=== PATIENT | male | born 1935 | race Caucasian/White ===

== ENCOUNTER 2017-03-28 15:55 | Inpatient (IN) ==
[2017-03-28] MEDS ORDERED: 0.9 % Sodium Chloride 1,000 ML IVC ONE (16:07)
--- NOTE | 2017-03-28 16:08 | Emergency Department Note ---
Disposition Clinical Impression: Ataxia, Gait abnormality, Near syncope, Adenocarcinoma of left lung Disposition: Admitted As Inpatient Condition: Fair Referrals: Fan Clancy DO [Primary Care Provider] - Forms: ED Satisfaction Letter Time of Disposition: 19:12 Weakness HPI - General Chief complaint: ED Weakness Stated complaint: Generalized weakness Time Seen by Provider: 03/28/17 16:06 Source: patient, EMS Mode of arrival: ambulatory Limitations: no limitations Nursing Notes Reviewed: Yes Vital Signs Reviewed: Yes - History of Present Illness HPI Narrative: 81-year-old male history of stroke, presents with generalized weakness states that he is having gait difficulty and had an episode of near-syncope where he was stumbling and fell down to the side was called by his grandson did not hit his head or lose consciousness. This happened after sabianist. The patient was weak and unable to ambulate. Patient felt no weakness bilaterally, he states that he has been feeling worse for last couple of days. He has had some productive cough lately, he denies melena or hematochezia. The patient states she has been having worsening shortness of breath and cough and congestion. Patient states that he is not sure if he lost balance, but he is fallen several times lately he denies any injury to his head. Patient denies chest pain currently denies abdominal pain. Pt Subjective Complaint: generalized weakness/fatigue Migration: none Pain Severity: none Pain Scale: 0 Improves with: none Associated symptoms: Reports: confusion. Denies: dark stools, diaphoresis, easy bruising, loss of appetite - Related Data Home Medications Medication Instructions Recorded Confirmed Finasteride [Proscar] 5 mg PO DAILY 01/28/15 01/19/17 Lisinopril [Zestril] 40 mg PO DAILY 01/28/15 01/19/17 Methotrexate [Otrexup] 15 mg PO QWEEK 01/28/15 01/19/17 Omeprazole [PriLOSEC] 20 mg PO DAILY 01/28/15 01/19/17 Simvastatin [Zocor] 20 mg PO HS 01/28/15 01/19/17 OxyCODONE/APAP 5/325 [Percocet 1 each PO Q8HR PRN 06/10/16 01/19/17 5/325 MG] Warfarin [Coumadin] 5 mg PO DAILY 06/10/16 01/19/17 Furosemide [Lasix] 20 mg PO DAILY 01/19/17 01/19/17 Previous Rx's Medication Instructions Recorded Ascorbic Acid [Vitamin C] 500 mg PO DAILY #30 tablet 01/29/15 Cefdinir [Omnicef] 600 mg PO DAILY #20 capsule 01/27/17 predniSONE [PredniSONE] 40 mg PO DAILY #10 tablet 01/27/17 Allergies Allergy/AdvReac Type Severity Reaction Status Date / Time No Known Allergies Allergy Verified 01/27/17 10:49 All systems ED: reviewed and negative except as stated. Review of Systems: As Per HPI Constitutional: Denies: fever, chills Eyes: Denies: eye pain ENT ED: Denies: ear pain Cardiovascular: Denies: chest pain Respiratory: Reports: as per HPI, cough, dyspnea Gastrointestinal: Denies: abdominal pain, nausea Genitourinary: Denies: urgency Musculoskeletal: Denies: back pain Integumentary: Denies: rash Neurological: Denies: headache, weakness Psychiatric: Denies: anxiety Endocrine: Denies: fatigue Hematological/Lymphatic: Denies: easy bleeding Past Medical History - Past Medical History Attestation: Yes The following information was validated with the patient. Source: patient Medical history: Reports: arthritis, asthma, atrial fibrillation, cancer, CVA, GERD, hyperlipidemia, hypertension, other Surgical history: Reports: cancer surgery, cataract, other Psychiatric history: Reports: no psych history - Social History Smoking Status: Former smoker Smokeless Tobacco Status: No Alcohol use: Reports: none Drug use: Reports: none Physical Exam - General Limitations: no limitations General appearance: alert, in no apparent distress - Head Head exam: atraumatic - Eye Eye exam: Present: normal appearance - ENT ENT exam: normal exam - Neck Neck exam: Present: normal inspection - Chest Chest inspection: Present: normal inspection, symmetric chest wall rise - Respiratory Respiratory exam: Present: normal lung sounds bilaterally - Cardiovascular Cardiovascular exam: Present: regular rate, normal rhythm - Abdominal Exam Abdominal exam: Present: soft, Non-Tender, tenderness - Extremities Exam Extremities exam: Present: normal inspection, full ROM - Neurological Exam Neurological exam: Present: alert, oriented X3, CN II-XII intact - Expanded Neurological Exam Patient oriented to: Present: person, place, time Speech: Present: fluid speech Cerebellar function: finger to nose: Normal Cerebellar function: ataxic gait Motor strength - LUE: 5/5 Motor strength - RUE: 5/5 Motor strength - LLE: 5/5 Motor strength - RLE: 5/5 Sensory exam upper extremity: light touch: Normal Coma Scale Eye Opening: Spontaneous Coma Scale Motor Response: Obeys Commands Coma Scale Verbal Response: Oriented Coma Scale Total: 15 - Psychiatric Psychiatric exam: Present: normal affect Course Course Narrative: 81-year-old male with that appears have some gait ataxia, disequilibrium, his NIH score is 0, he has no focal lateralizing neurologic deficits. Does have a history of CVA therefore we will check CBC BMP CT had chest x-ray urinalysis, he also has a history of lung cancer therefore low threshold for scanning his head. Also patient likely will need to be admitted. - Reevaluation(s) Reevaluation #1: Admitted the patient to Dr.Idzakovich HERRMANN concern for possible early pneumonia, also patient may need an MRI to evaluate for cerebral infarction, unknown last well, patient with gait instability, unable to ambulate and road test, plan for admission MRI PTOT, treated with ceftriaxone and azithromycin, admitted to medicine service. Time: 19:11 Vital Signs Temperature 98.7 F 03/28/17 15:56 Pulse Rate 109 03/28/17 15:56 Respiratory Rate 18 03/28/17 15:56 Blood Pressure 167/134 03/28/17 15:56 O2 Sat by Pulse Oximetry 96 03/28/17 15:56 Temperature 98.7 F 03/28/17 15:56 Pulse Rate 109 03/28/17 15:56 Respiratory Rate 18 03/28/17 15:56 Blood Pressure 167/134 03/28/17 15:56 O2 Sat by Pulse Oximetry 95 03/28/17 16:10 Oxygen Delivery Oxygen Delivery Room Air Weakness - Differential Diagnosis Differential Diagnosis: Likely: acute myocardial infarction, anemia, hypoglycemia, rhabdomyolysis, sepsis/infection, dehydration, medication effect, thyroid/endocrine disorder - Medical Records Medical records reviewed: Yes I reviewed the patient's medical records. - Lab Data Lab results reviewed: Yes I reviewed the patient's lab results. Result diagrams: 03/28/17 18:11 03/28/17 18:11 Lab Results 03/28/17 03/28/17 03/28/17 Range/Units 17:25 18:11 18:11 WBC 11.2 H D (4.3-11.1) K/mcL RBC 3.91 L (4.19-5.50) M/mcL Hgb 11.0 L (12.9-16.9) g/dL Hct 35.6 L (37.5-50.1) % MCV 91.0 (83.0-100.0) fL MCH 28.1 (28.0-33.3) pg MCHC 30.9 L (31.6-35.5) g/dL RDW 15.6 H (11.5-14.5) % Plt Count 239 (140-400) K/mcL MPV 8.6 L (9.4-12.4) fL Immature Gran % 0.5 (0-4) % Seg Neutrophils % 80.6 % Lymphocytes % 5.3 % Monocytes % 12.6 % Eosinophils % 0.8 % Basophils % 0.2 % Neutrophils # 9.0 H (1.6-8.9) K/mcL Lymphocytes # 0.6 (0.6-4.6) K/mcL Monocytes # 1.4 H (0.0-1.3) K/mcL Eosinophils # 0.1 (0.0-0.6) K/mcL Basophils # 0.0 (0.0-0.2) K/mcL Sodium 137 (136-145) mEq/L Potassium 4.0 (3.5-5.1) mEq/L Chloride 105 (98-107) mEq/L Carbon Dioxide 27 (23-29) mEq/L BUN 19 (8-23) mg/dL Creatinine 0.88 (0.70-1.30) mg/dL Est GFR ( Amer) > 60 (> 60) Est GFR (Non-Af Amer) > 60 (> 60) BUN/Creatinine Ratio 22 (6-26) Glucose 125 H (70-105) mg/dL Calculated Osmolality 288 (280-300) Lactic Acid (0.5-2.2) mmol/L Calcium 9.0 (8.6-10.3) mg/dL Phosphorus 2.2 L (2.7-4.5) mg/dL Magnesium 1.9 (1.6-2.6) mg/dL Total Bilirubin 0.6 (0.3-1.0) mg/dL AST 17 (13-39) Units/L ALT 20 (7-52) Units/L Alkaline Phosphatase 42 (34-104) Units/L Serum Total Protein 6.2 L (6.4-8.9) g/dL Albumin 3.8 (3.5-5.7) g/dL Globulin 2.4 (2.4-3.5) g/dL Albumin/Globulin Ratio 1.6 (1.1-2.2) TSH 0.455 (0.340-5.600) mcIU/mL Urine Color Yellow (Yellow) Urine Clarity Clear (Clear) Urine pH 7.0 (5.0-8.0) pH Units Ur Specific [place] 1.018 (1.010-1.025) Urine Protein Trace (Neg-Trace) mg/dL Urine Glucose (UA) Normal (Normal) mg/dL Urine Ketones Negative (Negative) mg/dL Urine Blood Negative (Negative) Urine Nitrite Negative (Negative) Urine Bilirubin Negative (Negative) Urine Urobilinogen Normal (Normal) mg/dL Ur Leukocyte Esterase Negative (Negative) Urine Microscopic RBC 0-3 (0-3) per hpf Urine Microscopic WBC 0-3 (0-3) per hpf Ur Squamous Epith Cells Moderate H (None-Few) per lpf Urine Bacteria None Seen (None-Few) per hpf Hyaline Casts None Seen (None-Few) per lpf Ur Culture Indicated? NO (NO) 03/28/17 Range/Units 18:11 WBC (4.3-11.1) K/mcL RBC (4.19-5.50) M/mcL Hgb (12.9-16.9) g/dL Hct (37.5-50.1) % MCV (83.0-100.0) fL MCH (28.0-33.3) pg MCHC (31.6-35.5) g/dL RDW (11.5-14.5) % Plt Count (140-400) K/mcL MPV (9.4-12.4) fL Immature Gran % (0-4) % Seg Neutrophils % % Lymphocytes % % Monocytes % % Eosinophils % % Basophils % % Neutrophils # (1.6-8.9) K/mcL Lymphocytes # (0.6-4.6) K/mcL Monocytes # (0.0-1.3) K/mcL Eosinophils # (0.0-0.6) K/mcL Basophils # (0.0-0.2) K/mcL Sodium (136-145) mEq/L Potassium (3.5-5.1) mEq/L Chloride (98-107) mEq/L Carbon Dioxide (23-29) mEq/L BUN (8-23) mg/dL Creatinine (0.70-1.30) mg/dL Est GFR ( Amer) (> 60) Est GFR (Non-Af Amer) (> 60) BUN/Creatinine Ratio (6-26) Glucose (70-105) mg/dL Calculated Osmolality (280-300) Lactic Acid 1.2 (0.5-2.2) mmol/L Calcium (8.6-10.3) mg/dL Phosphorus (2.7-4.5) mg/dL Magnesium (1.6-2.6) mg/dL Total Bilirubin (0.3-1.0) mg/dL AST (13-39) Units/L ALT (7-52) Units/L Alkaline Phosphatase (34-104) Units/L Serum Total Protein (6.4-8.9) g/dL Albumin (3.5-5.7) g/dL Globulin (2.4-3.5) g/dL Albumin/Globulin Ratio (1.1-2.2) TSH (0.340-5.600) mcIU/mL Urine Color (Yellow) Urine Clarity (Clear) Urine pH (5.0-8.0) pH Units Ur Specific [place] (1.010-1.025) Urine Protein (Neg-Trace) mg/dL Urine Glucose (UA) (Normal) mg/dL Urine Ketones (Negative) mg/dL Urine Blood (Negative) Urine Nitrite (Negative) Urine Bilirubin (Negative) Urine Urobilinogen (Normal) mg/dL Ur Leukocyte Esterase (Negative) Urine Microscopic RBC (0-3) per hpf Urine Microscopic WBC (0-3) per hpf Ur Squamous Epith Cells (None-Few) per lpf Urine Bacteria (None-Few) per hpf Hyaline Casts (None-Few) per lpf Ur Culture Indicated? (NO) - Radiology Data Radiology results reviewed: Yes I reviewed the patient's radiology results. Chest X-Ray 03/28/17 16:07 IMPRESSION: 1. Airspace opacities in the mid to basilar left lower lobe, potentially neoplasia, pneumonia, and/or atelectasis. 2. Apparent increase in trace to small left pleural effusion. 3. Pulmonary vascular congestion and mild cardiomegaly. D/ / Felix Miguel MD / Felix Miguel MD Interpreting Provider: Felix Miguel MD Head CT 03/28/17 16:07 IMPRESSION: 1. No acute intracranial abnormality. 2. Multiple foci of encephalomalacia within the left cerebral hemisphere, most compatible with a previous chronic infarct. 3. Chronic lacunar infarcts bilaterally. Chronic small vessel ischemic white matter disease. 4. Paranasal sinus disease as detailed above. D/ / 03/28/2017 17:10:56 Aron Camacho MD / earnold Interpreting Provider: Aron Camacho MD - EKG Data EKG attestation: Yes I reviewed and interpreted this EKG. EKG shows normal: sinus rhythm (35 bpm DE 187 QRS [address] segment elevations or depressions.) [place]/QRS: normal
--- NOTE | 2017-03-28 16:50 | Emergency Department Note ---
START Narrative - START START: I examined this patient and my medical decision-making was reviewed with the emergency medicine resident. I agree with the documented findings, disposition and treatment plan as described except to the extent set forth below. Patient seen with emergency medicine resident Dr. DARWIN STUBBS, Please see a copy of his note for details of the H&P, ED evaluation, management and disposition. I have independently evaluated the patient and confirmed appropriate portions of the history and physical exam. Briefly: A 81-year-old male by EMS for unable to stand because he still weak. History of known lung carcinoma treated with radiation therapy and a partial pneumonectomy as for the past month increasing shortness of breath orthopnea worse over the past several days here for further evaluation. Normally is able to use a walker at home and getting around however today weak even stand up. Patient has an appointment tomorrow with his oncologist and his radiation oncologist. Patient's EKG showed sinus rhythm with no acute ischemic changes patient with a chest x-ray screening labs IV fluids and analgesics. Admission anticipated. Disposition pending
[2017-03-28 17:38] LABS: Bilirubin,Urine Negative (Negative); Blood,Urine Negative (Negative); Clarity,Urine Clear (Clear); Color,Urine Yellow (Yellow); Glucose,Urine (UA) Normal (Normal); Ketones,Urine Negative (Negative); Leukocyte Esterase,Urine Negative (Negative); Nitrite,Urine Negative (Negative); Protein,Urine Trace mg/dL (Neg-Trace); Specific Gravity,Urine 1.018 (1.010-1.025); Urobilinogen,Urine Normal (Normal)
[2017-03-28 17:40] LABS: Bacteria,Urine None Seen per hpf (None-Few); Hyaline Casts,Urine None Seen per lpf (None-Few); RBC,Urine 0-3 per hpf (0-3); Squamous Epithelial Cell,Urine Moderate per lpf (None-Few); WBC,Urine 0-3 per hpf (0-3)
[2017-03-28] MEDS ORDERED: *HR* Warfarin 2.5 MG TABLET PO ONE (18:00)
[2017-03-28 18:20] LABS: Basophils % 0.2 %; Eosinophils # 0.1 K/mcL (0.0-0.6); Eosinophils % 0.8 %; Hematocrit 35.6 % (37.5-50.1); Immature Granulocytes % 0.5 % (0-4); Lymphocytes # 0.6 K/mcL (0.6-4.6); Lymphocytes % 5.3 %; Mean Corpuscular HGB Conc 30.9 g/dL (31.6-35.5); Mean Corpuscular Hemoglobin 28.1 pg (28.0-33.3); Mean Platelet Volume 8.6 fL (9.4-12.4); Monocytes # 1.4 K/mcL (0.0-1.3); Monocytes % 12.6 %; Platelet Count 239 K/mcL (140-400); Red Blood Count 3.91 M/mcL (4.19-5.50); Red Cell Distribution Width 15.6 % (11.5-14.5); Segmented Neutrophils % 80.6 %
[2017-03-28 18:38] LABS: Alanine Aminotransferase 20 Units/L (7-52); Albumin 3.8 g/dL (3.5-5.7); Albumin/Globulin Ratio 1.6 (1.1-2.2); Alkaline Phosphatase 42 Units/L (34-104); Aspartate Amino Transferase 17 Units/L (13-39); BUN/Creatinine Ratio 22 (6-26); Bilirubin,Total 0.6 mg/dL (0.3-1.0); Blood Urea Nitrogen 19 mg/dL (8-23); Carbon Dioxide 27 mEq/L (23-29); Chloride 105 mEq/L (98-107); Globulin 2.4 g/dL (2.4-3.5); Glucose 125 mg/dL (70-105); Magnesium 1.9 mg/dL (1.6-2.6); Osmolality,Calculated 288 (280-300); Phosphorous 2.2 mg/dL (2.7-4.5); Sodium 137 mEq/L (136-145); Total Protein 6.2 g/dL (6.4-8.9); eGFR For African Americans > 60 (> 60); eGFR For Non-African Americans > 60 (> 60)
[2017-03-28] MEDS ORDERED: Azithromycin 500 MG in D5% in Water 250 ML IVPB ONE (18:46)
[2017-03-28 18:57] LABS: Thyroid Stimulating Hormone 0.455 mcIU/mL (0.340-5.600)
[2017-03-28] MEDS ORDERED: cefTRIAXone 1,000 MG in Water for inj. (sterile) 20 ML 10 ML IVP ONE (20:00)
[2017-03-28] MEDS ORDERED: Acetaminophen 325 MG TABLET PO PRN (20:52)
[2017-03-28] MEDS ORDERED: Naloxone 0.4 MG/ML INJ IVP PRN (20:52)
[2017-03-28] MEDS ORDERED: Ipratropium/Albuterol Neb 3 ML IH PRN (20:56)
[2017-03-28 21:06] LABS: INR 2.7; Prothrombin Time 29.3 Seconds (9.4-12.1)
--- NOTE | 2017-03-28 21:06 | Internal Med History&Physical ---
Date of Encounter: 03/28/17 Time of Encounter: 19:00 Assessment and Plan (1) CAP (community acquired pneumonia) Current visit: Yes Status: Acute Pt has fever, cough, generalized weakness, CXR shows LLL PNA, consider CAP - Cont abx with azithromycin and rocephin - O2 supportive, Robitussin and duoneb PRN - Closely monitor pt. Qualifiers: Laterality: left Lung location: lower lobe of lung Qualified Code(s): J18.1 - Lobar pneumonia, unspecified organism (2) CHF (congestive heart failure) Current visit: Yes Status: Acute CXR shows CHF. No signs of significant exacerbation. Will cont cardiac diet and lasix, switch lasix to iv during hospitalization.. Qualifiers: Heart failure type: diastolic Heart failure chronicity: chronic Qualified Code(s): I50.32 - Chronic diastolic (congestive) heart failure (3) DVT prophylaxis Current visit: Yes Status: Acute Pt is on coumadin (4) Adenocarcinoma of left lung Current visit: Yes Status: Acute S/P surgery, cont f/u with oncology as outpatient. (5) Afib Current visit: No Status: Chronic NSR now. Cont BB, cont coumadin for AC. Qualifiers: Atrial fibrillation type: paroxysmal Qualified Code(s): I48.0 - Paroxysmal atrial fibrillation Internal Medicine - H&P: HPI Chief complaint: weakness Admitted From: Home Plans for Post Hospital Care: Home History of present illness: Mr. Biswas is a 81 year old male with Hx of lung cancer s/p surgery and radiation, PAF on coumadin, CHF, present to ER for weakness. Pt feels generalized weak today. C/O cough with yellowish sputum. Has low fever with T over 100F. Pt denies specific one side weakness. He had neuropathy and chronic left leg weakness which is not new. Pt denies slurred speech, facial drop, urinary or fecal incontinence. Pt denies SOB, chest pain, nausea, or runny nose. In ER, he was found LLL pneumonia. Pt was admitted for CAP. Past Med Surg Social Fam HX - Past Medical History Medical history: arthritis, asthma, atrial fibrillation, cancer, CVA, GERD, hyperlipidemia, hypertension, other Psychiatric history: no psych history - Past Surgical History Surgical History: cancer surgery, cataract, other - Social History Smoking Status: Former smoker Smokeless Tobacco Status: No Alcohol use: none Drug use: none - Family History Mother Living Status: Internal Medicine - H&P: Meds Finasteride [Proscar] 5 mg PO DAILY 01/28/15 [History] Lisinopril [Zestril] 40 mg PO DAILY 01/28/15 [History] Methotrexate [Otrexup] 15 mg PO QWEEK 01/28/15 [History] Omeprazole [PriLOSEC] 20 mg PO DAILY 01/28/15 [History] Simvastatin [Zocor] 20 mg PO HS 01/28/15 [History] Ascorbic Acid [Vitamin C] 500 mg PO DAILY #30 tablet 01/29/15 [Rx] OxyCODONE/APAP 5/325 [Percocet 5/325 MG] 1 each PO Q8HR PRN 06/10/16 [History] Warfarin [Coumadin] 5 mg PO DAILY 06/10/16 [History] Furosemide [Lasix] 20 mg PO DAILY 01/19/17 [History] Cefdinir [Omnicef] 600 mg PO DAILY #20 capsule 01/27/17 [Rx] predniSONE [PredniSONE] 40 mg PO DAILY #10 tablet 01/27/17 [Rx] 3 Allergy/AdvReac Type Severity Reaction Status Date / Time No Known Allergies Allergy Verified 01/27/17 10:49 All Systems PM: A 10-system review of systems was performed and is negative for pertinent findings except as documented above in the HPI. - Constitutional Vitals: Temp Pulse Resp BP Pulse Ox 98.6 F 88 18 133/73 95 03/28/17 19:30 03/28/17 19:30 03/28/17 19:30 03/28/17 19:30 03/28/17 19:30 General appearance: Present: A&O X 3, no acute distress, answers questions appropriately - Head Head exam: Present: atraumatic, normocephalic - Eye Eye exam: Present: PERRL, conjuntiva pink, sclera anicteric Pupils: Present: PERRL - Neck Neck exam general surgery: Present: supple, trachea midline. Absent: lymphadenopathy - Respiratory Respiratory exam: Present: CTAB, wheezes (trace wheezes on left lung). Absent: accessory muscle use, rales, rhonchi - Cardiovascular Cardiovascular exam: Present: RRR, +S1, +S2. Absent: diastolic murmur, gallop, rubs, systolic murmur - GI/Abdominal GI/Abdominal exam: Present: normal bowel sounds, soft, no peritoneal signs. Absent: distended, tenderness - Extremities Exam Extremities exam: Present: pedal edema (mild pedal edema b/l, Left > Right), warm, radial pulses palpable and symmetrical. Absent: calf tenderness, cyanotic - Neurological Exam Neurological exam: Present: CN II-XII intact, oriented X3, no focal deficits. Absent: pronater drift, facial droop, speech deficit - Skin Skin exam: Present: dry, intact Internal Med - H&P Results - Labs CBC & Chem 7: 03/28/17 18:11 03/28/17 18:11 - EKG Data -: EKG Interpreted by Myself EKG shows normal: sinus rhythm Rate: normal
[2017-03-29 07:00] LABS: Basophils % 0.2 %; Eosinophils # 0.2 K/mcL (0.0-0.6); Eosinophils % 2.4 %; Hematocrit 34.6 % (37.5-50.1); Hemoglobin 10.6 g/dL (12.9-16.9); Immature Granulocytes % 0.7 % (0-4); Lymphocytes # 0.6 K/mcL (0.6-4.6); Lymphocytes % 6.3 %; Mean Corpuscular HGB Conc 30.6 g/dL (31.6-35.5); Mean Corpuscular Hemoglobin 28.3 pg (28.0-33.3); Mean Corpuscular Volume 92.3 fL (83.0-100.0); Mean Platelet Volume 8.9 fL (9.4-12.4); Monocytes # 1.6 K/mcL (0.0-1.3); Monocytes % 17.1 %; Neutrophils # 6.6 K/mcL (1.6-8.9); Nucleated Red Blood Cells 0.3 /100 WBC (0); Platelet Count 238 K/mcL (140-400); Red Blood Count 3.75 M/mcL (4.19-5.50); Red Cell Distribution Width 15.7 % (11.5-14.5); Segmented Neutrophils % 73.3 %
[2017-03-29 07:07] LABS: INR 2.2
[2017-03-29 07:18] LABS: BUN/Creatinine Ratio 20 (6-26); Blood Urea Nitrogen 17 mg/dL (8-23); Carbon Dioxide 28 mEq/L (23-29); Chloride 108 mEq/L (98-107); Glucose 119 mg/dL (70-105); Magnesium 1.9 mg/dL (1.6-2.6); Osmolality,Calculated 295 (280-300); Potassium 4.2 mEq/L (3.5-5.1); Sodium 141 mEq/L (136-145); eGFR For African Americans > 60 (> 60); eGFR For Non-African Americans > 60 (> 60)
[2017-03-29] MEDS ORDERED: Furosemide 20 MG TABLET PO SCH (09:00)
[2017-03-29] MEDS: Furosemide 20 MG/2 ML VIAL IVP SCH (09:04)
[2017-03-29] MEDS: cefTRIAXone 1,000 MG in Water for inj. (sterile) 20 ML 10 ML IVP SCH (09:05)
[2017-03-29] MEDS: Azithromycin 500 MG in D5% in Water 250 ML IVPB SCH (09:07)
--- NOTE | 2017-03-29 13:26 | Oncology Inp Consult Note ---
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 Following that adjuvant chemotherapy with cisplatin and Alimta to cycles and stopped due to toxicity and atrial fibrillation Recurrence in the left lower lobe and largest 3.8 cm was treated with SBRT 08/2016 Currently increase in subcentimeter nodule left lower lobe largest was 1 cm. We will discuss this further at thoracic tumor Board. These are still small. If necessary may consider further treatment. Immunotherapy is always an option but may exacerbate rheumatoid arthritis Rheumatoid arthritis on methotrexate since 2014 Currently admitted with left lung pneumonia. Getting Rocephin and Zithromax - Data of Consult Patient: known to practice within the last 3 years Requesting Physician: María Mays MD Primary Care Provider: Marycruz Freire - Consult Narrative Reason for consult: Recurrent lung adenocarcinoma History of present illness: Mr. Biswas is a 81 year old male admitted with pneumonia or findings. The cough and shortness of breath and yellow sputum. chest x-ray showed on 03/28/2017 haziness left lung could be pneumonia with some vascular prominence but mostly on the left side He is getting Rocephin and Zithromax Chief complaint: Moderately differentiated adenocarcinoma left upper lobe Oncological history The bilateral lower stability weakness left more than right. MRI brain October 2015 showed mild spinal canal stenosis and degenerative disc disease with mild disc protrusion radiation was evaluated by Dr. Snigh and had back injections without much benefit. He is also evaluated by Dr. 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 MRI lumbar spine with and without contrast June 2016 showed L4-L5 disc prolapse with nerve root compression. He is using walker with wheels for ambulation. No upper extremity weakness and coordination normal He was evaluated again by Dr. Wilder on 11/19/2016. Surgical referral discussed but patient denied. The impression was lumbar radiculopathy with weakness and left hamstring consistent with the MRI lumbar spine and EMG on February 2016. His physical exam showed the weakness remain the same from before Oncological history Lung adenocarcinoma postsurgical resection on 05-24-13. 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 Dense consolidation in the left upper lobe of the lung size 8.5 x 3.9 cm by CAT scan in April 2013, followed by PET scan 04/26/2013 which showed the mass size to be 6.2 x 4.2, SUV of 4, slightly greater in the mediastinum. There was no mediastinal lymphadenopathy. No other metastasis. Moderate FDG uptake in the central prostate which was nonspecific, SUV 10.8. He also has a sliding hiatal hernia. CT-guided biopsy 05/15/2013 showed grade 2 pulmonary adenocarcinoma, minimal CK7 , negative for CK 20. TT of 1, strongly positive and Napsin A negative. Next generation sequencing showed KRAS mutation. Otherwise negative. Dr. Duran did left upper lobectomy on 05-24-13. Biopsy of left lower lobe negative. Pleural fluid cytology negative. 7 lymph nodes including left pulmonary ligament lymph node negative. Adjuvant chemotherapy cisplatin and Alimta 2 cycles. Stopped prematurely due to cardiac problems and atrial fibrillation. Recurrence of adenocarcinoma CT chest on 06/09/2016 showed increase in the left lower lobe lung nodule to 3.[address]-guided biopsy confirmed adenocarcinoma 06/17/2016 indicating similar process to her previous cancer His FEV1 is slow around 1.6 L. He was evaluated by Dr. Tc Duran and not a candidate for left pneumonectomy Completed SB RT 5000 cGy on 08/14/2016 CT chest 10/08/2016 showed improvement in the treated nodule. Few other nodule in the left lung are stable the largest was about 1.5 cm. We will continue to watch it. If he has further progression would consider SBRT and/or immune checkpoint inhibitors Further scans CT chest 03/10/2017 showed enlargement of treated left lower lobe nodule most likely radiation-induced. Few of the other subcentimeter lung nodules shown more prominence currently 9 mm. Left lower lobe radiation-induced fibrosis Past Med Surg Social Fam HX - Past Medical History Medical history: arthritis, asthma, atrial fibrillation, cancer, CVA, GERD, hyperlipidemia, hypertension, other Psychiatric history: no psych history - Past Surgical History Surgical History: cancer surgery, cataract, other - Social History Smoking Status: Former smoker Smokeless Tobacco Status: No Alcohol use: none Drug use: none - Family History Mother Living Status: Medications and Allergies Finasteride [Proscar] 5 mg PO DAILY 01/28/15 [History] Lisinopril [Zestril] 40 mg PO DAILY 01/28/15 [History] Methotrexate [Otrexup] 17.5 mg PO QWEEK 01/28/15 [History] Omeprazole [PriLOSEC] 20 mg PO DAILY 01/28/15 [History] Simvastatin [Zocor] 20 mg PO HS 01/28/15 [History] Ascorbic Acid [Vitamin C] 500 mg PO DAILY #30 tablet 01/29/15 [Rx] OxyCODONE/APAP 5/325 [Percocet 5/325 MG] 1 each PO Q8HR PRN 06/10/16 [History] Warfarin [Coumadin] 5 mg PO SUTUTHFR 06/10/16 [History] Furosemide [Lasix] 20 mg PO DAILY 01/19/17 [History] predniSONE [PredniSONE] 40 mg PO DAILY #10 tablet 01/27/17 [Rx] Diltiazem [Cardizem] 30 mg PO Q8HR 03/29/17 [History] Warfarin [Coumadin] 2.5 mg PO MOWESA 03/29/17 [History] 3 Allergy/AdvReac Type Severity Reaction Status Date / Time No Known Allergies Allergy Verified 01/27/17 10:49 Review of systems: Increased SOB. Fatigue. Slowly improving Oncology - Exam - Constitutional Vitals: Temp Pulse Resp BP Pulse Ox 98.5 F 95 14 129/68 95 03/29/17 10:47 03/29/17 10:47 03/29/17 10:47 03/29/17 10:47 03/29/17 10:47 Exam: GENERAL: Alert and oriented, well appearing. Mental Status: Affect appropriate for circumstances HEENT: Sclerae anicteric. No mucositis or thrush. No other oral or pharyngeal lesions or erythema. Skin: No rashes or petechiae. No evidence of skin malignancy Lymph nodes: No cervical, supraclavicular, axillary, or inguinal adenopathy. Lungs: Air entry decreased left base. Mild crackles Cardiovascular: Regular rate and rhythm. No skipped beats Abdomen: Soft, nontender; no organomegaly or masses palpable. Extremities: No edema. No calf swelling or tenderness. No joint deformity. Neurologic: Alert, cranial nerves II-XII intact; normal gait; no focal weakness or sensory abnormalities Oncology - Results Labs: Short CBC 03/29/17 Range/Units 05:48 WBC 9.0 (4.3-11.1) K/mcL Hgb 10.6 L (12.9-16.9) g/dL Hct 34.6 L (37.5-50.1) % Plt Count 238 (140-400) K/mcL Neutrophils # 6.6 (1.6-8.9) K/mcL BMP 03/29/17 05:48 Sodium 141 Potassium 4.2 Chloride 108 H Carbon Dioxide 28 BUN 17 Creatinine 0.85 Glucose 119 H Calcium 9.0 Consult Discharge Plan - Plan Referrals: Fan Clancy DO [Primary Care Provider] -
--- NOTE | 2017-03-29 15:09 | Internal Med Progress Note ---
Date of Encounter: 03/29/17 Time of Encounter: 15:07 - Assessment and plan (1) CAP (community acquired pneumonia) Current Visit: Yes Status: Acute Assessment and plan: - Cont abx with azithromycin and rocephin Qualifiers: Laterality: left Lung location: lower lobe of lung Qualified Code(s): J18.1 - Lobar pneumonia, unspecified organism (2) CHF (congestive heart failure) Current Visit: Yes Status: Acute Assessment and plan: Continue IV Lasix Qualifiers: Heart failure type: diastolic Heart failure chronicity: chronic Qualified Code(s): I50.32 - Chronic diastolic (congestive) heart failure (3) Afib Current Visit: No Status: Chronic Assessment and plan: Heart rate is well controlled continue Coumadin Qualifiers: Atrial fibrillation type: paroxysmal Qualified Code(s): I48.0 - Paroxysmal atrial fibrillation (4) Adenocarcinoma of left lung Current Visit: Yes Status: Acute Assessment and plan: 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 Had surgical resection in 05/24/2013. s/p chemo and radiation Recurrence in the left lower lobe and largest 3.8 cm was treated with SBRT 08/2016 he missed appointment with Dr Chicas, will consult his oncology today Rheumatoid arthritis on methotrexate since 2014, hold for active infection (5) Hypertension Current Visit: No Status: Acute Assessment and plan: Blood pressure is well controlled to continue lisinopril Qualifiers: Hypertension type: essential hypertension Qualified Code(s): I10 - Essential (primary) hypertension - Time Spent With Patient 25 - 35 minutes - Subjective Interval history: Mr. Biswas is a 81 year old male with Hx of lung cancer s/p surgery and radiation, PAF on coumadin, CHF, present to ER for weakness. Pt feels generalized weak today. C/O cough with yellowish sputum. Has low fever with T over 100F. Pt denies specific one side weakness. He had neuropathy and chronic left leg weakness which is not new. Pt denies slurred speech, facial drop, urinary or fecal incontinence. Pt denies SOB, chest pain, nausea, or runny nose. In ER, he was found LLL pneumonia. Pt was admitted for CAP. Patient was admitted for pneumonia, he said he missed her oncology appointment today. want me to consult his oncologist Dr. Chicas. Patient is doing okay, he reported he had history of lung cancer diagnosis in 2013 status resection and chemoradiation. He was not on home O2. - Constitutional Vitals: Temp Pulse Resp BP Pulse Ox 98.9 F 95 18 111/64 95 03/29/17 14:38 03/29/17 14:38 03/29/17 14:38 03/29/17 14:38 03/29/17 14:38 General appearance: Present: A&O X 3, no acute distress, answers questions appropriately Exam: CONSTITUTIONAL: patient appears as an age appropriate male in no acute distress. EYES Clear sclerae, bilateral pupils are equal, reactive to light. EMOI. RESPIRATORY: No accessory muscle use, bilateral reduced breath sounds to auscultation, no wheezing, no crackles/rales. CARDIOVASCULAR: Regular heart rate, normal S1 and S2, no murmurs GASTROINTESTINAL: bowel sounds present, soft, no tenderness. MUSCULOSKELETAL: Joints in normal range of motion, no clubbing, no edema, no cyanosis. Bilateral peripheral pulses 2+. NEUROLOGIC: CN II to XII are grossly intact, no focal neurological deficit. Internal Medicine: Result - Labs CBC & Chem 7: 03/29/17 05:48 03/29/17 05:48 Labs: Short CBC 03/29/17 Range/Units 05:48 WBC 9.0 (4.3-11.1) K/mcL Hgb 10.6 L (12.9-16.9) g/dL Hct 34.6 L (37.5-50.1) % Plt Count 238 (140-400) K/mcL Neutrophils # 6.6 (1.6-8.9) K/mcL BMP 03/29/17 05:48 Sodium 141 Potassium 4.2 Chloride 108 H Carbon Dioxide 28 BUN 17 Creatinine 0.85 Glucose 119 H Calcium 9.0 - ABG Interpretation ABG results: PT/INR, D-dimer PT 24.0 Seconds (9.4-12.1) H 03/29/17 05:48 Consult Discharge Plan - Plan Referrals: Fan Clancy DO [Primary Care Provider] -
[2017-03-29] MEDS ORDERED: Warfarin perPT PO PRN (18:00)
[2017-03-29] MEDS ORDERED: *HR* Warfarin 2.5 MG TABLET PO ONE (18:00)
[2017-03-29] MEDS ORDERED: *HR* Warfarin 1 MG TABLET PO ONE (18:00)
[2017-03-30 06:01] LABS: INR 1.5; Prothrombin Time 16.3 Seconds (9.4-12.1)
[2017-03-30] MEDS: Finasteride 5 MG TABLET PO SCH (08:27)
[2017-03-30] MEDS: Furosemide 20 MG/2 ML VIAL IVP SCH (08:27)
[2017-03-30] MEDS: cefTRIAXone 1,000 MG in Water for inj. (sterile) 20 ML 10 ML IVP SCH (08:28)
[2017-03-30] MEDS: Lisinopril 20 MG TABLET PO SCH (08:28)
[2017-03-30] MEDS: Azithromycin 500 MG in D5% in Water 250 ML IVPB SCH (08:28)
--- NOTE | 2017-03-30 15:53 | Internal Med Progress Note ---
Date of Encounter: 03/30/17 Time of Encounter: 08:50 - Assessment and plan (1) CAP (community acquired pneumonia) Current Visit: Yes Status: Acute Assessment and plan: Chest x-ray showed infiltrates in left lower lobe. Underlying immunosuppression due to lung cancer, on methotrexate for rheumatoid arthritis. Continue IV Rocephin and azithromycin-day 3. Continue supportive care, supplemental oxygen. Blood cultures remain negative. Rapid influenza testing negative. Qualifiers: Laterality: left Lung location: lower lobe of lung Qualified Code(s): J18.1 - Lobar pneumonia, unspecified organism (2) Adenocarcinoma of left lung Current Visit: Yes Status: Acute Assessment and plan: Patient has history of left lung adenocarcinoma status post surgical resection and adjuvant chemotherapy. Recurrence in left lower lobe, was treated with radiation in 2017. Oncology consult appreciated, recommend to continue outpatient follow-up. (3) Rheumatoid arthritis Current Visit: Yes Status: Chronic Assessment and plan: Hold methotrexate for now for active infection. Supportive care. Qualifiers: Rheumatoid arthritis location: unspecified site Rheumatoid factor presence : unspecified presence Qualified Code(s): M06.9 - Rheumatoid arthritis, unspecified (4) CHF (congestive heart failure) Current Visit: Yes Status: Chronic Assessment and plan: Echocardiogram in September 2016 showed preserved ejection fraction, mild diastolic dysfunction of left ventricle, mild to moderate pulmonary regurgitation. Chest x-ray during current admission showed cardiomegaly, mild pulmonary vascular congestion. Has been on IV Lasix, will change back to home dose of oral Lasix. Noted to have at least 1600 mL net negative fluid balance. Continue CAS inhibitor and statin. 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 Physical and occupation therapy evaluation. Fall precautions. (6) Hypertension Current Visit: Yes Status: Chronic Qualifiers: Hypertension type: essential hypertension Qualified Code(s): I10 - Essential (primary) hypertension (7) Afib Current Visit: Yes Status: Chronic Assessment and plan: Continue telemetry monitoring. Currently rate controlled. Continue calcium channel eliana and long-term anticoagulation with Coumadin. INR today 1.5. Qualifiers: Atrial fibrillation type: paroxysmal Qualified Code(s): I48.0 - Paroxysmal atrial fibrillation - Subjective Interval history: Reports feeling well. Improving cough and shortness of breath. No fever, chills, nausea, vomiting. - Constitutional Vitals: Temp Pulse Resp BP Pulse Ox 97.6 F 101 15 122/72 93 03/30/17 11:04 03/30/17 11:04 03/30/17 11:04 03/30/17 11:04 03/30/17 11:04 General appearance: Present: A&O X 3 (Mild hearing loss), no acute distress, answers questions appropriately - Respiratory Respiratory exam: Present: CTAB. Absent: accessory muscle use, rales, rhonchi, wheezes - Cardiovascular Cardiovascular exam: Present: irregular rhythm, +S1, +S2. Absent: diastolic murmur, gallop, rubs, systolic murmur - GI/Abdominal GI/Abdominal exam: Present: normal bowel sounds, soft, no peritoneal signs. Absent: distended, tenderness - Extremities Exam Extremities exam: Present: full ROM, warm, radial pulses palpable and symmetrical. Absent: calf tenderness, cyanotic, pedal edema - Neurological Exam Neurological exam: Present: CN II-XII intact, oriented X3, no focal deficits. Absent: pronater drift, facial droop, speech deficit Internal Medicine: Result - Labs CBC & Chem 7: 03/29/17 05:48 03/29/17 05:48 - ABG Interpretation ABG results: PT/INR, D-dimer PT 16.3 Seconds (9.4-12.1) H 03/30/17 05:37 Consult Discharge Plan - Plan Referrals: Fan Clancy DO [Primary Care Provider] -
[2017-03-30] MEDS ORDERED: *HR* Warfarin 5 MG TABLET PO ONE (18:00)
[2017-03-31 06:25] LABS: INR 1.4; Prothrombin Time 15.5 Seconds (9.4-12.1)
[2017-03-31] MEDS ORDERED: Furosemide 20 MG TABLET PO SCH (09:00)
[2017-03-31] MEDS: Finasteride 5 MG TABLET PO SCH (09:39)
[2017-03-31] MEDS: Lisinopril 20 MG TABLET PO SCH (09:39)
[2017-03-31] MEDS: cefTRIAXone 1,000 MG in Water for inj. (sterile) 20 ML 10 ML IVP SCH (09:42)
[2017-03-31] MEDS: Azithromycin 500 MG in D5% in Water 250 ML IVPB SCH (09:43)
[2017-03-31 10:39] VITALS: BP 122/65
--- NOTE | 2017-03-31 12:24 | Discharge Summary ---
Orders not resulted at time of discharge: Pending orders 03/28/17 21:09 Culture,Sputum with Gram Stain [RM] Stat 04/01/17 04:00 PT/INR [Prothrombin Time INR] [COAG] AM 0400 04/02/17 04:00 PT/INR [Prothrombin Time INR] [COAG] AM 0400 04/03/17 04:00 PT/INR [Prothrombin Time INR] [COAG] AM 0400 04/04/17 04:00 PT/INR [Prothrombin Time INR] [COAG] AM 0400 04/05/17 04:00 PT/INR [Prothrombin Time INR] [COAG] AM 0400 Date of Encounter: 03/31/17 Time of Encounter: 10:15 - Discharge Diagnosis (1) CAP (community acquired pneumonia) Priority: Primary Status: Acute Qualifiers: Laterality: left Lung location: lower lobe of lung Qualified Code(s): J18.1 - Lobar pneumonia, unspecified organism (2) Adenocarcinoma of left lung Priority: Secondary Status: Chronic (3) Rheumatoid arthritis Priority: Secondary Status: Chronic Qualifiers: Rheumatoid arthritis location: unspecified site Rheumatoid factor presence : unspecified presence Qualified Code(s): M06.9 - Rheumatoid arthritis, unspecified (4) CHF (congestive heart failure) Priority: Secondary Status: Chronic Qualifiers: Heart failure type: diastolic Heart failure chronicity: chronic Qualified Code(s): I50.32 - Chronic diastolic (congestive) heart failure (5) Gait abnormality Priority: Secondary Status: Chronic (6) Hypertension Priority: Secondary Status: Chronic Qualifiers: Hypertension type: essential hypertension Qualified Code(s): I10 - Essential (primary) hypertension (7) Afib Priority: Secondary Status: Chronic Qualifiers: Atrial fibrillation type: paroxysmal Qualified Code(s): I48.0 - Paroxysmal atrial fibrillation Hospital course: Mr. Biswas is a 81 year old male with the above medical problems was admitted with cough and shortness of breath. Chest x-ray showed left-sided pneumonia and he was started on IV antibiotics- Rocephin and azithromycin, IV hydration, supplemental oxygen. Rapid influenza testing and blood cultures were negative. He improved clinically, no longer required supplemental oxygen. He was evaluated by oncology due to history of left lung adenocarcinoma, recommended to follow-up as outpatient. He was seen by physical and occupational therapy, stable for discharge home. He is being discharged on oral Levaquin. Discharge discussed with: patient - Time Spent with Patient Total time spent providing and/or coordinating discharge services: Greater than 30 minutes (45 min) - Discharge Medications Prescriptions: Levofloxacin [Levaquin] 750 mg PO DAILY #6 tablet Home Medications: Finasteride [Proscar] 5 mg PO DAILY 01/28/15 [History] Lisinopril [Zestril] 40 mg PO DAILY 01/28/15 [History] Methotrexate [Otrexup] 17.5 mg PO QWEEK 01/28/15 [History] Omeprazole [PriLOSEC] 20 mg PO DAILY 01/28/15 [History] Simvastatin [Zocor] 20 mg PO HS 01/28/15 [History] Ascorbic Acid [Vitamin C] 500 mg PO DAILY #30 tablet 01/29/15 [Rx] OxyCODONE/APAP 5/325 [Percocet 5/325 MG] 1 each PO Q8HR PRN 06/10/16 [History] Warfarin [Coumadin] 5 mg PO SUTUTHFR 06/10/16 [History] Furosemide [Lasix] 20 mg PO DAILY 01/19/17 [History] predniSONE [PredniSONE] 40 mg PO DAILY #10 tablet 01/27/17 [Rx] Diltiazem [Cardizem] 30 mg PO Q8HR 03/29/17 [History] Warfarin [Coumadin] 2.5 mg PO MOWESA 03/29/17 [History] Levofloxacin [Levaquin] 750 mg PO DAILY #6 tablet 03/31/17 [Rx] Allergies/Adverse Reactions: 3 Allergy/AdvReac Type Severity Reaction Status Date / Time No Known Allergies Allergy Verified 01/27/17 10:49 Date of admission: 03/28/17 20:52 Primary care physician: Marycruz Freire Consults: 03/29/17 11:35 Consult to Oncology [CONS] Routine Consulting Provider: [facility] Reason for Consult: lung cancer, missed Appointment today, dr Chicas Time Notified: 11:38 Call Completed: Yes 03/29/17 11:45 Consult to Occupational Therapy [CONS] Routine Comment: Evaluate, develop and implement POC Reason for Consult: weakness 03/29/17 11:46 Consult to Physical Therapy [CONS] Routine Comment: Evaluate, develop and implement POC Reason for Consult: weakness Discharging clinician: Ida Lopez Anticipated date of discharge: 03/31/17 - Constitutional Vitals: Temp Pulse Resp BP Pulse Ox 98.6 F 97 15 122/65 93 03/31/17 10:38 03/31/17 10:38 03/31/17 10:38 03/31/17 10:38 03/31/17 10:38 General appearance: Present: A&O X 3 (Mild hearing loss), no acute distress, answers questions appropriately - Respiratory Respiratory exam: Present: CTAB. Absent: accessory muscle use, rales, rhonchi, wheezes - Patient Status Disposition: Home, Self-Care Condition: Good Functional capacity at discharge: uses cane/walker Overall status at discharge: patient is progressing back to baseline - Discharge Instructions Instructions: Community-acquired Pneumonia (DC) Follow Up With: Fan Clancy DO [Primary Care Provider] - 04/08/17 12:00 pm Additional Instructions: F/up with PCP in 1-2 weeks F/up wit Oncology as scheduled - Diet and Activity Activity: resume usual activities as tolerated Diet: low fat, low cholesterol, low salt diet
[2017-03-31] MEDS ORDERED: *HR* Warfarin 5 MG TABLET PO ONE (18:00)
== END 2017-03-31 13:18 | disposition home or self-care (01) | DRG 194 ==
LOC: 3ANU 15:55 → EMEROO 15:55 → 3ANU 19:47 → SUATTDRO 20:52
PROVIDERS: ADMIT Nurse Practitioner Family; ATTEND Internal Medicine

== ENCOUNTER 2018-03-26 10:21 | Inpatient (IN) ==
--- NOTE | 2018-03-26 11:05 | Emergency Department Note ---
Disposition Clinical Impression: Thrush, Generalized weakness Cellulitis Qualifiers: Site of cellulitis: trunk Site of cellulitis of trunk: groin Qualified Code(s): L03.314 - Cellulitis of groin Disposition: Admitted As Inpatient Referrals: Fan Clancy DO [Primary Care Provider] - Forms: ED Satisfaction Letter Time of Disposition: 13:36 General Adult HPI - General Chief complaint: ED Skin/Abscess/Foreign Body Stated complaint: rash Time Seen by Provider: 03/26/18 10:37 Source: patient Mode of arrival: ambulatory Limitations: no limitations Nursing Notes Reviewed: Yes Vital Signs Reviewed: Yes - History of Present Illness HPI Narrative: 82-year-old male with history of hypertension arrives to the emergency department with multiple complaints. The patient states that he has been fighting a rash in his groin and his back. States it started a few days ago and the patient was seen in urgent care. He was given new medications but he is uns ure what it was. He thinks it may have been an antiviral as the patient had a diagnosis of shingles on his back. The patient states that this morning he stated he had trouble breathing but describes it to me more as sore throat and severe pain in the back of his throat secondary to lesions in the posterior oropharynx. At that time the patient states that he called EMS. Patient is in no acute distress at this time. He denies any other complaints. Patient does have erythema and weeping discharge from bilateral groin secondary to this rash. Patient also has erythema in the posterior oropharynx. His a few other small scab and lesions across his body without any other definitive source. Pain Scale: 0 - Related Data Home Medications Medication Instructions Recorded Confirmed Finasteride [Proscar] 5 mg PO DAILY 01/28/15 03/10/18 Lisinopril [Zestril] 40 mg PO DAILY 01/28/15 03/10/18 Methotrexate [Otrexup] 20 mg PO QWEEK 01/28/15 03/10/18 Simvastatin [Zocor] 20 mg PO HS 01/28/15 03/10/18 Warfarin [Coumadin] 5 mg PO 5XW 06/10/16 03/10/18 Furosemide [Lasix] 20 mg PO DAILY 01/19/17 03/10/18 Diltiazem [Cardizem] 30 mg PO Q8HR 03/29/17 03/10/18 Warfarin [Coumadin] 2.5 mg PO 2XW 03/29/17 03/10/18 Percocet 5-325 mg Tablet 03/19/18 Previous Rx's Medication Instructions Recorded Ascorbic Acid [Vitamin C] 500 mg PO DAILY #30 tablet 01/29/15 Esomeprazole Magnesium [Nexium] 1 tab PO DAILY #30 capsule. 02/25/18 Magnesium Citrate [Citroma] 296 ml PO ONCE #1 bottle 02/25/18 Valacyclovir HCl [Valtrex] 1 tab PO TID #30 tab 02/25/18 raNITIdine HCl [Zantac] 1 tab PO BID #60 tablet 02/25/18 Fluconazole [Diflucan] 150 mg PO Q3D #3 tab 03/19/18 Nystatin POWDER [Nystop] 1 appl TP BID #30 gm 03/19/18 Allergies Allergy/AdvReac Type Severity Reaction Status Date / Time No Known Allergies Allergy Verified 03/19/18 13:53 All systems ED: reviewed and negative except as stated. Constitutional: Denies: fever, chills, weakness ENT ED: Reports: throat pain. Denies: dysphagia Cardiovascular: Denies: chest pain Respiratory: Reports: dyspnea. Denies: cough, sputum production Gastrointestinal: Denies: abdominal pain, nausea, vomiting Genitourinary: Denies: urgency, dysuria Musculoskeletal: Denies: back pain, neck pain Integumentary: Reports: rash, lesions Neurological: Denies: headache, numbness, paresthesias Past Medical History - Past Medical History Attestation: Yes The following information was validated with the patient. Source: patient, old records reviewed Medical history: Reports: cancer, CVA, hyperlipidemia, hypertension, other Surgical history: Reports: cancer surgery, cataract, other Psychiatric history: Reports: no psych history - Social History Smoking Status: Former smoker Smokeless Tobacco Status: No Alcohol use: Reports: none Drug use: Reports: none Physical Exam - General Limitations: no limitations General appearance: alert, in no apparent distress - Head Head exam: atraumatic, normocephalic, normal inspection - Eye Eye exam: Present: normal appearance, PERRL, EOMI - ENT ENT exam: mucous membranes moist, other (Patient has erythema to posterior oropharynx. Nothing in the anterior mouth, tongue, gums, lips. Posterior oropharynx with ulcerations noted as well.) - Neck Neck exam: Present: normal inspection, full ROM, trachea midline - Chest Chest inspection: Present: normal inspection, symmetric chest wall rise - Respiratory Respiratory exam: Present: normal lung sounds bilaterally - Cardiovascular Cardiovascular exam: Present: regular rate, normal rhythm, normal heart sounds - Abdominal Exam Abdominal exam: Present: soft, Non-Tender. Absent: tenderness, distention, guarding, rebound, rigidity - Male exam: Present: other (Patient has erythema to bilateral groins with weeping wounds. There is some softening of the skin in this area. Tender to palpation. Located in skin folds of bilateral groin.) - Extremities Exam Extremities exam: Present: normal inspection, full ROM, other (Abrasions are noted on left lower extremity as well as right wrist.). Absent: tenderness, pedal edema - Neurological Exam Neurological exam: Present: alert, oriented X3 - Skin Skin exam: Present: warm, rash, erythema Course Vital Signs Temperature 99.4 F 03/26/18 10:25 Pulse Rate 87 03/26/18 10:25 Respiratory Rate 17 03/26/18 10:25 Blood Pressure 117/62 03/26/18 10:25 O2 Sat by Pulse Oximetry 97 03/26/18 10:25 Temperature 99.4 F 03/26/18 10:25 Pulse Rate 87 03/26/18 10:25 Respiratory Rate 17 03/26/18 10:25 Blood Pressure 117/62 03/26/18 10:25 O2 Sat by Pulse Oximetry 97 03/26/18 10:25 Oxygen Delivery Oxygen Delivery Room Air Medical Decision Making - [facility] Narrative Medical decision making narrative: Patient's workup in the emergency department demonstrates a white blood cell count 2.2. Absolute neutrophil count is 1984. Given the patient's erythema and rash of groin region, we will start the patient on antibiotics for cellulitis. In addition the patient will likely need antifungal treatment for what appears to be nita. I am however concerned about worsening rash we will admit the patient to the hospital for further workup and care. The patient has been unable to eat over the course the past 3 days secondary to the pain and erythema to the posterior oropharynx. The patient's PCP and advised that the patient should be admitted to the hospital as well. Patient will be admitted to the hospital at this time for further workup and care. Patient made aware and agrees to plan. No further questions or concerns noted. Accepted by Dr. Gomez. - Lab Data Lab results reviewed: Yes I reviewed the patient's lab results. Result diagrams: 03/26/18 11:58 03/26/18 11:12 Lab Results 03/26/18 03/26/18 03/26/18 Range/Units 11:12 11:12 11:12 WBC (4.3-11.1) K/mcL RBC (4.19-5.50) M/mcL Hgb (12.9-16.9) g/dL Hct (37.5-50.1) % MCV (83.0-100.0) fL MCH (28.0-33.3) pg MCHC (31.6-35.5) g/dL RDW (11.5-14.5) % Plt Count (140-400) K/mcL MPV (9.4-12.4) fL Immature Gran % (0-4) % Seg Neutrophils % % Lymphocytes % % Monocytes % % Eosinophils % % Basophils % % Neutrophils # (1.6-8.9) K/mcL Lymphocytes # (0.6-4.6) K/mcL Monocytes # (0.0-1.3) K/mcL Eosinophils # (0.0-0.6) K/mcL Basophils # (0.0-0.2) K/mcL Platelet Estimate (Normal) Immature Plt Fraction (1.1-6.1) % Poikilocytosis (Not Present) Anisocytosis (Not Present) Spherocytes (Not Present) Sodium 137 (136-145) mEq/L Potassium 4.8 (3.5-5.1) mEq/L Chloride 106 (98-107) mEq/L Carbon Dioxide 23 (23-29) mEq/L BUN 47 H (8-23) mg/dL Creatinine 1.18 (0.70-1.30) mg/dL Est GFR ( Amer) > 60 (> 60) Est GFR (Non-Af Amer) 59 L (> 60) BUN/Creatinine Ratio 40 H (6-26) Glucose 114 H (70-105) mg/dL Calculated Osmolality 297 (280-300) Lactic Acid 0.8 (0.5-2.2) mmol/L Calcium 9.3 (8.6-10.3) mg/dL Troponin I < 0.03 (< 0.04) ng/mL Specimen Rejected Clotted 03/26/18 Range/Units 11:58 WBC 2.2 L (4.3-11.1) K/mcL RBC 3.32 L (4.19-5.50) M/mcL Hgb 9.6 L (12.9-16.9) g/dL Hct 29.6 L (37.5-50.1) % MCV 89.2 (83.0-100.0) fL MCH 28.9 (28.0-33.3) pg MCHC 32.4 (31.6-35.5) g/dL RDW 18.0 H (11.5-14.5) % Plt Count 40 L (140-400) K/mcL MPV 10.1 (9.4-12.4) fL Immature Gran % 1.8 (0-4) % Seg Neutrophils % 88.4 % Lymphocytes % 5.8 % Monocytes % 1.8 % Eosinophils % 2.2 % Basophils % 0.0 % Neutrophils # 1.9 (1.6-8.9) K/mcL Lymphocytes # 0.1 L (0.6-4.6) K/mcL Monocytes # 0.0 (0.0-1.3) K/mcL Eosinophils # 0.1 (0.0-0.6) K/mcL Basophils # 0.0 (0.0-0.2) K/mcL Platelet Estimate Decreased L (Normal) Immature Plt Fraction 2.5 (1.1-6.1) % Poikilocytosis 1+ A (Not Present) Anisocytosis 1+ A (Not Present) Spherocytes 1+ A (Not Present) Sodium (136-145) mEq/L Potassium (3.5-5.1) mEq/L Chloride (98-107) mEq/L Carbon Dioxide (23-29) mEq/L BUN (8-23) mg/dL Creatinine (0.70-1.30) mg/dL Est GFR ( Amer) (> 60) Est GFR (Non-Af Amer) (> 60) BUN/Creatinine Ratio (6-26) Glucose (70-105) mg/dL Calculated Osmolality (280-300) Lactic Acid (0.5-2.2) mmol/L Calcium (8.6-10.3) mg/dL Troponin I (< 0.04) ng/mL Specimen Rejected - Radiology Data Radiology results reviewed: Yes I reviewed the patient's radiology results. Chest X-Ray 03/26/18 11:47 IMPRESSION: Stable chest. D/ / Denis Young MD / Denis Young MD Interpreting Provider: Denis Young MD - EKG Data EKG #1 EKG attestation: Yes I reviewed and interpreted this EKG. EKG results narrative: Heart rate 79 beats for minute. Normal sinus rhythm. No ST elevation or ST depression noted. Inverted T waves noted in lead 3. There is PVCs noted. No acute changes noted. This started large amount of artifact is noted difficult to completely assess EKG. Attestation Statement - Attestation Attestation: I, Rickey Ramon DO, examined this patient [id number] and my medical decision-making was reviewed with Maggy Carrasquillo DO, Resident Physician. I agree with the documented findings, disposition and treatment plan as described except to the extent set forth below. Please see my progress notes for details.
--- NOTE | 2018-03-26 11:47 | Emergency Department Note ---
Disposition Clinical Impression: Thrush, Generalized weakness, Anemia, Thrombocytopenia Cellulitis Qualifiers: Site of cellulitis: trunk Site of cellulitis of trunk: groin Qualified Code(s): L03.314 - Cellulitis of groin Disposition: Admitted As Inpatient Condition: Fair Referrals: Fan Clancy DO [Primary Care Provider] - Forms: ED Satisfaction Letter Time of Disposition: 13:56 General Adult HPI - General Chief complaint: ED Skin/Abscess/Foreign Body Stated complaint: rash Time Seen by Provider: 03/26/18 10:37 Source: patient Mode of arrival: ambulatory Limitations: no limitations - History of Present Illness Pain Scale: 0 - Related Data Home Medications Medication Instructions Recorded Confirmed Finasteride [Proscar] 5 mg PO DAILY 01/28/15 03/10/18 Lisinopril [Zestril] 40 mg PO DAILY 01/28/15 03/10/18 Methotrexate [Otrexup] 20 mg PO QWEEK 01/28/15 03/10/18 Simvastatin [Zocor] 20 mg PO HS 01/28/15 03/10/18 Warfarin [Coumadin] 5 mg PO 5XW 06/10/16 03/10/18 Furosemide [Lasix] 20 mg PO DAILY 01/19/17 03/10/18 Diltiazem [Cardizem] 30 mg PO Q8HR 03/29/17 03/10/18 Warfarin [Coumadin] 2.5 mg PO 2XW 03/29/17 03/10/18 Percocet 5-325 mg Tablet 03/19/18 Previous Rx's Medication Instructions Recorded Ascorbic Acid [Vitamin C] 500 mg PO DAILY #30 tablet 01/29/15 Esomeprazole Magnesium [Nexium] 1 tab PO DAILY #30 capsule. 02/25/18 Magnesium Citrate [Citroma] 296 ml PO ONCE #1 bottle 02/25/18 Valacyclovir HCl [Valtrex] 1 tab PO TID #30 tab 02/25/18 raNITIdine HCl [Zantac] 1 tab PO BID #60 tablet 02/25/18 Fluconazole [Diflucan] 150 mg PO Q3D #3 tab 03/19/18 Nystatin POWDER [Nystop] 1 appl TP BID #30 gm 03/19/18 Allergies Allergy/AdvReac Type Severity Reaction Status Date / Time No Known Allergies Allergy Verified 03/19/18 13:53 Constitutional: Denies: fever, chills, weakness ENT ED: Reports: throat pain. Denies: dysphagia Cardiovascular: Denies: chest pain Respiratory: Reports: dyspnea. Denies: cough, sputum production Gastrointestinal: Denies: abdominal pain, nausea, vomiting Genitourinary: Denies: urgency, dysuria Musculoskeletal: Denies: back pain, neck pain Integumentary: Reports: rash, lesions Neurological: Denies: headache, numbness, paresthesias Past Medical History - Past Medical History Medical history: Reports: cancer, CVA, hyperlipidemia, hypertension, other Surgical history: Reports: cancer surgery, cataract, other Psychiatric history: Reports: no psych history - Social History Smoking Status: Former smoker Smokeless Tobacco Status: No Alcohol use: Reports: none Drug use: Reports: none Physical Exam - General Limitations: no limitations General appearance: alert, in no apparent distress Course Vital Signs Temperature 99.4 F 03/26/18 10:25 Pulse Rate 87 03/26/18 10:25 Respiratory Rate 17 03/26/18 10:25 Blood Pressure 117/62 03/26/18 10:25 O2 Sat by Pulse Oximetry 97 03/26/18 10:25 Temperature 99.4 F 03/26/18 10:25 Pulse Rate 87 03/26/18 10:25 Respiratory Rate 17 03/26/18 10:25 Blood Pressure 117/62 03/26/18 10:25 O2 Sat by Pulse Oximetry 97 03/26/18 10:25 Oxygen Delivery Oxygen Delivery Room Air Medical Decision Making - Lab Data Result diagrams: 03/26/18 11:58 03/26/18 11:12 Lab Results 03/26/18 03/26/18 03/26/18 Range/Units 11:12 11:12 11:12 WBC (4.3-11.1) K/mcL RBC (4.19-5.50) M/mcL Hgb (12.9-16.9) g/dL Hct (37.5-50.1) % MCV (83.0-100.0) fL MCH (28.0-33.3) pg MCHC (31.6-35.5) g/dL RDW (11.5-14.5) % Plt Count (140-400) K/mcL MPV (9.4-12.4) fL Immature Gran % (0-4) % Seg Neutrophils % % Lymphocytes % % Monocytes % % Eosinophils % % Basophils % % Neutrophils # (1.6-8.9) K/mcL Lymphocytes # (0.6-4.6) K/mcL Monocytes # (0.0-1.3) K/mcL Eosinophils # (0.0-0.6) K/mcL Basophils # (0.0-0.2) K/mcL Platelet Estimate (Normal) Immature Plt Fraction (1.1-6.1) % Poikilocytosis (Not Present) Anisocytosis (Not Present) Spherocytes (Not Present) Sodium 137 (136-145) mEq/L Potassium 4.8 (3.5-5.1) mEq/L Chloride 106 (98-107) mEq/L Carbon Dioxide 23 (23-29) mEq/L BUN 47 H (8-23) mg/dL Creatinine 1.18 (0.70-1.30) mg/dL Est GFR ( Amer) > 60 (> 60) Est GFR (Non-Af Amer) 59 L (> 60) BUN/Creatinine Ratio 40 H (6-26) Glucose 114 H (70-105) mg/dL Calculated Osmolality 297 (280-300) Lactic Acid 0.8 (0.5-2.2) mmol/L Calcium 9.3 (8.6-10.3) mg/dL Troponin I < 0.03 (< 0.04) ng/mL Specimen Rejected Clotted 03/26/18 Range/Units 11:58 WBC 2.2 L (4.3-11.1) K/mcL RBC 3.32 L (4.19-5.50) M/mcL Hgb 9.6 L (12.9-16.9) g/dL Hct 29.6 L (37.5-50.1) % MCV 89.2 (83.0-100.0) fL MCH 28.9 (28.0-33.3) pg MCHC 32.4 (31.6-35.5) g/dL RDW 18.0 H (11.5-14.5) % Plt Count 40 L (140-400) K/mcL MPV 10.1 (9.4-12.4) fL Immature Gran % 1.8 (0-4) % Seg Neutrophils % 88.4 % Lymphocytes % 5.8 % Monocytes % 1.8 % Eosinophils % 2.2 % Basophils % 0.0 % Neutrophils # 1.9 (1.6-8.9) K/mcL Lymphocytes # 0.1 L (0.6-4.6) K/mcL Monocytes # 0.0 (0.0-1.3) K/mcL Eosinophils # 0.1 (0.0-0.6) K/mcL Basophils # 0.0 (0.0-0.2) K/mcL Platelet Estimate Decreased L (Normal) Immature Plt Fraction 2.5 (1.1-6.1) % Poikilocytosis 1+ A (Not Present) Anisocytosis 1+ A (Not Present) Spherocytes 1+ A (Not Present) Sodium (136-145) mEq/L Potassium (3.5-5.1) mEq/L Chloride (98-107) mEq/L Carbon Dioxide (23-29) mEq/L BUN (8-23) mg/dL Creatinine (0.70-1.30) mg/dL Est GFR ( Amer) (> 60) Est GFR (Non-Af Amer) (> 60) BUN/Creatinine Ratio (6-26) Glucose (70-105) mg/dL Calculated Osmolality (280-300) Lactic Acid (0.5-2.2) mmol/L Calcium (8.6-10.3) mg/dL Troponin I (< 0.04) ng/mL Specimen Rejected Attestation Statement - Attestation Attestation: I, Rickey Ramon DO, examined this patient [id number] and my medical decision-making was reviewed with Maggy Carrasquillo DO, Resident Physician. I agree with the documented findings, disposition and treatment plan as described except to the extent set forth below. Please see my progress notes for details. 82-year-old male presents emergency room for evaluation of a rash in his right groin as well as oral lesions. Patient denies any chest pain or shortness of breath. Denies any headache or vision change. Denies any nausea vomiting or diarrhea. Denies any fevers or chills. He has been on antibiotics for the lesions we does not know what they are. His will be with him and does know his medication list. On physical exam, the patient's vital signs are stable. His head is atraumatic. His pupils are round reactive. His extraocular muscles are intact. His oropharynx does show multiple areas of lesion with either ulceration versus hyperemic tissue in the posterior pharynx and lateral mucosa of the mouth. Does not appear to be well-developed. Is involving all the moist mucous membranes. Lungs are clear. Heart is regular. Patient has no stridor no trismus. Abdomen is soft nontender nondistended with no guarding no rigidity no peritoneal symptoms. Right groin shows scant excoriation with mucus accumulation. Some of it appears to be consistent with Laya infection. Patient has no pain in the testicles. No penile discharge. He has no crepitus or discomfort in the lower groin area at this time. He has no other visible lesions. She does leak urine secondary to a uncircumcised penis. He has no other complaints or issues at this time. Patient has been seen by dermatology and had a biopsy completed of his back prior to this evaluation here today. He has not seen the results and he was concerned. 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 Patient has been on antibiotics; be looking at some other aspect of staphylococcal scalded skin syndrome. Patient does not having desquamation of the skin this time are sloughing noted outside of the moist area in the right groin. Detailed workup for septic-like presentation will be completed including a CBC chemistry along with blood cultures and lab collection. Chest x-ray and screening urinalysis will also be resulted. Otherwise the patient is clinically stable. Disposition to be determined once a full workup and treatment course have been completed. See detailed documentation the physical exam, medical intervention, medical decision-making and disposition in the resident physician's note. No critical care provider the patient's treatment course at this time. [id number] Labs appear to be stable outside of new onset anemia with a hemoglobin of 9.6. Patient's platelets also 40. These are both acute changes from previous lab draw on 02/25/18. Patient will have stool occult testing completed. Otherwise he will be admitted for antibiotic regiment with concern for Laya infection versus cellulitis. Further treatment evaluation will be needed. Patient is otherwise stable. Discussion was had with the patient the family at the bedside with information about the recommendation for admission. They are comfortable this plan. The hospitalist Dr. squires reviewed the case. No other questions or concerns at this time. Patient is otherwise stable. He will be admitted for continuation of care. Will monitor closely in the emergency department until admission process is completed.
[2018-03-26 11:54] LABS: BUN/Creatinine Ratio 40 (6-26); Blood Urea Nitrogen 47 mg/dL (8-23); Calcium 9.3 mg/dL (8.6-10.3); Carbon Dioxide 23 mEq/L (23-29); Chloride 106 mEq/L (98-107); Glucose 114 mg/dL (70-105); Osmolality,Calculated 297 (280-300); Potassium 4.8 mEq/L (3.5-5.1); Sodium 137 mEq/L (136-145); eGFR For Non-African Americans 59 (> 60)
[2018-03-26 11:55] LABS: Troponin I < 0.03 ng/mL (< 0.04)
[2018-03-26 12:09] LABS: Eosinophils # 0.1 K/mcL (0.0-0.6); Eosinophils % 2.2 %; Hematocrit 29.6 % (37.5-50.1); Hemoglobin 9.6 g/dL (12.9-16.9); Immature Granulocytes % 1.8 % (0-4); Immature Platelets 2.5 % (1.1-6.1); Lymphocytes # 0.1 K/mcL (0.6-4.6); Lymphocytes % 5.8 %; Mean Corpuscular HGB Conc 32.4 g/dL (31.6-35.5); Mean Corpuscular Hemoglobin 28.9 pg (28.0-33.3); Mean Corpuscular Volume 89.2 fL (83.0-100.0); Mean Platelet Volume 10.1 fL (9.4-12.4); Monocytes % 1.8 %; Red Blood Count 3.32 M/mcL (4.19-5.50); Segmented Neutrophils % 88.4 %
[2018-03-26 13:01] LABS: Neutrophils # 1.9 K/mcL (1.6-8.9); Platelet Count 40 K/mcL (140-400)
[2018-03-26 13:08] LABS: Anisocytosis 1+ (Not Present); Platelet Estimate Decreased (Normal); Poikilocytosis 1+ (Not Present); Spherocytes 1+ (Not Present)
[2018-03-26] MEDS ORDERED: Cefepime HCl 1,000 MG in Water for inj. (sterile) 20 ML 10 ML IVP STA (13:23)
[2018-03-26] MEDS ORDERED: Fluconazole 100 MG TABLET PO STA (13:24)
[2018-03-26 13:55] LABS: INR 2.8; Prothrombin Time 31.1 Seconds (9.4-12.1)
[2018-03-26 14:13] LABS: Bilirubin,Urine Negative (Negative); Blood,Urine Negative (Negative); Clarity,Urine Clear (Clear); Color,Urine Yellow (Yellow); Glucose,Urine (UA) Normal (Normal); Ketones,Urine Negative (Negative); Leukocyte Esterase,Urine Negative (Negative); Nitrite,Urine Negative (Negative); Protein,Urine Negative (Neg-Trace); Specific Gravity,Urine 1.022 (1.010-1.025); Urobilinogen,Urine Normal (Normal)
[2018-03-26] MEDS ORDERED: Naloxone 0.4 MG/ML INJ IVP PRN (14:53)
[2018-03-26] MEDS ORDERED: Acetaminophen 325 MG TABLET PO PRN (14:53)
[2018-03-26] MEDS ORDERED: Ampicillin/Sulbactam 1,500 MG in 0.9 % Sodium Chloride Mini Bag 100 ML IVPB SCH (16:00)
[2018-03-26] MEDS: predniSONE 20 MG TABLET PO SCH ×2 (16:33→19:52)
[2018-03-26] MEDS: valACYclovir 500 MG TABLET PO SCH ×2 (16:50→19:52)
[2018-03-26] MEDS ORDERED: Nystatin POWDER 30 GM BOTTLE TP SCH (17:00)
--- NOTE | 2018-03-26 17:22 | Internal Med History&Physical ---
Date of Encounter: 03/26/18 Time of Encounter: 17:22 Internal Medicine - H&P: HPI Chief complaint: sore throat worsening rash Admitted From: Emergency Dept Plans for Post Hospital Care: Home History of present illness: Mr. Biswas is a 82 year old male past medical history non-small cell lung cancer in the left lower lobe-completed SVR T108/14/16 CVA hyperlipidemia hypertension paroxysmal atrial fibrillation. Information gleaned from [facility] notes. In February patient had been experiencing hypersensitivity of skin from t he middle of the abdomen wrapping around on on the left side of skin on the T6- T7 dermatome area. He was seen by his PCP and was treated for possible shingles. He was evaluated again on 03/22 for what he described as breaking out all over his mouth was sore and he has sore throat with little sores. As well as lesions on his back and legs Red rash in his groin area concerned again for shingles. During this visit a biopsy was taken of lesion on left hip rule out EM versus bullous disorder. He was given Bactrim as well as mupirocin He was seen by Dr. Jang 03/25/2018-for same complaint placed on Ciclopirox Olamine Cream Prednisone Magic mouthwash refill Valacyclovir and advised to go to the ER if rash worsens or signs of infection. According to the patient this morning when he awoke he had some difficulty breathing, he stated he on any felt as if his airway was closing off. He has not been able to tolerate any oral intake for 3 days due to mouth and throat pain he denies any fevers or chills any recent travels out of the country he does have a pet-indoor dog-denies any recent sick contacts. The states that she has been bathing him he is unsteady on his feet due to neuropathy he has had multiple falls. He presented to the ED with the above complaints. Lab work did reveal white blood cell count of 2.2 absolute neutrophil count is 1984. Hemoglobin is 9.6 platelets were 40 chest x-ray with no acute process he was initially given cefepime and Diflucan in the ER. He has been admitted for further workup and evaluation. Currently patient complains of throat pain however he was able tolerate his evening meal he states this is the first thing he has been able to keep for 3 days. He denies any chest pain or shortness of breath at this time and currently he is hemodynamically stable Past Med Surg Social Fam HX - Past Medical History Medical history: cancer, CVA, hyperlipidemia, hypertension, other Additional medical history: lung cancer Psychiatric history: no psych history - Past Surgical History Surgical History: cancer surgery, cataract, other Additional surgical history: SWAPNIL lobectomy - Social History Smoking Status: Former smoker Smokeless Tobacco Status: No Alcohol use: none Drug use: none - Family History Mother Living Status: Internal Medicine - H&P: Meds Finasteride [Proscar] 5 mg PO DAILY 01/28/15 [History] Lisinopril [Zestril] 40 mg PO DAILY 01/28/15 [History] Methotrexate [Otrexup] 0 mg PO QWEEK 01/28/15 [History] Simvastatin [Zocor] 20 mg PO HS 01/28/15 [History] Furosemide [Lasix] 20 mg PO DAILY 01/19/17 [History] Diltiazem [Cardizem] 30 mg PO Q8HR 03/29/17 [History] Warfarin [Coumadin] 2.5 mg PO DAILY 03/29/17 [History] Valacyclovir HCl [Valtrex] 1 tab PO TID #30 tab 02/25/18 [Rx] Ciclopirox Olamine [Ciclopirox] 30 gm .ROUTE BID 03/26/18 [History] Omeprazole [PriLOSEC] 20 mg PO DAILY 03/26/18 [History] PredniSONE [Deltasone] 20 mg PO TID 03/26/18 [History] Sulfamethoxazole/Trimeth DS [Bactrim DS] 1 each PO BID 03/26/18 [History] Allergy/AdvReac Type Severity Reaction Status Date / Time No Known Allergies Allergy Verified 03/19/18 13:53 All Systems PM: A 10-system review of systems was performed and is negative for pertinent findings except as documented above in the HPI. - Constitutional Constitutional: falls, weakness - EENT Eyes: no change in vision, no discharge, no pain, no photophobia Nose, mouth and throat: epistaxis, mouth lesions, mouth pain, sore throat - Cardiovascular Cardiovascular ROS IM: no chest pain, no diaphoresis, no dyspnea, no lightheadedness, no palpitations, no syncope - Respiratory Respiratory: no cough, no dyspnea, no wheezing, no excessive phlegm production - Gastrointestinal Gastrointestinal: no abdominal pain, no diarrhea, no hematemesis, no hematochezia, no melena, no nausea, no vomiting - Genitourinary Genitourinary ROS male: genital lesions, genital pain - Musculoskeletal Musculoskeletal ROS IM: no numbness, no tingling - Integumentary Integumentary IM: new lesions, non-healing lesions, rash, skin ulcer - Neurological Neurological ROS: no confusion, no convulsions, no focal weakness, no numbness, no tingling, no tremor(s) - Hematologic/Lymphatic Hematologic/Lymphatic: easy bleeding, no easy bruising - Constitutional Vitals: Temp Pulse Resp BP Pulse Ox 98.7 F 90 18 111/63 92 03/26/18 15:42 03/26/18 15:42 03/26/18 15:42 03/26/18 15:42 03/26/18 15:42 General appearance: Present: A&O X 3 Exam: . - Head Head exam: Present: atraumatic, normocephalic - Eye Eye exam: Present: PERRL, conjuntiva pink, sclera anicteric Pupils: Present: PERRL - Expanded ENT Exam Throat exam: Present: post pharyngeal erythema (buccal redness) - Neck Neck exam general surgery: Present: supple, trachea midline. Absent: lymphadenopathy - Respiratory Respiratory exam: Present: CTAB. Absent: accessory muscle use, rales, rhonchi, wheezes - Cardiovascular Cardiovascular exam: Present: RRR, +S1, +S2. Absent: diastolic murmur, gallop, rubs, systolic murmur - GI/Abdominal GI/Abdominal exam: Present: normal bowel sounds, soft, no peritoneal signs. Absent: distended, tenderness - Extremities Exam Extremities exam: Present: warm, radial pulses palpable and symmetrical. Absent: calf tenderness, cyanotic, pedal edema - Neurological Exam Neurological exam: Present: CN II-XII intact, oriented X3, no focal deficits. Absent: pronater drift, facial droop, speech deficit - Skin Skin exam: Present: dry, erythema, intact, rash - Expanded Skin Exam Distribution of rash: Present: genitals Description of rash: Present: erythematous Full body front and back image: 1 - Groin with moist erythrematous patches with sloughing skin and bleeding 2 - Erythremia's annular plaques somewhat dusky centers scattered on upper back 3 - Erythematous annular plaques somewhat dusky centers scattered on legs in the area of the left thigh Internal Med - H&P Results - Labs CBC & Chem 7: 03/26/18 11:58 03/26/18 11:12 Labs: Short CBC 03/26/18 Range/Units 11:58 WBC 2.2 L (4.3-11.1) K/mcL Hgb 9.6 L (12.9-16.9) g/dL Hct 29.6 L (37.5-50.1) % Plt Count 40 L (140-400) K/mcL Neutrophils # 1.9 (1.6-8.9) K/mcL BMP 03/26/18 11:12 Sodium 137 Potassium 4.8 Chloride 106 Carbon Dioxide 23 BUN 47 H Creatinine 1.18 Glucose 114 H Calcium 9.3 Cardiac Enzymes 03/26/18 Range/Units 11:12 Troponin I < 0.03 (< 0.04) ng/mL Urine 03/26/18 Range/Units 14:01 Urine Color Yellow (Yellow) Urine Clarity Clear (Clear) Urine pH 6.0 (5.0-8.0) pH Units Ur Specific [place] 1.022 (1.010-1.025) Urine Protein Negative (Neg-Trace) mg/dL Urine Glucose (UA) Normal (Normal) mg/dL - Impressions ITS Impressions Chest X-Ray 03/26/18 11:47 IMPRESSION: Stable chest. D/ / Denis Young MD / Denis Young MD Interpreting Provider: Denis Young MD - Assessment and plan (1) Pancytopenia Current Visit: Yes Status: Acute Assessment and plan: Presented with pancytopenia white count 2.2 hemoglobin 9.6 platelets 40 proximal and one month ago white count was 8.4 hemoglobin 12.7 platelets 251. 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 Current Visit: Yes Status: Acute Assessment and plan: History of recurrent non-small cell lung cancer in the left lower lobe with multiple growing pulmonary nodules completed SB RT 24/08/16 has surgical resection on 05/24/2013 (3) Generalized weakness Current Visit: Yes Status: Acute Assessment and plan: states the patient has difficulty performing ADLs he has frequent falls due to neuropathy consult PTOT (4) Thrush Current Visit: Yes Status: Acute Assessment and plan: Continue with Magic mouthwash (5) Afib Current Visit: No Status: Chronic Assessment and plan: History of atrial fibrillation Currently rate controlled continue with diltiazem as well as Coumadin-monitor INR monitor for signs and symptoms of bleeding Qualifiers: Atrial fibrillation type: paroxysmal Qualified Code(s): I48.0 - Paroxysmal atrial fibrillation (6) Hypertension Current Visit: No Status: Chronic Assessment and plan: Currently blood pressure is controlled continue with home medications Qualifiers: Hypertension type: essential hypertension Qualified Code(s): I10 - Essential (primary) hypertension (7) Rheumatoid arthritis Current Visit: No Status: Chronic Assessment and plan: Patient is on methotrexate weekly-on methotrexate since 2014 Qualifiers: Rheumatoid arthritis location: unspecified site Rheumatoid factor presence: unspecified presence Qualified Code(s): M06.9 - Rheumatoid arthritis, unspecified (8) Rash Current Visit: Yes Status: Acute Assessment and plan: Patient has a moist erthematous patches in his groin with sloughing skin and bleeding tender to touch Seen by dermatology as outpatient and placed on Valcyte severe as well as prednisone Ciclopirox Olamine Cream, 0.77 % Which we will continue I did discuss case with dermatology who will see patient up on consult continue with current treatment Wound culture did grow ESBL as well as E faecalis sensitive to ampicillin and Levaquin There was some concern for shingles so we will continue with antiviral per dermatology's recommendations (9) CVA (cerebral vascular accident) Current Visit: No Status: Chronic Assessment and plan: History of CVA with occasional expressive aphasia as well as memory deficit Qualifiers: CVA mechanism: unspecified Qualified Code(s): I63.9 - Cerebral infarction, unspecified - Time Spent With Patient Total time spent is greater than 50% in coordination of care (as documented) at patient's floor/unit and/or counseling patient:
[2018-03-26] MEDS ORDERED: Warfarin perPT PO PRN (18:00)
[2018-03-26] MEDS: Ampicillin 2 GM in 0.9 % Sodium Chloride Mini Bag 100 ML IVPB SCH ×2 (18:02→23:22)
[2018-03-26] MEDS: Levofloxacin 750 MG/150 ML 750 MG/150 ML BAG IVPB SCH (18:03)
[2018-03-26] MEDS: *HR* HYDROcodone/Acet 5/325 mg TABLET PO PRN (19:51)
[2018-03-27 04:35] LABS: Monocytes % 0.5 %
[2018-03-27 04:37] LABS: Hematocrit 28.9 % (37.5-50.1); Hemoglobin 9.2 g/dL (12.9-16.9); Immature Platelets 2.5 % (1.1-6.1); Lymphocytes # 0.2 K/mcL (0.6-4.6); Lymphocytes % 8.3 %; Mean Corpuscular HGB Conc 31.8 g/dL (31.6-35.5); Mean Corpuscular Hemoglobin 28.4 pg (28.0-33.3); Mean Corpuscular Volume 89.2 fL (83.0-100.0); Mean Platelet Volume 10.3 fL (9.4-12.4); Neutrophils # 1.9 K/mcL (1.6-8.9); Red Blood Count 3.24 M/mcL (4.19-5.50); Red Cell Distribution Width 17.8 % (11.5-14.5); Segmented Neutrophils % 90.2 %
[2018-03-27 04:42] LABS: INR 3.4; Prothrombin Time 38.6 Seconds (9.4-12.1)
[2018-03-27 04:44] LABS: Platelet Count 32 K/mcL (140-400)
[2018-03-27 04:49] LABS: BUN/Creatinine Ratio 41 (6-26); Blood Urea Nitrogen 45 mg/dL (8-23); Calcium 8.8 mg/dL (8.6-10.3); Carbon Dioxide 21 mEq/L (23-29); Chloride 107 mEq/L (98-107); Glucose 134 mg/dL (70-105); Osmolality,Calculated 296 (280-300); Potassium 4.9 mEq/L (3.5-5.1); Sodium 136 mEq/L (136-145); eGFR For Non-African Americans > 60 (> 60)
[2018-03-27 05:03] LABS: Anisocytosis 1+ (Not Present); Platelet Estimate Decreased (Normal)
[2018-03-27] MEDS: Ampicillin 2 GM in 0.9 % Sodium Chloride Mini Bag 100 ML IVPB SCH ×4 (05:36→23:44)
[2018-03-27] MEDS: Furosemide 20 MG TABLET PO SCH (08:48)
[2018-03-27] MEDS: predniSONE 20 MG TABLET PO SCH ×3 (08:48→20:28)
[2018-03-27] MEDS: Finasteride 5 MG TABLET PO SCH (08:48)
[2018-03-27] MEDS: *HR* HYDROcodone/Acet 5/325 mg TABLET PO PRN (08:49)
[2018-03-27] MEDS: Levofloxacin 750 MG/150 ML 750 MG/150 ML BAG IVPB SCH (08:50)
[2018-03-27] MEDS: valACYclovir 500 MG TABLET PO SCH ×3 (08:53→20:27)
[2018-03-27] MEDS ORDERED: Fluconazole 100 MG TABLET PO SCH (09:00)
[2018-03-27] MEDS ORDERED: Lisinopril 20 MG TABLET PO SCH (09:00)
[2018-03-27 09:44] LABS: Albumin 3.5 g/dL (3.5-5.7); Albumin/Globulin Ratio 1.2 (1.1-2.2); Bilirubin,Direct 0.1 mg/dL (0.0-0.2); Bilirubin,Indirect 0.3 mg/dL (0.0-1.2); Bilirubin,Total 0.4 mg/dL (0.3-1.0); Globulin 2.9 g/dL (2.4-3.5); Total Protein 6.4 g/dL (6.4-8.9)
[2018-03-27] MEDS: Fluconazole 100 MG TABLET PO SCH (09:58)
[2018-03-27 10:09] LABS: Folate 13.8 ng/mL (3.0-16.0)
--- NOTE | 2018-03-27 10:34 | Internal Med Progress Note ---
Hospitalist Progress Note - Encounter Date of Encounter: 03/27/18 Time of Encounter: 09:00 - Subjective Interval History: Seen and examined at bedside patient is complaining of some nosebleed this morning. He does have some blood on the tissue. No other signs of bleeding noted discuss treatment plan with the patient and his who both verbalized understanding - Exam Vitals: Temp Pulse Resp BP Pulse Ox 98.2 F 97 14 116/66 92 03/27/18 07:37 03/27/18 07:37 03/27/18 07:37 03/27/18 07:37 03/27/18 07:37 Exam: .Skin: Moist.erythrematous patches with sloughing skin and bleeding with this groin - Erythematous annular plaques somewhat dusky center scattered on legs upper back and thigh Eyes: Sclera is white. There is no discharge from eyes. ENMT: Oral/pharyngeal mucosa is normal in appearance. There is no discharge from nose or ears. Respiratory: Normal breath sounds with no crackles and wheezes bilaterally. CV: Heart is regular with no gallop or murmur. GI: Abdomen is flat and soft with no palpable mass or visceromegaly. : There is no tenderness in patient's flanks bilaterally. Neuro exam: He has good strength in upper and lower extremities. He has normal eye movements. Psychiatric: He has normal affect. His thought process is appropriate to the situation. - Assessment and Plan (1) Pancytopenia Current Visit: Yes Status: Acute Assessment and Plan: Presented with pancytopenia white count 2.2 hemoglobin 9.6 platelets 40 proximal and one month ago white count was 8.4 hemoglobin 12.7 platelets 251. 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 Current Visit: Yes Status: Acute Assessment and Plan: History of recurrent non-small cell lung cancer in the left lower lobe with multiple growing pulmonary nodules completed SB RT 24/08/16 has surgical resection on 05/24/2013 (3) Generalized weakness Current Visit: Yes Status: Acute Assessment and Plan: states the patient has difficulty performing ADLs he has frequent falls due to neuropathy consult PTOT (4) Thrush Current Visit: Yes Status: Acute Assessment and Plan: Continue with Magic mouthwash-Diflucan (5) Afib Current Visit: No Status: Chronic Assessment and Plan: History of atrial fibrillation Currently rate controlled continue with diltiazem as well as Coumadin-monitor INR monitor for signs and symptoms of bleeding-he did have nosebleeding this a.m.-daily INR (6) Hypertension Current Visit: No Status: Chronic Assessment and Plan: Currently blood pressure is controlled continue with home medications (7) Rheumatoid arthritis Current Visit: No Status: Chronic Assessment and Plan: Patient is on methotrexate weekly-on methotrexate since 2014-we will check folate as well as methotrexate level Consult rheumatology (8) Rash Current Visit: Yes Status: Acute Assessment and Plan: Patient has a moist erthematous patches in his groin with sloughing skin and bleeding tender to touch Seen by dermatology as outpatient and placed on Valcyte severe as well as prednisone Ciclopirox Olamine Cream, 0.77 % Which we will continue I did discuss case with dermatology who will see patient up on consult continue with current treatment Wound culture did grow ESBL as well as E faecalis sensitive to ampicillin and Levaquin There was some concern for shingles so we will continue with antiviral per dermatology's recommendations (9) CVA (cerebral vascular accident) Current Visit: No Status: Chronic Assessment and Plan: History of CVA with occasional expressive aphasia as well as memory deficit - Time Spent with Patient Total time spent is greater than 50% in coordination of care (as documented) at patient's floor/unit and/or counseling patient: Internal Medicine: Result - Labs CBC & Chem 7: 03/27/18 02:53 03/27/18 02:53 Labs: Short CBC 03/26/18 03/27/18 Range/Units 11:58 02:53 WBC 2.2 L 2.1 L (4.3-11.1) K/mcL Hgb 9.6 L 9.2 L (12.9-16.9) g/dL Hct 29.6 L 28.9 L (37.5-50.1) % Plt Count 40 L 32 L (140-400) K/mcL Neutrophils # 1.9 1.9 (1.6-8.9) K/mcL BMP 03/26/18 03/27/18 11:12 02:53 Sodium 137 136 Potassium 4.8 4.9 Chloride 106 107 Carbon Dioxide 23 21 L BUN 47 H 45 H Creatinine 1.18 1.10 Glucose 114 H 134 H Calcium 9.3 8.8 Cardiac Enzymes 03/26/18 Range/Units 11:12 Troponin I < 0.03 (< 0.04) ng/mL Liver Function 03/27/18 Range/Units 09:07 Total Bilirubin 0.4 (0.3-1.0) mg/dL Direct Bilirubin 0.1 (0.0-0.2) mg/dL AST 17 (13-39) Units/L ALT 24 (7-52) Units/L Alkaline Phosphatase 40 (34-104) Units/L Albumin 3.5 (3.5-5.7) g/dL Urine 03/26/18 Range/Units 14:01 Urine Color Yellow (Yellow) Urine Clarity Clear (Clear) Urine pH 6.0 (5.0-8.0) pH Units Ur Specific [place] 1.022 (1.010-1.025) Urine Protein Negative (Neg-Trace) mg/dL Urine Glucose (UA) Normal (Normal) mg/dL - ABG Interpretation ABG results: PT/INR, D-dimer PT 38.6 Seconds (9.4-12.1) H 03/27/18 02:53 - Impressions Impressions Chest X-Ray 03/26/18 11:47 IMPRESSION: Stable chest. D/ / Denis Young MD / Denis Young MD Interpreting Provider: Denis Young MD Consult Discharge Plan - Plan Referrals: Fan Clancy DO [Primary Care Provider] - (5) Afib Qualifiers: Atrial fibrillation type: paroxysmal Qualified Code(s): I48.0 - Paroxysmal atrial fibrillation (6) Hypertension Qualifiers: Hypertension type: essential hypertension Qualified Code(s): I10 - Essential (primary) hypertension (7) Rheumatoid arthritis Qualifiers: Rheumatoid arthritis location: unspecified site Rheumatoid factor presence: unspecified presence Qualified Code(s): M06.9 - Rheumatoid arthritis, unspecified (9) CVA (cerebral vascular accident) Qualifiers: CVA mechanism: unspecified Qualified Code(s): I63.9 - Cerebral infarction, unspecified
[2018-03-27] MEDS ORDERED: ALPRAZolam 0.25 MG TABLET PO PRN (16:28)
[2018-03-27] MEDS ORDERED: Magic Mouthwash 10 ML UD Cup PO SCH (16:30)
[2018-03-27] MEDS: *HR* OxyCODONE Immed Rel 5 MG TABLET PO PRN (17:05)
--- NOTE | 2018-03-27 19:15 | Oncology Inp Consult Note ---
Date of Encounter: 03/27/18 Time of Encounter: 19:12 Assessment and Plan (1) Pancytopenia Status: Acute Assessment and plan: This is concerning. His CBC is unremarkable 02/25/2018. On 2018 platelets have dropped to 32,000. Neutrophils 1900 from 6700 and hemoglobin dropped to 9.2 from 12.7. Sepsis as a consideration. Wound culture on 03/22/2018 growth E Coli/ESBL and Enterococcus faecalis. He is on ampicillin and levofloxacin He is on chronic Coumadin likely for atrial fibrillation. Currently platelets 32,000 and he has epistaxis. We will hold Coumadin for now (2) Adenocarcinoma of left lung Status: Chronic Assessment and plan: This has been treated and currently no evidence of recurrence. The current pancytopenia is unrelated to his lung cancer. He has not had any chemotherapy recently (3) Rheumatoid arthritis Status: Chronic Assessment and plan: He is on methotrexate. Currently Hold for the Last 10 Days or so. We Will Continue to Hold until His Symptoms Improved Qualifiers: Qualified Code(s): M06.9 - Rheumatoid arthritis, unspecified (4) Rash Status: Acute Assessment and plan: Left upper quadrant abdominal wall pain when I saw him on 02/25/2018. Since then he has developed some rash in the left posterior chest. Herpes zoster still in the differential. Continue Valtrex He has a raw area in both groin right much worse than left. This started with erythema about 2 weeks ago and currently getting worse. Dermatology involved. This process looks unrelated to the left-sided abdominal pain/left posterior rash Infectious disease consult may be helpful - Data of Consult Patient: known to practice within the last 3 years Requesting Physician: Laquita Hamlin CNP Primary Care Provider: Fan Clancy, - Consult Narrative Reason for consult: Pancytopenia and rash History of present illness: 82-year-old male admitted with a rash in the groin mucositis. Biopsy was done as an outpatient prior to admission. 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 No fever chills. Mild hypotension. I evaluated him in the office on 02/25/2018 for acute left-sided abdominal painT6-T7 dermatome area with skin sensitivity. The pain radiates from midline anteriorly to posteriorly. Clinically this is suspicious for herpes zoster. Valtrex 1 g by mouth 3 times a day for 7 days. I discussed with him about clinical presentation of zoster. A CT abdomen and pelvis with IV contrast 03/01/2018 was negative. Oncological history 1. 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 Stage IIA, PT2b, N0, M0. Size 6 cm. Margins clear at 1.5 cm. No lymphovascular invasion. 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 Adjuvant chemotherapy cisplatin 60 mg per meter square with Alimta 500 mg per meter square q.3 weeks with Neulasta support. Stopped after 2 cycles because of grade 2-3 fatigue and atrial fibrillation. 2. He has recurrence with multiple nodules in the remaining left lower lobe. Had SBRT more than once. Last SBRT completed 05/19/[address] chest 01/22/2018 showed increase scarring left lower lobe and slight increase in the nodularity to 1 cm again could represent scarring. Otherwise no major evidence of disease recurrence 3. Anemia with hemoglobin improved 12.3 and saturation mildly low. 4. Rheumatoid arthritis on methotrexate since March 2014.currently on 17.5 mouth every Wednesday. His arthritis is under decent control. He also states takes Percocet but denied NSAIDs Past Med Surg Social Fam HX - Past Medical History Medical history: cancer, CVA, hyperlipidemia, hypertension, other Additional medical history: lung cancer Psychiatric history: no psych history - Past Surgical History Surgical History: cancer surgery, cataract, other Additional surgical history: SWAPNIL lobectomy - Social History Smoking Status: Former smoker Smokeless Tobacco Status: No Alcohol use: none Drug use: none - Family History Mother Living Status: Medications and Allergies Finasteride [Proscar] 5 mg PO DAILY 01/28/15 [History] Lisinopril [Zestril] 40 mg PO DAILY 01/28/15 [History] Methotrexate [Otrexup] 0 mg PO QWEEK 01/28/15 [History] Simvastatin [Zocor] 20 mg PO HS 01/28/15 [History] Furosemide [Lasix] 20 mg PO DAILY 01/19/17 [History] Diltiazem [Cardizem] 30 mg PO Q8HR 03/29/17 [History] Warfarin [Coumadin] 2.5 mg PO DAILY 03/29/17 [History] Valacyclovir HCl [Valtrex] 1 tab PO TID #30 tab 02/25/18 [Rx] Ciclopirox Olamine [Ciclopirox] 30 gm .ROUTE BID 03/26/18 [History] Omeprazole [PriLOSEC] 20 mg PO DAILY 03/26/18 [History] PredniSONE [Deltasone] 20 mg PO TID 03/26/18 [History] Sulfamethoxazole/Trimeth DS [Bactrim DS] 1 each PO BID 03/26/18 [History] Allergy/AdvReac Type Severity Reaction Status Date / Time No Known Allergies Allergy Verified 03/19/18 13:53 Oncology - Exam - Constitutional Exam: GENERAL: Alert and oriented, well appearing. Mental Status: Affect appropriate for circumstances HEENT: Sclerae anicteric. No mucositis or thrush. No other oral or pharyngeal lesions or erythema. Skin: No rashes or petechiae. No evidence of skin malignancy Lymph nodes: No cervical, supraclavicular, axillary, or inguinal adenopathy. Lungs: Air entry normal with normal breath sounds. No rhonchi or wheezing Cardiovascular: Regular rate and rhythm. No skipped beats Abdomen: Soft, nontender; no organomegaly or masses palpable. Extremities: No edema. No calf swelling or tenderness. No joint deformity. Neurologic: Alert, cranial nerves II-XII intact; normal gait; no focal weakness or sensory abnormalities Ry area of skin of the right groin more than left. Small amount of discrete rash in the left lower shoulder Consult Discharge Plan - Plan Referrals: Fan Clancy DO [Primary Care Provider] - Inpatient Charges Provider: Dr. Anjelica Chicas Consult - Inpatient: [id number]
[2018-03-27] MEDS: MAGIC MOUTHWASH PO SCH (22:41)
[2018-03-28 04:04] LABS: INR 3.4; Prothrombin Time 38.6 Seconds (9.4-12.1)
[2018-03-28] MEDS: Ampicillin 2 GM in 0.9 % Sodium Chloride Mini Bag 100 ML IVPB SCH ×2 (05:53→11:44)
[2018-03-28] MEDS: Levofloxacin 750 MG/150 ML 750 MG/150 ML BAG IVPB SCH (08:13)
[2018-03-28] MEDS: Fluconazole 100 MG TABLET PO SCH (08:14)
[2018-03-28] MEDS: predniSONE 20 MG TABLET PO SCH ×2 (08:14→17:08)
[2018-03-28] MEDS: valACYclovir 500 MG TABLET PO SCH ×3 (08:14→21:20)
[2018-03-28] MEDS: Finasteride 5 MG TABLET PO SCH (08:15)
[2018-03-28] MEDS: Furosemide 20 MG TABLET PO SCH (08:15)
[2018-03-28] MEDS: MAGIC MOUTHWASH PO SCH (08:16)
--- NOTE | 2018-03-28 10:00 | Rheumatology Consult Note ---
Addendum entered and electronically signed by Gabriele Diamond DO 03/28/18 21:16: In addendum, weekly methotrexate, no daily. Original Note: <[place] R - Last Filed: 03/28/18 12:13> Date of Encounter: 03/28/18 Time of Encounter: 09:48 Rheumatology Assess and Plan (1) Pancytopenia Current Visit: Yes Status: Acute New pancytopenia, Currently with WBC of 2.1 without absolute neutropenia, He moglobin 9.2 and platelets of 32K Prior CBC on 02/25/18 essentially within normal limits Hx of RA on methotrexate 15 mg/weekly with folate supplement Differential including infectious or medication causes Plan: Hold methotrexate for now Will check a methotrexate level for evaluation of toxicity, however suspicion is low at this time. Note this is a send out lab with ~48 hr turn around time Continue with folate supplementation, can consider leucovorin for methotrexate rescue pending lab findings and clinical course Follow CBC with diff Heme/onc consulted by primary team (2) Rheumatoid arthritis Current Visit: No Status: Chronic RA on methotrexate 15 mg/ weekly with folate supplement Reportedly takes dose on Mondays and has been one week since last taken No symptoms of worsening RA at this time Director Of Midwifery/Staff Midwife is Dr. Hubbard Plan: Hold methotrexate for now Continue with folate supplementation Qualifiers: Rheumatoid arthritis location: unspecified site Rheumatoid factor presence: unspecified presence Qualified Code(s): M06.9 - Rheumatoid arthritis, unspecified (3) Rash Current Visit: Yes Status: Acute Groin rash bilaterally with maceration and erythema 03/22/18 wound cultures with enterococcus faecalis and ESBL resistant E coli. Plan: Biopsy from 03/22/2018 pending, follow for results Dermatology consulted and Infectious diseases consulted by primary team for management recommendations Rheumatology HPI Consult date: 03/27/18 Requesting physician: Laquita Hamlin Consult reason: RA on Methotrexate Chief complaint: Groin rash History of present illness: Mr. Biswas is a 82 year old male with a history of CVA, Afib on warfarin anticoagulation, NSCLC s/p SBRT, and RA on methotrexate. The chart was reviewed and the patient was seen and evaluated at the bedside. Patient reports presenting to ED for evaluation of bilateral groin rash that has been persisting despite outpatient topical treatments. States that this has been a recurrent issue for him for many years and typically resolved with topical cream. This time it has persisted with skin sloughing, reports that a skin biopsy was done last week. Reports that wound has not changed since admission. Denies fevers, nausea, vomiting, chills. Wound is quite tender to touch. Reports that in February he was diagnosed with shingles of the left mid-thoracic region and reports some improvement in his symptoms. During Evaluation pancytopenia of unclear etiology was discovered. Heme/onc consulted by primary team. Rheumatology consulted for RA on methotrexate with question of methotrexate toxicity. Has been on methotrexate for several years for treatment of RA. Reports seeing Dr. Hubbard in [place]. Dose has been 6 2.5 mg tables weekly, recently dose was increased to 8 weekly due to worsening knee pain, however he quickly went back to 6 tablets weekly due to resolution of the knee pain. Also states that he takes folate daily. Denies any new or worsening arthralgia/ myalgias, oral or nasal ulcers, chest pain, pleurisy, DVT/PE. Past Med Surg Social Fam HX - Past Medical History Medical history: cancer, CVA, hyperlipidemia, hypertension, other Additional medical history: lung cancer Psychiatric history: no psych history - Past Surgical History Surgical History: cancer surgery, cataract, other Additional surgical history: SWAPNIL lobectomy - Social History Smoking Status: Former smoker Smokeless Tobacco Status: No Alcohol use: none Drug use: none - Family History Mother Living Status: Medications and Allergies Finasteride [Proscar] 5 mg PO DAILY 01/28/15 [History] Lisinopril [Zestril] 40 mg PO DAILY 01/28/15 [History] Methotrexate [Otrexup] 0 mg PO QWEEK 01/28/15 [History] Simvastatin [Zocor] 20 mg PO HS 01/28/15 [History] Furosemide [Lasix] 20 mg PO DAILY 01/19/17 [History] Diltiazem [Cardizem] 30 mg PO Q8HR 03/29/17 [History] Warfarin [Coumadin] 2.5 mg PO DAILY 03/29/17 [History] Valacyclovir HCl [Valtrex] 1 tab PO TID #30 tab 02/25/18 [Rx] Ciclopirox Olamine [Ciclopirox] 30 gm .ROUTE BID 03/26/18 [History] Omeprazole [PriLOSEC] 20 mg PO DAILY 03/26/18 [History] PredniSONE [Deltasone] 20 mg PO TID 03/26/18 [History] Sulfamethoxazole/Trimeth DS [Bactrim DS] 1 each PO BID 03/26/18 [History] Allergy/AdvReac Type Severity Reaction Status Date / Time No Known Allergies Allergy Verified 03/19/18 13:53 All Systems Review: The remainder of the systems were reviewed and are negative Rheumatology Exam Vital Signs, Last 4 Hours Temp Pulse Resp BP Pulse Ox 03/28/18 06:38 97.7 F 79 16 105/62 94 Exam: General: seated upright in bed, appears stated age, no apparent distress HEENT: Atraumatic, moist mucous membranes, anicteric sclera, blood tinged post- nasal drainage present in the posterior oral pharynx. no nasal or oral lesions visible. Cardiovascular: Regular rate and rhythm, no murmur appreciated Respiratory: Clear to auscultation throughout Abdomen: Obese, soft, nontender, LUQ/ back rash is not appreciated Extremities: Scattered ecchymosis bilateral. Small healing wounds present to bilateral upper extremities and left anderson, no visible surrounding erythema or swelling. No edema or swelling. Bilateral groin wounds that are raw and erythematous in appearance, no visible purulent drainage, topical powder and dressing is in place. Neuro: alert and oriented to person, place, and situation. No focal deficits Psych: Pleasant and conversant, appropriate mood and affect. Rheumatology Results 03/28/18 09:13 03/28/18 09:13 All other labs normal. Consult Discharge Plan - Plan Referrals: Fan Clancy DO [Primary Care Provider] - <Gabriele Diamond - Last Filed: 03/28/18 21:14> Date of Encounter: 03/28/18 Rheumatology HPI History of present illness: Mr. Biswas is a 82 year old male All Systems Review: The remainder of the systems were reviewed and are negative Rheumatology Exam Vital Signs, Last 4 Hours Temp Pulse Resp BP Pulse Ox 03/28/18 18:57 98.6 F 105 16 123/74 93 Rheumatology Results 03/28/18 09:13 03/28/18 09:13 All other labs normal. - Attending Attestation I performed a history and physical exam of the patient and discussed his management with the resident. I reviewed the residents note and agree with the documented findings and plan of care. Donavan Biswas is an 82-year-old male with PMH of RA on methotrexate, Afib, CVA who presents to [facility]. Patient has been on methotrexate for year, takes 15 mg weekly with daily methotrexate. Last CBC in 02/26 overall unremarkable. Recently had biopsied rash consistent with shingles; on valcyclovir. Has had groin rash, on 03/22/18 placed on Bactrim for a 10 day course. Presents to the hospital with pancytopenia. Renal and hepatic function are intact. Wound culture with E coli and enterococcus faecalis; on antibiotics. Pancytopenia - Possibilities are related to infection or medication toxicity. He has been chronically on methotrexate without problems, no insults to renal function. He was on a 10-day course of Bactrim started 03/22, which can cause toxicity in combination with methotrexate. Methotrexate has been held. Will check methotrexate level and if elevated may need leucovorin. Hematology is now and dermatology consulted as well. Will continue to follow.
[2018-03-28 10:08] LABS: Hematocrit 30.5 % (37.5-50.1); Hemoglobin 9.9 g/dL (12.9-16.9); Immature Platelets 3.1 % (1.1-6.1); Mean Corpuscular HGB Conc 32.5 g/dL (31.6-35.5); Mean Corpuscular Hemoglobin 28.9 pg (28.0-33.3); Mean Corpuscular Volume 89.2 fL (83.0-100.0); Mean Platelet Volume 10.1 fL (9.4-12.4); Red Blood Count 3.42 M/mcL (4.19-5.50); Red Cell Distribution Width 17.8 % (11.5-14.5)
--- NOTE | 2018-03-28 10:38 | Internal Med Progress Note ---
Hospitalist Progress Note - Encounter Date of Encounter: 03/28/18 Time of Encounter: 10:38 - Subjective Interval History: Seen and examined at bedside patient -continue to experience some nosebleeding- discussed with the this a.m. concerning treatment plan she expresses concern because the patient has been suffering with skin condition for so long a nd does not feel he is improving. She voices that she may want to transfer the patient to [facility]. Spoke with the patient and concerning possible transfer- states she would like to speak to consulting physicians first prior to making a decision concerning transfer. - Exam Vitals: Temp Pulse Resp BP Pulse Ox 97.7 F 79 16 105/62 94 03/28/18 06:38 03/28/18 06:38 03/28/18 06:38 03/28/18 06:38 03/28/18 06:38 Exam: .Skin: Moist.erythrematous patches with sloughing skin and bleeding with this gr oin - Erythematous annular plaques somewhat dusky center scattered on legs upper back and thigh Eyes: Sclera is white. There is no discharge from eyes. ENMT: Oral/pharyngeal mucosa is normal in appearance. There is no discharge from nose or ears. Respiratory: Normal breath sounds with no crackles and wheezes bilaterally. CV: Heart is regular with no gallop or murmur. GI: Abdomen is distended soft with no palpable mass or visceromegaly. : There is no tenderness in patient's flanks bilaterally. Neuro exam: He has good strength in upper and lower extremities. He has normal eye movements. Psychiatric: He has normal affect. His thought process is appropriate to the situation. - Assessment and Plan (1) Rheumatoid arthritis Current Visit: No Status: Chronic Assessment and Plan: Patient is on methotrexate weekly-on methotrexate since 2014-we will check folate as well as methotrexate level Consult rheumatology Hold methotrexate continue with folic acid Folate level within normal limits methotrexate level pending (2) Pancytopenia Current Visit: Yes Status: Acute Assessment and Plan: Presented with pancytopenia white count 2.2 hemoglobin 9.6 platelets 40 proximal and one month ago white count was 8.4 hemoglobin 12.7 platelets 251. Today hemoglobin 9.6 white counts 2.8 and platelets are 18 Unsure of etiology-currently not receiving any chemo/radiation therapy-suspect possible medication induced Patient is on methotrexate-patient states he has been taking folate he also states he has been taking his medication up until approximately a week ago he has been taking 6 tablets weekly consult rheumatology We will consult hematology/ oncology-appreciate recommendations-recommending bone marrow biopsy patient will be nothing by mouth after midnight Monitor for bleeding-patient continues to experience nosebleeds-platelets are 18 we will transfuse 1 unit of PRBCs INR 3.4 patient given vitamin K per hematology (3) Rash Current Visit: Yes Status: Acute Assessment and Plan: Dermatology and infectious disease consulted and appreciate recommendations Seen by dermatology as outpatient and placed he was treated with valacyclovir as far back as February-Bactrim and mupirocin with little improvement biopsy from left hip -her palate dermatitis continue valacyclovir Groin is macerated raw continue with topical nystatin mupirocin and destitin daily per dermatology's recommendation (4) Sore mouth Current Visit: Yes Status: Acute Assessment and Plan: Complaints of sore mouth and throat making it painful swallowing-infectious disease has been consulted and appreciate recommendations -swab for strep He does have blood clots in the back palate secondary to low platelets Continue with Valtrex Placed on Augmentin Ampicillin Levaquin stopped Continuous flucanazole Rapid strep ordered per infectious disease HSV ordered as well as respiratory infectious panel - Time Spent with Patient Total time spent is greater than 50% in coordination of care (as documented) at patient's floor/unit and/or counseling patient: Internal Medicine: Result - Labs CBC & Chem 7: 03/28/18 09:13 03/28/18 09:13 - ABG Interpretation ABG results: PT/INR, D-dimer PT 38.6 Seconds (9.4-12.1) H 03/28/18 03:23 Consult Discharge Plan - Plan Referrals: Fan Clancy DO [Primary Care Provider] - (1) Rheumatoid arthritis Qualifiers: Rheumatoid arthritis location: unspecified site Rheumatoid factor presence: unspecified presence Qualified Code(s): M06.9 - Rheumatoid arthritis, unspecified
[2018-03-28] MEDS ORDERED: 0.9 % Sodium Chloride 1,000 ML IVC SCH (10:45)
[2018-03-28 11:09] LABS: BUN/Creatinine Ratio 48 (6-26); Blood Urea Nitrogen 50 mg/dL (8-23); Calcium 9.2 mg/dL (8.6-10.3); Carbon Dioxide 17 mEq/L (23-29); Chloride 107 mEq/L (98-107); Glucose 172 mg/dL (70-105); Osmolality,Calculated 301 (280-300); Potassium 5.3 mEq/L (3.5-5.1); Sodium 137 mEq/L (136-145); eGFR For Non-African Americans > 60 (> 60)
[2018-03-28 12:07] LABS: Platelet Count 18 K/mcL (140-400)
[2018-03-28 12:15] LABS: Lymphocytes # 0.1 K/mcL (0.6-4.6); Neutrophils # 2.7 K/mcL (1.6-8.9)
[2018-03-28 12:16] LABS: Anisocytosis 1+ (Not Present); Microcytosis Present (Not Present); Platelet Estimate Decreased (Normal)
--- NOTE | 2018-03-28 13:14 | Infectious Disease Consult ---
Date of Encounter: 03/28/18 Time of Encounter: 13:13 Assessment and Plan (1) Pancytopenia Status: Acute Assessment and plan: Patient has pancytopenia. Initial labs: WBC 2.2, hemoglobin 9.6, platelets 40. Patient with history of small cell lung cancer left lung -etiology of pancytopenia is unknown however differential includes concerns for AML or another leukemia, consider secondary to medication such as methotrexate. -WBC 2.8, hemoglobin 9.9, platelets 18 -Folate 13.8 -Stool occult blood negative -03/26/2018 Blood cultures pending -03/22/2018 wound culture growing E. coli ESBL and enterococcus faecalis -Chest x-ray unremarkable -no obvious active bleeding Plan: -oncology consulted and following -Rheumatology was consulted and recommended holding methotrexate. Methotrexate level ordered. -1 unit platelets ordered (2) Sore mouth Status: Acute Assessment and plan: Patient complains of a sore mouth and throat that makes it painful to swallow food. -Etiologies unknown but consider strep throat. He is low risk for syphilis, HIV, HSV. -Examination the oropharynx demonstrates blood clots on the back of right. No obvious ulcers or lesions in the oropharynx. Plan: -agree with continuing Valtrex -ordered Augmentin -stopped ampicillin, Levaquin, fluconazole -rapid strep a ordered -HSV ordered -respiratory infectious panel ordered (3) Inguinal ulcer Status: Acute Assessment and plan: Patient has bilateral inguinal ulcers for over 2 weeks. -Etiology is E. coli ESBL and enterococcus faecalis -Source is undetermined at this time, however concern for infection such as cellulitis or noninfectious including contact dermatitis but unlikely -03/22/2018 wound culture growing E. coli ESBL and enterococcus faecalis. -Lactic acid 0.8 -examination of the bilateral inguinal region show erythema and desquamation Plan: -ordered Bactrim and Augmentin PO -continue Valtrex day 3 -stopped ampicillin, Levaquin, fluconazole -nystatin ordered -Dermatology is consulted and following -biopsy from 03/22/2018 pending Infectious Disease HPI - Data of Consult Patient: new to practice Consult date: 03/28/18 Requesting Physician: Laquita Hamlin CNP Primary Care Provider: Fan Clancy DO - Consult Narrative Reason for consult: Wounds possible herpes zoster- ESBL History of present illness: Mr. Biswas is a 82 year old male who presented to [facility] on 03/26/2018 complaining of sore throat and worsening rash. Infectious disease was consulted on 03/28/2018 for wound culture growing E. coli ESBL and enterococcus faecalis. Upon my examination the patient he is resting comfortably in bed with his at that bedside. 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 The patient reports that in February he started having left-sided dermatome-like pattern, pain on the left side of his abdomen. There were no lesions present, however it is very painful and burning in sensation. He went to his PCP who believed this to be shingles. He has already had the shingles vaccine prior to this. He was started on Valtrex. Upon follow-up the pain was still present and he then had bilateral inguinal ulceration. He has now had the bilateral inguinal ulcerations for 2 weeks which are not improved. On that follow-up he was given a cream, Bactrim, and was to continue Valtrex. He presented to the ER because he started having shortness of breath. He also noted pain with swal lowing and mouth/throat pain for the past 3 days that have caused him have decreased oral intake. He reports no improvement in the bilateral inguinal ulcers. They are very painful to touch. The patient denies fever, chills, headache, change in vision, chest pain, cough, wheezing, abdominal pain, nausea, vomiting, change in stool pattern, dysuria. On initial presentation the patient was afebrile, tachycardic, hemodynamically stable. WBC 2.2, hemoglobin 9.6, platelets 40. Lactic acid 0.8, troponin <0.03. Folate 13.8. Urinalysis unremarkable. Stool occult blood negative. Blood cultures were taken. 03/22/2018 wound culture growing E. coli ESBL and enterococcus faecalis. Chest x-ray unremarkable. Due to the patient having pancytopenia oncology was consulted. Rheumatology was consulted and recommended holding methotrexate. Methotrexate level ordered. Dermatology is consulted. CC: Laquita Hamlin CNP Past Med Surg Social Fam HX - Past Medical History Attestation: Yes The following information was validated with the patient. Source: patient Medical history: cancer, CVA, hyperlipidemia, hypertension, other Additional medical history: lung cancer Psychiatric history: no psych history - Past Surgical History Surgical History: cancer surgery, cataract, other Additional surgical history: SWAPNIL lobectomy - Social History Smoking Status: Former smoker Smokeless Tobacco Status: No Alcohol use: none Drug use: none - Family History Mother Living Status: Infectious Disease-CN:Meds RX: Finasteride [Proscar] 5 mg PO DAILY 01/28/15 [History] RX: Lisinopril [Zestril] 40 mg PO DAILY 01/28/15 [History] RX: Methotrexate [Otrexup] 0 mg PO QWEEK 01/28/15 [History] RX: Simvastatin [Zocor] 20 mg PO HS 01/28/15 [History] RX: Furosemide [Lasix] 20 mg PO DAILY 01/19/17 [History] RX: Diltiazem [Cardizem] 30 mg PO Q8HR 03/29/17 [History] RX: Warfarin [Coumadin] 2.5 mg PO DAILY 03/29/17 [History] Valacyclovir HCl [Valtrex] 1 tab PO TID #30 tab 02/25/18 [Rx] Ciclopirox Olamine [Ciclopirox] 30 gm .ROUTE BID 03/26/18 [History] Omeprazole [PriLOSEC] 20 mg PO DAILY 03/26/18 [History] PredniSONE [Deltasone] 20 mg PO TID 03/26/18 [History] Sulfamethoxazole/Trimeth DS [Bactrim DS] 1 each PO BID 03/26/18 [History] Allergy/AdvReac Type Severity Reaction Status Date / Time No Known Allergies Allergy Verified 03/19/18 13:53 - Constitutional Constitutional: Absent: chills, fatigue, fever(s), headache(s), weakness - EENT Eyes: Absent: blurry vision, change in vision - Cardiovascular Cardiovascular: Absent: chest pain, diaphoresis, leg edema - Respiratory Respiratory: Present: dyspnea. Absent: cough, wheezing, chest congestion - Gastrointestinal Gastrointestinal: Absent: abdominal pain, cramping, melena, nausea, vomiting - Integumentary Integumentary: Present: erythema, new lesions, skin pain, skin ulcer, sores - Neurological Neurological: Absent: abnormal speech, dizziness, numbness, paresthesias - Psychiatric Psychiatric: Absent: confusion, hallucinations - Hematologic/Lymphatic Hematologic/Lymphatic: Present: easy bleeding, easy bruising Exam - Constitutional Vitals: Temp Pulse Resp BP Pulse Ox 97.7 F 79 16 105/62 94 03/28/18 06:38 03/28/18 06:38 03/28/18 06:38 03/28/18 06:38 03/28/18 06:38 Exam: Gen.: Vitals noted. No acute distress. AAOx3 HEENT: oropharynx blood clots at the back of throat, no obvious lesions noted in oropharynx, Normocephalic, atraumatic Neck: Supple. No adenopathy. Cardiac: RRR, no murmur, +S1/S2 Pulmonary: CTA bilaterally, no wheezes, rales or rhonchi, equal chest expansion Abdomen: soft, left upper quadrant minimal tender, Bowel sounds noted, no guarding Back: Nontender throughout. Skin: bilateral inguinal region erythematous, desquamation MSK: ROM intact, no joint swelling noted Extremities: no BLE edema, nontender calf, no cyanosis or clubbing Neuro: A&Ox3, moves all extremities Psych: Appropriate mood and behavior Infectious Disease CN: Results - Labs CBC & Chem 7: 03/29/18 09:36 03/29/18 09:36 Cultures: Cultures 03/26/18 11:18 Blood Culture - Preliminary Peripheral Venipuncture Culture is incubating and being continuously monitored for growth. Final report to follow. 03/26/18 11:12 Blood Culture - Preliminary Peripheral Venipuncture Culture is incubating and being continuously monitored for growth. Final report to follow. Serology: Serology 03/26/18 03/26/18 Range/Units 14:05 14:01 Urine Color Yellow (Yellow) Urine Clarity Clear (Clear) Urine pH 6.0 (5.0-8.0) pH Units Ur Specific [place] 1.022 (1.010-1.025) Urine Protein Negative (Neg-Trace) mg/dL Urine Glucose (UA) Normal (Normal) mg/dL Urine Ketones Negative (Negative) mg/dL Urine Blood Negative (Negative) Urine Nitrite Negative (Negative) Urine Bilirubin Negative (Negative) Urine Urobilinogen Normal (Normal) mg/dL Ur Leukocyte Esterase Negative (Negative) Ur Culture Indicated? NO (NO) Stool Occult Bld Scrn Negative (Negative) Consult Discharge Plan - Plan Referrals: Roberta Lamb MD [Partnered Physician] - 07/21/18 11:00 am Fan Clancy DO [Primary Care Provider] - 04/04/18 9:00 am () - Attending Attestation I examined this patient and my medical decision-making was reviewed with the Resident Physician. I agree with the documented findings, disposition and treatment plan as described except to the extent set forth below. This is an addendum to original report dictated by resident physician. Please refer to resident's note for full detail. 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 Patient was seen by dermatology nurse practitioner has an outpatient and a biopsy is suggestive of shingles. While in the hospital patient was noted to be pancytopenic and etiology is not very clear. Patient does have rheumatoid arthritis and is on methotrexate. Not sure if methotrexate had anything to do with it. On physical exam patient has bilateral inguinal tenia pedis with superimposed bacterial infection. Patient also disclamation of the skin. Patient also has black eschar lesion on the left knee above the knee and on the lower extremity. When I evaluated the patient dermatology was in the room and we discussed the lesions and what they think lesions are. Assessment and plan: Sepsis Pancytopenia Cellulitis inguinal area Tenia pedis Shingles improved Constipation Recommendation: At this point await hematology oncology recommendation to see if they can do bone marrow biopsy. Patient's swab culture positive for Escherichia coli ESBL and Enterococcus faecalis ampicillin sensitive so we will switch the patient to oral Bactrim and oral Augmentin. We will continue with Diflucan and add nystatin powder to the area Await dermatology recommendation and biopsy results Monitor labs and for drug toxicity.
[2018-03-28] MEDS: *HR* OxyCODONE Immed Rel 5 MG TABLET PO PRN ×2 (13:46→21:30)
[2018-03-28] MEDS: Folic Acid 1 MG TABLET PO SCH (13:47)
--- NOTE | 2018-03-28 16:39 | Dermatology Consult Note ---
Date of Encounter: 03/28/18 Time of Encounter: 16:32 History of Present Illness Reason for Consult: rash History of Present Illness: Delmis Biswas, is an 82-year-old male admitted for pancytopenia and a painful rash. He has a history of lung cancer last treated with radiation about 6 months ago. He has been taking methotrexate for rheumatoid arthritis. He reports that he has had a rash for 3-4 weeks on his hips and groin area. He reports reports tenderness to touch. He has been treated with valacyclovir as far back as the end of February, bactrim and mupirocin topically with little help in his rash. There was a biopsy taken from his left hip showing full thickness skin necrosis with viral changes - compatible with a herptetic eruption. He does have pain when he swallows. He reports that he used to get a rash in his groin all the time that was treated for jock itch with great improvement. he has a history of a stroke and gets confused easily. His and son are in the room to help him rember. Review of Systems General/Constitutional: Patient denies fevers, chills, nor recent unintended weight loss, night sweats, no change in appetite or malaise. Hematologic: Patient denies new or enlarging lumps or bumps. Skin: Patient denies new or changing moles, or rash other than what is mentioned above. Past Med Surg Social Fam HX - Past Medical History Medical history: cancer, CVA, hyperlipidemia, hypertension, other Additional medical history: lung cancer Psychiatric history: no psych history - Past Surgical History Surgical History: cancer surgery, cataract, other Additional surgical history: SWAPNIL lobectomy - Social History Smoking Status: Former smoker Smokeless Tobacco Status: No Alcohol use: none Drug use: none - Family History Mother Living Status: Medications and Allergies Finasteride [Proscar] 5 mg PO DAILY 01/28/15 [History] Lisinopril [Zestril] 40 mg PO DAILY 01/28/15 [History] Methotrexate [Otrexup] 0 mg PO QWEEK 01/28/15 [History] Simvastatin [Zocor] 20 mg PO HS 01/28/15 [History] Furosemide [Lasix] 20 mg PO DAILY 01/19/17 [History] Diltiazem [Cardizem] 30 mg PO Q8HR 03/29/17 [History] Warfarin [Coumadin] 2.5 mg PO DAILY 03/29/17 [History] Valacyclovir HCl [Valtrex] 1 tab PO TID #30 tab 02/25/18 [Rx] Ciclopirox Olamine [Ciclopirox] 30 gm .ROUTE BID 03/26/18 [History] Omeprazole [PriLOSEC] 20 mg PO DAILY 03/26/18 [History] PredniSONE [Deltasone] 20 mg PO TID 03/26/18 [History] Sulfamethoxazole/Trimeth DS [Bactrim DS] 1 each PO BID 03/26/18 [History] Allergy/AdvReac Type Severity Reaction Status Date / Time No Known Allergies Allergy Verified 03/19/18 13:53 Examination Vital Signs: Temp Pulse Resp BP Pulse Ox 98.4 F 89 16 122/74 94 03/28/18 14:25 03/28/18 14:25 03/28/18 14:10 03/28/18 14:25 03/28/18 06:38 General Examination: The patient appears alert, oriented X3, in no acute distress, healthy-appearing, normal mood. A detailed skin examination of sites including: scalp, head, neck, face, conjunctive, lids, lips, back, chest/breast/axilla, abdomen, bilateral upper extremities including hands/digits/fingernails, bilateral lower extremities including feet/digits/toenails, genital/groin/buttock, lymph nodes, was completed and found to be normal except: -- hemorragic patch on left soft palate, left internal nasal ala, --hemorrhagic crust and surrounding purpura on left knee and left anterior lower leg ( secondary to fall per patient and his ) -- pink patch with sutures on left hip under bandage --faded pink patch on right him, right medial wrist -- macerated, edematous beefy, focally bleeding patches with overlying thin scale on medial thighs and inguinal folds bilaterally - Assessment and Plan (1) Herpetic dermatitis Current Visit: Yes Status: Acute Biopsy-proven on left hip ( resolving) - pt on valacyclovir (2) Rash and other nonspecific skin eruption Current Visit: Yes Status: Acute I do feel that there is more than one process going on: hemorrhagic lesions in mouth and around areas of previous trauma are likely related to lower blood counts - low blood counts may or may not be related to combination of bactrim and methotrexate? vs inate immunodeficiency his groin is macerated and raw -- recommend treating topically with nystatin or ketoconazole, mupirocin and desitin daily- discussed with infectious disease, if not improved within a few days, will consider re-biopsy of groin area; however, result may not be accurate if on antibiotics and prednisone Procedure: Dermatology Date of procedure: 03/28/18 Consult Discharge Plan - Plan Referrals: Fan Clancy DO [Primary Care Provider] -
--- NOTE | 2018-03-28 17:29 | Oncology Inp Progress Note ---
Date of Encounter: 03/28/18 Oncology: Obj Data - Labs CBC & Chem 7: 03/28/18 09:13 03/28/18 09:13 Consult Discharge Plan - Plan Referrals: Fan Clancy DO [Primary Care Provider] -
--- NOTE | 2018-03-28 17:33 | Oncology Inp Progress Note ---
Date of Encounter: 03/29/18 Time of Encounter: 17:31 (1) Pancytopenia Current Visit: Yes Status: Acute Assessment and plan: Platelet count dropped further to 18,000. He had more nosebleeds. Agree with 1 unit of apheresed platelet transfusion. He is on chronic Coumadin likely for atrial fibrillation which I held since yesterday 03/27/2018. We will give vitamin K 2.5 mg by mouth 1 dose because of continued nosebleeds (2) Adenocarcinoma of left lung Current Visit: No Status: Chronic Assessment and plan: This has been treated and currently no evidence of recurrence. The current pancytopenia is unrelated to his lung cancer. He has not had any chemotherapy recently (3) Rheumatoid arthritis Current Visit: No Status: Chronic Assessment and plan: He is on methotrexate. Currently Hold for the Last 10 Days or so. Reviewed Dr. Diamond's notes. Methotrexate level has been sent out. If methotrexate level is normal and pancytopenia persists May consider bone marrow biopsy Qualifiers: Rheumatoid arthritis location: unspecified site Rheumatoid factor presence: unspecified presence Qualified Code(s): M06.9 - Rheumatoid arthritis, unspecified (4) Rash Current Visit: Yes Status: Acute Assessment and plan: Left upper quadrant abdominal wall pain when I saw him on 02/25/2018. Since then he has developed some rash in the left posterior chest. Herpes zoster still in the differential. Continue Valtrex He has a raw area in both groin right much worse than left. This started with erythema about 2 weeks ago and currently getting worse. Biopsy from the groin area showed inflammation and post viral changes. Diagnosis was herpetic dermatitis. Valtrex should help that Oncology: Subj Interval history: His feeling tired. Not feeling well. More nosebleeds and some bleeding in the back of the mouth. Low-grade fever. Mild shortness of breath - Constitutional Exam: Alert and oriented. Mild bleeding and back of the mouth. Mild difficulty with swallowing. Continue to have some pain on the left upper abdominal wall. He has a rash on both groin right worse than the left. Heart S1-S2 regular rate rhythm lungs clear both sites concurrently mildly decreased at bases Oncology: Obj Data - Labs CBC & Chem 7: 03/29/18 09:36 03/29/18 09:36 Consult Discharge Plan - Plan Referrals: Roberta Lamb MD [Partnered Physician] - 07/21/18 11:00 am Fan Clancy DO [Primary Care Provider] - 04/04/18 9:00 am () Inpatient Charges Provider: Dr. Anjelica Chicas Follow up - Inpatient: [id number]
[2018-03-28] MEDS ORDERED: *HR* Phytonadione 5 MG TABLET PO ONE (17:52)
[2018-03-28] MEDS ORDERED: Nystatin POWDER 30 GM BOTTLE TP SCH (21:00)
[2018-03-28] MEDS: Sulfamethoxazole/Trimeth DS 1 EACH TABLET PO SCH (21:20)
[2018-03-29] MEDS: predniSONE 20 MG TABLET PO SCH ×3 (01:21→16:24)
[2018-03-29 06:26] LABS: INR 2.5; Prothrombin Time 27.8 Seconds (9.4-12.1)
[2018-03-29 06:30] LABS: Adenovirus Not Detected (Not Detect); Bordetella Pertussis Not Detected (Not Detect); Chlamydophila pneumoniae Not Detected (Not Detect); Coronavirus 229E Not Detected (Not Detect); Coronavirus HKU1 Not Detected (Not Detect); Coronavirus NL63 Not Detected (Not Detect); Coronavirus OC43 Not Detected (Not Detect); Human Metapneumovirus Not Detected (Not Detect); Human Rhinovirus/Enterovirus Not Detected (Not Detect); Influenza A Subtype 2009 H1 Not Detected (Not Detect); Influenza A Untypeable Not Detected (Not Detect); Influenza B Not Detected (Not Detect); Parainfluenza Virus 1 Not Detected (Not Detect); Parainfluenza Virus 2 Not Detected (Not Detect); Parainfluenza Virus 3 Not Detected (Not Detect); Parainfluenza Virus 4 Not Detected (Not Detect); Respiratory Syncytial Virus Not Detected (Not Detect)
[2018-03-29 06:31] LABS: Mycoplasma pneumoniae Not Detected (Not Detect)
--- NOTE | 2018-03-29 08:36 | Internal Med Progress Note ---
Hospitalist Progress Note - Encounter Date of Encounter: 03/29/18 Time of Encounter: 11:00 - Subjective Interval History: Patient is a 82-year-old male who presented due to rash and sore throat. During patient's hospital stay patient found to have a bilateral inguinal ulcer and rash which grew E. coli ESBL and enterococcus faecalis currently being followed by ID on Augmentin and Bactrim; skin biopsy pending per dermatology Patient also with complaints of sore mouth/throat and pain with swallowing currently on Valtrex and nystatin In addition patient with pancytopenia with plans for possible marrow biopsy per hematology oncology - Exam Vitals: Temp Pulse Resp BP Pulse Ox 98.3 F 76 16 127/61 95 03/29/18 07:03 03/29/18 07:03 03/29/18 07:03 03/29/18 07:03 03/29/18 07:03 Exam: Gen.: Nonacute distress, alert and oriented 3 ENT: Mucosal membranes moist Respiratory: Lungs are clear to auscultation bilaterally without any wheezing rhonchi or rales Cardiovascular: Normal S1 and S2 regular rate rhythm no murmurs rubs or gallops Abdomen: Soft, nontender and nondistended with positive bowel sounds Extremities: No lower extremity edema Skin: Normal color - Assessment and Plan (1) Sore mouth Current Visit: Yes Status: Acute Assessment and Plan: Complaints of sore mouth and throat making it painful swallowing He had blood clots in the back palate secondary to low platelets Continue with Valtrex and fluconazole Infectious disease following with recommendations for rapid strep, HSV and respiratory infectious panel. Will also consult GI for potential EGD due to concerns of esophageal candidiasis (2) Rash Current Visit: Yes Status: Acute Assessment and Plan: Seen by dermatology as outpatient and placed he was treated with valacyclovir as far back as February-Bactrim and mupirocin with little improvement biopsy from left hip -her palate dermatitis continue valacyclovir Groin is macerated raw continue with topical nystatin mupirocin and destitin daily per dermatology's recommendation Dermatology also with further recommendations of consideration to repeat skin biopsy (3) Inguinal ulcer Current Visit: Yes Status: Acute Assessment and Plan: Patient with bilateral inguinal ulcers which grew Escherichia coli ESBL and ente rococcus faecalis Biopsy obtained on 03/22/18 pending Patient currently on Augmentin and Bactrim Infectious disease following an appreciate any additional recommendations (4) Rash and other nonspecific skin eruption Current Visit: Yes Status: Acute Assessment and Plan: Dermatology following with recommendations for topical nystatin in addition to consideration for re-biopsying of the groin area Dermatology following an appreciate any additional recommendations (5) Herpetic dermatitis Current Visit: Yes Status: Acute Assessment and Plan: Biopsy-proven on left hip Resolving on valacyclovir Continue current management (6) Pancytopenia Current Visit: Yes Status: Acute Assessment and Plan: Presented with pancytopenia white count 2.2 hemoglobin 9.6 platelets 40 proximal and one month ago white count was 8.4 hemoglobin 12.7 platelets 251. Today hemoglobin 9.6 white counts 2.8 and platelets are 18 Unsure of etiology-currently not receiving any chemo/radiation therapy-suspect possible medication induced Patient is on methotrexate-patient states he has been taking folate he also states he has been taking his medication up until approximately a week ago he has been taking 6 tablets weekly consult rheumatology We will consult hematology/ oncology-appreciate recommendations-recommending bone marrow biopsy patient will be nothing by mouth after midnight Monitor for bleeding-patient continues to experience nosebleeds-platelets are 18 we will transfuse 1 unit of PRBCs INR 3.4 patient given vitamin K per hematology (7) Rheumatoid arthritis Current Visit: No Status: Chronic Assessment and Plan: Rheumatology following with recommendations to temporary hold methotrexate continue with folic acid - Time Spent with Patient Total time spent is greater than 50% in coordination of care (as documented) at patient's floor/unit and/or counseling patient: Internal Medicine: Result - Labs CBC & Chem 7: 03/29/18 09:36 03/29/18 09:36 Labs: Short CBC 03/28/18 Range/Units 09:13 WBC 2.8 L (4.3-11.1) K/mcL Hgb 9.9 L (12.9-16.9) g/dL Hct 30.5 L (37.5-50.1) % Plt Count 18 L* (140-400) K/mcL Neutrophils # 2.7 (1.6-8.9) K/mcL BMP 03/28/18 09:13 Sodium 137 Potassium 5.3 H Chloride 107 Carbon Dioxide 17 L BUN 50 H Creatinine 1.05 Glucose 172 H Calcium 9.2 - ABG Interpretation ABG results: PT/INR, D-dimer PT 27.8 Seconds (9.4-12.1) H 03/29/18 05:50 - Impressions Impressions KUB X-Ray 03/28/18 16:49 IMPRESSION: Moderate colonic stool burden. Multiple dilated bowel loops within visualized portion of the abdomen. While this could be related to constipation, possibility of obstruction or ileus is not excluded. Clinical correlation is recommended. Follow-up examination may be obtained as clinically warranted. D/ / 03/29/2018 07:01:21 Aron Camacho MD / dominique Interpreting Provider: Aron Camacho MD Consult Discharge Plan - Plan Referrals: Roberta Lamb MD [Partnered Physician] - 07/21/18 11:00 am Fan Clancy DO [Primary Care Provider] - 04/04/18 9:00 am () (7) Rheumatoid arthritis Qualifiers: Rheumatoid arthritis location: unspecified site Rheumatoid factor presence: unspecified presence Qualified Code(s): M06.9 - Rheumatoid arthritis, unspecif ied
[2018-03-29 10:09] LABS: Hematocrit 29.1 % (37.5-50.1); Hemoglobin 9.5 g/dL (12.9-16.9); Immature Granulocytes % 1.1 % (0-4); Lymphocytes # 0.2 K/mcL (0.6-4.6); Lymphocytes % 11.7 %; Mean Corpuscular HGB Conc 32.6 g/dL (31.6-35.5); Mean Corpuscular Volume 88.7 fL (83.0-100.0); Mean Platelet Volume 10.4 fL (9.4-12.4); Monocytes % 1.7 %; Neutrophils # 1.5 K/mcL (1.6-8.9); Red Blood Count 3.28 M/mcL (4.19-5.50); Red Cell Distribution Width 17.4 % (11.5-14.5); Segmented Neutrophils % 85.5 %
[2018-03-29 10:31] LABS: BUN/Creatinine Ratio 48 (6-26); Blood Urea Nitrogen 40 mg/dL (8-23); Calcium 9.3 mg/dL (8.6-10.3); Carbon Dioxide 24 mEq/L (23-29); Chloride 105 mEq/L (98-107); Glucose 100 mg/dL (70-105); Osmolality,Calculated 292 (280-300); Sodium 136 mEq/L (136-145); eGFR For Non-African Americans > 60 (> 60)
--- NOTE | 2018-03-29 10:39 | Infectious Disease Progress No ---
Date of Encounter: 03/29/18 Time of Encounter: 10:39 - Assessment and Plan (1) Pancytopenia Current Visit: Yes Status: Acute Patient has pancytopenia. Initial labs: WBC 2.2, hemoglobin 9.6, platelets 40. Patient with history of small cell lung cancer left lung -etiology of pancytopenia is unknown however differential includes concerns for AML or another leukemia, consider secondary to medication such as methotrexate. -WBC 1.8 (yesterday 2.8), hemoglobin 9.5, platelets 26 -afebrile, hemodynamically stable -Folate 13.8 -Stool occult blood negative -03/26/2018 Blood cultures pending -03/22/2018 wound culture growing E. coli ESBL and enterococcus faecalis -Chest x-ray unremarkable -s/p one unit platelet -no obvious active bleeding Plan: -oncology consulted and following and recommends to await the methotrexate level and if that should be normal then to proceed with a bone biopsy. -Rheumatology was consulted and recommended holding methotrexate. Methotrexate level ordered. (2) Sore mouth Current Visit: Yes Status: Acute Patient complains of a sore mouth and throat that makes it painful to swallow food. -Etiologies unknown but consider Laya and HSV. He is low risk for syphilis, HIV, HSV. -Rapid strep negative -respiratory infectious panel negative -Examination the oropharynx demonstrates no obvious ulcers or lesions in the oropharynx. Plan: -agree with continuing Valtrex -currently on Augmentin -HSV ordered -gastroenterology is planning for EGD today (3) Inguinal ulcer Current Visit: Yes Status: Acute Patient has bilateral inguinal ulcers for over 2 weeks. -Etiology is E. coli ESBL and enterococcus faecalis -Source is undetermined at this time. May be tinea with superimposed bacterial infection. Howeverm maybe noninfectious including herpetic dermatitis or contact dermatitis but unlikely -03/22/2018 wound culture growing E. coli ESBL and enterococcus faecalis. -Lactic acid 0.8 -examination of the bilateral inguinal region show erythema and desquamation Plan: -currently on Bactrim and Augmentin PO day 2 -continue Valtrex day 3 -continube fluconazole day 4 -nystatin ordered -Dermatology is consulted and following. They believe that this is herpetic dermatitis, per their notes biopsy proven on left hip-resolving. If it does not improve they may consider re-biopsy groin area. -biopsy from 03/22/2018 pending - Subjective Interval history: Patient sitting examined today at bedside. He is alert and or 2 times during acute distress. He reports improvement in abdominal soreness. He still has bilateral inguinal pain and sore throat. There are no overnight events. Infect Dis PN-Objective Data - Labs CBC & Chem 7: 03/30/18 09:11 03/30/18 09:11 Labs: Laboratory Results - last 24 hr 03/28/18 03/28/18 03/28/18 09:13 09:13 12:37 WBC 2.8 L RBC 3.42 L Hgb 9.9 L Hct 30.5 L MCV 89.2 MCH 28.9 MCHC 32.5 RDW 17.8 H Plt Count 18 L* MPV 10.1 Seg Neutrophils % 92.0 Band Neutrophils % 4.0 Lymphocytes % 4.0 Neutrophils # 2.7 Lymphocytes # 0.1 L Platelet Estimate Decreased L Immature Plt Fraction 3.1 Anisocytosis 1+ A Microcytosis Present A Smear Path Review PT INR Sodium 137 Potassium 5.3 H Chloride 107 Carbon Dioxide 17 L BUN 50 H Creatinine 1.05 Est GFR ( Amer) > 60 Est GFR (Non-Af Amer) > 60 BUN/Creatinine Ratio 48 H Glucose 172 H Calculated Osmolality 301 H Calcium 9.2 Lactate Dehydrogenase Chlamy pneumoniae PCR Adenovirus (PCR) B. pertussis DNA (PCR) B.parapertussis DNA PCR Coronavirus OC43 (PCR) Coronavirus HKU1 (PCR) Coronavirus 229E (PCR) Coronavirus NL63 (PCR) Human Metapneumovir PCR Influenza A (H1) PCR Influ A (H1N1/09) PCR Influenza A (H3) PCR Influenza A Untype (PCR) Influenza Type B (PCR) M.pneumoniae DNA (PCR) Parainfluenza 1 (PCR) Parainfluenza 2 (PCR) Parainfluenza 3 (PCR) Parainfluenza 4 (PCR) RSV (PCR) Entero/Rhino (PCR) Blood Type A POSITIVE Antibody Screen NEGATIVE 03/29/18 03/29/18 03/29/18 05:10 05:50 05:50 WBC RBC Hgb Hct MCV MCH MCHC RDW Plt Count MPV Seg Neutrophils % Band Neutrophils % Lymphocytes % Neutrophils # Lymphocytes # Platelet Estimate Immature Plt Fraction Anisocytosis Microcytosis Smear Path Review See Below PT 27.8 H INR 2.5 Sodium Potassium Chloride Carbon Dioxide BUN Creatinine Est GFR ( Amer) Est GFR (Non-Af Amer) BUN/Creatinine Ratio Glucose Calculated Osmolality Calcium Lactate Dehydrogenase Chlamy pneumoniae PCR Not Detected Adenovirus (PCR) Not Detected B. pertussis DNA (PCR) Not Detected B.parapertussis DNA PCR Not Detected Coronavirus OC43 (PCR) Not Detected Coronavirus HKU1 (PCR) Not Detected Coronavirus 229E (PCR) Not Detected Coronavirus NL63 (PCR) Not Detected Human Metapneumovir PCR Not Detected Influenza A (H1) PCR Not Detected Influ A (H1N1/) PCR Not Detected Influenza A (H3) PCR Not Detected Influenza A Untype (PCR) Not Detected Influenza Type B (PCR) Not Detected M.pneumoniae DNA (PCR) Not Detected Parainfluenza 1 (PCR) Not Detected Parainfluenza 2 (PCR) Not Detected Parainfluenza 3 (PCR) Not Detected Parainfluenza 4 (PCR) Not Detected RSV (PCR) Not Detected Entero/Rhino (PCR) Not Detected Blood Type Antibody Screen 03/29/18 03/29/18 05:50 09:36 WBC RBC Hgb Hct MCV MCH MCHC RDW Plt Count MPV Seg Neutrophils % Band Neutrophils % Lymphocytes % Neutrophils # Lymphocytes # Platelet Estimate Immature Plt Fraction Anisocytosis Microcytosis Smear Path Review PT INR Sodium 136 Potassium 5.0 Chloride 105 Carbon Dioxide 24 BUN 40 H Creatinine 0.83 Est GFR ( Amer) > 60 Est GFR (Non-Af Amer) > 60 BUN/Creatinine Ratio 48 H Glucose 100 Calculated Osmolality 292 Calcium 9.3 Lactate Dehydrogenase 129 L Chlamy pneumoniae PCR Adenovirus (PCR) B. pertussis DNA (PCR) B.parapertussis DNA PCR Coronavirus OC43 (PCR) Coronavirus HKU1 (PCR) Coronavirus 229E (PCR) Coronavirus NL63 (PCR) Human Metapneumovir PCR Influenza A (H1) PCR Influ A (H1N1/) PCR Influenza A (H3) PCR Influenza A Untype (PCR) Influenza Type B (PCR) M.pneumoniae DNA (PCR) Parainfluenza 1 (PCR) Parainfluenza 2 (PCR) Parainfluenza 3 (PCR) Parainfluenza 4 (PCR) RSV (PCR) Entero/Rhino (PCR) Blood Type Antibody Screen Cultures: Cultures 03/29/18 05:10 Group A Streptococcus Rapid Screen - Final Throat 03/26/18 11:18 Blood Culture - Preliminary Peripheral Venipuncture Culture is incubating and being continuously monito red for growth. Final report to follow. 03/26/18 11:12 Blood Culture - Preliminary Peripheral Venipuncture Culture is incubating and being continuously monitored for growth. Final report to follow. Serology 03/29/18 03/26/18 03/26/18 Range/Units 05:10 14:05 14:01 Urine Color Yellow (Yellow) Urine Clarity Clear (Clear) Urine pH 6.0 (5.0-8.0) pH Units Ur Specific [place] 1.022 (1.010-1.025) Urine Protein Negative (Neg-Trace) mg/dL Urine Glucose (UA) Normal (Normal) mg/dL Urine Ketones Negative (Negative) mg/dL Urine Blood Negative (Negative) Urine Nitrite Negative (Negative) Urine Bilirubin Negative (Negative) Urine Urobilinogen Normal (Normal) mg/dL Ur Leukocyte Esterase Negative (Negative) Ur Culture Indicated? NO (NO) Stool Occult Bld Scrn Negative (Negative) Chlamy pneumoniae PCR Not Detected (Not Detect) Adenovirus (PCR) Not Detected (Not Detect) B. pertussis DNA (PCR) Not Detected (Not Detect) B.parapertussis DNA PCR Not Detected (Not Detect) Coronavirus OC43 (PCR) Not Detected (Not Detect) Coronavirus HKU1 (PCR) Not Detected (Not Detect) Coronavirus 229E (PCR) Not Detected (Not Detect) Coronavirus NL63 (PCR) Not Detected (Not Detect) Human Metapneumovir PCR Not Detected (Not Detect) Influenza A (H1) PCR Not Detected (Not Detect) Influ A (H1N1/09) PCR Not Detected (Not Detect) Influenza A (H3) PCR Not Detected (Not Detect) Influenza A Untype (PCR) Not Detected (Not Detect) Influenza Type B (PCR) Not Detected (Not Detect) M.pneumoniae DNA (PCR) Not Detected (Not Detect) Parainfluenza 1 (PCR) Not Detected (Not Detect) Parainfluenza 2 (PCR) Not Detected (Not Detect) Parainfluenza 3 (PCR) Not Detected (Not Detect) Parainfluenza 4 (PCR) Not Detected (Not Detect) RSV (PCR) Not Detected (Not Detect) Entero/Rhino (PCR) Not Detected (Not Detect) - Impressions Impressions KUB X-Ray 03/28/18 16:49 IMPRESSION: Moderate colonic stool burden. Multiple dilated bowel loops within visualized portion of the abdomen. While this could be related to constipation, possibility of obstruction or ileus is not excluded. Clinical correlation is recommended. Follow-up examination may be obtained as clinically warranted. D/ / 03/29/2018 07:01:21 Aron Camacho MD / dominique Interpreting Provider: Aron Camacho MD Exam - Constitutional Vitals: Temp Pulse Resp BP Pulse Ox 98.3 F 76 16 127/61 95 03/29/18 07:03 03/29/18 07:03 03/29/18 07:03 03/29/18 07:03 03/29/18 07:03 Exam: Gen.: Vitals noted. No acute distress. AAOx3 HEENT: no obvious lesions noted in oropharynx, Normocephalic, atraumatic Cardiac: RRR, no murmur, +S1/S2 Pulmonary: CTA bilaterally, no wheezes, rales or rhonchi, equal chest expansion Abdomen: soft, left upper quadrant minimal tender, Bowel sounds noted, no guarding Back: Nontender throughout. Skin: bilateral inguinal region erythematous, desquamation MSK: ROM intact Extremities: no BLE edema, nontender calf, no cyanosis or clubbing Neuro: A&Ox3, moves all extremities Psych: Appropriate mood and behavior Consult Discharge Plan - Plan Additional Instructions: will f/u w/ me in clinic Referrals: Fan Clancy DO [Primary Care Provider] - 04/04/18 9:00 am () - Attending Attestation I examined this patient and my medical decision-making was reviewed with the Resident Physician. I agree with the documented findings, disposition and treatment plan as described except to the extent set forth below. patient seen and examined. no change clinically Assessment and plan: Sepsis Pancytopenia Cellulitis inguinal area Tenia pedis Shingles improved Constipation recommendation: continue current antibiotics await methotrexate level await heme/onc recommendation bone marrow biopsy? EGD noted
[2018-03-29 10:42] LABS: Platelet Count 26 K/mcL (140-400)
[2018-03-29] MEDS: Sulfamethoxazole/Trimeth DS 1 EACH TABLET PO SCH ×2 (10:50→20:55)
[2018-03-29] MEDS: Furosemide 20 MG TABLET PO SCH (10:51)
[2018-03-29] MEDS: Cyanocobalamin (B-12) 1,000 MCG TABLET PO SCH (10:51)
[2018-03-29] MEDS: MAGIC MOUTHWASH PO SCH (10:51)
[2018-03-29] MEDS: valACYclovir 500 MG TABLET PO SCH ×3 (10:51→20:55)
[2018-03-29] MEDS: Folic Acid 1 MG TABLET PO SCH (10:51)
[2018-03-29] MEDS: Finasteride 5 MG TABLET PO SCH (10:51)
[2018-03-29 11:00] LABS: Platelet Estimate Decreased (Normal)
--- NOTE | 2018-03-29 12:45 | Gastroenterology Consult Note ---
<Felix Rodriguez - Last Filed: 03/29/18 12:43> Date of Encounter: 03/29/18 Time of Encounter: 10:40 - Assessment and plan (1) Sore mouth Current Visit: Yes Status: Acute Assessment and plan: Patient has been having difficulty swallowing food due to pain. Pain is much improved today compared to yesterday. Continue Valtrex, Nystatin, and Magic Mouthwash. Plan for EGD to evaluate esophagus, and rule out esophageal candidiasis. Keep patient NPO for now. (2) Pancytopenia Current Visit: Yes Status: Acute Assessment and plan: WBC 2.8, Hgb 9.9, plts 18 yesterday. Heme/Onc following, and planning for BMBx and aspiration. - Time Spent With Patient Total time spent is greater than 50% in coordination of care (as documented) at patient's floor/unit and/or counseling patient: GI History of Present Illness - Data of Consult Patient: new to practice Consult date: 03/29/18 Requesting Physician: James Davis - Consult Narrative Reason for consult: Esophageal candidiasis History of present illness: Mr. Biswas is a 82 year old male with PMHx of non-small cell lung cancer in left lower lobe, CVA, HLD, HTN, Afib. Patient reports presenting to ED for evaluation of worsening rash and sore throat. Wound culture positive for E.coli ESBL and enterococcus faecalis. Has been on methotrexate for several years for treatment of RA. He complains of pain with swallowing and mouth/throat pain for the past 3 days that have caused him have decreased oral intake. He was started on Nystatin and Magic Mouthwash. Patient states the pain is much improved today compared to yesterday. Procedures: Colonoscopy 06/12/2015 Dr. Alarcon: Tortuous colon, diverticulosis. Colonoscopy 05/28/2010 Dr. Sin: Mild patchy inflammation Colonoscopy 01/15/2005 Dr. 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 NSAIDs: None Anticoagulation: Coumadin Past Med Surg Social Fam HX - Past Medical History Medical history: cancer, CVA, hyperlipidemia, hypertension, other Additional medical history: lung cancer Psychiatric history: no psych history - Past Surgical History Surgical History: cancer surgery, cataract, other Additional surgical history: SWAPNIL lobectomy - Social History Smoking Status: Former smoker Smokeless Tobacco Status: No Alcohol use: none Drug use: none - Family History Mother Living Status: - Gastrointestinal Gastrointestinal: Present: as per HPI - Constitutional Constitutional: as per HPI - EENT Eyes: as per HPI Ears: Present: as per HPI Nose, mouth and throat: Present: as per HPI - Cardiovascular Cardiovascular ROS: Present: as per HPI - Respiratory Respiratory IM: Present: as per HPI - Genitourinary Genitourinary: Absent: change in color, Urinary frequency - Neurological ROS Neurological GI: Present: as per HPI - Hematologic/Lymphatic Hematologic/Lymphatic pediatric: Present: as per HPI - Musculoskeletal Musculoskeletal ROS GI: Present: as per HPI - Integumentary Integumentary GI: Present: as per HPI - Psychiatric ROS Psychiatric GI: Present: as per HPI - Endocrine Endocrine IM: Present: as per HPI - Constitutional Vitals: Temp Pulse Resp BP Pulse Ox 97.9 F 84 16 131/75 95 03/29/18 11:40 03/29/18 11:40 03/29/18 11:40 03/29/18 11:40 03/29/18 11:40 General appearance: Present: cooperative, A&O X 3, no acute distress, answers questions appropriately - Head Head exam: Present: atraumatic, normocephalic - Eye Eye exam: Present: normal appearance, sclera anicteric - ENT ENT exam: Present: mucous membranes moist Additional comments: Soft palate with erythema, petechia. Oropharynx erythematous. Lesions noted left lower lip. - Neck Neck exam general surgery: Present: normal inspection, trachea midline - Respiratory Respiratory exam: Present: decreased breath sounds, CTAB. Absent: rales, rhonchi - Cardiovascular Cardiovascular exam: Present: RRR, +S1, +S2 - GI/Abdominal GI/Abdominal exam: Present: soft, no peritoneal signs. Absent: distended, firm, guarding, tenderness - Rectal Rectal exam: Present: deferred - Extremities Exam Extremities exam: Present: warm - Neurological Exam Neurological exam: Present: no focal deficits - Psychiatric Psychiatric exam: Present: normal affect, normal mood - Skin Skin exam: Present: dry, intact, normal color, warm Results - Labs CBC & Chem 7: 03/29/18 09:36 03/29/18 09:36 Labs: Last Result Calcium 9.3 mg/dL (8.6-10.3) 03/29/18 09:36 Iron 109 mcg/dL (65-175) 03/27/18 09:07 % Saturation 56 % (20-55) H 03/27/18 09:07 Transferrin 140 mg/dL (203-362) L 03/27/18 09:07 Ferritin 412 ng/mL (20-250) H 03/27/18 09:07 Troponin I < 0.03 ng/mL (< 0.04) 03/26/18 11:12 Vitamin B12 299 pg/mL (250-1100) 03/27/18 09:07 Folate 13.8 ng/mL (3.0-16.0) 03/27/18 09:07 Entire Visit Hgb 9.5 g/dL (12.9-16.9) L 03/29/18 09:36 Hct 29.1 % (37.5-50.1) L 03/29/18 09:36 PT 27.8 Seconds (9.4-12.1) H 03/29/18 05:50 Ferritin 412 ng/mL (20-250) H 03/27/18 09:07 Total Bilirubin 0.4 mg/dL (0.3-1.0) 03/27/18 09:07 AST 17 Units/L (13-39) 03/27/18 09:07 ALT 24 Units/L (7-52) 03/27/18 09:07 Folate 13.8 ng/mL (3.0-16.0) 03/27/18 09:07 - ABG ABG results: PT/INR, D-dimer PT 27.8 Seconds (9.4-12.1) H 03/29/18 05:50 - Impressions Impressions KUB X-Ray 03/28/18 16:49 IMPRESSION: Moderate colonic stool burden. Multiple dilated bowel loops within visualized portion of the abdomen. While this could be related to constipation, possibility of obstruction or ileus is not excluded. Clinical correlation is recommended. Follow-up examination may be obtained as clinically warranted. D/ / 03/29/2018 07:01:21 Aron Camacho MD / [facility] Interpreting Provider: Aron Camacho MD Consult Discharge Plan - Plan Referrals: Roberta Lamb MD [Partnered Physician] - 07/21/18 11:00 am Fan Clancy DO [Primary Care Provider] - 04/04/18 9:00 am () <Duke Schroeder - Last Filed: 03/29/18 14:24> Date of Encounter: 03/29/18 Time of Encounter: 12:00 - Time Spent With Patient Total time spent is greater than 50% in coordination of care (as documented) at patient's floor/unit and/or counseling patient: GI History of Present Illness - Data of Consult Requesting Physician: James Davis - Consult Narrative History of present illness: Mr. Biswas is a 82 year old male - Constitutional Vitals: Temp Pulse Resp BP Pulse Ox 97.9 F 84 16 131/75 95 03/29/18 11:40 03/29/18 11:40 03/29/18 11:40 03/29/18 11:40 03/29/18 11:40 Results - Labs CBC & Chem 7: 03/29/18 09:36 03/29/18 09:36 Labs: Last Result Calcium 9.3 mg/dL (8.6-10.3) 03/29/18 09:36 Iron 109 mcg/dL (65-175) 03/27/18 09:07 % Saturation 56 % (20-55) H 03/27/18 09:07 Transferrin 140 mg/dL (203-362) L 03/27/18 09:07 Ferritin 412 ng/mL (20-250) H 03/27/18 09:07 Troponin I < 0.03 ng/mL (< 0.04) 03/26/18 11:12 Vitamin B12 299 pg/mL (250-1100) 03/27/18 09:07 Folate 13.8 ng/mL (3.0-16.0) 03/27/18 09:07 Entire Visit Hgb 9.5 g/dL (12.9-16.9) L 03/29/18 09:36 Hct 29.1 % (37.5-50.1) L 03/29/18 09:36 PT 27.8 Seconds (9.4-12.1) H 03/29/18 05:50 Ferritin 412 ng/mL (20-250) H 03/27/18 09:07 Total Bilirubin 0.4 mg/dL (0.3-1.0) 03/27/18 09:07 AST 17 Units/L (13-39) 03/27/18 09:07 ALT 24 Units/L (7-52) 03/27/18 09:07 Folate 13.8 ng/mL (3.0-16.0) 03/27/18 09:07 - ABG ABG results: PT/INR, D-dimer PT 27.8 Seconds (9.4-12.1) H 03/29/18 05:50 - Impressions Impressions KUB X-Ray 03/28/18 16:49 IMPRESSION: Moderate colonic stool burden. Multiple dilated bowel loops within visualized portion of the abdomen. While this could be related to constipation, possibility of obstruction or ileus is not excluded. Clinical correlation is recommended. Follow-up examination may be obtained as clinically warranted. D/ / 03/29/2018 07:01:21 Aron Camacho MD / [facility] Interpreting Provider: Aron Camacho MD - Attending Attestation I have personally performed a face to face evaluation on this patient. I have reviewed and agree with the care plan. History and Exam by me shows: Patient seen per patient he was having sore throat this is doing better than yesterday. On examination: Does has an ulceron his lower lip and also erythema and the some mild ulceration in the back of his throat. A:P patient has pancytopenia. Patient with history of small cell lung cancer, now with oral ulcers with the pain on swallowing. Most probably dysphagia is oropharyngeal but rule out esophageal causes. Rec: Diagnostic EGD to rule out infectious etiology of the esophagus such as Laya or herpes etc.
[2018-03-29] MEDS ORDERED: [UNRECOGNIZED DRUG - OTHER] IV SCH (14:00)
--- NOTE | 2018-03-29 14:09 | Anesthesia Evaluation PreOp ---
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 (EGD to evaluate esophagus, and rule out esophageal candidiasis) Other Medical History: GERD, Other (bilateral inguinal ulcers, RA) Anesthesia History: No Prior Anesthetic Complications, Past Anesthesia (SWAPNIL lobectomy) Alcohol Use: none Drug use: none Medications and Allergies Finasteride [Proscar] 5 mg PO DAILY 01/28/15 [History] Lisinopril [Zestril] 40 mg PO DAILY 01/28/15 [History] Methotrexate [Otrexup] 0 mg PO QWEEK 01/28/15 [History] Simvastatin [Zocor] 20 mg PO HS 01/28/15 [History] Furosemide [Lasix] 20 mg PO DAILY 01/19/17 [History] Diltiazem [Cardizem] 30 mg PO Q8HR 03/29/17 [History] Warfarin [Coumadin] 2.5 mg PO DAILY 03/29/17 [History] Valacyclovir HCl [Valtrex] 1 tab PO TID #30 tab 02/25/18 [Rx] Ciclopirox Olamine [Ciclopirox] 30 gm .ROUTE BID 03/26/18 [History] Omeprazole [PriLOSEC] 20 mg PO DAILY 03/26/18 [History] PredniSONE [Deltasone] 20 mg PO TID 03/26/18 [History] Sulfamethoxazole/Trimeth DS [Bactrim DS] 1 each PO BID 03/26/18 [History] Allergy/AdvReac Type Severity Reaction Status Date / Time No Known Allergies Allergy Verified 03/19/18 13:53 - Meds/Allergy Pre-op Review Medications Reviewed: Yes Allergies Reviewed: Yes Beta Blockers on Current Med List: No Anesthesia Results - Labs 03/29/18 09:36 03/29/18 09:36 - Imaging EKG: report reviewed Additional studies: PFT 07/2016 INTERPRETATION: Spirometry shows severe airway obstructive pattern FVC 2.44, 57% predicted FEV1 1.51, 49% predicted Lung Volumes are moderately reduced. Diffusion Capacity is moderately reduced. DLCO corrected for hemoglobin 19.06, 54% predicted Flow Volume Loop: Obstructive Echo 2017 Impressions: LVEF 65%. Normal left ventricular size and systolic function. Mild increased LV wall thickness. There is evidence of mild diastolic dysfunction of the left ventricle. Normal right ventricular size and function. Mild mitral regurgitation. Mild-moderate pulmonic regurgitation. No pulmonary hypertension. Anesthesia Exam Vital Signs/O2 Sat/Glucose, Most Recent Temp Pulse Resp BP Pulse Ox 97.9 F 84 16 131/75 95 03/29/18 11:40 03/29/18 11:40 03/29/18 11:40 03/29/18 11:40 03/29/18 11:40 Weight: 89 kg NPO (# of Hours): > 8 hr - HEENT Pupil (Motor): Pupils equal Mallampati: II Oral Opening: Greater than 3 - BAG MACHINE OPERATOR LOC: Oriented BAG MACHINE OPERATOR Motor: Normal RUE, Normal LUE, Normal RLE, Normal LLE, Normal Face BAG MACHINE OPERATOR Sensory: Normal: RUE, LUE, RLE, LLE, Face - Cardiac Rhythm: Regular Murmur: None - Pulmonary Breath Sounds: bilateral Clear Respiratory Effort: Symmetrical Anesthesia Assess/Plan ASA Score: 4 (HTN, Afib, pancytopenia, COPD) Level of consciousness: Cooperative, Oriented, Tranquil Anesthetic Plan: MAC Monitoring Plan: Standard Monitors Recovery Plan: PACU
[2018-03-29] MEDS ORDERED: *HR* Propofol 200 MG/20 ML VIAL IVP ONE (14:24)
[2018-03-29] MEDS: Nystatin Cream 15 GM TUBE TP SCH ×3 (14:36→22:14)
[2018-03-29] MEDS: Fluconazole 100 MG TABLET PO SCH (14:36)
--- NOTE | 2018-03-29 14:52 | Anesthesia Evaluation Post Op ---
Date of Encounter: 03/29/18 Time of Encounter: 14:51 - Vital Signs Vital Signs: Vital Signs/O2 Sat/Glucose, Most Recent Temp Pulse Resp BP Pulse Ox 97.4 F L 95 16 168/78 96 03/29/18 14:27 03/29/18 14:27 03/29/18 14:27 03/29/18 14:27 03/29/18 14:27 - Lungs Lungs: Clear Ascult./Percussion - Airway Airway: Non-obstructed - Cardiovascular Regular Rate - Mental Status Mental Status: Alert & Oriented, Answers Appropriately - Pain Pain Scale: 0 - Nausea Vomiting Nausea Vomiting: Not Present - Hydration Hydration: NPO - Discharge PostOp Status: Transfer Patient to floor
[2018-03-29] MEDS: [UNRECOGNIZED DRUG - OTHER] IV SCH ×2 (14:59→20:39)
[2018-03-29] MEDS: SODIUM CHLORIDE 0.9% IV SCH ×2 (14:59→20:39)
--- NOTE | 2018-03-29 16:31 | Event Note ---
Date of Encounter: 03/29/18 Time of Encounter: 08:[address] Chicas, he is going to proceed with leucovorin while methotrexate levels and hematology workup is in place. Will continue to follow peripherally at this time.
--- NOTE | 2018-03-29 17:07 | Dermatology Progress Note ---
Date of Encounter: 03/30/18 Time of Encounter: 10:15 Subjective Interval History: Pt sitting in bed and states mouth feels a bit better but felt groin was the same. It doesn't hurt as long as no one touches area. He is in decent spirits but asking questions about plan of care. No new skin lesions per pt Objective - Constitutional Vitals: Temp Pulse Resp BP Pulse Ox 97.5 F L 97 16 106/59 95 03/29/18 15:02 03/29/18 15:02 03/29/18 15:02 03/29/18 15:02 03/29/18 15:02 pt is alert and pleasant and oriented and nontoxic. appears less sick than when I saw him in office Wednesday. Shallow denuded ulcerations b/l buccal mucosa. groin w/ well demarcated violaceous patches w/ overlying blood/crust and shallow denuded areas. dry annular violaceous patches b/l hips. lips, eyes, ears, and scalp and arms clear of rash Assessment and Plan (1) Herpetic dermatitis Current Visit: Yes Status: Acute This is improving; rec cont valacyclovir (2) Rash Current Visit: Yes Status: Acute Inguinal rash is about the same appearing. Hard to tell if secondarily infected intertrigo or ulceration due to possible mtx toxicity of paraneoplastic phenom. i switched nystatin powder to cream as nurses said hard to apply w/ the other topical therapies. discussed bathing techniques and skin care w/ his nurse. i feel it may be best to wait for mtx level to come back and if mtx level normal and rash worse or not improving to then biopsy this area as well. cont stern pportive care for now. Procedure: Dermatology Date of procedure: 03/29/18 Procedure: no procedure done Consult Discharge Plan - Plan Additional Instructions: will f/u w/ me in clinic Referrals: Fan Clancy DO [Primary Care Provider] - 04/04/18 9:00 am ()
--- NOTE | 2018-03-29 17:31 | Oncology Inp Progress Note ---
<Connor Chicas S - Last Filed: 03/29/18 17:48> Date of Encounter: 03/29/18 Time of Encounter: 17:50 (1) Pancytopenia Current Visit: Yes Status: Acute (2) Adenocarcinoma of left lung Current Visit: No Status: Chronic (3) Rheumatoid arthritis Current Visit: No Status: Chronic Qualifiers: Rheumatoid arthritis location: unspecified site Rheumatoid factor presence: unspecified presence Qualified Code(s): M06.9 - Rheumatoid arthritis, unspecified (4) Rash Current Visit: Yes Status: Acute Oncology: Obj Data - Labs CBC & Chem 7: 03/29/18 09:36 03/29/18 09:36 Consult Discharge Plan - Plan Additional Instructions: will f/u w/ me in clinic Referrals: Fan Clancy DO [Primary Care Provider] - 04/04/18 9:00 am () Inpatient Charges Provider: Dr. Anjelica Chicas Follow up - Inpatient: [id number] - Attending Attestation I examined this patient and my medical decision-making was reviewed with the Advanced Practice Nurse Roberta levin. I agree with the documented findings, disposition and treatment plan as described except to the extent set forth below. 1. Has some pain with swallowing. EGD showed aphthous/herpetic-type ulcers in the back of the mouth. Esophagus clean 2. Worsening pancytopenia and this is acute the last 3 weeks. We will proceed with bone marrow biopsy. Low platelets should be acceptable for bone marrow biopsy but if needed we can transfuse platelets to 50,000. He was on weekly methotrexate which was stopped at least a week ago. Discussed with Dr. Calle. Methotrexate level pending. As pancytopenia could be from methotrexate will give him leucovorin 100 mg IV every 6 hours 4 doses first dose today 3. Coagulopathy secondary to Coumadin. INR trending down. Today 2.5 and he received oral vitamin K 2.5 mg by mouth and then <Roberta Levin L - Last Filed: 03/30/18 12:36> Date of Encounter: 03/29/18 (1) Pancytopenia Current Visit: Yes Status: Acute Assessment and plan: Acute pancytopenia noted on admission S/P 2 unit platelets for worsening thrombocytopenia with epistaxis S/P vitamin K 2.5 mg PO for INR 3.5 Plan: Hold coumadin until platelet count recovers >50 We will plan for Bone Marrow Bx tomorrow to rule out marrow etiology which does still remain in differential MTX level pending, rheumatology involved with case, due to clinical concern for MTX toxicity, treatment of such would outweigh the risks of waiting on level to result, we will go ahead and treat MTX toxicity with Leukovorin 100 mg IV every 6 hours x4 doses, first dose today Oncology: Subj Interval history: Patient is resting comfortably, no acute events noted overnight. Patients and son are at bedside. One episode epistaxis this morning. Denies pain. No fever/chills. Continue to have constipation - Constitutional General appearance: cooperative, no acute distress, no febrile - Head Head exam: Present: atraumatic - ENT ENT exam: Present: mucous membranes moist, normal oropharynx - Respiratory Respiratory exam: Present: decreased breath sounds, CTAB. Absent: respiratory distress - Cardiovascular Cardiovascular exam: Present: RRR, +S1, +S2 - GI/Abdominal GI/Abdominal exam: Present: distended, normal bowel sounds, soft. Absent: guarding, rebound, tenderness - Extremities Exam Extremities exam: Present: normal inspection. Absent: calf tenderness - Neurological Exam Neurological exam: Present: alert, oriented X3, no focal deficits, strengths equal and symetr throughout - Psychiatric Psychiatric exam: Present: normal affect, normal mood - Skin Skin exam: Present: dry, intact, pallor, warm Oncology: Obj Data - Labs CBC & Chem 7: 03/30/18 09:11 03/30/18 09:11 Inpatient Charges Provider: Dr. Anjelica Chicas
--- NOTE | 2018-03-29 17:37 | Event Note ---
Date of Encounter: 03/29/18 Time of Encounter: 14:00 EGD: Multiple ??apthous vs herprtic ulcers in oral cavity/back of pharynx. Esophagus Clean.
[2018-03-29 17:51] LABS: Hematocrit 28.5 % (37.5-50.1); Lymphocytes % 21.8 %
[2018-03-29 17:55] LABS: Eosinophils % 0.7 %; Hemoglobin 9.2 g/dL (12.9-16.9); Immature Granulocytes % 0.7 % (0-4); Lymphocytes # 0.3 K/mcL (0.6-4.6); Mean Corpuscular HGB Conc 32.3 g/dL (31.6-35.5); Mean Corpuscular Hemoglobin 28.5 pg (28.0-33.3); Mean Corpuscular Volume 88.2 fL (83.0-100.0); Mean Platelet Volume 9.6 fL (9.4-12.4); Monocytes % 1.4 %; Neutrophils # 1.1 K/mcL (1.6-8.9); Red Blood Count 3.23 M/mcL (4.19-5.50); Red Cell Distribution Width 17.6 % (11.5-14.5); Segmented Neutrophils % 75.4 %
[2018-03-29 18:03] LABS: Platelet Count 39 K/mcL (140-400)
[2018-03-29 18:30] LABS: Hypochromasia Present (Not Present); Macrocytosis Present (Not Present); Platelet Estimate Decreased (Normal)
[2018-03-30] MEDS: [UNRECOGNIZED DRUG - OTHER] IV SCH ×2 (03:09→14:27)
[2018-03-30] MEDS: SODIUM CHLORIDE 0.9% IV SCH ×2 (03:09→14:27)
[2018-03-30 05:39] LABS: INR 1.6; Prothrombin Time 17.7 Seconds (9.4-12.1)
[2018-03-30] MEDS: valACYclovir 500 MG TABLET PO SCH ×3 (09:00→21:35)
[2018-03-30] MEDS: predniSONE 20 MG TABLET PO SCH ×2 (09:00→17:45)
[2018-03-30] MEDS: Cyanocobalamin (B-12) 1,000 MCG TABLET PO SCH (09:00)
[2018-03-30] MEDS: Finasteride 5 MG TABLET PO SCH (09:00)
[2018-03-30] MEDS: Sulfamethoxazole/Trimeth DS 1 EACH TABLET PO SCH (09:00)
[2018-03-30] MEDS: Folic Acid 1 MG TABLET PO SCH (09:00)
[2018-03-30] MEDS: Fluconazole 100 MG TABLET PO SCH (09:00)
--- NOTE | 2018-03-30 09:23 | Infectious Disease Progress No ---
Date of Encounter: 03/30/18 Time of Encounter: 09:20 - Assessment and Plan (1) Pancytopenia Current Visit: Yes Status: Acute Patient has pancytopenia. Initial labs: WBC 2.2, hemoglobin 9.6, platelets 40. Patient with history of small cell lung cancer left lung -etiology of pancytopenia is unknown however differential includes concerns leukemia, consider secondary to medication such as methotrexate. Patient did receive Bactrim outpatient while he was taking methotrexate. -WBC 1.8 (yesterday 2.8), hemoglobin 9.5, platelets 26 -afebrile, hemodynamically stable -Folate 13.8 -Stool occult blood negative -03/26/2018 Blood cultures pending -03/22/2018 wound culture growing E. coli ESBL and enterococcus faecalis -Chest x-ray unremarkable -s/p one unit platelet -no obvious active bleeding Plan: -oncology consulted and following and recommends to await the methotrexate level. Also giving leucovorin for possible methotrexate toxicity. The patient is to get a bone marrow biopsy today. -Rheumatology was consulted and recommended holding methotrexate. Methotrexate level ordered. -Contact precautions -antibiotics as below -blood culture pending (2) Sore mouth Current Visit: Yes Status: Acute Patient complains of a sore mouth and throat that makes it painful to swallow fo od. -Etiology is aphthous ulcers versus herpetic lesions. He is low risk for syphilis, HIV, HSV. -Rapid strep negative -respiratory infectious panel negative -Examination the oropharynx demonstrates no obvious ulcers or lesions in the oropharynx. -Patient reports improvement of mouth soreness. -Gastroenterology performed EGD 03/29/2018 which demonstrated multiple aphthous ulcers versus herpetic lesions and oral cavity/back of pharynx. Esophagus clean. Plan: -agree with continuing Valtrex -currently on Augmentin -HSV ordered (3) Inguinal ulcer Current Visit: Yes Status: Acute Patient has bilateral inguinal ulcers for over 2 weeks. -Etiology is E. coli ESBL and enterococcus faecalis -Source may be tinea with superimposed bacterial infection. Howeverm maybe noninfectious including herpetic dermatitis or contact dermatitis but unlikely -03/22/2018 wound culture growing E. coli ESBL and enterococcus faecalis. -Lactic acid 0.8 -examination of the bilateral inguinal region show erythema and desquamation. -Patient reports mild improvement of soreness Plan: -start Levaquin -stop Bactrim day 3 -continue Augmentin day 3 -continue Valtrex day 4 -continube fluconazole day 5 -nystatin ordered -Dermatology is consulted and following. They believe that this is herpetic dermatitis, per their notes biopsy proven on left hip-resolving. If it does not improve they may consider re-biopsy groin area. - Subjective Interval history: Patient sitting examined today at bedside resting comfortably. He is alert and oriented times 3. He reports improvement of sore throat. He reports mild improvement of bilateral inguinal pain. There are no overnight events. He reported that he is to get a bone marrow biopsy this morning. Infect Dis PN-Objective Data - Labs CBC & Chem 7: 03/31/18 08:43 03/31/18 08:43 Labs: Laboratory Results - last 24 hr 03/28/18 03/29/18 03/29/18 12:37 09:36 09:36 WBC 1.8 L RBC 3.28 L Hgb 9.5 L Hct 29.1 L MCV 88.7 MCH 29.0 MCHC 32.6 RDW 17.4 H Plt Count 26 L* MPV 10.4 Immature Gran % 1.1 Seg Neutrophils % 85.5 Lymphocytes % 11.7 Monocytes % 1.7 Eosinophils % 0.0 Basophils % 0.0 Neutrophils # 1.5 L Lymphocytes # 0.2 L Monocytes # 0.0 Eosinophils # 0.0 Basophils # 0.0 Platelet Estimate Decreased L Hypochromasia Macrocytosis PT INR Sodium 136 Potassium 5.0 Chloride 105 Carbon Dioxide 24 BUN 40 H Creatinine 0.83 Est GFR ( Amer) > 60 Est GFR (Non-Af Amer) > 60 BUN/Creatinine Ratio 48 H Glucose 100 Calculated Osmolality 292 Calcium 9.3 Blood Type A POSITIVE Antibody Screen NEGATIVE 03/29/18 03/30/18 17:40 04:12 WBC 1.4 L RBC 3.23 L Hgb 9.2 L Hct 28.5 L MCV 88.2 MCH 28.5 MCHC 32.3 RDW 17.6 H Plt Count 39 L MPV 9.6 Immature Gran % 0.7 Seg Neutrophils % 75.4 Lymphocytes % 21.8 Monocytes % 1.4 Eosinophils % 0.7 Basophils % 0.0 Neutrophils # 1.1 L Lymphocytes # 0.3 L Monocytes # 0.0 Eosinophils # 0.0 Basophils # 0.0 Platelet Estimate Decreased L Hypochromasia Present A Macrocytosis Present A PT 17.7 H INR 1.6 Sodium Potassium Chloride Carbon Dioxide BUN Creatinine Est GFR ( Amer) Est GFR (Non-Af Amer) BUN/Creatinine Ratio Glucose Calculated Osmolality Calcium Blood Type Antibody Screen Cultures: Cultures 03/29/18 05:10 Group A Streptococcus Rapid Screen - Final Throat 03/26/18 11:18 Blood Culture - Preliminary Peripheral Venipuncture Culture is incubating and being continuously monitored for growth. Final report to follow. 03/26/18 11:12 Blood Culture - Preliminary Peripheral Venipuncture Culture is incubating and being continuously mo nitored for growth. Final report to follow. Serology 03/29/18 03/26/18 03/26/18 Range/Units 05:10 14:05 14:01 Urine Color Yellow (Yellow) Urine Clarity Clear (Clear) Urine pH 6.0 (5.0-8.0) pH Units Ur Specific [place] 1.022 (1.010-1.025) Urine Protein Negative (Neg-Trace) mg/dL Urine Glucose (UA) Normal (Normal) mg/dL Urine Ketones Negative (Negative) mg/dL Urine Blood Negative (Negative) Urine Nitrite Negative (Negative) Urine Bilirubin Negative (Negative) Urine Urobilinogen Normal (Normal) mg/dL Ur Leukocyte Esterase Negative (Negative) Ur Culture Indicated? NO (NO) Stool Occult Bld Scrn Negative (Negative) Chlamy pneumoniae PCR Not Detected (Not Detect) Adenovirus (PCR) Not Detected (Not Detect) B. pertussis DNA (PCR) Not Detected (Not Detect) B.parapertussis DNA PCR Not Detected (Not Detect) Coronavirus OC43 (PCR) Not Detected (Not Detect) Coronavirus HKU1 (PCR) Not Detected (Not Detect) Coronavirus 229E (PCR) Not Detected (Not Detect) Coronavirus NL63 (PCR) Not Detected (Not Detect) Human Metapneumovir PCR Not Detected (Not Detect) Influenza A (H1) PCR Not Detected (Not Detect) Influ A (H1N1/09) PCR Not Detected (Not Detect) Influenza A (H3) PCR Not Detected (Not Detect) Influenza A Untype (PCR) Not Detected (Not Detect) Influenza Type B (PCR) Not Detected (Not Detect) M.pneumoniae DNA (PCR) Not Detected (Not Detect) Parainfluenza 1 (PCR) Not Detected (Not Detect) Parainfluenza 2 (PCR) Not Detected (Not Detect) Parainfluenza 3 (PCR) Not Detected (Not Detect) Parainfluenza 4 (PCR) Not Detected (Not Detect) RSV (PCR) Not Detected (Not Detect) Entero/Rhino (PCR) Not Detected (Not Detect) - Impressions Impressions KUB X-Ray 03/28/18 16:49 IMPRESSION: 1. Moderate colonic stool burden. 2. Multiple dilated bowel loops within visualized portion of the abdomen. While this could be related to constipation, possibility of obstruction or ileus is not excluded. Follow-up examination may be obtained, as clinically warranted. D/ / 03/29/2018 07:01:21 Aron Camacho MD / dominique Interpreting Provider: rAon Camacho MD Exam - Constitutional Vitals: Temp Pulse Resp BP Pulse Ox 98.6 F 78 16 137/72 95 03/30/18 07:30 03/30/18 07:30 03/30/18 07:30 03/30/18 07:30 03/30/18 07:30 Exam: Gen.: Vitals noted. No acute distress. AAOx3 HEENT: no obvious lesions noted in oropharynx, Normocephalic, atraumatic Cardiac: RRR, no murmur, +S1/S2 Pulmonary: CTA bilaterally, no wheezes, rales or rhonchi, equal chest expansion Abdomen: soft, left upper quadrant minimal tender, Bowel sounds noted, no guarding Back: Nontender throughout. Skin: bilateral inguinal region erythematous, maceration, well demarcated MSK: ROM intact Extremities: no BLE edema, nontender calf, no cyanosis or clubbing Neuro: A&Ox3, moves all extremities Psych: Appropriate mood and behavior Consult Discharge Plan - Plan Additional Instructions: will f/u w/ me in clinic Referrals: Fan Clancy DO [Primary Care Provider] - 04/04/18 9:00 am () - Attending Attestation I examined this patient and my medical decision-making was reviewed with the Resident Physician. I agree with the documented findings, disposition and treatment plan as described except to the extent set forth below. Patient seen and examined. Just came back from a bone marrow biopsy. is at bedside. Patient's neutropenia is worse. Lesions in his groin area is unchanged. No other new lesions. Recommendations: Continue oral Diflucan and topical nystatin. Stop Bactrim because of concern are adverse reaction with a neutropenic patient Continue Augmentin and add levofloxacin. If clinically patient does worse we will broaden the antibiotic coverage. Await pathology report. Prognosis guarded.
[2018-03-30 09:49] LABS: Mean Corpuscular Hemoglobin 29.1 pg (28.0-33.3); Red Cell Distribution Width 17.5 % (11.5-14.5)
[2018-03-30 09:50] LABS: Eosinophils % 4.5 %; Hematocrit 30.3 % (37.5-50.1); Hemoglobin 9.9 g/dL (12.9-16.9); Immature Granulocytes % 5.6 % (0-4); Lymphocytes # 0.3 K/mcL (0.6-4.6); Lymphocytes % 33.7 %; Mean Corpuscular HGB Conc 32.7 g/dL (31.6-35.5); Mean Corpuscular Volume 89.1 fL (83.0-100.0); Monocytes % 3.4 %; Neutrophils # 0.5 K/mcL (1.6-8.9); Segmented Neutrophils % 52.8 %
[2018-03-30 09:53] LABS: Platelet Count 43 K/mcL (140-400)
[2018-03-30 10:08] LABS: BUN/Creatinine Ratio 43 (6-26); Blood Urea Nitrogen 34 mg/dL (8-23); Calcium 9.4 mg/dL (8.6-10.3); Carbon Dioxide 25 mEq/L (23-29); Chloride 102 mEq/L (98-107); Glucose 93 mg/dL (70-105); Osmolality,Calculated 283 (280-300); Potassium 4.9 mEq/L (3.5-5.1); Sodium 133 mEq/L (136-145); eGFR For Non-African Americans > 60 (> 60)
[2018-03-30 10:28] LABS: Platelet Estimate Decreased (Normal)
[2018-03-30] MEDS: Nystatin Cream 15 GM TUBE TP SCH ×3 (11:35→21:36)
[2018-03-30] MEDS: MAGIC MOUTHWASH PO SCH (11:35)
[2018-03-30] MEDS ORDERED: *HR* FentaNYL (PF) 100 MCG/2 ML VIAL IVP ONE (11:41)
[2018-03-30] MEDS ORDERED: *HR* Midazolam HCl 2 MG/2 ML VIAL IVP ONE (11:41)
--- NOTE | 2018-03-30 11:42 | Pre-Sedation Evaluation ---
Pre-sedation evaluation - Pre-sedation checklist Date of procedure: 03/30/18 Procedure: bone marrow bx Recent Vitals: Last Vital Signs Temp 98.6 F 03/30/18 11:29 Pulse 78 03/30/18 11:29 Resp 16 03/30/18 11:29 BP 137/72 03/30/18 11:29 Pulse Ox 95 03/30/18 07:30 H&P (including ROS) documented in medical record: Yes Previous reaction to sedatives/anesthetics: No Dietary Status: NPO after Midnight Dentition: No loose teeth or bridges ASA Classification *see protocol: CLASS II-Mild systemic disease Plan of Care: Pt appropriate candidate for procedure/moderate/conscious sedation, Risks/benefits of procedure/sedation discussed w/ patient/family, If not NPO; Risk of intake outweiged by necessity to perform procedure
[2018-03-30] MEDS ORDERED: 0.9 % Sodium Chloride 500 ML ONE (11:47)
--- NOTE | 2018-03-30 12:10 | IR Procedure Note ---
Date of procedure: 03/30/18 Consent Obtained: Verbal consent, Written consent Timeout: Correct patient and procedure verified, Correct site verified, Time out performed, Skin prep completed Local anesthetic: Lidocaine 1% Indications: pancytopenia Procedure Performed: BMBx Was there an visitor use assistant present: No Estimated blood loss (cc): 2 Complications: None; Tolerated procedure well Specimen: core and aspirate
--- NOTE | 2018-03-30 14:57 | Internal Med Progress Note ---
Hospitalist Progress Note - Encounter Date of Encounter: 03/30/18 Time of Encounter: 14:54 - Subjective Interval History: I have seen and evaluated the patient at bedside. He reports feeling tired. denies pain at the bone marrow biopsy site. denies nausea or vomiting. - Exam Vitals: Temp Pulse Resp BP Pulse Ox 98.6 F 95 19 152/92 98 03/30/18 11:29 03/30/18 11:57 03/30/18 11:57 03/30/18 11:57 03/30/18 11:57 Exam: Vitals: Reviewed General: Alert and oriented x4. In mild distress due to generalized weakness HEENT: EOM, pupils equal, round and reactive. Cardiovascular: RRR, normal S1 & S2, no rubs, murmurs or gallops. No JVD. Pulse regular. Lungs: CTA b/l, no wheezes or crackles. Abdomen: Soft, non-tender, no rigidity. Extremities: No deformity, no edema or tenderness, no joint swelling or clubbing. Neurological: Normal cognition and motor skills. Rest of the physical exam is non contributory - Assessment and Plan (1) Pancytopenia Current Visit: Yes Status: Acute Assessment and Plan: patient s/p bone marrow biopsy. no signs of active bleeding. Platelets 40K. Will continue to monitor. Hem&Onc recommendations appreciated. On neutropenia precaution (2) Rheumatoid arthritis Current Visit: No Status: Chronic Assessment and Plan: On methotrexate as outpatient. Held due to suspicious of possible toxicity. Patient given levoleucovorin (3) Rash Current Visit: Yes Status: Acute (4) Sore mouth Current Visit: Yes Status: Acute Assessment and Plan: patient on Valtrex (5) Inguinal ulcer Current Visit: Yes Status: Acute Assessment and Plan: patient started on levofloxacin. Antibiotics management per ID recommendations. (6) Herpetic dermatitis Current Visit: Yes Status: Acute Assessment and Plan: patient is on valacyclovir per Derm recommendations (7) Afib Current Visit: No Status: Chronic Assessment and Plan: rate controlled on diltiazem 30mg/PO Q8HRs. Warfarin held due to throm bocytopenia. High bleeding risk. (8) BPH (benign prostatic hyperplasia) Current Visit: Yes Status: Chronic Assessment and Plan: On finasteride 5mg/PO daily. DVT Prophylaxis: Intermittent pneumatic compression. No chemical dvt prophylaxis due to thrombocytopenia - Summary of Assessment and Plan Summary of Assessment and Plan: Patient to remain in the hospital due to pancytopenia. s/p bone marrow biopsy. disposition unclear. - Time Spent with Patient Total time spent is greater than 50% in coordination of care (as documented) at patient's floor/unit and/or counseling patient: Greater than 35 minutes (40) Plan of Care Discussed with: patient (his and the nurse.) Internal Medicine: Result - Labs CBC & Chem 7: 03/30/18 09:11 03/30/18 09:11 Labs: Short CBC 03/29/18 03/30/18 Range/Units 17:40 09:11 WBC 1.4 L 0.9 L* (4.3-11.1) K/mcL Hgb 9.2 L 9.9 L (12.9-16.9) g/dL Hct 28.5 L 30.3 L (37.5-50.1) % Plt Count 39 L 43 L (140-400) K/mcL Neutrophils # 1.1 L 0.5 L (1.6-8.9) K/mcL BMP 03/30/18 09:11 Sodium 133 L Potassium 4.9 Chloride 102 Carbon Dioxide 25 BUN 34 H Creatinine 0.80 Glucose 93 Calcium 9.4 - ABG Interpretation ABG results: PT/INR, D-dimer PT 17.7 Seconds (9.4-12.1) H 03/30/18 04:12 - Impressions Impressions KUB X-Ray 03/28/18 16:49 IMPRESSION: 1. Moderate colonic stool burden. 2. Multiple dilated bowel loops within visualized portion of the abdomen. While this could be related to constipation, possibility of obstruction or ileus is not excluded. Follow-up examination may be obtained, as clinically warranted. D/ / 03/29/2018 07:01:21 Aron Camacho MD / lokesh Interpreting Provider: Aron Camacho MD Biopsy CT 03/30/18 00:00 IMPRESSION: Successful CT guided bone marrow aspiration and core biopsy of the iliac bone. D/ / Denis Young MD / Denis Young MD Interpreting Provider: Denis Young MD Bone Marrow Biopsy w/ CT 03/30/18 00:00 IMPRESSION: Successful CT guided bone marrow aspiration and core biopsy of the iliac bone. D/ / Denis Young MD / Denis Young MD Interpreting Provider: Denis Young MD Consult Discharge Plan - Plan Additional Instructions: will f/u w/ me in clinic Referrals: Fan Clancy DO [Primary Care Provider] - 04/04/18 9:00 am () (2) Rheumatoid arthritis Qualifiers: Rheumatoid arthritis location: unspecified site Rheumatoid factor presence: unspecified presence Qualified Code(s): M06.9 - Rheumatoid arthritis, unspecified (7) Afib Qualifiers: Atrial fibrillation type: paroxysmal Qualified Code(s): I48.0 - Paroxysmal atrial fibrillation (8) BPH (benign prostatic hyperplasia) Qualifiers: Lower urinary tract symptom presence: unspecified whether lower urinary tract symptoms present Qualified Code(s): N40.0 - Benign prostatic hyperplasia without lower urinary tract symptoms
--- NOTE | 2018-03-30 16:24 | Oncology Inp Progress Note ---
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 Anjelica Chicas Follow up - Inpatient: [id number] - Attending Attestation I examined this patient and my medical decision-making was reviewed with the Advanced Practice Nurse. I agree with the documented findings, disposition and treatment plan as described except to the extent set forth below. 1. Progressive pancytopenia. He had bone marrow biopsy today awaiting results. Methotrexate level comeback less than 0.05. Given that his pancytopenia is not improving likely this is not methotrexate toxicity alone. He already received 2 doses of IV leucovorin Peripheral smear no blasts reported 2. Mucositis and herpetic rash. Continue Valtrex 3. Wound cultures Escherichia coli ESBL. Infectious disease involved. He is on Levaquin and Augmentin Further treatment recommendation after bone marrow biopsy. <Roberta Levin L - Last Filed: 03/30/18 18:10> Date of Encounter: 03/30/18 (1) Pancytopenia Current Visit: Yes Status: Acute Assessment and plan: Acute pancytopenia noted on admission S/P 2 unit platelets for worsening thrombocytopenia with epistaxis S/P vitamin K 2.5 mg PO for INR 3.5 MTX level has resulted low- it is unlikely MTX toxicity is cause of pancytopenia, stop leucovorin In the setting of wound culture + E. coli ESBL and enterococcus faecalis- ID on board Peripheral smear with no apparent malignant findings Plan: Hold coumadin until platelet count recovers >50 S/P Bone Marrow Bx today-bone marrow etiology is certainly within differential such as acute leukemia, MDS, among others (2) Constipation Current Visit: Yes Status: Acute Assessment and plan: NO BM since admission KUB on 03/28/18 revealed-Moderate colonic stool burden, Multiple dilated bowel loops within visualized portion of the abdomen. While this could be related to constipation, possibility of obstruction or ileus is not excluded. Follow-up examination may be obtained, as clinically warranted. Plan: changed colace to senna plus continue miralax added lactulose prn (3) DVT prophylaxis Current Visit: No Status: Acute Assessment and plan: SCD's due to thrombocytopenia Coumadin on hold Oncology: Subj Interval history: [place] is doing well today. He has no pain. Denies, fever, chills, chest pain, SOB, nausea or vomiting, urinary complaint. Continues to report constipation. Denies odynophagia. Oncology: Obj Data - Labs CBC & Chem 7: 03/30/18 09:11 03/30/18 09:11 Inpatient Charges Provider: Dr. Anjelica Chicas
--- NOTE | 2018-03-30 17:05 | Dermatology Progress Note ---
Date of Encounter: 03/30/18 Time of Encounter: 17:03 Subjective Interval History: Mr. Biswas, is an 82-year-old male admitted for pancytopenia and biopsy-proven herpetic infection. He has been treated with valacyclovir with some improvement in his skin lesions. He is feeling better. The skin in his groin is less tender. Objective - Constitutional Vitals: Temp Pulse Resp BP Pulse Ox 98.6 F 95 19 152/92 98 03/30/18 11:29 03/30/18 11:57 03/30/18 11:57 03/30/18 11:57 03/30/18 11:57 Exam: pink-red dry eroded patches with focal peripheral scale on medial thighs and mons pubis, sparing inguinal crease--improved from prior examination - patchy petechia on soft palate - improved form prior examination - faded pink patch on left hip, right ventral wrist, right hip- improved from prior exam -- sutures still in place on left hip METHOTREXATE LEVEL WAS NOT ELEVATED Assessment and Plan (1) Herpetic dermatitis Current Visit: Yes Status: Acute Biopsy-proven on left hip ( resolving) - pt on valacyclovir (2) Rash and other nonspecific skin eruption Current Visit: Yes Status: Acute I do feel that there is more than one process going on: hemorrhagic lesions in mouth and around areas of previous trauma ARE HEALING AND IMPROVED his groin is drying up and appears better and he feels better - continue current treatment - biopsy in reserve if needed -- Procedure: Dermatology Date of procedure: 03/30/18 Consult Discharge Plan - Plan Additional Instructions: will f/u w/ me in clinic Referrals: Fan Clancy DO [Primary Care Provider] - 04/04/18 9:00 am ()
[2018-03-30] MEDS: Levofloxacin 750 MG/150 ML 750 MG/150 ML BAG IVPB SCH (17:45)
[2018-03-30] MEDS ORDERED: Lactulose Oral Soln 20 GM/30 ML UDC PO PRN (17:57)
[2018-03-30] MEDS: *HR* OxyCODONE Immed Rel 5 MG TABLET PO PRN (21:34)
[2018-03-30] MEDS: Sennosides/Docusate Sodium TABLET PO SCH (21:35)
[2018-03-31 09:10] LABS: Hematocrit 30.7 % (37.5-50.1); Hemoglobin 10.2 g/dL (12.9-16.9); Lymphocytes % 38.9 %; Mean Corpuscular HGB Conc 33.2 g/dL (31.6-35.5); Mean Corpuscular Hemoglobin 29.1 pg (28.0-33.3); Mean Corpuscular Volume 87.7 fL (83.0-100.0); Mean Platelet Volume 10.6 fL (9.4-12.4); Monocytes % 5.6 %; Neutrophils # 0.2 K/mcL (1.6-8.9); Red Cell Distribution Width 17.7 % (11.5-14.5); Segmented Neutrophils % 55.5 %
--- NOTE | 2018-03-31 09:24 | Infectious Disease Progress No ---
Date of Encounter: 03/31/18 Time of Encounter: 09:21 - Assessment and Plan (1) Pancytopenia Current Visit: Yes Status: Acute Patient has pancytopenia. Initial labs: WBC 2.2, hemoglobin 9.6, platelets 40. Patient with history of small cell lung cancer left lung -etiology of pancytopenia is unknown however differential includes concerns leukemia, consider secondary to medication such as methotrexate. Patient did receive Bactrim outpatient while he was taking methotrexate. -WBC 1.8 (yesterday 2.8), hemoglobin 9.5, platelets 26 -afebrile, hemodynamically stable -Folate 13.8 -methotrexate level <0.05 -Stool occult blood negative -03/26/2018 Blood cultures pending -03/22/2018 wound culture growing E. coli ESBL and enterococcus faecalis -Chest x-ray unremarkable -s/p one unit platelet -no obvious active bleeding Plan: -oncology consulted and following and is awaiting bone marrow biopsy results. They believe this may be acute leukemia or MDS. Unlikely to be secondary to methotrexate level since the level was low. -Rheumatology was consulted and recommended holding methotrexate. -Contact precautions -await bone marrow biopsy results -antibiotics as below -blood culture pending (2) Sore mouth Current Visit: Yes Status: Acute Resolved. Patient complains of a sore mouth and throat that makes it painful to swallow food. -Etiology is aphthous ulcers versus herpetic lesions. He is low risk for syphilis, HIV, HSV. -Rapid strep negative -respiratory infectious panel negative -Examination the oropharynx demonstrates no obvious ulcers or lesions in the oropharynx. -Patient reports his mouth soreness has resolved and he is able to eat without odynophagia. -Gastroenterology performed EGD 03/29/2018 which demonstrated multiple aphthous ulcers versus herpetic lesions and oral cavity/back of pharynx. Esophagus clean. Plan: -agree with continuing Valtrex -currently on Augmentin -HSV ordered (3) Inguinal ulcer Current Visit: Yes Status: Acute Patient has bilateral inguinal ulcers for over 2 weeks. -Etiology is E. coli ESBL and enterococcus faecalis -Source may be tinea with superimposed bacterial infection. Howeverm maybe noninfectious including herpetic dermatitis or contact dermatitis but unlikely -03/22/2018 wound culture growing E. coli ESBL and enterococcus faecalis. -Lactic acid 0.8 -creatinine clearance 81 -examination of the bilateral inguinal region show erythema that is well demarcated and patch-like. Overall it appears mildly improved. -Patient reports significant improvement in soreness of the bilateral inguinal rash. He is able to ambulate without being in a lot of pain. Plan: -continue Levaquin day 2 -continue Augmentin day 4 -continue Valtrex day 5 -continube fluconazole day 6 -nystatin ordered -Dermatology is consulted and following. They believe that this is herpetic dermatitis, per their notes biopsy proven on left hip-resolving. If it does not improve they may consider re-biopsy groin area. (4) Neutropenia Current Visit: Yes Status: Acute Patient is neutropenia. Without fevers. -WBC 0.4 -ANC 222 Plan: -continue antibiotics as above -continue neutropenia contact precautions Qualifiers: Neutropenia type: unspecified Qualified Code(s): D70.9 - Neutropenia, unspecified - Subjective Interval history: Patient examined today at bedside resting comfortably. He is alert and oriented times 3. He reports his throat is no longer sore when he eats. He reports much improvement of bilateral inguinal pain where he can move his legs now without being in tremendous pain. There are no overnight events. He denies fever, chills, weakness, chest pain, shortness of breath, abdominal pain, nausea. He only complaint of constipation for which he has been placed on a regimen. Infect Dis PN-Objective Data - Labs CBC & Chem 7: 04/01/18 04:03 04/01/18 04:03 Labs: Laboratory Results - last 24 hr 03/28/18 03/30/18 03/30/18 09:13 09:11 09:11 WBC 0.9 L* RBC 3.40 L Hgb 9.9 L Hct 30.3 L MCV 89.1 MCH 29.1 MCHC 32.7 RDW 17.5 H Plt Count 43 L MPV 11.0 Immature Gran % 5.6 H Seg Neutrophils % 52.8 Lymphocytes % 33.7 Monocytes % 3.4 Eosinophils % 4.5 Basophils % 0.0 Neutrophils # 0.5 L Lymphocytes # 0.3 L Monocytes # 0.0 Eosinophils # 0.0 Basophils # 0.0 Platelet Estimate Decreased L Sodium 133 L Potassium 4.9 Chloride 102 Carbon Dioxide 25 BUN 34 H Creatinine 0.80 Est GFR ( Amer) > 60 Est GFR (Non-Af Amer) > 60 BUN/Creatinine Ratio 43 H Glucose 93 Calculated Osmolality 283 Calcium 9.4 Methotrexate <0.05 Cultures: Cultures 03/29/18 05:10 Group A Streptococcus Rapid Screen - Final Throat 03/26/18 11:18 Blood Culture - Preliminary Peripheral Venipuncture Culture is incubating and being continuously monitored for growth. Final report to follow. 03/26/18 11:12 Blood Culture - Preliminary Peripheral Venipuncture Culture is incubating and being continuously monitored for growth. Final report to follow. Serology 03/29/18 03/26/18 03/26/18 Range/Units 05:10 14:05 14:01 Urine Color Yellow (Yellow) Urine Clarity Clear (Clear) Urine pH 6.0 (5.0-8.0) pH Units Ur Specific [place] 1.022 (1.010-1.025) Urine Protein Negative (Neg-Trace) mg/dL Urine Glucose (UA) Normal (Normal) mg/dL Urine Ketones Negative (Negative) mg/dL Urine Blood Negative (Negative) Urine Nitrite Negative (Negative) Urine Bilirubin Negative (Negative) Urine Urobilinogen Normal (Normal) mg/dL Ur Leukocyte Esterase Negative (Negative) Ur Culture Indicated? NO (NO) Stool Occult Bld Scrn Negative (Negative) Chlamy pneumoniae PCR Not Detected (Not Detect) Adenovirus (PCR) Not Detected (Not Detect) B. pertussis DNA (PCR) Not Detected (Not Detect) B.parapertussis DNA PCR Not Detected (Not Detect) Coronavirus OC43 (PCR) Not Detected (Not Detect) Coronavirus HKU1 (PCR) Not Detected (Not Detect) Coronavirus 229E (PCR) Not Detected (Not Detect) Coronavirus NL63 (PCR) Not Detected (Not Detect) Human Metapneumovir PCR Not Detected (Not Detect) Influenza A (H1) PCR Not Detected (Not Detect) Influ A (H1N1/09) PCR Not Detected (Not Detect) Influenza A (H3) PCR Not Detected (Not Detect) Influenza A Untype (PCR) Not Detected (Not Detect) Influenza Type B (PCR) Not Detected (Not Detect) M.pneumoniae DNA (PCR) Not Detected (Not Detect) Parainfluenza 1 (PCR) Not Detected (Not Detect) Parainfluenza 2 (PCR) Not Detected (Not Detect) Parainfluenza 3 (PCR) Not Detected (Not Detect) Parainfluenza 4 (PCR) Not Detected (Not Detect) RSV (PCR) Not Detected (Not Detect) Entero/Rhino (PCR) Not Detected (Not Detect) - Impressions Impressions Biopsy CT 03/30/18 00:00 IMPRESSION: Successful CT guided bone marrow aspiration and core biopsy of the iliac bone. D/ / Denis Young MD / Denis Young MD Interpreting Provider: Denis Young MD Bone Marrow Biopsy w/ CT 03/30/18 00:00 IMPRESSION: Successful CT guided bone marrow aspiration and core biopsy of the iliac bone. D/ / Denis Young MD / Denis Young MD Interpreting Provider: Denis Young MD Exam - Constitutional Vitals: Temp Pulse Resp BP Pulse Ox 98.4 F 87 16 133/78 95 03/31/18 06:49 03/31/18 06:49 03/31/18 06:49 03/31/18 06:49 03/31/18 06:49 Exam: Gen.: Vitals noted. No acute distress. AAOx3 HEENT: no obvious lesions noted in oropharynx, Normocephalic, atraumatic Cardiac: RRR, no murmur, +S1/S2 Pulmonary: CTA bilaterally, no wheezes, rales or rhonchi, equal chest expansion Abdomen: soft, left upper quadrant minimal tender, Bowel sounds noted, no guarding Back: Nontender throughout. Skin: bilateral inguinal region erythematous, maceration, well demarcated MSK: ROM intact Extremities: no BLE edema, nontender calf, no cyanosis or clubbing Neuro: A&Ox3, moves all extremities Psych: Appropriate mood and behavior Consult Discharge Plan - Plan Additional Instructions: will f/u w/ me in clinic Referrals: Fan Clancy DO [Primary Care Provider] - 04/04/18 9:00 am () - Attending Attestation I examined this patient and my medical decision-making was reviewed with the Resident Physician. I agree with the documented findings, disposition and treatment plan as described except to the extent set forth below. Patient seen and examined. Just came back from a bone marrow biopsy. is at bedside. Patient's neutropenia is worse. Lesions in his groin area is unchanged. No other new lesions. Recommendations: Continue oral Diflucan and topical nystatin. Stop Bactrim because of concern are adverse reaction with a neutropenic patient Continue Augmentin and add levofloxacin. If clinically patient does worse we will broaden the antibiotic coverage. Await pathology report. Prognosis guarded.
[2018-03-31 09:25] LABS: BUN/Creatinine Ratio 39 (6-26); Blood Urea Nitrogen 33 mg/dL (8-23); Calcium 9.5 mg/dL (8.6-10.3); Carbon Dioxide 22 mEq/L (23-29); Chloride 102 mEq/L (98-107); Glucose 167 mg/dL (70-105); Magnesium 2.1 mg/dL (1.6-2.6); Osmolality,Calculated 287 (280-300); Sodium 133 mEq/L (136-145); eGFR For Non-African Americans > 60 (> 60)
[2018-03-31 09:29] LABS: Lymphocytes # 0.2 K/mcL (0.6-4.6); Platelet Count 63 K/mcL (140-400)
[2018-03-31 09:33] LABS: Platelet Estimate Decreased (Normal)
[2018-03-31 09:34] LABS: Anisocytosis 1+ (Not Present); Macrocytosis Present (Not Present)
[2018-03-31] MEDS: valACYclovir 500 MG TABLET PO SCH ×3 (10:23→21:29)
[2018-03-31] MEDS: Sennosides/Docusate Sodium TABLET PO SCH ×2 (10:24→21:28)
[2018-03-31] MEDS: Finasteride 5 MG TABLET PO SCH (10:24)
[2018-03-31] MEDS: Fluconazole 100 MG TABLET PO SCH (10:24)
[2018-03-31] MEDS: Levofloxacin 750 MG/150 ML 750 MG/150 ML BAG IVPB SCH (10:25)
[2018-03-31] MEDS: Folic Acid 1 MG TABLET PO SCH (10:25)
[2018-03-31] MEDS: predniSONE 20 MG TABLET PO SCH ×2 (10:25→16:06)
[2018-03-31] MEDS: Cyanocobalamin (B-12) 1,000 MCG TABLET PO SCH (10:25)
[2018-03-31] MEDS: Nystatin Cream 15 GM TUBE TP SCH ×3 (10:32→21:29)
[2018-03-31] MEDS: MAGIC MOUTHWASH PO SCH (10:32)
[2018-03-31 10:53] LABS: HSV Source mouth
[2018-03-31] MEDS: *HR* HYDROcodone/Acet 5/325 mg TABLET PO PRN (12:16)
--- NOTE | 2018-03-31 12:39 | Internal Med Progress Note ---
Hospitalist Progress Note - Encounter Date of Encounter: 03/31/18 Time of Encounter: 12:37 - Subjective Interval History: I have seen and evaluated the patient at bedside. patient reports feeling uncomfortable today due to constipation, he has not had a BM for about 7 days now. denies nausea or vomiting - Exam Vitals: Temp Pulse Resp BP Pulse Ox 98.8 F 103 16 114/73 95 03/31/18 12:00 03/31/18 12:00 03/31/18 12:00 03/31/18 12:00 03/31/18 12:00 Exam: Vitals: Reviewed General: Alert and oriented x4. In mild distress due to abdominal distention due to constipation Cardiovascular: RRR, normal S1 & S2, no rubs, murmurs or gallops. No JVD. Pulse regular. Lungs: CTA b/l, no wheezes or crackles. Abdomen: Soft, non-tender, no rigidity. Hypoactive BM in all 4 quadrants Extremities: No edema Neurological: Normal cognition. Rest of the physical exam is non contributory - Assessment and Plan (1) Pancytopenia Current Visit: Yes Status: Acute Assessment and Plan: possible due to leukemia vs MDS. patient reports having lung CA about 5 years ago and undergoing chemotherapy and radiation. Also reports having 2 sessions of radiation about 6 months ago. Plan Bone marrow biopsy report pending Neutropenia precaution HEm&Onc recommendations appreciated. (2) Rheumatoid arthritis Current Visit: No Status: Chronic Assessment and Plan: Continue Tylenol 650 mg by mouth every 6 hours when necessary for pain control. On [place] 5-325mg/PO Q6HR PRN for pain control. methotrexate has been held. On prednisone 20mg/PO BID. (3) Sore mouth Current Visit: Yes Status: Acute Assessment and Plan: Continue valacyclovir 1,000mg/PO TID (4) Inguinal ulcer Current Visit: Yes Status: Acute Assessment and Plan: wound culture growing E.coli ESBL plus enterococcus F. Patient on levofloxacin 750 mg IV daily, and Augmentin 875mg/PO BIDWM. per ID recommendations (5) Herpetic dermatitis Current Visit: Yes Status: Acute Assessment and Plan: Biopsy-proven on left hip. On valacyclovir 1000mg/PO TID. (6) Afib Current Visit: No Status: Chronic Assessment and Plan: rate controlled on cardizem 30mg/PO Q8HRs. will resume warfarin per pharmacy protocol. Platelets >50K (7) BPH (benign prostatic hyperplasia) Current Visit: Yes Status: Chronic Assessment and Plan: On finasteride 5mg/PO daily (8) Rash Current Visit: Yes Status: Acute (9) Constipation Current Visit: Yes Status: Acute Assessment and Plan: Patient has a Hx of constipation. Plan increase lactulose to 20mg/PO BID scheduled continue Senna/docusate avoid opiods for pain KUB ordered If not BM will consider enema tomorrow morning (10) Hyperlipemia Current Visit: No Status: Chronic Assessment and Plan: On simvastatin. (11) CHF (congestive heart failure) Current Visit: No Status: Chronic Assessment and Plan: patient is euvolemic. on furosemide 20mg/PO daily. daily weight (12) Hypertension Current Visit: No Status: Chronic Assessment and Plan: BP controlled on cardizem and furosemide, DVT Prophylaxis: Intermittent pneumatic compression for dvt prophylaxis - Summary of Assessment and Plan Summary of Assessment and Plan: Patient to remain in the hospital due to pancytopenia. pending bone marrow biopsy report. potential dc tomorrow. - Time Spent with Patient Total time spent is greater than 50% in coordination of care (as documented) at patient's floor/unit and/or counseling patient: Greater than 35 minutes (40) Plan of Care Discussed with: patient (his and the nurse) Internal Medicine: Result - Labs CBC & Chem 7: 03/31/18 08:43 03/31/18 08:43 Labs: Short CBC 03/31/18 Range/Units 08:43 WBC 0.4 L* D (4.3-11.1) K/mcL Hgb 10.2 L (12.9-16.9) g/dL Hct 30.7 L (37.5-50.1) % Plt Count 63 L (140-400) K/mcL Neutrophils # 0.2 L (1.6-8.9) K/mcL BMP 03/31/18 08:43 Sodium 133 L Potassium 5.0 Chloride 102 Carbon Dioxide 22 L BUN 33 H Creatinine 0.85 Glucose 167 H Calcium 9.5 - ABG Interpretation ABG results: PT/INR, D-dimer PT 17.7 Seconds (9.4-12.1) H 03/30/18 04:12 - Impressions Impressions Biopsy CT 03/30/18 00:00 IMPRESSION: Successful CT guided bone marrow aspiration and core biopsy of the iliac bone. D/ / Denis Young MD / Denis Young MD Interpreting Provider: Denis Young MD Bone Marrow Biopsy w/ CT 03/30/18 00:00 IMPRESSION: Successful CT guided bone marrow aspiration and core biopsy of the iliac bone. D/ / Denis Young MD / Denis Young MD Interpreting Provider: Denis Young MD Consult Discharge Plan - Plan Additional Instructions: will f/u w/ me in clinic Referrals: Fan Clancy DO [Primary Care Provider] - 04/04/18 9:00 am () (2) Rheumatoid arthritis Qualifiers: Rheumatoid arthritis location: unspecified site Rheumatoid factor presence: unspecified presence Qualified Code(s): M06.9 - Rheumatoid arthritis, unspecified (6) Afib Qualifiers: Atrial fibrillation type: paroxysmal Qualified Code(s): I48.0 - Paroxysmal atrial fibrillation (7) BPH (benign prostatic hyperplasia) Qualifiers: Lower urinary tract symptom presence: unspecified whether lower urinary tract symptoms present Qualified Code(s): N40.0 - Benign prostatic hyperplasia without lower urinary tract symptoms (10) Hyperlipemia Qualifiers: Hyperlipidemia type: unspecified Qualified Code(s): E78.5 - Hyperlipidemia, unspecified (11) CHF (congestive heart failure) Qualifiers: Heart failure type: diastolic Heart failure chronicity: chronic Qualified Code(s): I50.32 - Chronic diastolic (congestive) heart failure (12) Hypertension Qualifiers: Hypertension type: essential hypertension Qualified Code(s): I10 - Essential (primary) hypertension
[2018-03-31 13:35] LABS: HSV 1 DNA Not Detected (Not Detect); HSV 2 DNA Not Detected (Not Detect)
--- NOTE | 2018-03-31 14:11 | Oncology Inp Progress Note ---
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 Anjelica Chicas Follow up - Inpatient: [id number] - Attending Attestation I examined this patient and my medical decision-making was reviewed with the Advanced Practice Nurse Roberta levin. I agree with the documented findings, disposition and treatment plan as described except to the extent set forth below. 1. Pancytopenia. Bone marrow results pending. Platelets improved to 62. He has history of atrial fibrillation but given the amount of pancytopenia will hold anticoagulation May get some preliminary tomorrow 2. Progressive pancytopenia neutrophil count 200. Neutropenic precautions. Would consider giving growth factor support after bone marrow biopsy results Pancytopenia could be still related to methotrexate bone marrow suppression. He received leucovorin already. 3. Constipation. Because of neutropenia would recommend avoiding any enema <Roberta Levin L - Last Filed: 03/31/18 19:04> Date of Encounter: 03/31/18 Time of Encounter: 13:00 (1) Pancytopenia Current Visit: Yes Status: Acute Assessment and plan: Acute pancytopenia noted on admission S/P 2 unit platelets for worsening thrombocytopenia with epistaxis S/P vitamin K 2.5 mg PO MTX level has resulted low- it is unlikely MTX toxicity is cause of pancytopenia, stop leucovorin In the setting of wound culture + E. coli ESBL and enterococcus faecalis- ID on board Peripheral smear with no apparent malignant findings Plan: Hold coumadin until platelet count recovers >50---Platelet count 63 today, discussed considering re-starting AC-consider heparin gtt, patient/patients are hesitant to restart coumadin and asking for other AC options CHADSVASC score 5, he is high risk for CVA Consider placing heparin gtt/considering DOACs if his plt count remains stable, will hold off to trend plt count tomorrow and discuss prelim path S/P Bone Marrow Bx-bone marrow etiology is certainly within differential such as acute leukemia, MDS, among others (2) Constipation Current Visit: Yes Status: Acute Assessment and plan: NO BM since admission KUB on 03/28/18 revealed-Moderate colonic stool burden, Multiple dilated bowel loops within visualized portion of the abdomen. While this could be related to constipation, possibility of obstruction or ileus is not excluded. Follow-up examination may be obtained, as clinically warranted. Plan: changed colace to senna plus continue miralax added lactulose KUB ordered Do not administer enema until neutropenia recovers (3) DVT prophylaxis Current Visit: No Status: Acute Assessment and plan: SCD's due to thrombocytopenia Coumadin on hold Oncology: Subj Interval history: Mr. Biswas is feeling slightly poor today, he reports some abdominal distention/bloating. He is constipated, no BM since admission despite multiple laxatives. Continues to have good appetite, no nausea or vomiting. He has been afebrile. - Constitutional General appearance: cooperative, no acute distress, no febrile - Head Head exam: Present: atraumatic - ENT ENT exam: Present: mucous membranes moist, normal oropharynx - Respiratory Respiratory exam: Present: decreased breath sounds, CTAB. Absent: respiratory distress - Cardiovascular Cardiovascular exam: Present: RRR, +S1, +S2 - GI/Abdominal GI/Abdominal exam: Present: distended, normal bowel sounds, soft. Absent: gua rding, rebound Additional comments: mild diffuse tenderness - Extremities Exam Extremities exam: Present: normal inspection. Absent: calf tenderness - Neurological Exam Neurological exam: Present: alert, oriented X3, no focal deficits, strengths equal and symetr throughout - Psychiatric Psychiatric exam: Present: normal affect, normal mood - Skin Skin exam: Present: dry, intact, normal color, warm Oncology: Obj Data - Labs CBC & Chem 7: 03/31/18 08:43 03/31/18 08:43
[2018-03-31] MEDS: Lactulose Oral Soln 20 GM/30 ML UDC PO SCH (21:28)
[2018-04-01 06:10] LABS: Eosinophils % 2.5 %; Hematocrit 30.1 % (37.5-50.1); Hemoglobin 9.8 g/dL (12.9-16.9); Lymphocytes # 0.2 K/mcL (0.6-4.6); Mean Corpuscular HGB Conc 32.6 g/dL (31.6-35.5); Mean Corpuscular Hemoglobin 28.6 pg (28.0-33.3); Mean Corpuscular Volume 87.8 fL (83.0-100.0); Mean Platelet Volume 10.7 fL (9.4-12.4); Monocytes # 0.1 K/mcL (0.0-1.3); Neutrophils # 0.1 K/mcL (1.6-8.9); Platelet Count 120 K/mcL (140-400); Red Blood Count 3.43 M/mcL (4.19-5.50); Red Cell Distribution Width 17.6 % (11.5-14.5); Segmented Neutrophils % 27.5 %
[2018-04-01 06:34] LABS: BUN/Creatinine Ratio 34 (6-26); Blood Urea Nitrogen 30 mg/dL (8-23); Calcium 9.2 mg/dL (8.6-10.3); Carbon Dioxide 23 mEq/L (23-29); Chloride 102 mEq/L (98-107); Glucose 180 mg/dL (70-105); Osmolality,Calculated 289 (280-300); Phosphorous 2.9 mg/dL (2.7-4.5); Potassium 4.8 mEq/L (3.5-5.1); Sodium 134 mEq/L (136-145); eGFR For Non-African Americans > 60 (> 60)
[2018-04-01] MEDS: Lactulose Oral Soln 20 GM/30 ML UDC PO SCH ×2 (08:26→20:35)
[2018-04-01] MEDS: Sennosides/Docusate Sodium TABLET PO SCH ×2 (08:26→20:35)
[2018-04-01] MEDS: predniSONE 20 MG TABLET PO SCH (08:27)
[2018-04-01] MEDS: Cyanocobalamin (B-12) 1,000 MCG TABLET PO SCH (08:27)
[2018-04-01] MEDS: valACYclovir 500 MG TABLET PO SCH ×3 (08:27→20:35)
[2018-04-01] MEDS: Folic Acid 1 MG TABLET PO SCH (08:27)
[2018-04-01] MEDS: Fluconazole 100 MG TABLET PO SCH (08:27)
[2018-04-01] MEDS: Finasteride 5 MG TABLET PO SCH (08:27)
[2018-04-01] MEDS: Levofloxacin 750 MG/150 ML 750 MG/150 ML BAG IVPB SCH (08:29)
[2018-04-01 08:31] LABS: Anisocytosis 1+ (Not Present); Macrocytosis Present (Not Present); Platelet Estimate Slight Decrease (Normal); Poikilocytosis 1+ (Not Present); Polychromasia 1+ (Not Present)
[2018-04-01] MEDS: Nystatin Cream 15 GM TUBE TP SCH ×3 (08:33→21:24)
[2018-04-01] MEDS: MAGIC MOUTHWASH PO SCH (08:33)
--- NOTE | 2018-04-01 11:02 | Infectious Disease Progress No ---
Date of Encounter: 04/01/18 Time of Encounter: 10:59 - Assessment and Plan (1) Pancytopenia Current Visit: Yes Status: Acute Patient has pancytopenia. Initial labs: WBC 2.2, hemoglobin 9.6, platelets 40. Patient with history of small cell lung cancer left lung -etiology of pancytopenia is unknown however differential includes concerns leukemia, consider secondary to medication such as methotrexate. Patient did receive Bactrim outpatient while he was taking methotrexate. -WBC 0.4 (yesterday 0.4), hemoglobin 9.8, platelets 120 -afebrile, hemodynamically stable -Folate 13.8 -methotrexate level <0.05 -Stool occult blood negative -03/26/2018 Blood cultures final no growth x2 -03/22/2018 wound culture growing E. coli ESBL and enterococcus faecalis -bone marrow biopsy demonstrating decreased WBC, red blood cell, hemoglobin. Normal platelets. Marrow suppression that may be secondary to toxins, drugs, marrow hypoplasia, neoplastic disease. -Chest x-ray unremarkable -s/p 2 unit platelet -no obvious active bleeding Plan: -bone marrow biopsy showing myelodysplastic syndrome. Patient will follow-up with oncology -oncology consulted and following and managing. They believe this may be acute leukemia or MDS. Unlikely to be secondary to methotrexate level since the level was low. -Rheumatology was consulted and recommended holding methotrexate. -Contact precautions -antibiotics as below (2) Sore mouth Current Visit: Yes Status: Resolved Resolved. Patient complains of a sore mouth and throat that makes it painful to swallow food. -Etiology is aphthous ulcers versus herpetic lesions. He is low risk for syphilis, HIV, HSV. -Rapid strep negative -respiratory infectious panel negative -Examination the oropharynx demonstrates no obvious ulcers or lesions in the o ropharynx. -Patient reports his mouth soreness has resolved and he is able to eat without odynophagia. -Gastroenterology performed EGD 03/29/2018 which demonstrated multiple aphthous ulcers versus herpetic lesions and oral cavity/back of pharynx. Esophagus clean. Plan: -agree with continuing Valtrex -currently on Augmentin (3) Inguinal ulcer Current Visit: Yes Status: Acute Improving Patient has bilateral inguinal ulcers for over 2 weeks. -Etiology is E. coli ESBL and enterococcus faecalis -Source may be tinea with superimposed bacterial infection. Howeverm maybe noninfectious including herpetic dermatitis or contact dermatitis but unlikely -03/22/2018 wound culture growing E. coli ESBL and enterococcus faecalis. -Lactic acid 0.8 -creatinine clearance 78 -examination of the bilateral inguinal region show erythema that is well demarcated and patch-like. Overall it appears mildly improved. -Patient reports significant improvement in soreness of the bilateral inguinal rash. Plan: -continue Levaquin day 3 (total 14 day treatment, through 04/12/2018) -continue Augmentin day 5 (total 14 day treatment through 04/10/2018) -continue Valtrex day 6 (total 14 day treatment through 04/09/2018) -continube fluconazole day 7 (total 14 day treatment through 04/08/2018) -continue nystatin -Dermatology is consulted and following. They believe that this is herpetic dermatitis, per their notes biopsy proven on left hip-resolving. If it does not improve they may consider re-biopsy groin area. (4) Neutropenia Current Visit: Yes Status: Acute Worsening Patient is neutropenia. Without fevers. -Etiology myelodysplastic syndrome as found on bone marrow biopsy -WBC 0.4 -ANC 110, (yesterday 222) decreasing -03/31/2018 KUB x-ray demonstrating multiple gas filled loops of large and small bowel throughout the abdomen, suggestive of ileus. Plan: -continue Augmentin -continue Levaquin -continue fluconazole -continue neutropenia contact precautions Qualifiers: Neutropenia type: unspecified Qualified Code(s): D70.9 - Neutropenia, unspecified - Subjective Interval history: Patient examined today at bedside resting comfortably. He is alert and oriented times 3. He denies oral mouth pain. He reports continued improvement of inguinal soreness. He denies fever, chills, weakness, chest pain, shortness of breath, abdominal pain, nausea. He still complains of constipation for which he has been placed on a regimen. Infect Dis PN-Objective Data - Labs CBC & Chem 7: 04/03/18 08:44 04/02/18 02:31 Labs: Laboratory Results - last 24 hr 03/31/18 04/01/18 04/01/18 10:40 04:03 04:03 WBC 0.4 L* RBC 3.43 L Hgb 9.8 L Hct 30.1 L MCV 87.8 MCH 28.6 MCHC 32.6 RDW 17.6 H Plt Count 120 L D MPV 10.7 Immature Gran % 5.0 H Seg Neutrophils % 27.5 Lymphocytes % 45.0 Monocytes % 20.0 Eosinophils % 2.5 Basophils % 0.0 Neutrophils # 0.1 L Lymphocytes # 0.2 L Monocytes # 0.1 Eosinophils # 0.0 Basophils # 0.0 Nucleated RBCs/100 WBC 5.0 H Platelet Estimate Slight Decrease L Polychromasia 1+ A Poikilocytosis 1+ A Anisocytosis 1+ A Macrocytosis Present A Sodium 134 L Potassium 4.8 Chloride 102 Carbon Dioxide 23 BUN 30 H Creatinine 0.87 Est GFR ( Amer) > 60 Est GFR (Non-Af Amer) > 60 BUN/Creatinine Ratio 34 H Glucose 180 H Calculated Osmolality 289 Calcium 9.2 Phosphorus 2.9 Magnesium 2.0 Herpes Simplex Source mouth HSV I Not Detected HSV II Not Detected Cultures: Cultures 03/26/18 11:12 Blood Culture - Final Peripheral Venipuncture No growth. Final report. 03/26/18 11:18 Blood Culture - Final Peripheral Venipuncture No growth. Final report. 03/29/18 05:10 Group A Streptococcus Rapid Screen - Final Throat Serology 03/31/18 03/29/18 03/26/18 Range/Units 10:40 05:10 14:05 Urine Color (Yellow) Urine Clarity (Clear) Urine pH (5.0-8.0) pH Units Ur Specific [place] (1.010-1.025) Urine Protein (Neg-Trace) mg/dL Urine Glucose (UA) (Normal) mg/dL Urine Ketones (Negative) mg/dL Urine Blood (Negative) Urine Nitrite (Negative) Urine Bilirubin (Negative) Urine Urobilinogen (Normal) mg/dL Ur Leukocyte Esterase (Negative) Ur Culture Indicated? (NO) Stool Occult Bld Scrn Negative (Negative) Chlamy pneumoniae PCR Not Detected (Not Detect) Adenovirus (PCR) Not Detected (Not Detect) B. pertussis DNA (PCR) Not Detected (Not Detect) B.parapertussis DNA PCR Not Detected (Not Detect) Coronavirus OC43 (PCR) Not Detected (Not Detect) Coronavirus HKU1 (PCR) Not Detected (Not Detect) Coronavirus 229E (PCR) Not Detected (Not Detect) Coronavirus NL63 (PCR) Not Detected (Not Detect) Herpes Simplex Source mouth HSV I Not Detected (Not Detect) HSV II Not Detected (Not Detect) Human Metapneumovir PCR Not Detected (Not Detect) Influenza A (H1) PCR Not Detected (Not Detect) Influ A (H1N1/09) PCR Not Detected (Not Detect) Influenza A (H3) PCR Not Detected (Not Detect) Influenza A Untype (PCR) Not Detected (Not Detect) Influenza Type B (PCR) Not Detected (Not Detect) M.pneumoniae DNA (PCR) Not Detected (Not Detect) Parainfluenza 1 (PCR) Not Detected (Not Detect) Parainfluenza 2 (PCR) Not Detected (Not Detect) Parainfluenza 3 (PCR) Not Detected (Not Detect) Parainfluenza 4 (PCR) Not Detected (Not Detect) RSV (PCR) Not Detected (Not Detect) Entero/Rhino (PCR) Not Detected (Not Detect) 03/26/18 Range/Units 14:01 Urine Color Yellow (Yellow) Urine Clarity Clear (Clear) Urine pH 6.0 (5.0-8.0) pH Units Ur Specific [place] 1.022 (1.010-1.025) Urine Protein Negative (Neg-Trace) mg/dL Urine Glucose (UA) Normal (Normal) mg/dL Urine Ketones Negative (Negative) mg/dL Urine Blood Negative (Negative) Urine Nitrite Negative (Negative) Urine Bilirubin Negative (Negative) Urine Urobilinogen Normal (Normal) mg/dL Ur Leukocyte Esterase Negative (Negative) Ur Culture Indicated? NO (NO) Stool Occult Bld Scrn (Negative) Chlamy pneumoniae PCR (Not Detect) Adenovirus (PCR) (Not Detect) B. pertussis DNA (PCR) (Not Detect) B.parapertussis DNA PCR (Not Detect) Coronavirus OC43 (PCR) (Not Detect) Coronavirus HKU1 (PCR) (Not Detect) Coronavirus 229E (PCR) (Not Detect) Coronavirus NL63 (PCR) (Not Detect) Herpes Simplex Source HSV I (Not Detect) HSV II (Not Detect) Human Metapneumovir PCR (Not Detect) Influenza A (H1) PCR (Not Detect) Influ A (H1N1/09) PCR (Not Detect) Influenza A (H3) PCR (Not Detect) Influenza A Untype (PCR) (Not Detect) Influenza Type B (PCR) (Not Detect) M.pneumoniae DNA (PCR) (Not Detect) Parainfluenza 1 (PCR) (Not Detect) Parainfluenza 2 (PCR) (Not Detect) Parainfluenza 3 (PCR) (Not Detect) Parainfluenza 4 (PCR) (Not Detect) RSV (PCR) (Not Detect) Entero/Rhino (PCR) (Not Detect) - Impressions Impressions KUB X-Ray 03/31/18 12:36 IMPRESSION: 1. Multiple gas-filled loops of large and small bowel throughout the abdomen. Bowel gas pattern is suggestive of an ileus. D/ / Raúl Coto MD / Raúl Coto MD Interpreting Provider: Raúl Coto MD Exam - Constitutional Vitals: Temp Pulse Resp BP Pulse Ox 97.5 F L 86 16 119/64 94 04/01/18 06:28 04/01/18 06:28 04/01/18 06:28 04/01/18 06:28 04/01/18 08:00 Exam: Gen.: Vitals noted. No acute distress. AAOx3 HEENT: no obvious lesions noted in oropharynx, Normocephalic, atraumatic Cardiac: RRR, no murmur, +S1/S2 Pulmonary: CTA bilaterally, no wheezes, rales or rhonchi, equal chest expansion Abdomen: soft, nontender abdomen, Bowel sounds noted, no guarding Back: Nontender throughout. Skin: bilateral inguinal region erythematous, maceration, well demarcated, improving MSK: ROM intact Extremities: no BLE edema, nontender calf, no cyanosis or clubbing Neuro: A&Ox3, moves all extremities Psych: Appropriate mood and behavior Consult Discharge Plan - Plan Additional Instructions: will f/u w/ me in clinic Referrals: Fan Clancy DO [Primary Care Provider] - 04/04/18 9:00 am () - Attending Attestation I examined this patient and my medical decision-making was reviewed with the Resident Physician. I agree with the documented findings, disposition and treatment plan as described except to the extent set forth below. Patient seen and examined. unchanged clinically. KUB reviewed. ileus and stool imipaction. d/w heme/onc. surgery to evaluate biopsy with MDS continue current antibiotics for 7 days though the first chemo therapy prognosis guarded.
--- NOTE | 2018-04-01 13:39 | Discharge Summary ---
- NOTES TO OUTPATIENT PROVIDER Notes to Outpatient Provider: Follow up with Hem&Onc as outpatient within 1-2 weeks of hospital discharge. Orders not resulted at time of discharge: Pending orders 03/29/18 11:29 Surgical Pathology [PTH] Routine 03/30/18 12:05 Bone Marrow, Flow & Cytogen Routine Date of Encounter: 04/01/18 Time of Encounter: 13:27 - Discharge Diagnosis (1) Myelodysplasia (myelodysplastic syndrome) Priority: Primary Status: Acute (2) Pancytopenia Priority: Primary Status: Acute (3) Rheumatoid arthritis Priority: Secondary Status: Chronic Qualifiers: Rheumatoid arthritis location: unspecified site Rheumatoid factor presence: unspecified presence Qualified Code(s): M06.9 - Rheumatoid arthritis, unspecified (4) Sore mouth Priority: Secondary Status: Acute (5) Inguinal ulcer Priority: Secondary Status: Acute (6) Herpetic dermatitis Priority: Secondary Status: Acute (7) Afib Priority: Secondary Status: Chronic Qualifiers: Atrial fibrillation type: paroxysmal Qualified Code(s): I48.0 - Paroxysmal atrial fibrillation (8) BPH (benign prostatic hyperplasia) Priority: Secondary Status: Chronic Qualifiers: Lower urinary tract symptom presence: unspecified whether lower urinary tract symptoms present Qualified Code(s): N40.0 - Benign prostatic hyperplasia wi thout lower urinary tract symptoms (9) Rash Priority: Secondary Status: Acute (10) Constipation Priority: Secondary Status: Chronic Qualifiers: Constipation type: unspecified constipation type Qualified Code(s): K59.00 - Constipation, unspecified (11) Hyperlipemia Priority: Secondary Status: Chronic Qualifiers: Hyperlipidemia type: unspecified Qualified Code(s): E78.5 - Hyperlipidemia, unspecified (12) CHF (congestive heart failure) Priority: Secondary Status: Chronic Qualifiers: Heart failure type: diastolic Heart failure chronicity: chronic Qualified Code(s): I50.32 - Chronic diastolic (congestive) heart failure (13) Hypertension Priority: Secondary Status: Chronic Qualifiers: Hypertension type: essential hypertension Qualified Code(s): I10 - Essential (primary) hypertension Hospital course: Mr. Biswas is a 82 year old male - Time Spent with Patient Total time spent providing and/or coordinating discharge services: - Discharge Medications Prescriptions: No Action Simvastatin [Zocor] 20 mg PO HS Methotrexate [Otrexup] 0 mg PO QWEEK Lisinopril [Zestril] 40 mg PO DAILY Finasteride [Proscar] 5 mg PO DAILY Furosemide [Lasix] 20 mg PO DAILY Warfarin [Coumadin] 2.5 mg PO DAILY Diltiazem [Cardizem] 30 mg PO Q8HR Valacyclovir HCl [Valtrex] 1 tab PO TID #30 tab Omeprazole [PriLOSEC] 20 mg PO DAILY PredniSONE [Deltasone] 20 mg PO TID Ciclopirox Olamine [Ciclopirox] 30 gm .ROUTE BID Sulfamethoxazole/Trimeth DS [Bactrim DS] 1 each PO BID Home Medications: Finasteride [Proscar] 5 mg PO DAILY 01/28/15 [History] Lisinopril [Zestril] 40 mg PO DAILY 01/28/15 [History] Methotrexate [Otrexup] 0 mg PO QWEEK 01/28/15 [History] Simvastatin [Zocor] 20 mg PO HS 01/28/15 [History] Furosemide [Lasix] 20 mg PO DAILY 01/19/17 [History] Diltiazem [Cardizem] 30 mg PO Q8HR 03/29/17 [History] Warfarin [Coumadin] 2.5 mg PO DAILY 03/29/17 [History] Valacyclovir HCl [Valtrex] 1 tab PO TID #30 tab 02/25/18 [Rx] Ciclopirox Olamine [Ciclopirox] 30 gm .ROUTE BID 03/26/18 [History] Omeprazole [PriLOSEC] 20 mg PO DAILY 03/26/18 [History] PredniSONE [Deltasone] 20 mg PO TID 03/26/18 [History] Sulfamethoxazole/Trimeth DS [Bactrim DS] 1 each PO BID 03/26/18 [History] Allergies/Adverse Reactions: Allergy/AdvReac Type Severity Reaction Status Date / Time No Known Allergies Allergy Verified 03/19/18 13:53 Date of admission: 03/27/18 08:47 Primary care physician: Fan Clancy DO Consults: 03/26/18 19:28 Consult to Oncology [CONS] Routine Consulting Provider: On[facility] [place] Reason for Consult: Pancytopenia Time Notified: 19:29 Call Completed: Yes 03/26/18 19:29 Consult to Dermatology [CONS] Routine Consulting Provider: Dermatology [place] Reason for Consult: Rash Time Notified: 19:31 Call Completed: Yes 03/26/18 20:02 Consult to Physical Therapy [CONS] Routine Comment: Evaluate, develop and implement POC Reason for Consult: falls Does patient have active BEDREST order?: No Is patient medically & hemodynamically stable?: Yes Patient assessed for mobility or mobilized this visit?: No 03/26/18 20:04 Consult to Occupational Therapy [CONS] Routine Comment: Evaluate, develop and implement POC Reason for Consult: falls Does patient have active BEDREST order?: No Is patient medically & hemodynamically stable?: Yes Patient assessed for mobility or mobilized this visit?: No 03/27/18 08:43 Consult to Wound Care [CONS] Routine Reason for Consult: rash open weeping sores Time Notified: 08:43 Call Completed: No 03/27/18 17:34 Consult to Rheumatology [CONS] Routine Consulting Provider: Gabriele Diamond Reason for Consult: Rheumatoid arthritis- On methotrexate Time Notified: 17:36 Call Completed: Yes 03/28/18 10:35 Consult to Infectious Diseases [CONS] Routine Consulting Provider: Infectious Disease [place] Reason for Consult: wounds possible herpes zoster- ESBL Time Notified: 10:36 Call Completed: Yes 03/29/18 08:58 Consult to Gastroenterology [CONS] Routine Consulting Provider: Gastroenterology [place] Reason for Consult: Concerns for esophageal candidiasis Call Completed: Yes 03/29/18 11:29 Consult to Interventional Radiology [CONS] Routine Consulting Provider: Radiology [facility] Reason for Consult: bone marrow biopsy and aspiration-INR 2.5, coumadin on hold, given 1 dose vitamin K yesterday, plt ~28-ordered 1 unit plts today Call Completed: Yes - Constitutional Vitals: Temp Pulse Resp BP Pulse Ox 98.1 F 108 18 146/78 94 04/01/18 11:09 04/01/18 11:09 04/01/18 11:09 04/01/18 11:09 04/01/18 11:09 General appearance: Present: A&O X 3 - Patient Status Condition: Fair - Discharge Instructions Follow Up With: Fan Clancy DO [Primary Care Provider] - 04/04/18 9:00 am () Additional Instructions: will f/u w/ me in clinic
--- NOTE | 2018-04-01 13:42 | Internal Med Progress Note ---
Hospitalist Progress Note - Encounter Date of Encounter: 04/01/18 Time of Encounter: 13:40 - Subjective Interval History: I have seen and evaluated the patient at bedside. Patient reports he has not have a bowel movement yet, but reports passing gas. denies nausea or vomiting - Exam Vitals: Temp Pulse Resp BP Pulse Ox 98.1 F 108 18 146/78 94 04/01/18 11:09 04/01/18 11:09 04/01/18 11:09 04/01/18 11:09 04/01/18 11:09 Exam: Vitals: Reviewed General: Alert and oriented x4. Still In mild distress due to abdominal distention due to constipation Cardiovascular: RRR, normal S1 & S2, no rubs, murmurs or gallops. No JVD. Pulse regular. Lungs: CTA b/l, no wheezes or crackles. Abdomen: Soft, non-tender, no rigidity. Hypoactive BM in all 4 quadrants Extremities: No edema Neurological: Normal cognition. Rest of the physical exam is non contributory - Assessment and Plan (1) Constipation Current Visit: Yes Status: Chronic Assessment and Plan: Patient has not have a bowel movement in 7 days. Passing gas, no nausea or abdominal pain XR/XR KUB IMPRESSION: 1. Multiple gas-filled loops of large and small bowel throughout the abdomen. Bowel gas pattern is suggestive of an ileus. Plan Increase lactulose to 30mg/PO BID On senna/docusate 20mg/PO BID and miralax will give 500mls x1 of NS for hydration Hem&Onc recommended against enema due to neutropenia If no improvement will consider surgery +/- GI consult for evaluation. will discontinue [place] (2) Myelodysplasia (myelodysplastic syndrome) Current Visit: Yes Status: Acute Assessment and Plan: Bone marrow biopsy resulted. Myelodysplastic syndrome with excess blast and erythroid predominace Plan of care as per Hem&onc Based on my conversation with Hem&Onc patient will be started on treatment as outpatient (3) Pancytopenia Current Visit: Yes Status: Acute Assessment and Plan: due to problem #1. patient will be started on Neupogen per Hem&Onc recommendations while in the hospital. (4) Rheumatoid arthritis Current Visit: No Status: Chronic Assessment and Plan: on acetaminophen 650mg/PO Q6HR PRN for pain control methotrexate has been held (5) Sore mouth Current Visit: Yes Status: Acute (6) Inguinal ulcer Current Visit: Yes Status: Acute Assessment and Plan: WOuld culture grew ESBL. patient on augmentin and levofloxacin plus nystatin per ID recommendations (7) Herpetic dermatitis Current Visit: Yes Status: Acute Assessment and Plan: On valacyclovir 1000mg/PO TID. (8) Afib Current Visit: No Status: Chronic Assessment and Plan: rate controlled on diltiazem. Warfarin per pharmacy protocol resumed. (9) BPH (benign prostatic hyperplasia) Current Visit: Yes Status: Chronic Assessment and Plan: on finasteride (10) Hyperlipemia Current Visit: No Status: Chronic Assessment and Plan: On simvastatin (11) CHF (congestive heart failure) Current Visit: No Status: Chronic Assessment and Plan: patient is euvolemic. on furosemide 20mg/PO daily. daily weight, plus strict intake and output (12) Hypertension Current Visit: No Status: Chronic Assessment and Plan: BP controlled on diltiazem. 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 DVT Prophylaxis: Patient of warfarin for A.fib. - Summary of Assessment and Plan Summary of Assessment and Plan: Will keep patient in the hospital due to Ileus. Will hold the transfer until patient has a BM. - Time Spent with Patient Total time spent is greater than 50% in coordination of care (as documented) at patient's floor/unit and/or counseling patient: Greater than 35 minutes (40) Plan of Care Discussed with: patient (and the nurse) Internal Medicine: Result - Labs CBC & Chem 7: 04/01/18 04:03 04/01/18 04:03 Labs: Short CBC 04/01/18 Range/Units 04:03 WBC 0.4 L* (4.3-11.1) K/mcL Hgb 9.8 L (12.9-16.9) g/dL Hct 30.1 L (37.5-50.1) % Plt Count 120 L D (140-400) K/mcL Neutrophils # 0.1 L (1.6-8.9) K/mcL BMP 04/01/18 04:03 Sodium 134 L Potassium 4.8 Chloride 102 Carbon Dioxide 23 BUN 30 H Creatinine 0.87 Glucose 180 H Calcium 9.2 - ABG Interpretation ABG results: PT/INR, D-dimer PT 17.7 Seconds (9.4-12.1) H 03/30/18 04:12 - Impressions Impressions KUB X-Ray 03/31/18 12:36 IMPRESSION: 1. Multiple gas-filled loops of large and small bowel throughout the abdomen. Bowel gas pattern is suggestive of an ileus. D/ / Raúl Coto MD / Raúl Coto MD Interpreting Provider: Raúl Coto MD Consult Discharge Plan - Plan Additional Instructions: will f/u w/ me in clinic Referrals: Fan Clancy DO [Primary Care Provider] - 04/04/18 9:00 am () (1) Constipation Qualifiers: Constipation type: unspecified constipation type Qualified Code(s): K59.00 - Constipation, unspecified (4) Rheumatoid arthritis Qualifiers: Rheumatoid arthritis location: unspecified site Rheumatoid factor presence: unspecified presence Qualified Code(s): M06.9 - Rheumatoid arthritis, unspecified (8) Afib Qualifiers: Atrial fibrillation type: paroxysmal Qualified Code(s): I48.0 - Paroxysmal atrial fibrillation (9) BPH (benign prostatic hyperplasia) Qualifiers: Lower urinary tract symptom presence: unspecified whether lower urinary tract symptoms present Qualified Code(s): N40.0 - Benign prostatic hyperplasia without lower urinary tract symptoms (10) Hyperlipemia Qualifiers: Hyperlipidemia type: unspecified Qualified Code(s): E78.5 - Hyperlipidemia, unspecified (11) CHF (congestive heart failure) Qualifiers: Heart failure type: diastolic Heart failure chronicity: chronic Qualified Code(s): I50.32 - Chronic diastolic (congestive) heart failure (12) Hypertension Qualifiers: Hypertension type: essential hypertension Qualified Code(s): I10 - Essential (primary) hypertension
[2018-04-01] MEDS ORDERED: 0.9 % Sodium Chloride 500 ML IVC SCH (14:00)
--- NOTE | 2018-04-01 14:28 | Oncology Inp Progress Note ---
<Arik Fitzgerald - Last Filed: 04/01/18 14:36> Date of Encounter: 04/01/18 Time of Encounter: 14:36 Oncology: Obj Data - Labs CBC & Chem 7: 04/01/18 04:03 04/01/18 04:03 Consult Discharge Plan - Plan Additional Instructions: will f/u w/ me in clinic Referrals: Fan Clancy DO [Primary Care Provider] - 04/04/18 9:00 am () Inpatient Charges Provider: Dr. Leta Fitzgerald Follow up - Inpatient: [id number] - Attending Attestation I examined this patient and my medical decision-making was reviewed with the Advanced Practice Nurse. I agree with the documented findings, disposition and treatment plan as described except to the extent set forth below. KUB c/w ileus BMB shows MDS with excess blasts-1, CGs pending Currently on Augmentin/Fluconazole/Levaquin/Acyclovir for ppx Will start on Neupogen 5 mcg/kg until ANC > 1000 Wound culture positive for E. Coli ESBL, Enterococcous Faecalis <Roberta Levin - Last Filed: 04/01/18 17:19> Date of Encounter: 04/01/18 (1) Pancytopenia Current Visit: Yes Status: Acute Assessment and plan: Acute pancytopenia noted on admission S/P 2 unit platelets for worsening thrombocytopenia with epistaxis S/P vitamin K 2.5 mg PO In the setting of wound culture + E. 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 This will likely be discussed on an outpatient basis. We have placed him on Neupogen 480 mg subcutaneous daily until ANC > 1000 Currently on Augmentin/Fluconazole/Levaquin/Acyclovir per ID We will check immunoglobulin panel and serum erythropoietin (2) Constipation Current Visit: Yes Status: Chronic Assessment and plan: NO BM since admission KUB on 03/28/18 revealed-Moderate colonic stool burden, Multiple dilated bowel loops within visualized portion of the abdomen. While this could be related to constipation, possibility of obstruction or ileus is not excluded. Follow-up examination may be obtained, as clinically warranted. Plan: changed colace to senna plus continue miralax added lactulose KUB reveals ileus--surgeries been consulted for further recommendations, patient remains a high risk for complication given his continued ileus in the setting of severe neutropenia Do not administer enema/suppository until neutropenia recovers Qualifiers: Constipation type: unspecified constipation type Qualified Code(s): K59.00 - Constipation, unspecified (3) DVT prophylaxis Current Visit: No Status: Acute Assessment and plan: Presented on Coumadin with history of A. fib Coumadin has been on hold secondary to severe thrombocytopenia. Coumadin has been restarted per hospitalist today as his platelet count has recovered to 120. Recommend holding Coumadin if platelet count drops below 50k. CHADSVASC score 5, he is high risk for CVA Oncology: Subj Interval history: Surgeon consulted resting in bed. He continues to report abdominal distention and tenderness secondary to constipation. He remains afebrile. He reports he is feeling stressed today and worried over his who apparently presented to the ER for potential AK. - Constitutional General appearance: cooperative, no acute distress, no febrile - Head Head exam: Present: atraumatic - ENT ENT exam: Present: mucous membranes moist, normal oropharynx - Respiratory Respiratory exam: Present: decreased breath sounds, CTAB. Absent: respiratory distress - Cardiovascular Cardiovascular exam: Present: RRR, +S1, +S2 - GI/Abdominal GI/Abdominal exam: Present: distended, normal bowel sounds, soft, tenderness - Extremities Exam Extremities exam: Present: normal inspection. Absent: calf tenderness - Neurological Exam Neurological exam: Present: alert, oriented X3, no focal deficits, strengths equal and symetr throughout - Psychiatric Psychiatric exam: Present: anxious - Skin Skin exam: Present: dry, normal color, warm Additional comments: Erythemic lesions to bilateral inguinal areas Oncology: Obj Data - Labs CBC & Chem 7: 04/01/18 04:03 04/01/18 04:03
--- NOTE | 2018-04-01 14:59 | Electrocardiograph Report ---
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
[2018-04-01] MEDS ORDERED: *HR* Warfarin 2.5 MG TABLET PO ONE (18:00)
--- NOTE | 2018-04-01 19:13 | General Surgery Consult Note ---
Date of Encounter: 04/01/18 Time of Encounter: 18:55 Assessment and Plan (1) Constipation Current Visit: Yes Status: Acute Qualifiers: Qualified Code(s): K59.04 - Chronic idiopathic constipation (2) Adynamic ileus Current Visit: Yes Status: Acute Adynamic ileus of small intestine. Right colon with stool. Rectum with gas and stool. Recommend soap jamia enema. Rx Amitiza. If enema is not successful then will recommend colonoscopy. Last colonoscopy 1 year ago was normal per patient. I am unable to review this in the medical record. History of Present Illness Consult date: 04/01/18 Reason for consult: other (severe constipation) Requesting physician: Jeffery Castro History of present illness: This 82 y/o male presents to [facility] d/t pancytopenia. Upon his admission he is determined to not have had a BM for a week. He reports this happens frequently. He reports passing gas. He denies any abdominal pain. He denies nausea or vomiting. He denies fevers. He denies CP, SOB or palpitations. He is s/p bone marrow biopsy. Past Med Surg Social Fam HX - Past Medical History Medical history: cancer, CVA, hyperlipidemia, hypertension, other Additional medical history: lung cancer Psychiatric history: no psych history - Past Surgical History Surgical History: cancer surgery, cataract, other Additional surgical history: SWAPNIL lobectomy - Social History Smoking Status: Former smoker Smokeless Tobacco Status: No Alcohol use: none Drug use: none - Family History Mother Living Status: Medications and Allergies Finasteride [Proscar] 5 mg PO DAILY 01/28/15 [History] Lisinopril [Zestril] 40 mg PO DAILY 01/28/15 [History] Methotrexate [Otrexup] 0 mg PO QWEEK 01/28/15 [History] Simvastatin [Zocor] 20 mg PO HS 01/28/15 [History] Furosemide [Lasix] 20 mg PO DAILY 01/19/17 [History] Diltiazem [Cardizem] 30 mg PO Q8HR 03/29/17 [History] Warfarin [Coumadin] 2.5 mg PO DAILY 03/29/17 [History] Valacyclovir HCl [Valtrex] 1 tab PO TID #30 tab 02/25/18 [Rx] Ciclopirox Olamine [Ciclopirox] 30 gm .ROUTE BID 03/26/18 [History] Omeprazole [PriLOSEC] 20 mg PO DAILY 03/26/18 [History] PredniSONE [Deltasone] 20 mg PO TID 03/26/18 [History] Sulfamethoxazole/Trimeth DS [Bactrim DS] 1 each PO BID 03/26/18 [History] Allergy/AdvReac Type Severity Reaction Status Date / Time No Known Allergies Allergy Verified 03/19/18 13:53 Review of Systems All systems PM: The remainder of the systems were reviewed and are negative - Constitutional as per HPI, fatigue, weakness, no anorexia, no excessive sweating, no fever(s), no headache(s) - EENT Nose, mouth and throat: no dizziness, no dysphagia, no nasal congestion, no nasal discharge, no sinus pain, no sinus pressure, no sore throat - Cardiovascular no chest pain, no dyspnea, no edema, no lightheadedness, no syncope - Gastrointestinal bloating, constipation, no abdominal pain, no cramping, no nausea, no vomiting - Genitourinary no dysuria, no urinary frequency - Musculoskeletal limited range of motion, no abnormal gait, no back pain, no neck pain - Integumentary no dry skin, no sores, no wounds, no jaundice - Neurological weakness, no confusion, no dizziness - Psychiatric no anxiety, no depression - Hematologic/Lymphatic easy bleeding, easy bruising General Surgery Exam Initial Vital Signs Temp Pulse Resp BP Pulse Ox 99.4 F 87 17 117/62 97 03/26/18 10:25 03/26/18 10:25 03/26/18 10:25 03/26/18 10:25 03/26/18 10:25 - General physical appearance well developed, no distress - Eyes PERRL, normal ocular movement. negative: icteric - ENT normal mucosa. negative: nasal discharge - Neck no masses, no lymphadectomy, no venous distension - Respiratory normal respiratory effort, clear to auscultation - Cardiovascular Cardiovascular exam: Present: RRR - Abdomen Abdomen general surgery: Present: bowel sounds present, distended. Absent: tender, guarding, rebound - Genitourinary Present: normal penis with no external lesions - Rectum Rectum: Present: normal sphincter tone, no hemorrhoids, no masses, no bleeding - Integumentary Integumentary general surgery: Present: warm and dry - Neurologic Present: CN 2-12 grossly intact, normal coordination, memory loss. Absent: confused - Musculoskeletal Present: normal posture - Psychiatric Psychiatric general surgery: Present: A&Ox3, appropriate Exam Initial Vital Signs Temp Pulse Resp BP Pulse Ox 99.4 F 87 17 117/62 97 03/26/18 10:25 03/26/18 10:25 03/26/18 10:25 03/26/18 10:25 03/26/18 10:25 Results - Labs 04/01/18 04:03 04/01/18 04:03 Abnormal lab results WBC 0.4 K/mcL (4.3-11.1) L* 04/01/18 04:03 RBC 3.43 M/mcL (4.19-5.50) L 04/01/18 04:03 Hgb 9.8 g/dL (12.9-16.9) L 04/01/18 04:03 Hct 30.1 % (37.5-50.1) L 04/01/18 04:03 RDW 17.6 % (11.5-14.5) H 04/01/18 04:03 Plt Count 120 K/mcL (140-400) L D 04/01/18 04:03 Immature Gran % 5.0 % (0-4) H 04/01/18 04:03 Neutrophils # 0.1 K/mcL (1.6-8.9) L 04/01/18 04:03 Lymphocytes # 0.2 K/mcL (0.6-4.6) L 04/01/18 04:03 Nucleated RBCs/100 WBC 5.0 /100 WBC (0) H 04/01/18 04:03 Platelet Estimate Slight Decrease (Normal) L 04/01/18 04:03 Polychromasia 1+ (Not Present) A 04/01/18 04:03 Hypochromasia Present (Not Present) A 03/29/18 17:40 Poikilocytosis 1+ (Not Present) A 04/01/18 04:03 Anisocytosis 1+ (Not Present) A 04/01/18 04:03 Microcytosis Present (Not Present) A 03/28/18 09:13 Macrocytosis Present (Not Present) A 04/01/18 04:03 Spherocytes 1+ (Not Present) A 03/26/18 11:58 PT 17.7 Seconds (9.4-12.1) H 03/30/18 04:12 Sodium 134 mEq/L (136-145) L 04/01/18 04:03 BUN 30 mg/dL (8-23) H 04/01/18 04:03 BUN/Creatinine Ratio 34 (6-26) H 04/01/18 04:03 Glucose 180 mg/dL (70-105) H 04/01/18 04:03 % Saturation 56 % (20-55) H 03/27/18 09:07 Transferrin 140 mg/dL (203-362) L 03/27/18 09:07 Ferritin 412 ng/mL (20-250) H 03/27/18 09:07 Lactate Dehydrogenase 129 Units/L (140-271) L 03/29/18 05:50 Diabetes panel 04/01/18 Range/Units 04:03 Sodium 134 L (136-145) mEq/L Potassium 4.8 (3.5-5.1) mEq/L Chloride 102 (98-107) mEq/L Carbon Dioxide 23 (23-29) mEq/L BUN 30 H (8-23) mg/dL Creatinine 0.87 (0.70-1.30) mg/dL Glucose 180 H (70-105) mg/dL Calcium 9.2 (8.6-10.3) mg/dL Calcium panel 04/01/18 Range/Units 04:03 Calcium 9.2 (8.6-10.3) mg/dL Phosphorus 2.9 (2.7-4.5) mg/dL Pituitary panel 04/01/18 Range/Units 04:03 Sodium 134 L (136-145) mEq/L Potassium 4.8 (3.5-5.1) mEq/L Chloride 102 (98-107) mEq/L Carbon Dioxide 23 (23-29) mEq/L BUN 30 H (8-23) mg/dL Creatinine 0.87 (0.70-1.30) mg/dL Glucose 180 H (70-105) mg/dL Calcium 9.2 (8.6-10.3) mg/dL Adrenal panel 04/01/18 Range/Units 04:03 Sodium 134 L (136-145) mEq/L Potassium 4.8 (3.5-5.1) mEq/L Chloride 102 (98-107) mEq/L Carbon Dioxide 23 (23-29) mEq/L BUN 30 H (8-23) mg/dL Creatinine 0.87 (0.70-1.30) mg/dL Glucose 180 H (70-105) mg/dL Calcium 9.2 (8.6-10.3) mg/dL All other labs normal. - Imaging Abdominal x-ray: report reviewed (SB ileus) Consult Discharge Plan - Plan Additional Instructions: will f/u w/ me in clinic Referrals: Fan Clancy DO [Primary Care Provider] - 04/04/18 9:00 am ()
[2018-04-02] MEDS: *HR* OxyCODONE Immed Rel 5 MG TABLET PO PRN ×3 (00:25→20:07)
[2018-04-02 03:06] LABS: Basophils % 1.5 %; Eosinophils % 1.5 %; Hematocrit 29.7 % (37.5-50.1); Hemoglobin 9.8 g/dL (12.9-16.9); Immature Granulocytes % 2.9 % (0-4); Lymphocytes # 0.2 K/mcL (0.6-4.6); Lymphocytes % 32.4 %; Mean Corpuscular Hemoglobin 29.3 pg (28.0-33.3); Mean Corpuscular Volume 88.9 fL (83.0-100.0); Mean Platelet Volume 10.1 fL (9.4-12.4); Monocytes # 0.3 K/mcL (0.0-1.3); Monocytes % 44.1 %; Neutrophils # 0.1 K/mcL (1.6-8.9); Nucleated Red Blood Cells 7.4 /100 WBC (0); Platelet Count 206 K/mcL (140-400); Red Blood Count 3.34 M/mcL (4.19-5.50); Red Cell Distribution Width 18.7 % (11.5-14.5); Segmented Neutrophils % 17.6 %
[2018-04-02 03:12] LABS: INR 1.2; Prothrombin Time 13.8 Seconds (9.4-12.1)
[2018-04-02 03:22] LABS: BUN/Creatinine Ratio 38 (6-26); Blood Urea Nitrogen 36 mg/dL (8-23); Calcium 8.9 mg/dL (8.6-10.3); Carbon Dioxide 23 mEq/L (23-29); Chloride 102 mEq/L (98-107); Glucose 125 mg/dL (70-105); Osmolality,Calculated 284 (280-300); Phosphorous 2.5 mg/dL (2.7-4.5); Potassium 4.9 mEq/L (3.5-5.1); Sodium 132 mEq/L (136-145); eGFR For Non-African Americans > 60 (> 60)
[2018-04-02 04:01] LABS: Anisocytosis 1+ (Not Present); Macrocytosis Present (Not Present); Platelet Estimate Normal (Normal); Polychromasia 1+ (Not Present)
--- NOTE | 2018-04-02 09:23 | Internal Med Progress Note ---
Hospitalist Progress Note - Encounter Date of Encounter: 04/02/18 Time of Encounter: 09:18 - Subjective Interval History: I have seen and evaluated the patient at bedside. patient reports having a bowel movement last night following a enema. denies nausea, vomiting or abdominal pain. report back pain. - Exam Vitals: Temp Pulse Resp BP Pulse Ox 97.9 F 83 14 105/65 94 04/02/18 06:58 04/02/18 06:58 04/02/18 06:58 04/02/18 06:58 04/02/18 06:58 Exam: Vitals: Reviewed General: Alert and oriented x4. reports discomfort in the inguinal area Cardiovascular: RRR, normal S1 & S2, no rubs, murmurs or gallops. No JVD. Pulse regular. Lungs: CTA b/l, no wheezes or crackles. Abdomen: Soft, non-tender, no rigidity. NABS in all 4 quadrants Extremities: No edema. erythema on the right inguinal area. Neurological: Normal cognition. Rest of the physical exam is non contributory - Assessment and Plan (1) Constipation Current Visit: Yes Status: Chronic Assessment and Plan: associate with adynamic ileus. patient reported having a BM last night. denies a bdominal pain. Plan continue lactulose 30 gm/PO BID, plus miralax and senna plus patient reports that he does not want to have a colonoscopy as he had one done about 1 1/2 years ago and he goes through this often at home. Surgery recommendations appreciated (2) Myelodysplasia (myelodysplastic syndrome) Current Visit: Yes Status: Acute Assessment and Plan: Hem&Onc following up. patient will be started on chemotherapy outpatient (3) Pancytopenia Current Visit: Yes Status: Acute Assessment and Plan: due to MDS. patient started on filgrastin per Hem&Onc recommendations. Continue neutropenic precautions. (4) Rheumatoid arthritis Current Visit: No Status: Chronic Assessment and Plan: On tylenol 650mg/PO Q6HRS PRN for pain control. will avoid opiods medications due to constipation. Methotrexate to be started as outpatient. (5) Inguinal ulcer Current Visit: Yes Status: Acute Assessment and Plan: wound culture grew ESBL. patient on Augmentin and levofloxacin per ID recommendations (6) Sore mouth Current Visit: Yes Status: Acute (7) Herpetic dermatitis Current Visit: Yes Status: Acute Assessment and Plan: patient on valacyclovir 1000 mg/PO TID (8) Afib Current Visit: No Status: Chronic Assessment and Plan: Rate controlled on diltiazem 80mg/PO Q8HRs, warfarin per pharmacy protocol for secondary stroke prevention. (9) BPH (benign prostatic hyperplasia) Current Visit: Yes Status: Chronic Assessment and Plan: On finasteride 5 mg by mouth daily. (10) Hyperlipemia Current Visit: No Status: Chronic Assessment and Plan: Continue simvastatin 20 mg by mouth at bedtime. (11) CHF (congestive heart failure) Current Visit: No Status: Chronic Assessment and Plan: Patient is euvolemic. Fluid restrictive strategies to 1.5 L a day. Continue furosemide 20 mg by mouth daily. Daily weight. (12) Hypertension Current Visit: No Status: Chronic Assessment and Plan: Blood pressure controlled on diltiazem. We will monitor. (13) Adenocarcinoma of left lung Current Visit: No Status: Chronic DVT Prophylaxis: Patient on warfarin per pharmacy dosing mechanical DVT prophylaxis. - Summary of Assessment and Plan Summary of Assessment and Plan: Patient pending placement to SNF/ECF. - Time Spent with Patient Total time spent is greater than 50% in coordination of care (as documented) at patient's floor/unit and/or counseling patient: Greater than 35 minutes (38) Plan of Care Discussed with: patient (his and the nurse.) Internal Medicine: Result - Labs CBC & Chem 7: 04/02/18 02:31 04/02/18 02:31 Labs: Short CBC 04/02/18 Range/Units 02:31 WBC 0.7 L* D (4.3-11.1) K/mcL Hgb 9.8 L (12.9-16.9) g/dL Hct 29.7 L (37.5-50.1) % Plt Count 206 D (140-400) K/mcL Neutrophils # 0.1 L (1.6-8.9) K/mcL BMP 04/02/18 02:31 Sodium 132 L Potassium 4.9 Chloride 102 Carbon Dioxide 23 BUN 36 H Creatinine 0.94 Glucose 125 H Calcium 8.9 - ABG Interpretation ABG results: PT/INR, D-dimer PT 13.8 Seconds (9.4-12.1) H 04/02/18 02:31 Consult Discharge Plan - Plan Additional Instructions: will f/u w/ me in clinic Referrals: Fan Clancy DO [Primary Care Provider] - 04/04/18 9:00 am () (1) Constipation Qualifiers: Constipation type: unspecified constipation type Qualified Code(s): K59.00 - Constipation, unspecified (4) Rheumatoid arthritis Qualifiers: Rheumatoid arthritis location: unspecified site Rheumatoid factor presence: unspecified presence Qualified Code(s): M06.9 - Rheumatoid arthritis, unspecified (8) Afib Qualifiers: Atrial fibrillation type: paroxysmal Qualified Code(s): I48.0 - Paroxysmal atrial fibrillation (9) BPH (benign prostatic hyperplasia) Qualifiers: Lower urinary tract symptom presence: unspecified whether lower urinary tract symptoms present Qualified Code(s): N40.0 - Benign prostatic hyperplasia without lower urinary tract symptoms (10) Hyperlipemia Qualifiers: Hyperlipidemia type: unspecified Qualified Code(s): E78.5 - Hyperlipidemia, unspecified (11) CHF (congestive heart failure) Qualifiers: Heart failure type: diastolic Heart failure chronicity: chronic Qualified Code(s): I50.32 - Chronic diastolic (congestive) heart failure (12) Hypertension Qualifiers: Hypertension type: essential hypertension Qualified Code(s): I10 - Essential (primary) hypertension
[2018-04-02] MEDS: Cyanocobalamin (B-12) 1,000 MCG TABLET PO SCH (09:59)
[2018-04-02] MEDS: valACYclovir 500 MG TABLET PO SCH ×3 (09:59→20:36)
[2018-04-02] MEDS: Finasteride 5 MG TABLET PO SCH (10:00)
[2018-04-02] MEDS: Folic Acid 1 MG TABLET PO SCH (10:00)
[2018-04-02] MEDS: Fluconazole 100 MG TABLET PO SCH (10:00)
[2018-04-02] MEDS: Sennosides/Docusate Sodium TABLET PO SCH ×2 (10:00→20:36)
[2018-04-02] MEDS: Levofloxacin 750 MG/150 ML 750 MG/150 ML BAG IVPB SCH (10:01)
[2018-04-02] MEDS: Lactulose Oral Soln 20 GM/30 ML UDC PO SCH ×2 (10:01→20:36)
[2018-04-02] MEDS: Nystatin Cream 15 GM TUBE TP SCH ×3 (10:03→20:36)
[2018-04-02] MEDS: MAGIC MOUTHWASH PO SCH (10:03)
[2018-04-02] MEDS: Warfarin perPT PO SCH ×2 (15:05→17:40)
[2018-04-02] MEDS ORDERED: *HR* Warfarin 2.5 MG TABLET PO ONE (18:00)
[2018-04-03 03:03] LABS: INR 1.5; Prothrombin Time 17.3 Seconds (9.4-12.1)
--- NOTE | 2018-04-03 08:59 | Internal Med Progress Note ---
Hospitalist Progress Note - Encounter Date of Encounter: 04/03/18 Time of Encounter: 08:57 - Subjective Interval History: I have seen and evaluated the patient at bedside. Patient reported improvement in the inguinal pain/discomfort. reports having urinary hesitancy. Bladder scan has been ordered. - Exam Vitals: Temp Pulse Resp BP Pulse Ox 98.6 F 58 16 130/71 94 04/03/18 06:48 04/03/18 06:48 04/03/18 06:48 04/03/18 06:48 04/03/18 06:48 Exam: Vitals: Reviewed General: Alert and oriented x4. No distress Cardiovascular: RRR, normal S1 & S2, no rubs, murmurs or gallops. No JVD. Pulse regular. Lungs: CTA b/l, no wheezes or crackles. Abdomen: Soft, non-tender, no rigidity. NABS in all 4 quadrants Extremities: No edema : erythema b/l inguinal area improving. Neurological: Normal cognition. Rest of the physical exam is non contributory - Assessment and Plan (1) Constipation Current Visit: Yes Status: Chronic Assessment and Plan: patient had a BM two nights ago. denies nausea or vomiting. passing flatus. Plan will continue stool softeners avoid opiods medications for pain control. (2) Myelodysplasia (myelodysplastic syndrome) Current Visit: Yes Status: Acute Assessment and Plan: patient scheduled to follow up with HEm&Onc as outpatient (3) Pancytopenia Current Visit: Yes Status: Acute Assessment and Plan: due to MDS. patient on filgratin per Hem&Onc recommendations while in the hospital. (4) Rheumatoid arthritis Current Visit: No Status: Chronic Assessment and Plan: On tylenol 650mg/PO Q6HRs for pain control. Methotrexate to be re-started by his Tip Printer as outpatient. (5) Inguinal ulcer Current Visit: Yes Status: Acute Assessment and Plan: Improving. Erythema significantly better. We will continue Augmentin and levofloxacin. ID recommendations appreciated. (6) Sore mouth Current Visit: Yes Status: Resolved (7) Herpetic dermatitis Current Visit: Yes Status: Acute Assessment and Plan: Continue valacyclovir 1000mg by mouth 3 times a day. (8) Afib Current Visit: No Status: Chronic Assessment and Plan: Rate controlled on Cardizem 30 mg by mouth every 8 hours. On warfarin per pharmacy dosing. Will add heparin 5000 units SubQ Q8HRs as INR not therapeutic (9) BPH (benign prostatic hyperplasia) Current Visit: Yes Status: Chronic Assessment and Plan: Continue finasteride 5 mg by mouth daily. (10) Hyperlipemia Current Visit: No Status: Chronic Assessment and Plan: On statin. (11) CHF (congestive heart failure) Current Visit: No Status: Chronic Assessment and Plan: not on exacerbation. On furosemide 20 mg by mouth daily. Continue daily weight and strict intake and output. (12) Hypertension Current Visit: No Status: Chronic Assessment and Plan: Blood pressure controlled on Cardizem and furosemide. 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 - Summary of Assessment and Plan Summary of Assessment and Plan: Patient pending placement to SNF/ECF - Time Spent with Patient Total time spent is greater than 50% in coordination of care (as documented) at patient's floor/unit and/or counseling patient: Greater than 35 minutes (40) Plan of Care Discussed with: patient (and the nurse) Internal Medicine: Result - Labs CBC & Chem 7: 04/02/18 02:31 04/02/18 02:31 - ABG Interpretation ABG results: PT/INR, D-dimer PT 17.3 Seconds (9.4-12.1) H 04/03/18 02:39 Consult Discharge Plan - Plan Additional Instructions: will f/u w/ me in clinic Referrals: Fan Clancy DO [Primary Care Provider] - 04/04/18 9:00 am () (1) Constipation Qualifiers: Constipation type: unspecified constipation type Qualified Code(s): K59.00 - Constipation, unspecified (4) Rheumatoid arthritis Qualifiers: Rheumatoid arthritis location: unspecified site Rheumatoid factor presence: unspecified presence Qualified Code(s): M06.9 - Rheumatoid arthritis, unspecified (8) Afib Qualifiers: Atrial fibrillation type: paroxysmal Qualified Code(s): I48.0 - Paroxysmal atrial fibrillation (9) BPH (benign prostatic hyperplasia) Qualifiers: Lower urinary tract symptom presence: unspecified whether lower urinary tract symptoms present Qualified Code(s): N40.0 - Benign prostatic hyperplasia without lower urinary tract symptoms (10) Hyperlipemia Qualifiers: Hyperlipidemia type: unspecified Qualified Code(s): E78.5 - Hyperlipidemia, unspecified (11) CHF (congestive heart failure) Qualifiers: Heart failure type: diastolic Heart failure chronicity: chronic Qualified Code(s): I50.32 - Chronic diastolic (congestive) heart failure (12) Hypertension Qualifiers: Hypertension type: essential hypertension Qualified Code(s): I10 - Essential (primary) hypertension
[2018-04-03 09:17] LABS: Hematocrit 31.4 % (37.5-50.1); Hemoglobin 10.4 g/dL (12.9-16.9); Mean Corpuscular HGB Conc 33.1 g/dL (31.6-35.5); Mean Corpuscular Hemoglobin 29.5 pg (28.0-33.3); Mean Corpuscular Volume 89.2 fL (83.0-100.0); Platelet Count 314 K/mcL (140-400); Red Blood Count 3.52 M/mcL (4.19-5.50); Red Cell Distribution Width 20.3 % (11.5-14.5)
[2018-04-03] MEDS: valACYclovir 500 MG TABLET PO SCH ×3 (11:13→20:41)
[2018-04-03] MEDS: Cyanocobalamin (B-12) 1,000 MCG TABLET PO SCH (11:15)
[2018-04-03] MEDS: Levofloxacin 750 MG/150 ML 750 MG/150 ML BAG IVPB SCH (11:16)
[2018-04-03] MEDS: Fluconazole 100 MG TABLET PO SCH (11:16)
[2018-04-03] MEDS: Finasteride 5 MG TABLET PO SCH (11:16)
[2018-04-03] MEDS: Sennosides/Docusate Sodium TABLET PO SCH ×2 (11:16→20:41)
[2018-04-03] MEDS: Folic Acid 1 MG TABLET PO SCH (11:16)
[2018-04-03] MEDS: MAGIC MOUTHWASH PO SCH (11:17)
[2018-04-03] MEDS: Lactulose Oral Soln 20 GM/30 ML UDC PO SCH ×2 (11:17→20:41)
[2018-04-03] MEDS: Nystatin Cream 15 GM TUBE TP SCH ×3 (11:17→20:41)
[2018-04-03] MEDS: *HR* OxyCODONE Immed Rel 5 MG TABLET PO PRN ×2 (11:42→19:40)
[2018-04-03] MEDS: *HR* Heparin 5,000 UNIT/ML VIAL SQ SCH ×2 (17:33→20:41)
[2018-04-03] MEDS: Warfarin perPT PO SCH (17:38)
[2018-04-03] MEDS ORDERED: *HR* Warfarin 2.5 MG TABLET PO ONE (18:00)
[2018-04-04 03:34] LABS: INR 1.6; Prothrombin Time 18.3 Seconds (9.4-12.1)
[2018-04-04] MEDS: *HR* Heparin 5,000 UNIT/ML VIAL SQ SCH ×3 (05:40→20:42)
[2018-04-04 08:24] LABS: Basophils % 0.2 %; Eosinophils % 0.3 %; Hematocrit 30.7 % (37.5-50.1); Immature Granulocytes % 19.8 % (0-4); Lymphocytes # 0.7 K/mcL (0.6-4.6); Lymphocytes % 6.7 %; Mean Corpuscular HGB Conc 32.6 g/dL (31.6-35.5); Mean Corpuscular Hemoglobin 29.3 pg (28.0-33.3); Mean Platelet Volume 9.9 fL (9.4-12.4); Monocytes # 2.4 K/mcL (0.0-1.3); Monocytes % 22.1 %; Neutrophils # 5.6 K/mcL (1.6-8.9); Nucleated Red Blood Cells 1.5 /100 WBC (0); Platelet Count 323 K/mcL (140-400); Red Blood Count 3.41 M/mcL (4.19-5.50); Red Cell Distribution Width 20.6 % (11.5-14.5); Segmented Neutrophils % 50.9 %
[2018-04-04 08:37] LABS: BUN/Creatinine Ratio 32 (6-26); Blood Urea Nitrogen 34 mg/dL (8-23); Carbon Dioxide 24 mEq/L (23-29); Chloride 98 mEq/L (98-107); Glucose 145 mg/dL (70-105); Magnesium 2.1 mg/dL (1.6-2.6); Osmolality,Calculated 276 (280-300); Phosphorous 3.3 mg/dL (2.7-4.5); Potassium 4.5 mEq/L (3.5-5.1); Sodium 128 mEq/L (136-145); eGFR For Non-African Americans > 60 (> 60)
[2018-04-04 08:48] LABS: Dohle Bodies Present (Not Present); Reactive Lymphocytes Present (Not Present); Toxic Granulation Present (Not Present)
[2018-04-04 08:49] LABS: Platelet Estimate Normal (Normal)
[2018-04-04] MEDS: Lactulose Oral Soln 20 GM/30 ML UDC PO SCH ×2 (09:50→20:42)
[2018-04-04] MEDS: Sennosides/Docusate Sodium TABLET PO SCH ×2 (09:50→20:42)
[2018-04-04] MEDS: Finasteride 5 MG TABLET PO SCH (09:50)
[2018-04-04] MEDS: Levofloxacin 750 MG/150 ML 750 MG/150 ML BAG IVPB SCH (09:51)
[2018-04-04] MEDS: valACYclovir 500 MG TABLET PO SCH ×3 (09:52→20:42)
[2018-04-04] MEDS: Fluconazole 100 MG TABLET PO SCH (09:52)
[2018-04-04] MEDS: MAGIC MOUTHWASH PO SCH (09:52)
[2018-04-04] MEDS: Folic Acid 1 MG TABLET PO SCH (09:52)
[2018-04-04] MEDS: Cyanocobalamin (B-12) 1,000 MCG TABLET PO SCH (09:52)
[2018-04-04] MEDS: Nystatin Cream 15 GM TUBE TP SCH ×3 (09:53→20:48)
[2018-04-04 10:49] LABS: Immunoglobulin A 184 mg/dL (68-408); Immunoglobulin G 800 mg/dL (768-1632); Immunoglobulin M 107 mg/dL (35-263)
--- NOTE | 2018-04-04 10:53 | Discharge Summary ---
- NOTES TO OUTPATIENT PROVIDER Notes to Outpatient Provider: Follow up with [facility] within 1 week of hospital discharge. Follow up with your PCP and have INR checked within 3-5 days Orders not resulted at time of discharge: Pending orders 03/29/18 11:29 Surgical Pathology [PTH] Routine 03/30/18 12:05 Bone Marrow, Flow & Cytogen Routine 04/01/18 15:40 Erythropoietin Stat Immunoglobulins IgG IgA IgM Stat 04/05/18 04:00 PT/INR [Prothrombin Time INR] [COAG] AM 0400 04/06/18 04:00 PT/INR [Prothrombin Time INR] [COAG] AM 0400 Date of Encounter: 04/04/18 Time of Encounter: 10:47 - Discharge Diagnosis (1) Constipation Priority: Secondary Status: Chronic Qualifiers: Constipation type: unspecified constipation type Qualified Code(s): K59.00 - Constipation, unspecified (2) Myelodysplasia (myelodysplastic syndrome) Priority: Primary Status: Acute (3) Pancytopenia Priority: Primary Status: Acute (4) Rheumatoid arthritis Priority: Secondary Status: Chronic Qualifiers: Rheumatoid arthritis location: unspecified site Rheumatoid factor presence: unspecified presence Qualified Code(s): M06.9 - Rheumatoid arthritis, unspecified (5) Inguinal ulcer Priority: Secondary Status: Acute (6) Sore mouth Priority: Secondary Status: Resolved (7) Herpetic dermatitis Priority: Secondary Status: Acute (8) Afib Priority: Secondary Status: Chronic Qualifiers: Atrial fibrillation type: paroxysmal Qualified Code(s): I48.0 - Paroxysmal atrial fibrillation (9) BPH (benign prostatic hyperplasia) Priority: Secondary Status: Chronic Qualifiers: Lower urinary tract symptom presence: unspecified whether lower urinary tract symptoms present Qualified Code(s): N40.0 - Benign prostatic hyperplasia without lower urinary tract symptoms (10) Hyperlipemia Priority: Secondary Status: Chronic Qualifiers: Hyperlipidemia type: unspecified Qualified Code(s): E78.5 - Hyperlipidemia, unspecified (11) CHF (congestive heart failure) Priority: Secondary Status: Chronic Qualifiers: Heart failure type: diastolic Heart failure chronicity: chronic Qualified Code(s): I50.32 - Chronic diastolic (congestive) heart failure (12) Hypertension Priority: Secondary Status: Chronic Qualifiers: Hypertension type: essential hypertension Qualified Code(s): I10 - Essential (primary) hypertension (13) Adenocarcinoma of left lung Priority: Secondary Status: Chronic Hospital course: Mr. 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 Patient presented to the ED due to rash/erythema in the groin b/l and sore in his mouth. Patient in the ED found to be pancytopenic. admitted to the hospital due to sore in his mouth and erythema/cellulitis of the groin b/l. As part of the work wound culture was done and grew e.coli ESBL for which ID was consulted and started the patient on augmentin and levofloxacin. Derm consulted due to skin rash, skin biopsy positive for herpetic dermatitis. Due to patient complaining odinophagia and presenting with a sore in his mouth GI was consulted and patient underwent and EGD: multiple superficial ulcers in the back of the pharynx seen. Patient managed with PO valaciclovir and fluconazole. Due to the pancytopenia Hem&Onc was consulted and patient underwent a bone marrow biopsy: MDS. After final bone biopsy report patient was started on filgrastin while in the hospital and WBC on DC date 11K. patient was also found to be thrombocytopenic, requiring 1 bag of platelets transfusion. Platelets WNL now. The patient was also found to have an Ileus, which have resolved. The patient is hemodynamically stable to be discharged to SNF. Strongly recommended to follow up with Hem&Onc as outpatient for initiation of treatment for RA. recommended to follow up wit Rheumatology to resume methotrexate. - Time Spent with Patient Total time spent providing and/or coordinating discharge services: Greater than 30 minutes (35) - Discharge Medications Prescriptions: New Amoxicillin/Clavulanate [Augmentin] 875 mg PO BIDWM 7 Days #14 tablet Cyanocobalamin (B-12) [Vitamin B12] 1,000 mcg PO DAILY 30 Days #30 tablet Fluconazole [Diflucan] 200 mg PO DAILY 7 Days #7 tablet Folic Acid 1 mg PO DAILY 30 Days #30 tablet Nystatin Cream [Mycostatin Cream] 1 appl TP TID 30 Days #1 tube Patient Taking Own Medication 1 each PO DAILY each Polyethylene Glycol 3350 [MiraLAX] 17 gm PO DAILY 30 Days #3 powd.pack Sennosides/Docusate Sodium [Senna Plus] 2 each PO BID 30 Days #60 tablet Levofloxacin [Levaquin] 750 mg PO DAILY 7 Days #7 tablet Continue Simvastatin [Zocor] 20 mg PO HS Methotrexate [Otrexup] 0 mg PO QWEEK Lisinopril [Zestril] 40 mg PO DAILY Finasteride [Proscar] 5 mg PO DAILY Furosemide [Lasix] 20 mg PO DAILY Warfarin [Coumadin] 2.5 mg PO DAILY Diltiazem [Cardizem] 30 mg PO Q8HR Valacyclovir HCl [Valtrex] 1 tab PO TID #30 tab Omeprazole [PriLOSEC] 20 mg PO DAILY Ciclopirox Olamine [Ciclopirox] 30 gm .ROUTE BID Discontinued PredniSONE [Deltasone] 20 mg PO TID Sulfamethoxazole/Trimeth DS [Bactrim DS] 1 each PO BID Home Medications: Finasteride [Proscar] 5 mg PO DAILY 01/28/15 [History] Lisinopril [Zestril] 40 mg PO DAILY 01/28/15 [History] Methotrexate [Otrexup] 0 mg PO QWEEK 01/28/15 [History] Simvastatin [Zocor] 20 mg PO HS 01/28/15 [History] Furosemide [Lasix] 20 mg PO DAILY 01/19/17 [History] Diltiazem [Cardizem] 30 mg PO Q8HR 03/29/17 [History] Warfarin [Coumadin] 2.5 mg PO DAILY 03/29/17 [History] Valacyclovir HCl [Valtrex] 1 tab PO TID #30 tab 02/25/18 [Rx] Ciclopirox Olamine [Ciclopirox] 30 gm .ROUTE BID 03/26/18 [History] Omeprazole [PriLOSEC] 20 mg PO DAILY 03/26/18 [History] Amoxicillin/Clavulanate [Augmentin] 875 mg PO BIDWM 7 Days #14 tablet 04/04/18 [Rx] Cyanocobalamin (B-12) [Vitamin B12] 1,000 mcg PO DAILY 30 Days #30 tablet 04/04/18 [Rx] Fluconazole [Diflucan] 200 mg PO DAILY 7 Days #7 tablet 04/04/18 [Rx] Folic Acid 1 mg PO DAILY 30 Days #30 tablet 04/04/18 [Rx] Levofloxacin [Levaquin] 750 mg PO DAILY 7 Days #7 tablet 04/04/18 [Rx] Nystatin Cream [Mycostatin Cream] 1 appl TP TID 30 Days #1 tube 04/04/18 [Rx] Patient Taking Own Medication 1 each PO DAILY each 04/04/18 [Rx] Polyethylene Glycol 3350 [MiraLAX] 17 gm PO DAILY 30 Days #3 powd.pack 04/04/18 [Rx] Sennosides/Docusate Sodium [Senna Plus] 2 each PO BID 30 Days #60 tablet 04/04/18 [Rx] Allergies/Adverse Reactions: Allergy/AdvReac Type Severity Reaction Status Date / Time No Known Allergies Allergy Verified 03/19/18 13:53 Date of admission: 03/27/18 08:47 Primary care physician: Fan Clancy DO Consults: 03/26/18 19:28 Consult to Oncology [CONS] Routine Consulting Provider: [facility] Reason for Consult: Pancytopenia Time Notified: 19:29 Call Completed: Yes 03/26/18 19:29 Consult to Dermatology [CONS] Routine Consulting Provider: [facility] [place] Reason for Consult: Rash Time Notified: 19:31 Call Completed: Yes 03/26/18 20:02 Consult to Physical Therapy [CONS] Routine Comment: Evaluate, develop and implement POC Reason for Consult: falls Does patient have active BEDREST order?: No Is patient medically & hemodynamically stable?: Yes Patient assessed for mobility or mobilized this visit?: No 03/26/18 20:04 Consult to Occupational Therapy [CONS] Routine Comment: Evaluate, develop and implement POC Reason for Consult: falls Does patient have active BEDREST order?: No Is patient medically & hemodynamically stable?: Yes Patient assessed for mobility or mobilized this visit?: No 03/27/18 08:43 Consult to Wound Care [CONS] Routine Reason for Consult: rash open weeping sores Time Notified: 08:43 Call Completed: No 03/27/18 17:34 Consult to Rheumatology [CONS] Routine Consulting Provider: Gabriele Diamond Reason for Consult: Rheumatoid arthritis- On methotrexate Time Notified: 17:36 Call Completed: Yes 03/28/18 10:35 Consult to Infectious Diseases [CONS] Routine Consulting Provider: [facility] Reason for Consult: wounds possible herpes zoster- ESBL Time Notified: 10:36 Call Completed: Yes 03/29/18 08:58 Consult to Gastroenterology [CONS] Routine Consulting Provider: [facility] [place] Reason for Consult: Concerns for esophageal candidiasis Call Completed: Yes 03/29/18 11:29 Consult to Interventional Radiology [CONS] Routine Consulting Provider: Radiology [facility] Reason for Consult: bone marrow biopsy and aspiration-INR 2.5, coumadin on hold, given 1 dose vitamin K yesterday, plt ~28-ordered 1 unit plts today Call Completed: Yes 04/01/18 16:40 Consult to Surgery [CONS] Routine Consulting Provider: Jeffery Castro Reason for Consult: Ileus. constipation Call Completed: Yes - Constitutional Vitals: Temp Pulse Resp BP Pulse Ox 98.4 F 97 15 130/70 90 04/04/18 06:26 04/04/18 06:26 04/04/18 06:26 04/04/18 06:26 04/04/18 06:26 General appearance: Present: A&O X 3 Exam: Vitals: Reviewed General: Alert and oriented x4. No acute distress Cardiovascular: RRR, normal S1 & S2, no rubs, murmurs or gallops. No JVD. Pulse regular. Lungs: CTA b/l, no wheezes or crackles. Abdomen: Soft, non-tender, no rigidity. NABS in all 4 quadrants Extremities: No edema. erythema on the right inguinal area significantly improved. Neurological: Normal cognition. Rest of the physical exam is non contributory - Patient Status Disposition: Transfer SNF Condition: Good Functional capacity at discharge: uses cane/walker Overall status at discharge: patient is progressing back to baseline - Discharge Instructions Follow Up With: Fan Clancy DO [Primary Care Provider] - 04/04/18 9:00 am () Additional Instructions: will f/u w/ me in clinic - Diet and Activity Activity: as per physical therapy Diet: low salt diet
--- NOTE | 2018-04-04 11:06 | Physician Discharge Referral ---
ExtendedCare Referral Info Transfer To: SNF/ECF - Diagnosis (1) Myelodysplasia (myelodysplastic syndrome) Priority: Primary Status: Acute (2) Constipation Priority: Secondary Status: Chronic (3) Pancytopenia Priority: Primary Status: Acute (4) Rheumatoid arthritis Priority: Secondary Status: Chronic (5) Inguinal ulcer Priority: Secondary Status: Acute (6) Sore mouth Priority: Secondary Status: Resolved (7) Herpetic dermatitis Priority: Secondary Status: Acute (8) Afib Priority: Secondary Status: Chronic (9) BPH (benign prostatic hyperplasia) Priority: Secondary Status: Chronic (10) Hyperlipemia Priority: Secondary Status: Chronic (11) CHF (congestive heart failure) Priority: Secondary Status: Chronic (12) Hypertension Priority: Secondary Status: Chronic (13) Adenocarcinoma of left lung Priority: Secondary Status: Chronic Prognosis: Good Aware of Diagnosis: Patient Aware of Prognosis: Patient - Transfer Medications Prescriptions: Amoxicillin/Clavulanate [Augmentin] 875 mg PO BIDWM 7 Days #14 tablet Cyanocobalamin (B-12) [Vitamin B12] 1,000 mcg PO DAILY 30 Days #30 tablet Fluconazole [Diflucan] 200 mg PO DAILY 7 Days #7 tablet Folic Acid 1 mg PO DAILY 30 Days #30 tablet Levofloxacin [Levaquin] 750 mg PO DAILY 7 Days #7 tablet Nystatin Cream [Mycostatin Cream] 1 appl TP TID 30 Days #1 tube Polyethylene Glycol 3350 [MiraLAX] 17 gm PO DAILY 30 Days #3 powd.pack Sennosides/Docusate Sodium [Senna Plus] 2 each PO BID 30 Days #60 tablet Home Medications: Finasteride [Proscar] 5 mg PO DAILY 01/28/15 [History] Lisinopril [Zestril] 40 mg PO DAILY 01/28/15 [History] Methotrexate [Otrexup] 0 mg PO QWEEK 01/28/15 [History] Simvastatin [Zocor] 20 mg PO HS 01/28/15 [History] Furosemide [Lasix] 20 mg PO DAILY 01/19/17 [History] Diltiazem [Cardizem] 30 mg PO Q8HR 03/29/17 [History] Warfarin [Coumadin] 2.5 mg PO DAILY 03/29/17 [History] Valacyclovir HCl [Valtrex] 1 tab PO TID #30 tab 02/25/18 [Rx] Ciclopirox Olamine [Ciclopirox] 30 gm .ROUTE BID 03/26/18 [History] Omeprazole [PriLOSEC] 20 mg PO DAILY 03/26/18 [History] Amoxicillin/Clavulanate [Augmentin] 875 mg PO BIDWM 7 Days #14 tablet 04/04/18 [Rx] Cyanocobalamin (B-12) [Vitamin B12] 1,000 mcg PO DAILY 30 Days #30 tablet 04/04/18 [Rx] Fluconazole [Diflucan] 200 mg PO DAILY 7 Days #7 tablet 04/04/18 [Rx] Folic Acid 1 mg PO DAILY 30 Days #30 tablet 04/04/18 [Rx] Levofloxacin [Levaquin] 750 mg PO DAILY 7 Days #7 tablet 04/04/18 [Rx] Nystatin Cream [Mycostatin Cream] 1 appl TP TID 30 Days #1 tube 04/04/18 [Rx] Patient Taking Own Medication 1 each PO DAILY each 04/04/18 [Rx] Polyethylene Glycol 3350 [MiraLAX] 17 gm PO DAILY 30 Days #3 powd.pack 04/04/18 [Rx] Sennosides/Docusate Sodium [Senna Plus] 2 each PO BID 30 Days #60 tablet 04/04/18 [Rx] Allergies/Adverse Reactions: Allergy/AdvReac Type Severity Reaction Status Date / Time No Known Allergies Allergy Verified 03/19/18 13:53 - Respiratory Orders None Smoking Cessation: Smoking cessation has been advised. For more information, call the [place] Tobacco Quit Line at 2-478-EMZT-NOW. - Advance Directives Code Status: Full Code - Mobility Orders Ambulate - Rehabiliation Orders Rehab Orders: ROM Exercises, Evaluation for Physical Therapy, Evaluation for Occupational Therapy - Diet Orders Regular CERTIFICATION: I certify that the transfer of the above named patient to an Extended Care Facility is necessary for the continuing treatment of the diagnosis listed. The above information is true and accurate reflection of patient's current condition. Confidential - Redisclosure prohibited without a patient's written consent.
--- NOTE | 2018-04-04 11:35 | Infectious Disease Progress No ---
Date of Encounter: 04/04/18 Time of Encounter: 11:33 - Assessment and Plan (1) Pancytopenia Current Visit: Yes Status: Acute Improved. Patient has pancytopenia. Initial labs: WBC 2.2, hemoglobin 9.6, platelets 40. Patient with history of small cell lung cancer left lung -etiology of pancytopenia is unknown however differential includes concerns leukemia, consider secondary to medication such as methotrexate. Patient did receive Bactrim outpatient while he was taking methotrexate. -WBC 11, hemoglobin 10, platelets 323 -afebrile, hemodynamically stable -Folate 13.8 -methotrexate level <0.05 -Stool occult blood negative -03/26/2018 Blood cultures final no growth x2 -03/22/2018 wound culture growing E. coli ESBL and enterococcus faecalis -bone marrow biopsy demonstrating decreased WBC, red blood cell, hemoglobin. Normal platelets. Marrow suppression that may be secondary to toxins, drugs, marrow hypoplasia, neoplastic disease. -Chest x-ray unremarkable -s/p 2 unit platelet -no obvious active bleeding Plan: -bone marrow biopsy showing myelodysplastic syndrome. Patient will follow-up with oncology -oncology consulted and following and managing. They believe this may be acute leukemia or MDS. Unlikely to be secondary to methotrexate level since the level was low. -Rheumatology was consulted and recommended holding methotrexate. -Contact precautions -antibiotics as below (2) Sore mouth Current Visit: Yes Status: Resolved Resolved. Patient complains of a sore mouth and throat that makes it painful to swallow food. -Etiology is aphthous ulcers versus herpetic lesions. He is low risk for syphilis, HIV, HSV. -Rapid strep negative -respiratory infectious panel negative -Examination the oropharynx demonstrates no obvious ulcers or lesions in the oropharynx. -Patient reports his mouth soreness has resolved and he is able to eat without odynophagia. -Gastroenterology performed EGD 03/29/2018 which demonstrated multiple aphthous ulcers versus herpetic lesions and oral cavity/back of pharynx. Esophagus clean. Plan: -agree with continuing Valtrex -currently on Augmentin (3) Inguinal ulcer Current Visit: Yes Status: Acute Improving Patient has bilateral inguinal ulcers for over 2 weeks. -Etiology is E. coli ESBL and enterococcus faecalis -Source may be tinea with superimposed bacterial infection. Howeverm maybe noninfectious including herpetic dermatitis or contact dermatitis but unlikely -03/22/2018 wound culture growing E. coli ESBL and enterococcus faecalis. -Lactic acid 0.8 -creatinine clearance 78 -examination of the bilateral inguinal region show erythema that is well demarcated and patch-like. Overall it appears mildly improved. -Patient reports significant improvement in soreness of the bilateral inguinal rash. Plan: -continue Levaquin (total 14 day treatment, through 04/12/2018) -continue Augmentin (total 14 day treatment through 04/12/2018) -continue Valtrex (total 14 day treatment through 04/12/2018) -continube fluconazole (total 14 day treatment through 04/12/2018) -continue nystatin -Dermatology is consulted and following. They believe that this is herpetic dermatitis, per their notes biopsy proven on left hip-resolving. If it does not improve they may consider re-biopsy groin area. (4) Neutropenia Current Visit: Yes Status: Acute Resolved. Patient had neutropenia. -Etiology myelodysplastic syndrome as found on bone marrow biopsy -WBC 11 -ANC 6215 -03/31/2018 [facility] x-ray demonstrating multiple gas filled loops of large and small bowel throughout the abdomen, suggestive of ileus. Plan: -continue Augmentin -continue Levaquin -continue fluconazole -continue neutropenia contact precautions Qualifiers: Neutropenia type: unspecified Qualified Code(s): D70.9 - Neutropenia, unspecified - Subjective Interval history: Patient examined today at bedside resting comfortably. He is alert and oriented times 3. He reports continued improvement of inguinal soreness. He has been ab le to have multiple bowel movements yesterday and today. He denies fever, chills, oral cavity pain, weakness, chest pain, shortness of breath, abdominal pain, nausea. Infect Dis PN-Objective Data - Labs CBC & Chem 7: 04/04/18 07:53 04/04/18 07:53 Labs: Laboratory Results - last 24 hr 04/01/18 04/01/18 04/04/18 15:40 15:40 02:32 WBC RBC Hgb Hct MCV MCH MCHC RDW Plt Count MPV Immature Gran % Seg Neutrophils % Lymphocytes % Monocytes % Eosinophils % Basophils % Neutrophils # Lymphocytes # Monocytes # Eosinophils # Basophils # Nucleated RBCs/100 WBC Reactive Lymphocytes Toxic Granulation Dohle Bodies Platelet Estimate PT 18.3 H INR 1.6 Sodium Potassium Chloride Carbon Dioxide BUN Creatinine Est GFR ( Amer) Est GFR (Non-Af Amer) BUN/Creatinine Ratio Glucose Calculated Osmolality Calcium Phosphorus Magnesium Erythropoietin 44 H IgG 800 IgA 184 IgM 107 04/04/18 04/04/18 07:53 07:53 WBC 11.0 D RBC 3.41 L Hgb 10.0 L Hct 30.7 L MCV 90.0 MCH 29.3 MCHC 32.6 RDW 20.6 H Plt Count 323 MPV 9.9 Immature Gran % 19.8 H Seg Neutrophils % 50.9 Lymphocytes % 6.7 Monocytes % 22.1 Eosinophils % 0.3 Basophils % 0.2 Neutrophils # 5.6 Lymphocytes # 0.7 Monocytes # 2.4 H Eosinophils # 0.0 Basophils # 0.0 Nucleated RBCs/100 WBC 1.5 H Reactive Lymphocytes Present A Toxic Granulation Present A Dohle Bodies Present A Platelet Estimate Normal PT INR Sodium 128 L Potassium 4.5 Chloride 98 Carbon Dioxide 24 BUN 34 H Creatinine 1.06 Est GFR ( Amer) > 60 Est GFR (Non-Af Amer) > 60 BUN/Creatinine Ratio 32 H Glucose 145 H Calculated Osmolality 276 L Calcium 9.0 Phosphorus 3.3 Magnesium 2.1 Erythropoietin IgG IgA IgM Cultures: Cultures 03/26/18 11:12 Blood Culture - Final Peripheral Venipuncture No growth. Final report. 03/26/18 11:18 Blood Culture - Final Peripheral Venipuncture No growth. Final report. 03/29/18 05:10 Group A Streptococcus Rapid Screen - Final Throat Serology 03/31/18 03/29/18 03/26/18 Range/Units 10:40 05:10 14:05 Urine Color (Yellow) Urine Clarity (Clear) Urine pH (5.0-8.0) pH Units Ur Specific [place] (1.010-1.025) Urine Protein (Neg-Trace) mg/dL Urine Glucose (UA) (Normal) mg/dL Urine Ketones (Negative) mg/dL Urine Blood (Negative) Urine Nitrite (Negative) Urine Bilirubin (Negative) Urine Urobilinogen (Normal) mg/dL Ur Leukocyte Esterase (Negative) Ur Culture Indicated? (NO) Stool Occult Bld Scrn Negative (Negative) Chlamy pneumoniae PCR Not Detected (Not Detect) Adenovirus (PCR) Not Detected (Not Detect) B. pertussis DNA (PCR) Not Detected (Not Detect) B.parapertussis DNA PCR Not Detected (Not Detect) Coronavirus OC43 (PCR) Not Detected (Not Detect) Coronavirus HKU1 (PCR) Not Detected (Not Detect) Coronavirus 229E (PCR) Not Detected (Not Detect) Coronavirus NL63 (PCR) Not Detected (Not Detect) Herpes Simplex Source mouth HSV I Not Detected (Not Detect) HSV II Not Detected (Not Detect) Human Metapneumovir PCR Not Detected (Not Detect) Influenza A (H1) PCR Not Detected (Not Detect) Influ A (H1N1/09) PCR Not Detected (Not Detect) Influenza A (H3) PCR Not Detected (Not Detect) Influenza A Untype (PCR) Not Detected (Not Detect) Influenza Type B (PCR) Not Detected (Not Detect) M.pneumoniae DNA (PCR) Not Detected (Not Detect) Parainfluenza 1 (PCR) Not Detected (Not Detect) Parainfluenza 2 (PCR) Not Detected (Not Detect) Parainfluenza 3 (PCR) Not Detected (Not Detect) Parainfluenza 4 (PCR) Not Detected (Not Detect) RSV (PCR) Not Detected (Not Detect) Entero/Rhino (PCR) Not Detected (Not Detect) 03/26/18 Range/Units 14:01 Urine Color Yellow (Yellow) Urine Clarity Clear (Clear) Urine pH 6.0 (5.0-8.0) pH Units Ur Specific [place] 1.022 (1.010-1.025) Urine Protein Negative (Neg-Trace) mg/dL Urine Glucose (UA) Normal (Normal) mg/dL Urine Ketones Negative (Negative) mg/dL Urine Blood Negative (Negative) Urine Nitrite Negative (Negative) Urine Bilirubin Negative (Negative) Urine Urobilinogen Normal (Normal) mg/dL Ur Leukocyte Esterase Negative (Negative) Ur Culture Indicated? NO (NO) Stool Occult Bld Scrn (Negative) Chlamy pneumoniae PCR (Not Detect) Adenovirus (PCR) (Not Detect) B. pertussis DNA (PCR) (Not Detect) B.parapertussis DNA PCR (Not Detect) Coronavirus OC43 (PCR) (Not Detect) Coronavirus HKU1 (PCR) (Not Detect) Coronavirus 229E (PCR) (Not Detect) Coronavirus NL63 (PCR) (Not Detect) Herpes Simplex Source HSV I (Not Detect) HSV II (Not Detect) Human Metapneumovir PCR (Not Detect) Influenza A (H1) PCR (Not Detect) Influ A (H1N1/09) PCR (Not Detect) Influenza A (H3) PCR (Not Detect) Influenza A Untype (PCR) (Not Detect) Influenza Type B (PCR) (Not Detect) M.pneumoniae DNA (PCR) (Not Detect) Parainfluenza 1 (PCR) (Not Detect) Parainfluenza 2 (PCR) (Not Detect) Parainfluenza 3 (PCR) (Not Detect) Parainfluenza 4 (PCR) (Not Detect) RSV (PCR) (Not Detect) Entero/Rhino (PCR) (Not Detect) Exam - Constitutional Vitals: Temp Pulse Resp BP Pulse Ox 98.1 F 113 15 120/70 92 04/04/18 10:58 04/04/18 10:58 04/04/18 10:58 04/04/18 10:58 04/04/18 10:58 Exam: Gen.: Vitals noted. No acute distress. AAOx3 HEENT: no obvious lesions noted in oropharynx, Normocephalic, atraumatic Cardiac: RRR, no murmur, +S1/S2 Pulmonary: CTA bilaterally, no wheezes, rales or rhonchi, equal chest expansion Abdomen: soft, nontender abdomen, Bowel sounds noted, no guarding Back: Nontender throughout. Skin: bilateral inguinal region erythematous, maceration, well demarcated, improving MSK: ROM intact Extremities: no BLE edema, nontender calf, no cyanosis or clubbing Neuro: A&Ox3, moves all extremities Psych: Appropriate mood and behavior Consult Discharge Plan - Plan Additional Instructions: will f/u w/ me in clinic Referrals: [facility] [Provider Group] - 04/13/18 9:00 am Prescriptions: RX: Amoxicillin/Clavulanate [Augmentin] 875 mg PO BIDWM 7 Days #14 tablet RX: Cyanocobalamin (B-12) [Vitamin B12] 1,000 mcg PO DAILY 30 Days #30 tablet RX: Fluconazole [Diflucan] 200 mg PO DAILY 7 Days #7 tablet RX: Folic Acid 1 mg PO DAILY 30 Days #30 tablet RX: Levofloxacin [Levaquin] 750 mg PO DAILY 7 Days #7 tablet RX: Nystatin Cream [Mycostatin Cream] 1 appl TP TID 30 Days #1 tube RX: Polyethylene Glycol 3350 [MiraLAX] 17 gm PO DAILY 30 Days #3 powd.pack RX: Sennosides/Docusate Sodium [Senna Plus] 2 each PO BID 30 Days #60 tablet - Attending Attestation I examined this patient and my medical decision-making was reviewed with the Resident Physician. I agree with the documented findings, disposition and treatment plan as described except to the extent set forth below. Patient seen and examined. Clinically seems to be doing better. Patient had multiple bone is now is having some diarrhea. Patient denies any abdominal pain. Assessment and plan: 1.myelodysplastic syndrome 2.skin lesions 3.tenia pedis in the inguinal area 4.ileus with severe constipation status post enema Recommendations: Discussed with the hematology oncology team. We will continue current oral antibiotics including Augmentin, levofloxacin, Diflucan and oral nystatin the patient was evaluated for chemotherapy. Chemotherapy probably will start until the rest of the blood workup is back and it might take up to a week. Prognosis guarded
--- NOTE | 2018-04-04 15:08 | Oncology Inp Progress Note ---
Date of Encounter: 04/04/18 (1) Pancytopenia Current Visit: Yes Status: Acute Assessment and plan: Acute pancytopenia noted on admission S/P 2 unit platelets for worsening thrombocytopenia with epistaxis S/P vitamin K 2.5 mg PO In the setting of wound culture + E. 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 This will likely be discussed on an outpatient basis. We have placed him on Neupogen 480 mg subcutaneous daily until ANC > 1000 Currently on Augmentin/Fluconazole/Levaquin/Acyclovir per ID We will check immunoglobulin panel and serum erythropoietin (2) Constipation Current Visit: Yes Status: Chronic Assessment and plan: NO BM since admission [facility] on 03/28/18 revealed-Moderate colonic stool burden, Multiple dilated bowel loops within visualized portion of the abdomen. While this could be related to constipation, possibility of obstruction or ileus is not excluded. Follow-up examination may be obtained, as clinically warranted. Plan: changed colace to senna plus continue miralax added lactulose KUB reveals ileus--surgeries been consulted for further recommendations, patient remains a high risk for complication given his continued ileus in the setting of severe neutropenia Do not administer enema/suppository until neutropenia recovers Qualifiers: Constipation type: unspecified constipation type Qualified Code(s): K59.00 - Constipation, unspecified (3) DVT prophylaxis Current Visit: No Status: Acute Assessment and plan: Presented on Coumadin with history of A. fib Coumadin has been on hold secondary to severe thrombocytopenia. Coumadin has been restarted per hospitalist today as his platelet count has recovered to 120. Recommend holding Coumadin if platelet count drops below 50k. CHADSVASC score 5, he is high risk for CVA Oncology: Obj Data - Labs CBC & Chem 7: 04/04/18 07:53 04/04/18 07:53 Consult Discharge Plan - Plan Additional Instructions: will f/u w/ me in clinic Referrals: Fan Clancy DO [Primary Care Provider] - 04/04/18 9:00 am () Prescriptions: Amoxicillin/Clavulanate [Augmentin] 875 mg PO BIDWM 7 Days #14 tablet Cyanocobalamin (B-12) [Vitamin B12] 1,000 mcg PO DAILY 30 Days #30 tablet Fluconazole [Diflucan] 200 mg PO DAILY 7 Days #7 tablet Folic Acid 1 mg PO DAILY 30 Days #30 tablet Levofloxacin [Levaquin] 750 mg PO DAILY 7 Days #7 tablet Nystatin Cream [Mycostatin Cream] 1 appl TP TID 30 Days #1 tube Polyethylene Glycol 3350 [MiraLAX] 17 gm PO DAILY 30 Days #3 powd.pack Sennosides/Docusate Sodium [Senna Plus] 2 each PO BID 30 Days #60 tablet
--- NOTE | 2018-04-04 16:51 | Event Note ---
Date of Encounter: 04/04/18 Time of Encounter: 13:30 Discussed outpatient follow up with patient to discuss treatment options once cytogenetics have resulted. Counts improved today, ANC normal, neupogen has been stopped. Continues on coumadin. Recommend continuation of infectious prophylaxis as discussed with ID until his follow up. Patients nurse given outpatient follow up appointment to send to nursing facility. Otherwise we will sign off.
[2018-04-04] MEDS ORDERED: *HR* Warfarin 2.5 MG TABLET PO ONE (18:00)
[2018-04-04] MEDS: Warfarin perPT PO SCH (20:42)
[2018-04-05 03:55] LABS: INR 1.6; Prothrombin Time 17.6 Seconds (9.4-12.1)
[2018-04-05] MEDS: *HR* Heparin 5,000 UNIT/ML VIAL SQ SCH ×2 (05:08→14:46)
--- NOTE | 2018-04-05 09:02 | Infectious Disease Progress No ---
Date of Encounter: 04/05/18 Time of Encounter: 08:59 - Assessment and Plan (1) Pancytopenia Status: Acute Improved. Patient has pancytopenia. Initial labs: WBC 2.2, hemoglobin 9.6, platelets 40. Patient with history of small cell lung cancer left lung -etiology of pancytopenia is unknown however differential includes concerns leukemia, consider secondary to medication such as methotrexate. Patient did receive Bactrim outpatient while he was taking methotrexate. -WBC 11, hemoglobin 10, platelets 323 -afebrile, hemodynamically stable -Folate 13.8 -methotrexate level <0.05 -Stool occult blood negative -03/26/2018 Blood cultures final no growth x2 -03/22/2018 wound culture growing E. coli ESBL and enterococcus faecalis -bone marrow biopsy demonstrating decreased WBC, red blood cell, hemoglobin. Normal platelets. Marrow suppression that may be secondary to toxins, drugs, marrow hypoplasia, neoplastic disease. -Chest x-ray unremarkable -s/p 2 unit platelet -no obvious active bleeding Plan: -bone marrow biopsy showing myelodysplastic syndrome. Patient will follow-up with oncology on 04/13/2018 outpatient. -Contact precautions -antibiotics as below (2) Sore mouth Status: Resolved Resolved. Patient complains of a sore mouth and throat that makes it painful to swallow food. -Etiology is aphthous ulcers versus herpetic lesions. He is low risk for syphilis, HIV, HSV. -Rapid strep negative -respiratory infectious panel negative -Examination the oropharynx demonstrates no obvious ulcers or lesions in the oropharynx. -Patient reports his mouth soreness has resolved and he is able to eat without odynophagia. -Gastroenterology performed EGD 03/29/2018 which demonstrated multiple aphthous ulcers versus herpetic lesions and oral cavity/back of pharynx. Esophagus clean. Plan: -agree with continuing Valtrex -currently on Augmentin (3) Inguinal ulcer Status: Acute Improving Patient has bilateral inguinal ulcers for over 2 weeks. -Etiology is E. coli ESBL and enterococcus faecalis -Source may be tinea with superimposed bacterial infection. Howeverm maybe noninfectious including herpetic dermatitis or contact dermatitis but unlikely -03/22/2018 wound culture growing E. coli ESBL and enterococcus faecalis. -Lactic acid 0.8 -creatinine clearance 78 -examination of the bilateral inguinal region show erythema that is well demarcated and patch-like. Overall it appears mildly improved. -Patient reports significant improvement in soreness of the bilateral inguinal rash. Plan: -patient is to continue antibiotics through next oncology appointment which is on 04/13/2018 -continue Levaquin (total 14 day treatment, through 04/12/2018) -continue Augmentin (total 14 day treatment through 04/12/2018) -continue Valtrex (total 14 day treatment through 04/12/2018) -continube fluconazole (total 14 day treatment through 04/12/2018) -continue nystatin -Dermatology is consulted and following. They believe that this is herpetic dermatitis, per their notes biopsy proven on left hip-resolving. If it does not improve they may consider re-biopsy groin area. (4) Neutropenia Status: Acute Resolved. Patient had neutropenia. -Etiology myelodysplastic syndrome as found on bone marrow biopsy -WBC 11 -ANC 6215 -03/31/2018 KUB x-ray demonstrating multiple gas filled loops of large and small bowel throughout the abdomen, suggestive of ileus. Plan: -continue Augmentin -continue Levaquin -continue fluconazole -continue neutropenia contact precautions Qualifiers: Neutropenia type: unspecified Qualified Code(s): D70.9 - Neutropenia, unspecified - Subjective Interval history: Patient examined today at bedside resting comfortably. He is alert and oriented times 3. He reports continued continued improvement of inguinal soreness. Is still having bowel movements. He denies fever, chills, oral cavity pain, weakness, chest pain, shortness of breath, abdominal pain, nausea. Reports that he is to go to the group home today. Infect Dis PN-Objective Data - Labs CBC & Chem 7: 04/04/18 07:53 04/04/18 07:53 Labs: Laboratory Results - last 24 hr 04/01/18 04/01/18 04/05/18 15:40 15:40 02:44 PT 17.6 H INR 1.6 Erythropoietin 44 H IgG 800 IgA 184 IgM 107 Cultures: Cultures 03/26/18 11:12 Blood Culture - Final Peripheral Venipuncture No growth. Final report. 03/26/18 11:18 Blood Culture - Final Peripheral Venipuncture No growth. Final report. 03/29/18 05:10 Group A Streptococcus Rapid Screen - Final Throat Serology 03/31/18 03/29/18 03/26/18 Range/Units 10:40 05:10 14:05 Urine Color (Yellow) Urine Clarity (Clear) Urine pH (5.0-8.0) pH Units Ur Specific [place] (1.010-1.025) Urine Protein (Neg-Trace) mg/dL Urine Glucose (UA) (Normal) mg/dL Urine Ketones (Negative) mg/dL Urine Blood (Negative) Urine Nitrite (Negative) Urine Bilirubin (Negative) Urine Urobilinogen (Normal) mg/dL Ur Leukocyte Esterase (Negative) Ur Culture Indicated? (NO) Stool Occult Bld Scrn Negative (Negative) Chlamy pneumoniae PCR Not Detected (Not Detect) Adenovirus (PCR) Not Detected (Not Detect) B. pertussis DNA (PCR) Not Detected (Not Detect) B.parapertussis DNA PCR Not Detected (Not Detect) Coronavirus OC43 (PCR) Not Detected (Not Detect) Coronavirus HKU1 (PCR) Not Detected (Not Detect) Coronavirus 229E (PCR) Not Detected (Not Detect) Coronavirus NL63 (PCR) Not Detected (Not Detect) Herpes Simplex Source mouth HSV I Not Detected (Not Detect) HSV II Not Detected (Not Detect) Human Metapneumovir PCR Not Detected (Not Detect) Influenza A (H1) PCR Not Detected (Not Detect) Influ A (H1N1/09) PCR Not Detected (Not Detect) Influenza A (H3) PCR Not Detected (Not Detect) Influenza A Untype (PCR) Not Detected (Not Detect) Influenza Type B (PCR) Not Detected (Not Detect) M.pneumoniae DNA (PCR) Not Detected (Not Detect) Parainfluenza 1 (PCR) Not Detected (Not Detect) Parainfluenza 2 (PCR) Not Detected (Not Detect) Parainfluenza 3 (PCR) Not Detected (Not Detect) Parainfluenza 4 (PCR) Not Detected (Not Detect) RSV (PCR) Not Detected (Not Detect) Entero/Rhino (PCR) Not Detected (Not Detect) 03/26/18 Range/Units 14:01 Urine Color Yellow (Yellow) Urine Clarity Clear (Clear) Urine pH 6.0 (5.0-8.0) pH Units Ur Specific [place] 1.022 (1.010-1.025) Urine Protein Negative (Neg-Trace) mg/dL Urine Glucose (UA) Normal (Normal) mg/dL Urine Ketones Negative (Negative) mg/dL Urine Blood Negative (Negative) Urine Nitrite Negative (Negative) Urine Bilirubin Negative (Negative) Urine Urobilinogen Normal (Normal) mg/dL Ur Leukocyte Esterase Negative (Negative) Ur Culture Indicated? NO (NO) Stool Occult Bld Scrn (Negative) Chlamy pneumoniae PCR (Not Detect) Adenovirus (PCR) (Not Detect) B. pertussis DNA (PCR) (Not Detect) B.parapertussis DNA PCR (Not Detect) Coronavirus OC43 (PCR) (Not Detect) Coronavirus HKU1 (PCR) (Not Detect) Coronavirus 229E (PCR) (Not Detect) Coronavirus NL63 (PCR) (Not Detect) Herpes Simplex Source HSV I (Not Detect) HSV II (Not Detect) Human Metapneumovir PCR (Not Detect) Influenza A (H1) PCR (Not Detect) Influ A (H1N1/09) PCR (Not Detect) Influenza A (H3) PCR (Not Detect) Influenza A Untype (PCR) (Not Detect) Influenza Type B (PCR) (Not Detect) M.pneumoniae DNA (PCR) (Not Detect) Parainfluenza 1 (PCR) (Not Detect) Parainfluenza 2 (PCR) (Not Detect) Parainfluenza 3 (PCR) (Not Detect) Parainfluenza 4 (PCR) (Not Detect) RSV (PCR) (Not Detect) Entero/Rhino (PCR) (Not Detect) Exam - Constitutional Vitals: Temp Pulse Resp BP Pulse Ox 98.4 F 84 14 131/74 92 04/05/18 06:33 04/05/18 06:33 04/05/18 06:33 04/05/18 06:33 04/05/18 06:33 Exam: Gen.: Vitals noted. No acute distress. AAOx3 HEENT: no obvious lesions noted in oropharynx, Normocephalic, atraumatic Cardiac: RRR, no murmur, +S1/S2 Pulmonary: CTA bilaterally, no wheezes, rales or rhonchi, equal chest expansion Abdomen: soft, nontender abdomen, Bowel sounds noted, no guarding Back: Nontender throughout. Skin: bilateral inguinal region erythematous, well demarcated, improving and getting smaller Extremities: no BLE edema, nontender calf, no cyanosis or clubbing Neuro: A&Ox3, moves all extremities Psych: Appropriate mood and behavior Consult Discharge Plan - Plan Additional Instructions: will f/u w/ me in clinic Referrals: [facility] [Provider Group] - 04/13/18 9:00 am Prescriptions: RX: Amoxicillin/Clavulanate [Augmentin] 875 mg PO BIDWM 7 Days #14 tablet RX: Cyanocobalamin (B-12) [Vitamin B12] 1,000 mcg PO DAILY 30 Days #30 tablet RX: Fluconazole [Diflucan] 200 mg PO DAILY 7 Days #7 tablet RX: Folic Acid 1 mg PO DAILY 30 Days #30 tablet RX: Levofloxacin [Levaquin] 750 mg PO DAILY 7 Days #7 tablet RX: Nystatin Cream [Mycostatin Cream] 1 appl TP TID 30 Days #1 tube RX: Polyethylene Glycol 3350 [MiraLAX] 17 gm PO DAILY 30 Days #3 powd.pack RX: Sennosides/Docusate Sodium [Senna Plus] 2 each PO BID 30 Days #60 tablet - Attending Attestation I examined this patient and my medical decision-making was reviewed with the Resident Physician. I agree with the documented findings, disposition and treatment plan as described except to the extent set forth below. Assessment and plan: 1.myelodysplastic syndrome 2.skin lesions 3.tenia pedis in the inguinal area 4.ileus with severe constipation status post enema Recommendations: Discussed with the hematology oncology team. We will continue current oral antibiotics including Augmentin, levofloxacin, Diflucan and oral nystatin the patient was evaluated for chemotherapy. Chemotherapy probably will start until the rest of the blood workup is back and it might take up to a week. Prognosis guarded
--- NOTE | 2018-04-05 09:23 | Event Note ---
Date of Encounter: 04/05/18 Time of Encounter: 09:17 I have seen and evaluated the patient at bedside. Patient report having about 3- 4 BM between today and yesterday. denies shortness of breath, nausea, vomiting or abdominal pain. No clinically significant event over the past 24 hours. Physical exam: Vitals: Reviewed General: Alert and oriented x4. No acute distress Cardiovascular: RRR, normal S1 & S2, no rubs, murmurs or gallops. No JVD. Pulse regular. Lungs: CTA b/l, no wheezes or crackles. Abdomen: Soft, non-tender, no rigidity. NABS in all 4 quadrants Extremities: No edema. erythema on the right inguinal area significantly improved. Neurological: Normal cognition. Rest of the physical exam is non contributory Assessment and plan 1. Pancytopenia (resolved) 2. MDS 3. Atrial fibrillation 4. Constipation 5. Herpetic dermatitis 6. Inguinal ulcers/cellulitis (resolving) 7. HTN 8. CHF 9. Esophageal ulcers possible herpetic 10. VTE prophylaxis Plan patient scheduled to be discharged to SNF today discharged summary dictated yesterday. discontinue lactulose time spent evaluating the patient and with decision making 35 minutes
[2018-04-05] MEDS: Fluconazole 100 MG TABLET PO SCH (09:31)
[2018-04-05] MEDS: Folic Acid 1 MG TABLET PO SCH (09:32)
[2018-04-05] MEDS: Cyanocobalamin (B-12) 1,000 MCG TABLET PO SCH (09:32)
[2018-04-05] MEDS: valACYclovir 500 MG TABLET PO SCH ×2 (09:32→14:46)
[2018-04-05] MEDS: Sennosides/Docusate Sodium TABLET PO SCH (09:32)
[2018-04-05] MEDS: Finasteride 5 MG TABLET PO SCH (09:32)
[2018-04-05] MEDS: Levofloxacin 750 MG/150 ML 750 MG/150 ML BAG IVPB SCH (09:33)
[2018-04-05] MEDS: MAGIC MOUTHWASH PO SCH (09:35)
[2018-04-05] MEDS: Nystatin Cream 15 GM TUBE TP SCH ×2 (09:36→15:58)
[2018-04-05 10:48] VITALS: BP 136/80
[2018-04-05] MEDS ORDERED: *HR* Warfarin 3 MG TABLET PO ONE (18:00)
== END 2018-04-05 16:11 | DRG 809 ==
LOC: EMEROOARM 10:21 → 3BNU 10:21 → SUATTDRO 03-27 08:47 → 3NENU 04-01 15:57 → 3ANU 04-02 16:14
PROVIDERS: ADMIT Internal Medicine; ATTEND Internal Medicine

== ENCOUNTER 2018-08-26 14:46 | Inpatient (IN) ==
[2018-08-26] MEDS ORDERED: 0.9 % Sodium Chloride 1,000 ML IVC ONE (14:49)
--- NOTE | 2018-08-26 14:50 | Emergency Department Note ---
Disposition Clinical Impression: Pneumonia Qualifiers: Pneumonia type: due to unspecified organism Laterality: left Lung location: unspecified part of lung Qualified Code(s): J18.9 - Pneumonia, unspecified organism Disposition: Admitted As Inpatient Time of Disposition: 06:58 General Adult HPI - General Stated complaint: possible sepsis Time Seen by Provider: 08/26/18 14:49 - Related Data Home Medications Medication Instructions Recorded Confirmed Amiodarone HCl 200 mg PO DAILY 08/27/18 08/27/18 Diltiazem HCl [Cardizem LA] 120 mg PO DAILY 08/27/18 08/27/18 Finasteride [Proscar] 5 mg PO DAILY 08/27/18 08/27/18 Finasteride [Proscar] 5 mg PO DAILY 08/27/18 08/27/18 Furosemide [Lasix] 40 mg PO BID 08/27/18 08/27/18 Lisinopril [Zestril] 40 mg PO DAILY 08/27/18 08/27/18 Potassium Chloride 40 meq PO DAILY 08/27/18 Sertraline [Zoloft] 25 mg PO DAILY 08/27/18 08/27/18 Allergies Allergy/AdvReac Type Severity Reaction Status Date / Time No Known Allergies Allergy Verified 05/18/18 19:41 Past Medical History - Past Medical History Medical history: Reports: cancer, CVA, hyperlipidemia, hypertension, other Surgical history: Reports: cancer surgery, cataract, other Psychiatric history: Reports: no psych history - Social History Smoking Status: Former smoker Smokeless Tobacco Status: No Alcohol use: Reports: none Drug use: Reports: none Course Vital Signs Temperature 98.2 F 08/26/18 14:55 Pulse Rate 83 08/26/18 14:55 Respiratory Rate 20 08/26/18 14:55 Blood Pressure 98/62 08/26/18 14:55 O2 Sat by Pulse Oximetry 92 08/26/18 14:55 Temperature 98.1 F 08/28/18 06:37 Pulse Rate 73 08/28/18 06:37 Respiratory Rate 18 08/28/18 06:37 Blood Pressure 134/74 08/28/18 06:37 O2 Sat by Pulse Oximetry 97 08/28/18 06:37 Oxygen Delivery Oxygen Delivery Room Air Medical Decision Making - Lab Data Result diagrams: 08/28/18 05:14 08/28/18 05:14 Lab Results 08/26/18 08/26/18 08/26/18 Range/Units 14:58 14:58 14:58 WBC 8.9 (4.3-11.1) K/mcL RBC 3.97 L (4.19-5.50) M/mcL Hgb 11.4 L (12.9-16.9) g/dL Hct 36.8 L (37.5-50.1) % MCV 92.7 (83.0-100.0) fL MCH 28.7 (28.0-33.3) pg MCHC 31.0 L (31.6-35.5) g/dL RDW 15.8 H (11.5-14.5) % Plt Count 247 (140-400) K/mcL MPV 7.9 L (9.4-12.4) fL Immature Gran % 0.9 (0-4) % Seg Neutrophils % 59.2 % Lymphocytes % 22.6 % Monocytes % 10.7 % Eosinophils % 6.3 % Basophils % 0.3 % Neutrophils # 5.3 (1.6-8.9) K/mcL Lymphocytes # 2.0 (0.6-4.6) K/mcL Monocytes # 1.0 (0.0-1.3) K/mcL Eosinophils # 0.6 (0.0-0.6) K/mcL Basophils # 0.0 (0.0-0.2) K/mcL APTT 35.5 (26.0-36.0) Seconds Sample Site ABG pH (7.32-7.45) pH Units ABG pCO2 (35-45) mmHg ABG pO2 (85-104) mmHg ABG HCO3 (21-27) mEq/L ABG Total CO2 (20-26) mEq/L ABG O2 Saturation (95-98) % ABG Base Excess (-2 to 3) mEq/L Darshan Test O2 Delivery Device Inspired O2 (1-15=lpm [id number]=%) Sodium 137 (136-145) mEq/L Potassium 4.3 (3.5-5.1) mEq/L Chloride 102 (98-107) mEq/L Carbon Dioxide 32 H (23-29) mEq/L BUN 22 (8-23) mg/dL Creatinine 1.03 (0.70-1.30) mg/dL Est GFR ( Amer) > 60 (> 60) Est GFR (Non-Af Amer) > 60 (> 60) BUN/Creatinine Ratio 21 (6-26) Glucose 142 H (70-105) mg/dL Calculated Osmolality 290 (280-300) Lactic Acid (0.5-2.2) mmol/L Calcium 8.8 (8.6-10.3) mg/dL Magnesium 1.8 (1.6-2.6) mg/dL Total Bilirubin 0.4 (0.3-1.0) mg/dL Direct Bilirubin 0.1 (0.0-0.2) mg/dL Indirect Bilirubin 0.3 (0.0-1.2) mg/dL AST 13 (13-39) Units/L ALT 12 (7-52) Units/L Alkaline Phosphatase 66 (34-104) Units/L Troponin I < 0.03 (< 0.04) ng/mL Serum Total Protein 6.8 (6.4-8.9) g/dL Albumin 3.1 L (3.5-5.7) g/dL Globulin 3.7 H (2.4-3.5) g/dL Albumin/Globulin Ratio 0.8 L (1.1-2.2) Lipase 59 (11-82) Units/L Urine Color (Yellow) Urine Clarity (Clear) Urine pH (5.0-8.0) pH Units Ur Specific [place] (1.010-1.025) Urine Protein (Neg-Trace) mg/dL Urine Glucose (UA) (Normal) mg/dL Urine Ketones (Negative) mg/dL Urine Blood (Negative) Urine Nitrite (Negative) Urine Bilirubin (Negative) Urine Urobilinogen (Normal) mg/dL Ur Leukocyte Esterase (Negative) Ur Culture Indicated? (NO) 08/26/18 08/26/18 08/26/18 Range/Units 14:58 15:20 15:44 WBC (4.3-11.1) K/mcL RBC (4.19-5.50) M/mcL Hgb (12.9-16.9) g/dL Hct (37.5-50.1) % MCV (83.0-100.0) fL MCH (28.0-33.3) pg MCHC (31.6-35.5) g/dL RDW (11.5-14.5) % Plt Count (140-400) K/mcL MPV (9.4-12.4) fL Immature Gran % (0-4) % Seg Neutrophils % % Lymphocytes % % Monocytes % % Eosinophils % % Basophils % % Neutrophils # (1.6-8.9) K/mcL Lymphocytes # (0.6-4.6) K/mcL Monocytes # (0.0-1.3) K/mcL Eosinophils # (0.0-0.6) K/mcL Basophils # (0.0-0.2) K/mcL APTT (26.0-36.0) Seconds Sample Site R Brach ABG pH 7.42 (7.32-7.45) pH Units ABG pCO2 38 (35-45) mmHg ABG pO2 96 (85-104) mmHg ABG HCO3 25 (21-27) mEq/L ABG Total CO2 26 (20-26) mEq/L ABG O2 Saturation 98 (95-98) % ABG Base Excess 0 (-2 to 3) mEq/L Darshan Test Positive O2 Delivery Device Cannula Inspired O2 2.0 (1-15=lpm [id number]=%) Sodium (136-145) mEq/L Potassium (3.5-5.1) mEq/L Chloride (98-107) mEq/L Carbon Dioxide (23-29) mEq/L BUN (8-23) mg/dL Creatinine (0.70-1.30) mg/dL Est GFR ( Amer) (> 60) Est GFR (Non-Af Amer) (> 60) BUN/Creatinine Ratio (6-26) Glucose (70-105) mg/dL Calculated Osmolality (280-300) Lactic Acid 1.5 (0.5-2.2) mmol/L Calcium (8.6-10.3) mg/dL Magnesium (1.6-2.6) mg/dL Total Bilirubin (0.3-1.0) mg/dL Direct Bilirubin (0.0-0.2) mg/dL Indirect Bilirubin (0.0-1.2) mg/dL AST (13-39) Units/L ALT (7-52) Units/L Alkaline Phosphatase (34-104) Units/L Troponin I (< 0.04) ng/mL Serum Total Protein (6.4-8.9) g/dL Albumin (3.5-5.7) g/dL Globulin (2.4-3.5) g/dL Albumin/Globulin Ratio (1.1-2.2) Lipase (11-82) Units/L Urine Color Yellow (Yellow) Urine Clarity Clear (Clear) Urine pH 6.0 (5.0-8.0) pH Units Ur Specific [place] 1.013 (1.010-1.025) Urine Protein Negative (Neg-Trace) mg/dL Urine Glucose (UA) Normal (Normal) mg/dL Urine Ketones Negative (Negative) mg/dL Urine Blood Negative (Negative) Urine Nitrite Negative (Negative) Urine Bilirubin Negative (Negative) Urine Urobilinogen Normal (Normal) mg/dL Ur Leukocyte Esterase Negative (Negative) Ur Culture Indicated? NO (NO) Attestation Statement - Attestation Attestation: I reviewed the residents documentation and agree with the residents assessment and plan of care. I have personally had face to face time with the patient. (Brief History, Brief Exam, and MDM) I personally supervised and was present for the cervantes/critical portions of the following procedures completed by the resident: (add procedures performed here). Face to face time provided Patient arrives by EMS. He was recently treated for urinary tract infection. He appears in no acute distress on arrival.
--- NOTE | 2018-08-26 14:52 | Emergency Department Note ---
Disposition Clinical Impression: Pneumonia Qualifiers: Pneumonia type: due to unspecified organism Laterality: left Lung location: unspecified part of lung Qualified Code(s): J18.9 - Pneumonia, unspecified organism Disposition: Admitted As Inpatient Time of Disposition: 19:46 General Adult HPI - General Stated complaint: possible sepsis Time Seen by Provider: 08/26/18 14:49 Nursing Notes Reviewed: Yes Vital Signs Reviewed: Yes - History of Present Illness HPI Narrative: 83-year-old male presents emergency department with concern for dysuria. Patient states that he feels as if he has sepsis. Patient reports that he has been battling urinary tract infections. He does not know what antimicrobials he has been on. Patient was brought in by EMS who state that he had oxygen saturation in the high 80s. They started 2 L of oxygen via nasal cannula to bring up to 97%. Patient was administered fluids on the way here. Patient denies any chest pain, shortness of breath, fevers, abdominal pain, nausea, v omiting, but does report dysuria. - Related Data Home Medications Medication Instructions Recorded Confirmed Unable To Obtain [Unable to Obtain] 08/26/18 08/26/18 Allergies Allergy/AdvReac Type Severity Reaction Status Date / Time No Known Allergies Allergy Verified 05/18/18 19:41 All systems ED: reviewed and negative except as stated. Review of Systems: As Per HPI Constitutional: Denies: fever Cardiovascular: Denies: chest pain Respiratory: Denies: cough, dyspnea Gastrointestinal: Denies: abdominal pain, nausea, vomiting Genitourinary: Reports: dysuria Musculoskeletal: Denies: back pain Past Medical History - Past Medical History Attestation: Yes The following information was validated with the patient. Medical history: Reports: cancer, CVA, hyperlipidemia, hypertension, other Surgical history: Reports: cancer surgery, cataract, other Psychiatric history: Reports: no psych history - Social History Smoking Status: Former smoker Smokeless Tobacco Status: No Alcohol use: Reports: none Drug use: Reports: none Physical Exam - General Limitations: no limitations General appearance: alert, in no apparent distress - Head Head exam: normocephalic - Eye Eye exam: Present: EOMI - ENT ENT exam: mucous membranes moist - Neck Neck exam: Present: trachea midline - Chest Chest inspection: Present: symmetric chest wall rise - Respiratory Respiratory exam: Present: normal lung sounds bilaterally. Absent: respiratory distress, accessory muscle use - Cardiovascular Cardiovascular exam: Present: regular rate, normal rhythm, normal heart sounds - Abdominal Exam Abdominal exam: Present: soft, Non-Tender. Absent: distention, guarding, rebound, rigidity - Extremities Exam Extremities exam: Present: full ROM, normal capillary refill. Absent: calf tenderness - Back Exam Back exam: Present: full ROM - Neurological Exam Neurological exam: Present: alert, oriented X3 - Psychiatric Psychiatric exam: Present: normal affect, normal mood - Skin Skin exam: Present: warm, dry, intact, normal color. Absent: rash Course Vital Signs Temperature 98.2 F 08/26/18 14:55 Pulse Rate 83 08/26/18 14:55 Respiratory Rate 20 08/26/18 14:55 Blood Pressure 98/62 08/26/18 14:55 O2 Sat by Pulse Oximetry 92 08/26/18 14:55 Temperature 97.9 F 08/26/18 18:32 Pulse Rate 82 08/26/18 18:32 Respiratory Rate 15 08/26/18 18:32 Blood Pressure 93/50 08/26/18 18:32 O2 Sat by Pulse Oximetry 93 08/26/18 18:32 Oxygen Delivery Oxygen Delivery Room Air Medical Decision Making - [facility] Narrative Medical decision making narrative: 83-year-old male presents emergency Department concern for dysuria. Patient hemodynamically stable at this time. He is receiving a liter of fluids via EMS. We will obtain urinalysis, labs. Chest x-ray with concern for increase in the left lung opacity concerning for pneumonia. Patient started on vancomycin and Zosyn as is a high risk for hospital-acquired pneumonia. Urinalysis not reveal any evidence of infection. Patient stable not in acute distress time of admission. Chest X-Ray 08/26/18 14:49 IMPRESSION: Increase in left lung opacity may represent worsening atelectasis/infiltrate. Status post left lobectomy. D/ / Sakshi Johnson MD / Sakshi Johnson MD Interpreting Provider: Sakshi Johnson MD Head CT 08/26/18 21:23 IMPRESSION: 1. Further decrease in size of falcine subdural hemorrhage, now 2.5 mm thick, previously about 3.5 mm. No new intracranial hemorrhage or new intracranial abnormality. 2. Left frontal, temporal, and occipital lobe encephalomalacia compatible with old infarctions, stable. 3. Parenchymal volume loss and [id number]-rr-[id number] chronic microvascular ischemic changes. D/ / 08/26/2018 22:02:01 Sakshi Johnson MD / [facility]arter Interpreting Provider: Sakshi Johnson MD - Lab Data Result diagrams: 08/26/18 14:58 08/26/18 14:58 Lab Results 08/26/18 08/26/18 08/26/18 Range/Units 14:58 14:58 14:58 WBC 8.9 (4.3-11.1) K/mcL RBC 3.97 L (4.19-5.50) M/mcL Hgb 11.4 L (12.9-16.9) g/dL Hct 36.8 L (37.5-50.1) % MCV 92.7 (83.0-100.0) fL MCH 28.7 (28.0-33.3) pg MCHC 31.0 L (31.6-35.5) g/dL RDW 15.8 H (11.5-14.5) % Plt Count 247 (140-400) K/mcL MPV 7.9 L (9.4-12.4) fL Immature Gran % 0.9 (0-4) % Seg Neutrophils % 59.2 % Lymphocytes % 22.6 % Monocytes % 10.7 % Eosinophils % 6.3 % Basophils % 0.3 % Neutrophils # 5.3 (1.6-8.9) K/mcL Lymphocytes # 2.0 (0.6-4.6) K/mcL Monocytes # 1.0 (0.0-1.3) K/mcL Eosinophils # 0.6 (0.0-0.6) K/mcL Basophils # 0.0 (0.0-0.2) K/mcL APTT 35.5 (26.0-36.0) Seconds Sample Site ABG pH (7.32-7.45) pH Units ABG pCO2 (35-45) mmHg ABG pO2 (85-104) mmHg ABG HCO3 (21-27) mEq/L ABG Total CO2 (20-26) mEq/L ABG O2 Saturation (95-98) % ABG Base Excess (-2 to 3) mEq/L Darshan Test O2 Delivery Device Inspired O2 (1-15=lpm [id number]=%) Sodium 137 (136-145) mEq/L Potassium 4.3 (3.5-5.1) mEq/L Chloride 102 (98-107) mEq/L Carbon Dioxide 32 H (23-29) mEq/L BUN 22 (8-23) mg/dL Creatinine 1.03 (0.70-1.30) mg/dL Est GFR ( Amer) > 60 (> 60) Est GFR (Non-Af Amer) > 60 (> 60) BUN/Creatinine Ratio 21 (6-26) Glucose 142 H (70-105) mg/dL Calculated Osmolality 290 (280-300) Lactic Acid (0.5-2.2) mmol/L Calcium 8.8 (8.6-10.3) mg/dL Magnesium 1.8 (1.6-2.6) mg/dL Total Bilirubin 0.4 (0.3-1.0) mg/dL Direct Bilirubin 0.1 (0.0-0.2) mg/dL Indirect Bilirubin 0.3 (0.0-1.2) mg/dL AST 13 (13-39) Units/L ALT 12 (7-52) Units/L Alkaline Phosphatase 66 (34-104) Units/L Troponin I < 0.03 (< 0.04) ng/mL Serum Total Protein 6.8 (6.4-8.9) g/dL Albumin 3.1 L (3.5-5.7) g/dL Globulin 3.7 H (2.4-3.5) g/dL Albumin/Globulin Ratio 0.8 L (1.1-2.2) Lipase 59 (11-82) Units/L Urine Color (Yellow) Urine Clarity (Clear) Urine pH (5.0-8.0) pH Units Ur Specific [place] (1.010-1.025) Urine Protein (Neg-Trace) mg/dL Urine Glucose (UA) (Normal) mg/dL Urine Ketones (Negative) mg/dL Urine Blood (Negative) Urine Nitrite (Negative) Urine Bilirubin (Negative) Urine Urobilinogen (Normal) mg/dL Ur Leukocyte Esterase (Negative) Ur Culture Indicated? (NO) 08/26/18 08/26/18 08/26/18 Range/Units 14:58 15:20 15:44 WBC (4.3-11.1) K/mcL RBC (4.19-5.50) M/mcL Hgb (12.9-16.9) g/dL Hct (37.5-50.1) % MCV (83.0-100.0) fL MCH (28.0-33.3) pg MCHC (31.6-35.5) g/dL RDW (11.5-14.5) % Plt Count (140-400) K/mcL MPV (9.4-12.4) fL Immature Gran % (0-4) % Seg Neutrophils % % Lymphocytes % % Monocytes % % Eosinophils % % Basophils % % Neutrophils # (1.6-8.9) K/mcL Lymphocytes # (0.6-4.6) K/mcL Monocytes # (0.0-1.3) K/mcL Eosinophils # (0.0-0.6) K/mcL Basophils # (0.0-0.2) K/mcL APTT (26.0-36.0) Seconds Sample Site R Brach ABG pH 7.42 (7.32-7.45) pH Units ABG pCO2 38 (35-45) mmHg ABG pO2 96 (85-104) mmHg ABG HCO3 25 (21-27) mEq/L ABG Total CO2 26 (20-26) mEq/L ABG O2 Saturation 98 (95-98) % ABG Base Excess 0 (-2 to 3) mEq/L Darshan Test Positive O2 Delivery Device Cannula Inspired O2 2.0 (1-15=lpm sf31-718=%) Sodium (136-145) mEq/L Potassium (3.5-5.1) mEq/L Chloride (98-107) mEq/L Carbon Dioxide (23-29) mEq/L BUN (8-23) mg/dL Creatinine (0.70-1.30) mg/dL Est GFR ( Amer) (> 60) Est GFR (Non-Af Amer) (> 60) BUN/Creatinine Ratio (6-26) Glucose (70-105) mg/dL Calculated Osmolality (280-300) Lactic Acid 1.5 (0.5-2.2) mmol/L Calcium (8.6-10.3) mg/dL Magnesium (1.6-2.6) mg/dL Total Bilirubin (0.3-1.0) mg/dL Direct Bilirubin (0.0-0.2) mg/dL Indirect Bilirubin (0.0-1.2) mg/dL AST (13-39) Units/L ALT (7-52) Units/L Alkaline Phosphatase (34-104) Units/L Troponin I (< 0.04) ng/mL Serum Total Protein (6.4-8.9) g/dL Albumin (3.5-5.7) g/dL Globulin (2.4-3.5) g/dL Albumin/Globulin Ratio (1.1-2.2) Lipase (11-82) Units/L Urine Color Yellow (Yellow) Urine Clarity Clear (Clear) Urine pH 6.0 (5.0-8.0) pH Units Ur Specific [place] 1.013 (1.010-1.025) Urine Protein Negative (Neg-Trace) mg/dL Urine Glucose (UA) Normal (Normal) mg/dL Urine Ketones Negative (Negative) mg/dL Urine Blood Negative (Negative) Urine Nitrite Negative (Negative) Urine Bilirubin Negative (Negative) Urine Urobilinogen Normal (Normal) mg/dL Ur Leukocyte Esterase Negative (Negative) Ur Culture Indicated? NO (NO) - EKG Data EKG #1 EKG attestation: Yes I reviewed and interpreted this EKG. EKG results narrative: 15 Heart rate 70 bpm, CT interval 187 ms, QRS duration 105 ms, QT 397 segs, left axis deviation. Sinus rhythm with no ischemic ST changes. T-wave inversion in 3 was on previous which could be normal variant.
[2018-08-26 15:15] LABS: Basophils % 0.3 %; Eosinophils # 0.6 K/mcL (0.0-0.6); Eosinophils % 6.3 %; Hematocrit 36.8 % (37.5-50.1); Hemoglobin 11.4 g/dL (12.9-16.9); Immature Granulocytes % 0.9 % (0-4); Lymphocytes % 22.6 %; Mean Corpuscular Hemoglobin 28.7 pg (28.0-33.3); Mean Corpuscular Volume 92.7 fL (83.0-100.0); Mean Platelet Volume 7.9 fL (9.4-12.4); Monocytes % 10.7 %; Neutrophils # 5.3 K/mcL (1.6-8.9); Platelet Count 247 K/mcL (140-400); Red Blood Count 3.97 M/mcL (4.19-5.50); Red Cell Distribution Width 15.8 % (11.5-14.5); Segmented Neutrophils % 59.2 %; White Blood Count 8.9 K/mcL (4.3-11.1)
[2018-08-26 15:34] LABS: Alanine Aminotransferase 12 Units/L (7-52); Albumin 3.1 g/dL (3.5-5.7); Albumin/Globulin Ratio 0.8 (1.1-2.2); Alkaline Phosphatase 66 Units/L (34-104); Aspartate Amino Transferase 13 Units/L (13-39); BUN/Creatinine Ratio 21 (6-26); Bilirubin,Direct 0.1 mg/dL (0.0-0.2); Bilirubin,Indirect 0.3 mg/dL (0.0-1.2); Bilirubin,Total 0.4 mg/dL (0.3-1.0); Blood Urea Nitrogen 22 mg/dL (8-23); Calcium 8.8 mg/dL (8.6-10.3); Carbon Dioxide 32 mEq/L (23-29); Chloride 102 mEq/L (98-107); Globulin 3.7 g/dL (2.4-3.5); Glucose 142 mg/dL (70-105); Lipase 59 Units/L (11-82); Magnesium 1.8 mg/dL (1.6-2.6); Osmolality,Calculated 290 (280-300); Potassium 4.3 mEq/L (3.5-5.1); Sodium 137 mEq/L (136-145); Total Protein 6.8 g/dL (6.4-8.9); Troponin I < 0.03 ng/mL (< 0.04); eGFR For African Americans > 60 (> 60); eGFR For Non-African Americans > 60 (> 60)
[2018-08-26 15:40] LABS: Bilirubin,Urine Negative (Negative); Blood,Urine Negative (Negative); Clarity,Urine Clear (Clear); Color,Urine Yellow (Yellow); Glucose,Urine (UA) Normal (Normal); Ketones,Urine Negative (Negative); Leukocyte Esterase,Urine Negative (Negative); Nitrite,Urine Negative (Negative); Protein,Urine Negative (Neg-Trace); Specific Gravity,Urine 1.013 (1.010-1.025); Urobilinogen,Urine Normal (Normal)
[2018-08-26 15:47] LABS: ABG Base Excess 0 mEq/L (-2 to 3); ABG HCO3 25 mEq/L (21-27); ABG Oxygen Saturation 98 % (95-98); ABG PCO2 38 mmHg (35-45); ABG PH 7.42 pH Units (7.32-7.45); ABG PO2 96 mmHg (85-104); ABG TCO2 26 mEq/L (20-26)
[2018-08-26] MEDS ORDERED: Piperacillin/Tazobactam 3.375 GM in Water for inj. (sterile) 20 ML IVP ONE (15:51)
[2018-08-26] MEDS ORDERED: Ipratropium/Albuterol Neb 3 ML IH ONE (16:06)
[2018-08-26] MEDS ORDERED: Ondansetron 4 MG/2 ML VIAL IVP PRN (16:24)
[2018-08-26] MEDS ORDERED: Acetaminophen 325 MG TABLET PO PRN (16:26)
[2018-08-26] MEDS ORDERED: Naloxone 0.4 MG/ML INJ IVP PRN (16:26)
--- NOTE | 2018-08-26 16:34 | Internal Med History&Physical ---
Date of Encounter: 08/26/18 Time of Encounter: 16:28 Internal Medicine - H&P: HPI Chief complaint: worried about sepsis Admitted From: Emergency Dept Plans for Post Hospital Care: Home History of present illness: Mr. Biswas is a 83 year old male CVA, hyperlipidemia, hypertension, A.fib, recent subdural hematoma, lung cancer in 2014 s/p surgical resection and adjuvant chemo and radiation who was discharged from here earlier this month for UTI who comes in as he was noted to be altered and he says he was worried about sepsis because he was under the impression that he has a UTI again. He says some one called him from his PCP telling him he hasa UTI. He does say he has dysuria. His UA is clean here, however. He has had UTIs previously. Apparently O2 sats were in the 80s by EMS. He was put on 2 L NC and sats went up to the high 90s. He has no UTI but was noted to have infiltrates on CXR. He has been having a dry cough for 6-8 weeks. He is afebrile and labs are mostly unremarkable. Kidney function slightly above baseline. Since he was recently discharged, he was given abx as HCAP. Patient denies any headache, blurry vision, nausea, vomiting, fever, chills, dizziness, abdominal pain, diarrhea, constipation, or neurological symptoms. Past Med Surg Social Fam HX - Past Medical History Medical history: cancer, CVA, hyperlipidemia, hypertension, other Additional medical history: lung cancer Psychiatric history: no psych history - Past Surgical History Surgical History: cancer surgery, cataract, other Additional surgical history: SWAPNIL lobectomy. prostate surgery. cyst removed - Social History Smoking Status: Former smoker Smokeless Tobacco Status: No Alcohol use: none Drug use: none - Family History Mother Living Status: Internal Medicine - H&P: Meds Ascorbic Acid [Fruit C-500] 500 mg PO BID 05/25/18 [History] Pravastatin Sodium [Pravachol] 20 mg PO DAILY 05/25/18 [History] Amiodarone [Cordarone] 200 mg PO DAILY 08/09/18 [History] Diltiazem HCl [Cardizem LA] 120 mg PO DAILY 08/09/18 [History] Docusate Sodium [Dulcolax Stool Softener] 100 mg PO BID PRN 08/09/18 [History] Finasteride [Proscar] 5 mg PO DAILY 08/09/18 [History] Folic Acid 1 mg PO DAILY 08/09/18 [History] Furosemide [Lasix] 40 mg PO BID 08/09/18 [History] Guaifenesin [Mucinex] 600 mg PO BID PRN 08/09/18 [History] Lisinopril [Zestril] 40 mg PO DAILY 08/09/18 [History] [place]-3/Dha/Epa/Fish Oil [Ra Fish Oil 900 mg Softgel] 900 mg PO DAILY 08/09/18 [History] Pantoprazole Sodium 20 mg PO BID 08/09/18 [History] Polyethylene Glycol 3350 [MiraLAX] 17 gm PO BID PRN 08/09/18 [History] Sertraline [Zoloft] 25 mg PO DAILY 08/09/18 [History] Simethicone [Gas-X] 80 mg PO QID PRN 08/09/18 [History] levoFLOXacin [Levofloxacin] 750 mg PO DAILY 5 Days tablet 08/12/18 [Rx] levoFLOXacin [Levofloxacin] 750 mg PO DAILY 5 Days tablet 08/12/18 [Rx] Allergy/AdvReac Type Severity Reaction Status Date / Time No Known Allergies Allergy Verified 05/18/18 19:41 All Systems PM: A 10-system review of systems was performed and is negative for pertinent findings except as documented above in the HPI. Review of systems: All systems reviewed are negative except as mentioned above - Constitutional Vitals: Temp Pulse Resp BP Pulse Ox 98.2 F 83 20 98/62 92 08/26/18 14:55 08/26/18 14:55 08/26/18 14:55 08/26/18 14:55 08/26/18 14:55 Exam: GEN: NAD HEENT: AT, NC, No cyanosis, oral mucosa is moist, No JVD Lymphatics: No lymphadenoapthy Eyes: Extrocular muscles intact, anicteric CVS:RRR. S1, S2, No m/r/g RESP: Diminished but clear bilaterally ABD: Soft, NT, ND, +BS EXT: No edema, No rashes, 2+ DP NEURO: Nonfocal, CN II-XII intact, No focal motor or sensory deficits Psych: Cooperative, Not anxious or depresse Internal Med - H&P Results - Labs CBC & Chem 7: 08/26/18 14:58 08/26/18 14:58 Labs: Short CBC 08/26/18 Range/Units 14:58 WBC 8.9 (4.3-11.1) K/mcL Hgb 11.4 L (12.9-16.9) g/dL Hct 36.8 L (37.5-50.1) % Plt Count 247 (140-400) K/mcL Neutrophils # 5.3 (1.6-8.9) K/mcL BMP 08/26/18 14:58 Sodium 137 Potassium 4.3 Chloride 102 Carbon Dioxide 32 H BUN 22 Creatinine 1.03 Glucose 142 H Calcium 8.8 Cardiac Enzymes 08/26/18 Range/Units 14:58 Troponin I < 0.03 (< 0.04) ng/mL Liver Function 08/26/18 Range/Units 14:58 Total Bilirubin 0.4 (0.3-1.0) mg/dL Direct Bilirubin 0.1 (0.0-0.2) mg/dL AST 13 (13-39) Units/L ALT 12 (7-52) Units/L Alkaline Phosphatase 66 (34-104) Units/L Albumin 3.1 L (3.5-5.7) g/dL Urine 08/26/18 Range/Units 15:20 Urine Color Yellow (Yellow) Urine Clarity Clear (Clear) Urine pH 6.0 (5.0-8.0) pH Units Ur Specific [place] 1.013 (1.010-1.025) Urine Protein Negative (Neg-Trace) mg/dL Urine Glucose (UA) Normal (Normal) mg/dL - ABG Interpretation ABG results: 08/26/18 15:44 ABG pH 7.42 ABG pCO2 38 ABG pO2 96 ABG HCO3 25 ABG Total CO2 26 ABG O2 Saturation 98 ABG Base Excess 0 - Impressions ITS Impressions Chest X-Ray 08/26/18 14:49 IMPRESSION: Increase in left lung opacity may represent worsening atelectasis/infiltrate. Status post left lobectomy. D/ / Sakshi Johnson MD / Sakshi Johnson MD Interpreting Provider: Sakshi Johnson MD - Assessment and Plan (1) Acute hypoxemic respiratory failure Current Visit: Yes Status: Acute Assessment and plan: Treat underlying cause as below. ABG looks good. O2 support. Nebs (2) HCAP (healthcare-associated pneumonia) Current Visit: Yes Status: Acute Assessment and plan: IV vanco/zosyn for now. Nebs. O2 support and wean as tolerated. Check procalcitonin. check sputum if able to give a sample. check urine s trep/legionella. f/u on blood cultures. (3) JOAQUIN (acute kidney injury) Current Visit: No Status: Acute Assessment and plan: Gentle hydrations with NS at 100cc/hr. Avoid nephrotoxins. Labs in am (4) Afib Current Visit: No Status: Chronic Assessment and plan: c/w home meds. Not on anticoagulation due to subdural hematoma recently. Qualifiers: Atrial fibrillation type: paroxysmal Qualified Code(s): I48.0 - Paroxysmal atrial fibrillation (5) CVA (cerebral vascular accident) Current Visit: No Status: Chronic Assessment and plan: c/w home meds Qualifiers: CVA mechanism: other Qualified Code(s): I63.89 - Other cerebral infarction (6) Hypertension Current Visit: No Status: Chronic Assessment and plan: Hold antihypertensives as patient is hypotensive Qualifiers: Hypertension type: unspecified secondary hypertension Qualified Code(s): I15.9 - Secondary hypertension, unspecified; I15 - Secondary hypertension (7) DVT prophylaxis Current Visit: No Status: Acute Assessment and plan: heparin SQ - Time Spent With Patient Total time spent is greater than 50% in coordination of care (as documented) at patient's floor/unit and/or counseling patient:
[2018-08-26] MEDS: 0.9 % Sodium Chloride 1,000 ML IVC SCH ×2 (16:40→18:44)
[2018-08-26] MEDS ORDERED: Aminoglycoside Consult 1 EACH MC ONE (17:26)
[2018-08-26] MEDS ORDERED: *HR* Heparin 5,000 UNIT/ML VIAL SQ SCH (22:00)
[2018-08-26] MEDS: Ipratropium/Albuterol Neb 3 ML IH SCH (22:07)
--- NOTE | 2018-08-26 22:52 | Event Note ---
Date of Encounter: 08/26/18 Time of Encounter: 21:21 Alerted by patient's nurse CATHERINE Desai that patient had a history of fall with subdural hematoma in July. Patient was transported [place] due to subdural hematoma at that time. Patient also has history of afibrillation but is not currently anticoagulated due to subdural hematoma. No recent head CT, so stat CT of the head/brain w/o contrast ordered to assess subdural hematoma which showed thin falcine subdural hemorrhage measuring 2.5 mm in thickness, previously 3.5 mm. No mass effect or midline shift. No new intracranial hemorrhage. Diffuse parenchymal volume loss with enlargement of ventricles and cerebral sulcal. Multifocal encephalomalacia in the left frontal, temporal, left occipital lobes again seen. Periventricular and subcortical white matter low attenuation present as well. No hydrocephalus. The basal cisterns are patent. Intracranial atherosclerotic disease. SQ heparin order DCd and replaced w/bilateral SCDs on calves for DVT prophylaxis. Pt. is on cardiac monitoring so pts. nurse instructed to monitor HR closely and alert me immediately in case pt. goes into Afib and is in need of Cardizem gtt. Patient also found to be positive for MDRO so contact precautions ordered. Nurse instructed to continue monitoring the pt. very closely and alert me immediately of any adverse changes.
[2018-08-27] MEDS ORDERED: Piperacillin/Tazobactam 3.375 GM in 0.9 % Sodium Chloride Mini Bag 100 ML IVPB SCH
[2018-08-27 02:51] LABS: Basophils % 0.3 %; Eosinophils # 0.6 K/mcL (0.0-0.6); Eosinophils % 7.8 %; Hematocrit 31.9 % (37.5-50.1); Immature Granulocytes % 0.9 % (0-4); Lymphocytes # 1.4 K/mcL (0.6-4.6); Lymphocytes % 19.4 %; Mean Corpuscular HGB Conc 30.4 g/dL (31.6-35.5); Mean Corpuscular Hemoglobin 28.9 pg (28.0-33.3); Mean Corpuscular Volume 94.9 fL (83.0-100.0); Mean Platelet Volume 8.3 fL (9.4-12.4); Monocytes # 0.8 K/mcL (0.0-1.3); Monocytes % 10.7 %; Neutrophils # 4.3 K/mcL (1.6-8.9); Platelet Count 208 K/mcL (140-400); Red Blood Count 3.36 M/mcL (4.19-5.50); Red Cell Distribution Width 15.8 % (11.5-14.5); Segmented Neutrophils % 60.9 %
[2018-08-27 03:04] LABS: BUN/Creatinine Ratio 23 (6-26); Blood Urea Nitrogen 22 mg/dL (8-23); Calcium 7.9 mg/dL (8.6-10.3); Carbon Dioxide 25 mEq/L (23-29); Chloride 106 mEq/L (98-107); Glucose 106 mg/dL (70-105); Magnesium 1.7 mg/dL (1.6-2.6); Osmolality,Calculated 288 (280-300); Potassium 4.1 mEq/L (3.5-5.1); Sodium 137 mEq/L (136-145); eGFR For African Americans > 60 (> 60); eGFR For Non-African Americans > 60 (> 60)
[2018-08-27 03:21] LABS: Hemoglobin 9.7 g/dL (12.9-16.9)
[2018-08-27] MEDS: Ipratropium/Albuterol Neb 3 ML IH SCH ×4 (03:37→22:02)
[2018-08-27] MEDS: 0.9 % Sodium Chloride 1,000 ML IVC SCH (04:24)
[2018-08-27] MEDS ORDERED: Magnesium Oxide 400 MG TABLET PO ONE (07:23)
--- NOTE | 2018-08-27 07:29 | Internal Med Progress Note ---
Hospitalist Progress Note - Encounter Date of Encounter: 08/27/18 Time of Encounter: 07:26 - Subjective Interval History: Patient was seen and examined. Afebrile. Feels better. Being treated for HCAP. ovenight there was a CT head that was ordered that showed a decrease in previous subdural hematoma. Patient is A/Ox3. No neuro issues - Exam Vitals: Temp Pulse Resp BP Pulse Ox 97.7 F 72 16 126/62 98 08/27/18 06:30 08/27/18 06:30 08/27/18 06:30 08/27/18 06:30 08/27/18 06:30 Exam: GEN: NAD CVS:RRR. S1, S2, No m/r/g RESP: Diminished but clear bilaterally ABD: Soft, NT, ND, +BS EXT: No edema, No rashes, 2+ DP NEURO: Nonfocal, CN II-XII intact, No focal motor or sensory deficits - Assessment and Plan (1) Acute hypoxemic respiratory failure Current Visit: Yes Status: Acute Assessment and Plan: Treat underlying cause as below. ABG looks good. O2 support. Nebs (2) HCAP (healthcare-associated pneumonia) Current Visit: Yes Status: Acute Assessment and Plan: Patient is stable. Will see if he would do ok on Levaquin IV today instead of IV vanco/zosyn. Nebs. O2 support and wean as tolerated. I have asked for a procalcionin yesterday and it was not done. No point of it now. check sputum if able to give a sample. check urine strep/legionella. f/u on blood cultures. (3) JOAQUIN (acute kidney injury) Current Visit: No Status: Acute Assessment and Plan: Improving. Stop IV fluids. Encourage PO intake. (4) Subdural hematoma Current Visit: Yes Status: Acute Assessment and Plan: Nursing staff alerted night SOFT TILE SETTER that patient has history of subdural hematoma. I was aware of that on admission and did not see a need for CT head as patient was alert and oriented and showed no signs of neurological issues. He had a CT head in July that showed the subdural hematoma. Another one that was repeated in early August did not mention any subdural hematoma and I went by that. A repeat CT head was done overnight and showed a decrease in the previous subdural hematoma to 2.5 m from 3.5. Will continue to monitor (5) Afib Current Visit: No Status: Chronic Assessment and Plan: c/w home meds. Not on anticoagulation due to subdural hematoma recently. (6) CVA (cerebral vascular accident) Current Visit: No Status: Chronic Assessment and Plan: c/w home meds (7) Hypertension Current Visit: No Status: Chronic Assessment and Plan: BP better this am. Will hold antihypertensives again today and resume if BP starts rising. BP 126/62 (8) DVT prophylaxis Current Visit: No Status: Acute Assessment and Plan: SCDs (9) Goals of care, counseling/discussion Current Visit: Yes Status: Acute Assessment and Plan: Need PT/OT. ??placement??. De-escalate abx today and see if we can d/c in 1-2 days. - Time Spent with Patient Total time spent is greater than 50% in coordination of care (as documented) at patient's floor/unit and/or counseling patient: Internal Medicine: Result - Labs CBC & Chem 7: 08/27/18 01:51 08/27/18 01:51 Labs: Short CBC 08/26/18 08/27/18 Range/Units 14:58 01:51 WBC 8.9 7.0 (4.3-11.1) K/mcL Hgb 11.4 L 9.7 L D (12.9-16.9) g/dL Hct 36.8 L 31.9 L (37.5-50.1) % Plt Count 247 208 (140-400) K/mcL Neutrophils # 5.3 4.3 (1.6-8.9) K/mcL BMP 08/26/18 08/27/18 14:58 01:51 Sodium 137 137 Potassium 4.3 4.1 Chloride 102 106 Carbon Dioxide 32 H 25 BUN 22 22 Creatinine 1.03 0.94 Glucose 142 H 106 H Calcium 8.8 7.9 L Cardiac Enzymes 08/26/18 Range/Units 14:58 Troponin I < 0.03 (< 0.04) ng/mL Liver Function 08/26/18 Range/Units 14:58 Total Bilirubin 0.4 (0.3-1.0) mg/dL Direct Bilirubin 0.1 (0.0-0.2) mg/dL AST 13 (13-39) Units/L ALT 12 (7-52) Units/L Alkaline Phosphatase 66 (34-104) Units/L Albumin 3.1 L (3.5-5.7) g/dL Urine 08/26/18 Range/Units 15:20 Urine Color Yellow (Yellow) Urine Clarity Clear (Clear) Urine pH 6.0 (5.0-8.0) pH Units Ur Specific [place] 1.013 (1.010-1.025) Urine Protein Negative (Neg-Trace) mg/dL Urine Glucose (UA) Normal (Normal) mg/dL - ABG Interpretation ABG results: ABG ABG pH 7.42 pH Units (7.32-7.45) 08/26/18 15:44 ABG pCO2 38 mmHg (35-45) 08/26/18 15:44 ABG pO2 96 mmHg (85-104) 08/26/18 15:44 ABG O2 Saturation 98 % (95-98) 08/26/18 15:44 - Impressions Impressions Chest X-Ray 08/26/18 14:49 IMPRESSION: Increase in left lung opacity may represent worsening atelectasis/infiltrate. Status post left lobectomy. D/ / Sakshi Johnson MD / Sakshi Johnson MD Interpreting Provider: Sakshi Johnson MD Head CT 08/26/18 21:23 IMPRESSION: 1. Further decrease in size of falcine subdural hemorrhage, now 2.5 mm thick, previously about 3.5 mm. No new intracranial hemorrhage or new intracranial abnormality. 2. Left frontal, temporal, and occipital lobe encephalomalacia compatible with old infarctions, stable. 3. Parenchymal volume loss and [id number] chronic microvascular ischemic changes. D/ / 08/26/2018 22:02:01 Sakshi Johnson MD / [facility] Interpreting Provider: Sakshi Johnson MD Consult Discharge Plan - Plan Referrals: Fan Clancy DO [Primary Care Provider] - ___ (5) Afib Qualifiers: Atrial fibrillation type: paroxysmal Qualified Code(s): I48.0 - Paroxysmal atrial fibrillation (6) CVA (cerebral vascular accident) Qualifiers: CVA mechanism: other Qualified Code(s): I63.89 - Other cerebral infarction (7) Hypertension Qualifiers: Hypertension type: unspecified secondary hypertension Qualified Code(s): I15.9 - Secondary hypertension, unspecified; I15 - Secondary hypertension
[2018-08-27] MEDS: levoFLOXacin 750 MG/150 ML 750 MG/150 ML BAG IVPB SCH (10:01)
[2018-08-27] MEDS: Furosemide 40 MG TABLET PO SCH (18:49)
--- NOTE | 2018-08-28 00:39 | Electrocardiograph Report ---
[facility] [employer] Test Date: 2018-08-26 Pat Name: Donavan Biswas Department: [id number] Room: 3A12 Gender: M Cable Former: : 1935 Requested By: Vladimir Pete Order Number: [id number] Reading MD: Ruiz Combs Measurements Intervals [place] Rate: 79 P: 7 IA: 187 QRS: -13 QRSD: 105 T: 9 QT: 397 QTc: 456 Interpretive Statements Sinus rhythm Low voltage, precordial leads Electronically Signed On 08-28-2018 0:37:37 EDT by Ruzi Combs
[2018-08-28] MEDS: Ipratropium/Albuterol Neb 3 ML IH SCH ×4 (03:49→21:18)
[2018-08-28 06:07] LABS: Basophils % 0.3 %; Eosinophils # 0.5 K/mcL (0.0-0.6); Eosinophils % 7.3 %; Hematocrit 34.2 % (37.5-50.1); Hemoglobin 10.7 g/dL (12.9-16.9); Lymphocytes # 1.5 K/mcL (0.6-4.6); Lymphocytes % 21.2 %; Mean Corpuscular HGB Conc 31.3 g/dL (31.6-35.5); Mean Corpuscular Hemoglobin 28.9 pg (28.0-33.3); Mean Corpuscular Volume 92.4 fL (83.0-100.0); Mean Platelet Volume 8.3 fL (9.4-12.4); Monocytes # 0.7 K/mcL (0.0-1.3); Monocytes % 9.9 %; Neutrophils # 4.4 K/mcL (1.6-8.9); Platelet Count 212 K/mcL (140-400); Red Cell Distribution Width 15.7 % (11.5-14.5); Segmented Neutrophils % 60.3 %; White Blood Count 7.3 K/mcL (4.3-11.1)
[2018-08-28 06:27] LABS: BUN/Creatinine Ratio 21 (6-26); Blood Urea Nitrogen 19 mg/dL (8-23); Calcium 8.7 mg/dL (8.6-10.3); Carbon Dioxide 27 mEq/L (23-29); Chloride 103 mEq/L (98-107); Glucose 113 mg/dL (70-105); Magnesium 1.6 mg/dL (1.6-2.6); Osmolality,Calculated 285 (280-300); Potassium 3.8 mEq/L (3.5-5.1); Sodium 136 mEq/L (136-145); eGFR For African Americans > 60 (> 60); eGFR For Non-African Americans > 60 (> 60)
[2018-08-28] MEDS: levoFLOXacin 750 MG/150 ML 750 MG/150 ML BAG IVPB SCH (08:44)
[2018-08-28] MEDS: Finasteride 5 MG TABLET PO SCH (08:45)
[2018-08-28] MEDS: Furosemide 40 MG TABLET PO SCH ×3 (08:45→17:41)
[2018-08-28] MEDS ORDERED: NON-FORMULARY MEDICATION 1 EACH EACH (Lisinopril [Zestril] 40 MG) PO SCH (09:00)
[2018-08-28] MEDS ORDERED: DILTIAZEM HCL 120 MG PO SCH (11:41)
[2018-08-28] MEDS: *HR* Amiodarone 200 MG TABLET PO SCH (12:35)
--- NOTE | 2018-08-28 19:23 | Internal Med Progress Note ---
Hospitalist Progress Note - Encounter Date of Encounter: 08/28/18 Time of Encounter: 14:45 - Subjective Interval History: Mr Biswas is quite conversant he stated that he has dysuria recent UTI and that the oral antibiotic he was discharged home with from his last visit from 2 weeks ago did not help his symptoms. He is requesting one more hospitalization for IV antibiotics GEN: Denies fever, chills or malaise HEENT: Denies headache blurriness, or dysphagia RESP: Denies SOB or cough CV: Denies chest pain or palpitations GI: Denies Nausea, vomiting, diarrhea or constipation Reviewed current in hospital medications with modifications see orders Reviewed Routine labs - Exam Vitals: Temp Pulse Resp BP Pulse Ox 97.9 F 86 12 104/55 94 08/28/18 14:20 08/28/18 14:20 08/28/18 16:12 08/28/18 14:20 08/28/18 16:12 Exam: GEN: NAD, A&O x 3, Pleasant and conversant SKIN: [place] warm acyanotic not jaundice HEART: RRR, no murmurs LUNGS: Diminished but appears CTA no wheeze or crackles, overall non labored ABDOMEN; Soft, non tender or distended, BS x 4 normactive EXT: No LE edema, Pedal pulses 1+, radial pulses 2+ PSYCH: Mood and affect is appropriate - Assessment and Plan (1) HCAP (healthcare-associated pneumonia) Current Visit: Yes Status: Acute Assessment and Plan: Sputum culture was negative visit Legionella antigen was negative. He is afebrile has no leukocytosis and antibiotics therapy Descalated to levofloxacin. (2) Hypertension Current Visit: No Status: Chronic Assessment and Plan: Normotensive continue current management (3) Afib Current Visit: No Status: Chronic Assessment and Plan: Not evidence on exam, Not on anticoagulation due to subdural hematoma recently. Continue amiodarone , obtain TSH (4) DVT prophylaxis Current Visit: No Status: Acute Assessment and Plan: SCDs history of recent subdural hematoma (5) CVA (cerebral vascular accident) Current Visit: No Status: Chronic Assessment and Plan: secondary prevention, CT head revealed old infarcts, we will start statin the rapy and obtain baseline LFTs, aspirin held due to his recent subdural hematoma (6) JOAQUIN (acute kidney injury) Current Visit: No Status: Acute Assessment and Plan: Resolved (7) Acute hypoxemic respiratory failure Current Visit: Yes Status: Acute Assessment and Plan: Will wean off oxygen therapy 95% on 2 L (8) Subdural hematoma Current Visit: Yes Status: Acute Assessment and Plan: Nursing staff alerted night RACK ROOM WORKER that patient has history of subdural hematoma. I was aware of that on admission and did not see a need for CT head as patient was alert and oriented and showed no signs of neurological issues. He had a CT head in July that showed the subdural hematoma. Another one that was repeated in early August did not mention any subdural hematoma and I went by that. A repeat CT head was done overnight and showed a decrease in the previous subdural hematoma to 2.5 m from 3.5. Will continue to monitor - Time Spent with Patient Total time spent is greater than 50% in coordination of care (as documented) at patient's floor/unit and/or counseling patient: Internal Medicine: Result - Labs CBC & Chem 7: 08/28/18 05:14 08/28/18 05:14 Labs: Short CBC 08/28/18 Range/Units 05:14 WBC 7.3 (4.3-11.1) K/mcL Hgb 10.7 L (12.9-16.9) g/dL Hct 34.2 L (37.5-50.1) % Plt Count 212 (140-400) K/mcL Neutrophils # 4.4 (1.6-8.9) K/mcL BMP 08/28/18 05:14 Sodium 136 Potassium 3.8 Chloride 103 Carbon Dioxide 27 BUN 19 Creatinine 0.91 Glucose 113 H Calcium 8.7 - ABG Interpretation ABG results: ABG ABG pH 7.42 pH Units (7.32-7.45) 08/26/18 15:44 ABG pCO2 38 mmHg (35-45) 08/26/18 15:44 ABG pO2 96 mmHg (85-104) 08/26/18 15:44 ABG O2 Saturation 98 % (95-98) 08/26/18 15:44 - Impressions Impressions Head CT 08/26/18 21:23 IMPRESSION: 1. Further decrease in size of falcine subdural hemorrhage, now 2.5 mm thick, previously about 3.5 mm. No new intracranial hemorrhage or new intracranial abnormality. 2. Left frontal, temporal, and occipital lobe encephalomalacia compatible with old infarctions, stable. 3. Parenchymal volume loss and odda-ai-mwveckdv chronic microvascular ischemic changes. D/ / 08/26/2018 22:02:01 Sakshi Johnson MD / reyeser Interpreting Provider: Sakshi Johnson MD Consult Discharge Plan - Plan Referrals: Fan Clancy DO [Primary Care Provider] - (2) Hypertension Qualifiers: Hypertension type: unspecified secondary hypertension Qualified Code(s): I15.9 - Secondary hypertension, unspecified; I15 - Secondary hypertension (3) Afib Qualifiers: Atrial fibrillation type: paroxysmal Qualified Code(s): I48.0 - Paroxysmal atrial fibrillation (5) CVA (cerebral vascular accident) Qualifiers: CVA mechanism: other Qualified Code(s): I63.89 - Other cerebral infarction
[2018-08-29] MEDS: Ipratropium/Albuterol Neb 3 ML IH SCH ×4 (03:46→21:49)
[2018-08-29 05:21] LABS: Basophils % 0.4 %; Eosinophils # 0.5 K/mcL (0.0-0.6); Eosinophils % 7.1 %; Hemoglobin 10.4 g/dL (12.9-16.9); Immature Granulocytes % 0.8 % (0-4); Lymphocytes % 26.4 %; Mean Corpuscular HGB Conc 31.5 g/dL (31.6-35.5); Mean Corpuscular Hemoglobin 28.8 pg (28.0-33.3); Mean Corpuscular Volume 91.4 fL (83.0-100.0); Mean Platelet Volume 8.2 fL (9.4-12.4); Monocytes # 0.9 K/mcL (0.0-1.3); Monocytes % 11.5 %; Platelet Count 195 K/mcL (140-400); Red Blood Count 3.61 M/mcL (4.19-5.50); Red Cell Distribution Width 15.9 % (11.5-14.5); Segmented Neutrophils % 53.8 %; White Blood Count 7.5 K/mcL (4.3-11.1)
[2018-08-29 05:35] LABS: Albumin/Globulin Ratio 0.9 (1.1-2.2); Bilirubin,Direct 0.1 mg/dL (0.0-0.2); Bilirubin,Indirect 0.2 mg/dL (0.0-1.2); Bilirubin,Total 0.3 mg/dL (0.3-1.0); Globulin 3.3 g/dL (2.4-3.5); Total Protein 6.3 g/dL (6.4-8.9)
[2018-08-29 05:37] LABS: BUN/Creatinine Ratio 24 (6-26); Blood Urea Nitrogen 22 mg/dL (8-23); Calcium 8.8 mg/dL (8.6-10.3); Carbon Dioxide 27 mEq/L (23-29); Chloride 99 mEq/L (98-107); Glucose 114 mg/dL (70-105); Magnesium 1.7 mg/dL (1.6-2.6); Osmolality,Calculated 286 (280-300); Potassium 3.7 mEq/L (3.5-5.1); Sodium 136 mEq/L (136-145); eGFR For African Americans > 60 (> 60); eGFR For Non-African Americans > 60 (> 60)
[2018-08-29] MEDS: *HR* Amiodarone 200 MG TABLET PO SCH (07:31)
[2018-08-29] MEDS: Furosemide 40 MG TABLET PO SCH (07:31)
[2018-08-29] MEDS: levoFLOXacin 750 MG/150 ML 750 MG/150 ML BAG IVPB SCH (07:31)
[2018-08-29] MEDS: Finasteride 5 MG TABLET PO SCH (07:32)
--- NOTE | 2018-08-29 09:36 | Internal Med Progress Note ---
Hospitalist Progress Note - Encounter Date of Encounter: 08/29/18 Time of Encounter: 09:33 - Subjective Interval History: Mr Biswas this as plans was been discussed however he maintains that he does not want to be discharged stating that he was told by his primary care physician that he needs an IV port for extended spectrum antibiotics. Upon review of his outpatient medical records it appears the patient had a urine culture dated 08/22/2018 which grew Pseudomonas and Klebsiella pneumonia vilxk-gkor-egrwdtkua organism with susceptibility to the carbapenems. Patient said that he is not interested in going to an ECF for IV antibiotics and is willing to do home infusion. He stated his dysuria is somewhat improved. GEN: Denies fever, chills or malaise HEENT: Denies headache blurriness, or dysphagia RESP: Denies SOB or cough CV: Denies chest pain or palpitations GI: Denies Nausea, vomiting, diarrhea or constipation Reviewed current in hospital medications with modifications see orders Reviewed Routine labs - Exam Vitals: Temp Pulse Resp BP Pulse Ox 98.4 F 74 16 105/62 95 08/29/18 06:35 08/29/18 06:35 08/29/18 06:35 08/29/18 06:35 08/29/18 06:35 Exam: GEN: NAD, A&O x 3, Pleasant and conversant SKIN: [place] warm acyanotic not jaundice HEART: RRR, no murmurs LUNGS: Somewhat Diminished but appears CTA no wheeze or crackles, overall non labored ABDOMEN; Soft, non tender or distended, BS x 4 normactive EXT: No LE edema, Pedal pulses 1+, radial pulses 2+ PSYCH: Mood and affect is appropriate - Assessment and Plan (1) Pseudomonas urinary tract infection Current Visit: Yes Status: Acute Assessment and Plan: Urine culture from 08/22/2018 revealed Pseudomonas will switch patient to Invanz he needs 5 day treatment. Patient might need a PICC for home infusion he does not want ECF placement and otherwise afebrile and has no leukocytosis. This also could be colonization however patient does have dysuria and he is paranoid about becoming septic (2) Urinary tract infection due to ESBL Klebsiella Current Visit: Yes Status: Acute Assessment and Plan: Urine culture from 08/22/2018 revealed multidrug resistance Klebsiella pneumonia will switch patient to Invanz he needs 5 day treatment. Patient might need a PICC for home infusion he does not want ECF placement and otherwise afebrile and has no leukocytosis. This also could be colonization however patient does have dysuria and he is paranoid about becoming septic (3) HCAP (healthcare-associated pneumonia) Current Visit: Yes Status: Acute Assessment and Plan: Likely resolved weaning off his oxygen Sputum culture was negative Legionella antigen was negative. Suspect atelectasis will order a incentive spirometry. He is afebrile has no leukocytosis and based on his outpatient urine culture he is now on Invanz. (4) Hypertension Current Visit: Yes Status: Chronic Assessment and Plan: Normotensive (5) Afib Current Visit: Yes Status: Chronic Assessment and Plan: Not evidence on exam, Not on anticoagulation due to subdural hematoma recently. Continue amiodarone, TSH 1.928 (6) DVT prophylaxis Current Visit: Yes Status: Acute Assessment and Plan: SCDs history of recent subdural hematoma (7) CVA (cerebral vascular accident) Current Visit: Yes Status: Chronic Assessment and Plan: secondary prevention, CT head revealed old infarcts, we will start statin therapy, LFTs wnl, aspirin held due to his recent subdural hematoma (8) JOAQUIN (acute kidney injury) Current Visit: Yes Status: Acute Assessment and Plan: Resolved (9) Acute hypoxemic respiratory failure Current Visit: Yes Status: Acute Assessment and Plan: Will wean off oxygen therapy 95% on 1 L, would discontinue supplement oxygen, incentive spirometry ordered for patient (10) Subdural hematoma Current Visit: Yes Status: Acute Assessment and Plan: Per admission H&P He had a CT head in July that showed the subdural hematoma. repeat CT head showed a decrease in the previous subdural hematoma to 2.5 m from 3.5. Will continue to monitor as he is asymptomatic - Time Spent with Patient Total time spent is greater than 50% in coordination of care (as documented) at patient's floor/unit and/or counseling patient: Plan of Care Discussed with: nurse Internal Medicine: Result - Labs CBC & Chem 7: 08/29/18 04:38 08/29/18 04:38 Labs: Short CBC 08/29/18 Range/Units 04:38 WBC 7.5 (4.3-11.1) K/mcL Hgb 10.4 L (12.9-16.9) g/dL Hct 33.0 L (37.5-50.1) % Plt Count 195 (140-400) K/mcL Neutrophils # 4.0 (1.6-8.9) K/mcL BMP 08/29/18 04:38 Sodium 136 Potassium 3.7 Chloride 99 Carbon Dioxide 27 BUN 22 Creatinine 0.92 Glucose 114 H Calcium 8.8 Liver Function 08/29/18 Range/Units 04:38 Total Bilirubin 0.3 (0.3-1.0) mg/dL Direct Bilirubin 0.1 (0.0-0.2) mg/dL AST 12 L (13-39) Units/L ALT 11 (7-52) Units/L Alkaline Phosphatase 58 (34-104) Units/L Albumin 3.0 L (3.5-5.7) g/dL - ABG Interpretation ABG results: ABG ABG pH 7.42 pH Units (7.32-7.45) 08/26/18 15:44 ABG pCO2 38 mmHg (35-45) 08/26/18 15:44 ABG pO2 96 mmHg (85-104) 08/26/18 15:44 ABG O2 Saturation 98 % (95-98) 08/26/18 15:44 - Impressions Impressions Head CT 08/26/18 21:23 IMPRESSION: 1. Further decrease in size of falcine subdural hemorrhage, now 2.5 mm thick, previously about 3.5 mm. No new intracranial hemorrhage or new intracranial abnormality. 2. Left frontal, temporal, and occipital lobe encephalomalacia compatible with old infarctions, stable. 3. Parenchymal volume loss and qgyg-us-kbrejqak chronic microvascular ischemic changes. D/ / 08/26/2018 22:02:01 Sakshi Johnson MD / enrike Interpreting Provider: Sakshi Johnson MD Consult Discharge Plan - Plan Referrals: Fan Clancy DO [Primary Care Provider] - __ (4) Hypertension Qualifiers: Hypertension type: unspecified secondary hypertension Qualified Code(s): I15.9 - Secondary hypertension, unspecified; I15 - Secondary hypertension (5) Afib Qualifiers: Atrial fibrillation type: paroxysmal Qualified Code(s): I48.0 - Paroxysmal atrial fibrillation (7) CVA (cerebral vascular accident) Qualifiers: CVA mechanism: other Qualified Code(s): I63.89 - Other cerebral infarction
[2018-08-29] MEDS ORDERED: Lidocaine -MPF 1% 5 ML AMPUL INFILT ONE (09:42)
[2018-08-29] MEDS ORDERED: 0.9 % Sodium Chloride Mini Bag 100 ML ONE (09:56)
[2018-08-29] MEDS: Lactobacillus 1 EACH CAP.SPRINK PO SCH ×2 (09:59→20:55)
[2018-08-29] MEDS: Meropenem 1,000 MG in Water for inj. (sterile) 10 ML IVP SCH ×2 (16:10→23:57)
[2018-08-30] MEDS: Ipratropium/Albuterol Neb 3 ML IH SCH ×2 (03:51→09:49)
[2018-08-30] MEDS: Meropenem 1,000 MG in Water for inj. (sterile) 10 ML IVP SCH (07:08)
[2018-08-30] MEDS: Finasteride 5 MG TABLET PO SCH (07:10)
[2018-08-30] MEDS: *HR* Amiodarone 200 MG TABLET PO SCH (07:10)
[2018-08-30] MEDS: Lactobacillus 1 EACH CAP.SPRINK PO SCH (07:10)
[2018-08-30] MEDS ORDERED: Furosemide 40 MG TABLET PO SCH (09:00)
--- NOTE | 2018-08-30 09:12 | Discharge Summary ---
- NOTES TO OUTPATIENT PROVIDER Notes to Outpatient Provider: Posthospital discharge for multidrug resistance UTI Orders not resulted at time of discharge: Pending orders 08/26/18 14:58 Culture,Blood [BC] Stat 08/30/18 04:00 Basic Metabolic Panel AM 0400 Complete Blood Count [HEME] AM 0400 Magnesium AM 0400 Date of Encounter: 08/30/18 Time of Encounter: 09:10 - Discharge Diagnosis (1) Pseudomonas urinary tract infection Priority: Primary Status: Acute Assessment and Plan: Urine culture from 08/22/2018 revealed Pseudomonas will switch patient to Invanz he needs 5 day treatment. Patient might need a PICC for home infusion he does not want ECF placement and otherwise afebrile and has no leukocytosis. This also could be colonization however patient does have dysuria and he is paranoid about becoming septic (2) Urinary tract infection due to ESBL Klebsiella Priority: Primary Status: Acute Assessment and Plan: Urine culture from 08/22/2018 revealed multidrug resistance Klebsiella pneumonia will switch patient to Invanz he needs 5 day treatment. Patient might need a PICC for home infusion he does not want ECF placement and otherwise afebrile and has no leukocytosis. This also could be colonization however patient does have dysuria and he is paranoid about becoming septic (3) HCAP (healthcare-associated pneumonia) Priority: Secondary Status: Acute Assessment and Plan: Likely resolved weaning off his oxygen Sputum culture was negative Legionella antigen was negative. Suspect atelectasis will order a incentive spirometry. He is afebrile has no leukocytosis and based on his outpatient urine culture he is now on Invanz. (4) Hypertension Priority: Secondary Status: Chronic Assessment and Plan: Normotensive Qualifiers: Hypertension type: unspecified secondary hypertension Qualified Code(s): I15.9 - Secondary hypertension, unspecified; I15 - Secondary hypertension (5) Afib Priority: Secondary Status: Chronic Assessment and Plan: Not evidence on exam, Not on anticoagulation due to subdural hematoma recently. Continue amiodarone, TSH 1.928 Qualifiers: Atrial fibrillation type: paroxysmal Qualified Code(s): I48.0 - Paroxysmal atrial fibrillation (6) DVT prophylaxis Priority: Secondary Status: Acute Assessment and Plan: SCDs history of recent subdural hematoma (7) CVA (cerebral vascular accident) Priority: Secondary Status: Chronic Assessment and Plan: secondary prevention, CT head revealed old infarcts, we will start statin therapy, LFTs wnl, aspirin held due to his recent subdural hematoma Qualifiers: CVA mechanism: other Qualified Code(s): I63.89 - Other cerebral infarction (8) JOAQUIN (acute kidney injury) Priority: Secondary Status: Acute Assessment and Plan: Resolved (9) Acute hypoxemic respiratory failure Priority: Secondary Status: Acute Assessment and Plan: Will wean off oxygen therapy 95% on 1 L, would discontinue supplement oxygen, incentive spirometry ordered for patient (10) Subdural hematoma Priority: Secondary Status: Acute Assessment and Plan: Per admission H&P He had a CT head in July that showed the subdural hematoma. repeat CT head showed a decrease in the previous subdural hematoma to 2.5 m from 3.5. Will continue to monitor as he is asymptomatic Hospital course: Mr. Biswas is a 83 year old male was sent by his primary care physician to be hospitalized due to outpatient urine analysis and culture revealing zrnxn-xtdy-fjrrbpkak organism. He will started on IV extended spectrum antibiotics. He had a peripherally inserted central catheter placed and he would be sent home with home health. Treatment plan was discussed with the she wanted him to go to an ECF for these treatments but patient adamantly refused Discharge discussed with: patient, family, nurse, social work, case management - Time Spent with Patient Total time spent providing and/or coordinating discharge services: 45 mins Specific discharge activities: Please adhere to the treatment plan - Discharge Medications Prescriptions: New Lactobacillus [Culturelle] 1 each PO BID #60 cap.sprink Meropenem-0.9% Sodium Chloride [Meropenem-0.9% NaCl 1 Gram/50] 1 gm IV Q8HR 7 Days #21 piggyback Continued Finasteride [Proscar] 5 mg PO DAILY Sertraline [Zoloft] 25 mg PO DAILY Furosemide [Lasix] 40 mg PO BID Lisinopril [Zestril] 40 mg PO DAILY Diltiazem HCl [Cardizem LA] 120 mg PO DAILY Amiodarone HCl 200 mg PO DAILY Potassium Chloride [K-Tab ER] 40 meq PO DAILY Pravastatin Sodium [Pravachol] 20 mg PO DAILY Omega3/Dha/Epa/Fish Oil/Vit D3 [Fish Oil + Vitamin D-3 Softgel] 1 each PO DAILY Folic Acid 1 mg PO DAILY Discontinued Simethicone [Gas-X] 80 mg PO QID PRN PRN Reason: "gas" Polyethylene Glycol 3350 [MiraLAX] 17 gm PO BID PRN PRN Reason: Constipation Omeprazole [PriLOSEC] 20 mg PO DAILY Guaifenesin [Mucinex] 600 mg PO BID PRN PRN Reason: Congestion Docusate Sodium [Dok] 200 mg PO DAILY PRN PRN Reason: Constipation Home Medications: Amiodarone HCl 200 mg PO DAILY 08/27/18 [History] Diltiazem HCl [Cardizem LA] 120 mg PO DAILY 08/27/18 [History] Finasteride [Proscar] 5 mg PO DAILY 08/27/18 [History] Furosemide [Lasix] 40 mg PO BID 08/27/18 [History] Lisinopril [Zestril] 40 mg PO DAILY 08/27/18 [History] Potassium Chloride [K-Tab ER] 40 meq PO DAILY 08/27/18 [History] Sertraline [Zoloft] 25 mg PO DAILY 08/27/18 [History] Folic Acid 1 mg PO DAILY 08/28/18 [History] Omega3/Dha/Epa/Fish Oil/Vit D3 [Fish Oil + Vitamin D-3 Softgel] 1 each PO DAILY 08/28/18 [History] Pravastatin Sodium [Pravachol] 20 mg PO DAILY 08/28/18 [History] Lactobacillus [Culturelle] 1 each PO BID #60 cap.sprink 08/30/18 [Rx] Meropenem-0.9% Sodium Chloride [Meropenem-0.9% NaCl 1 Gram/50] 1 gm IV Q8HR 7 Days #21 piggyback 08/30/18 [Rx] Allergies/Adverse Reactions: Allergy/AdvReac Type Severity Reaction Status Date / Time No Known Allergies Allergy Verified 05/18/18 19:41 Date of admission: 08/29/18 12:59 Primary care physician: Fan Clancy DO Consults: 08/26/18 16:24 Consult to Occupational Therapy [CONS] Routine Comment: Evaluate, develop and implement POC Reason for Consult: therapy/placement needs Does patient have active BEDREST order?: No Is patient medically & hemodynamically stable?: Yes Consult to Physical Therapy [CONS] Routine Comment: Evaluate, develop and implement POC Reason for Consult: PT eval Does patient have active BEDREST order?: No Is patient medically & hemodynamically stable?: Yes 08/26/18 18:23 Consult to Tamping Machine Operator [CONS] Routine Reason for SW Consult: possible need for placement to rehab 08/29/18 09:43 Consult to Invasive Line Access Team [CONS] Routine Reason for Consult: Picc Line Insertion Line Type: PICC 08/29/18 11:52 Consult to Invasive Line Access Team [CONS] Routine Reason for Consult: Home IV ATB's Line Type: EPIV Time Notified: 11:52 08/30/18 08:26 Consult to Nurse Navigator [CONS] Routine Comment: pna Discharging clinician: Renita Tim - Constitutional Vitals: Temp Pulse Resp BP Pulse Ox 98.5 F 83 15 122/73 93 08/30/18 07:01 08/30/18 07:01 08/30/18 07:01 08/30/18 07:01 08/30/18 07:01 Exam: GEN: NAD, A&O x 3, Pleasant and conversant, male friend at his bed side SKIN: [place] warm acyanotic not jaundice HEART: RRR, no murmurs LUNGS: CTA no wheeze or crackles, overall non labored ABDOMEN; Soft, non tender or distended, BS x 4 normactive EXT: No LE edema, Pedal pulses 1+, radial pulses 2+ PSYCH: Mood and affect is appropriate - Patient Status Disposition: Home Health Service Condition: Good - Discharge Instructions Follow Up With: Fan Clancy DO [Primary Care Provider] - Forms: ED Satisfaction Letter - Diet and Activity Activity: resume usual activities as tolerated Diet: low fat, low cholesterol
[2018-08-30 09:22] LABS: Basophils % 0.3 %; Eosinophils # 0.5 K/mcL (0.0-0.6); Eosinophils % 7.7 %; Hematocrit 35.2 % (37.5-50.1); Hemoglobin 11.3 g/dL (12.9-16.9); Immature Granulocytes % 0.7 % (0-4); Lymphocytes # 1.5 K/mcL (0.6-4.6); Lymphocytes % 21.5 %; Mean Corpuscular HGB Conc 32.1 g/dL (31.6-35.5); Mean Corpuscular Volume 90.5 fL (83.0-100.0); Mean Platelet Volume 8.5 fL (9.4-12.4); Monocytes # 0.8 K/mcL (0.0-1.3); Monocytes % 10.7 %; Neutrophils # 4.1 K/mcL (1.6-8.9); Platelet Count 201 K/mcL (140-400); Red Blood Count 3.89 M/mcL (4.19-5.50); Red Cell Distribution Width 15.8 % (11.5-14.5); Segmented Neutrophils % 59.1 %
[2018-08-30 09:42] LABS: BUN/Creatinine Ratio 22 (6-26); Blood Urea Nitrogen 20 mg/dL (8-23); Calcium 9.1 mg/dL (8.6-10.3); Carbon Dioxide 30 mEq/L (23-29); Chloride 98 mEq/L (98-107); Glucose 104 mg/dL (70-105); Magnesium 1.9 mg/dL (1.6-2.6); Osmolality,Calculated 283 (280-300); Potassium 4.1 mEq/L (3.5-5.1); Sodium 135 mEq/L (136-145); eGFR For African Americans > 60 (> 60); eGFR For Non-African Americans > 60 (> 60)
--- NOTE | 2018-08-30 09:42 | Physician Discharge Referral ---
Home Health/Hosp Referral Info Transfer to: Home Health Provider in Charge Post Discharge: PCP (Patient on meropenem) - Diagnosis (1) Pseudomonas urinary tract infection Priority: Primary Status: Acute (2) Urinary tract infection due to ESBL Klebsiella Priority: Primary Status: Acute (3) HCAP (healthcare-associated pneumonia) Priority: Secondary Status: Acute (4) Hypertension Priority: Secondary Status: Chronic (5) Afib Priority: Secondary Status: Chronic (6) DVT prophylaxis Priority: Secondary Status: Acute (7) CVA (cerebral vascular accident) Priority: Secondary Status: Chronic (8) JOAQUIN (acute kidney injury) Priority: Secondary Status: Acute (9) Acute hypoxemic respiratory failure Priority: Secondary Status: Acute (10) Subdural hematoma Priority: Secondary Status: Acute - Respiratory Orders Smoking Cessation: Smoking cessation has been advised. For more information, call the [employer] Quit Line at 5-084-RPNL-NOW. - Diet/Nutrition Diet/Nutrition Orders: Cardiac - Services Needed Following services are medically necessary services: Nursing (Patient on IV meropenem) Home Care Orders: Gen. IV meropenem every 8 hours - Transfer Medications Prescriptions: Lactobacillus [Culturelle] 1 each PO BID #60 cap.sprink Meropenem-0.9% Sodium Chloride [Meropenem-0.9% NaCl 1 Gram/50] 1 gm IV Q8HR 7 Days #21 piggyback Home Medications: Amiodarone HCl 200 mg PO DAILY 08/27/18 [History] Diltiazem HCl [Cardizem LA] 120 mg PO DAILY 08/27/18 [History] Finasteride [Proscar] 5 mg PO DAILY 08/27/18 [History] Furosemide [Lasix] 40 mg PO BID 08/27/18 [History] Lisinopril [Zestril] 40 mg PO DAILY 08/27/18 [History] Potassium Chloride [K-Tab ER] 40 meq PO DAILY 08/27/18 [History] Sertraline [Zoloft] 25 mg PO DAILY 08/27/18 [History] Folic Acid 1 mg PO DAILY 08/28/18 [History] Omega3/Dha/Epa/Fish Oil/Vit D3 [Fish Oil + Vitamin D-3 Softgel] 1 each PO DAILY 08/28/18 [History] Pravastatin Sodium [Pravachol] 20 mg PO DAILY 07/21/19 [History] Lactobacillus [Culturelle] 1 each PO BID #60 cap.sprink 08/30/18 [Rx] Meropenem-0.9% Sodium Chloride [Meropenem-0.9% NaCl 1 Gram/50] 1 gm IV Q8HR 7 Days #21 piggyback 08/30/18 [Rx] Allergies/Adverse Reactions: Allergy/AdvReac Type Severity Reaction Status Date / Time No Known Allergies Allergy Verified 05/18/18 19:41 Certification: Further, I certify that my clinical findings support that this patient is homebound (i.e. absences from home require considerable and taxing effort and are for medical reasons or yazdanism services or infrequently or short duration when for other reasons) because: On IV meropenem for multidrug resistance UTI Homebound Reason: Patient requires assistance of a person or device to safely leave home (IV meropenem) Attestation: My signature below is to certify that this patient is under my care and that I, or nurse practitioner, or a physician's assistant professor sculpture working with me, has a [id number] encounter with this patient.
[2018-08-30 10:46] VITALS: BP 119/75
== END 2018-08-30 13:09 | disposition home health service (06) | DRG 193 ==
LOC: 3ANU 14:46 → EMEROOARM 14:46 → SUATTDRO 17:25 → 3ANU 17:42
PROVIDERS: ADMIT Student in an Organized Health Care Education/Training Program; ATTEND Internal Medicine

== ENCOUNTER 2018-10-31 09:38 | Inpatient (IN) ==
--- NOTE | 2018-10-31 10:05 | Emergency Department Note ---
Disposition Clinical Impression: Shortness of breath, History of lobectomy of lung, Mucus plugging of bronchi Disposition: Admitted As Inpatient Condition: Good Forms: ED Satisfaction Letter Time of Disposition: 13:52 General Adult HPI - General Chief complaint: ED Shortness of Breath/Dyspnea Stated complaint: CHUCHO Time Seen by Provider: 10/31/18 09:48 Source: patient, EMS Limitations: no limitations Nursing Notes Reviewed: Yes Vital Signs Reviewed: Yes - History of Present Illness HPI Narrative: 83-year-old male since emergency room for shortness of breath. Seems to be acute on chronic condition. Was supposed to see pulmonary today at 1:00 for his appointment. States he was short of breath this morning. He admits to a chronic cough with chronic sputum production. No active chest pain. Previous left upper lobe lobectomy for lung cancer. Patient had been getting radiation therapy up into the beginning of this year he states. Recent CT scans in the past couple months of showed no metastatic disease in the chest. He currently lives at home with his . He denies any documented fevers. No abdominal pain. Again no active chest pain. He does states he gets more short of breath with activity now. Does not think he can walk more than 10-15 feet without becoming more short of breath which is getting worse for him and that was the reason why he came in. Pain Scale: 3 - Related Data Home Medications Medication Instructions Recorded Confirmed Amiodarone HCl 200 mg PO DAILY 08/27/18 08/28/18 Diltiazem HCl [Cardizem LA] 120 mg PO DAILY 08/27/18 08/28/18 Finasteride [Proscar] 5 mg PO DAILY 08/27/18 08/28/18 Furosemide [Lasix] 40 mg PO BID 08/27/18 08/28/18 Lisinopril [Zestril] 40 mg PO DAILY 08/27/18 08/28/18 Potassium Chloride [K-Tab ER] 40 meq PO DAILY 08/27/18 08/28/18 Sertraline [Zoloft] 25 mg PO DAILY 08/27/18 08/28/18 Folic Acid 1 mg PO DAILY 08/28/18 08/28/18 Omega3/Dha/Epa/Fish Oil/Vit D3 1 each PO DAILY 08/28/18 08/28/18 [Fish Oil + Vitamin D-3 Softgel] Pravastatin Sodium [Pravachol] 20 mg PO DAILY 08/28/18 08/28/18 Previous Rx's Medication Instructions Recorded Lactobacillus [Culturelle] 1 each PO BID #60 cap.sprink 08/30/18 Meropenem-0.9% Sodium Chloride 1 gm IV Q8HR 7 Days #21 piggyback 08/30/18 [Meropenem-0.9% NaCl 1 Gram/50] Allergies Allergy/AdvReac Type Severity Reaction Status Date / Time No Known Allergies Allergy Verified 05/18/18 19:41 All systems ED: reviewed and negative except as stated. Constitutional: Reports: as per HPI Eyes: Reports: as per HPI Cardiovascular: Denies: chest pain, palpitations Respiratory: Reports: cough, dyspnea Gastrointestinal: Denies: abdominal pain Genitourinary: Reports: as per HPI Musculoskeletal: Reports: as per HPI Integumentary: Reports: as per HPI Neurological: Reports: as per HPI Psychiatric: Reports: as per HPI Endocrine: Reports: as per HPI, fatigue Past Medical History - Past Medical History Medical history: Reports: atrial fibrillation, cancer, CVA, hyperlipidemia, hypertension, other Surgical history: Reports: cataract Psychiatric history: Reports: no psych history - Social History Smoking Status: Former smoker Smokeless Tobacco Status: No Alcohol use: Reports: none Drug use: Reports: none Physical Exam - General Limitations: no limitations General appearance: alert, in no apparent distress - Head Head exam: atraumatic, normocephalic - ENT ENT exam: normal exam - Chest Chest inspection: Present: symmetric chest wall rise. Absent: tenderness - Respiratory Respiratory exam: Present: other (Hyperresonance the left upper lobe. Some coarse rhonchi heard throughout the left lung robertson. Right lung was clear) - Cardiovascular Cardiovascular exam: Present: regular rate, normal rhythm - Abdominal Exam Abdominal exam: Present: soft, Non-Tender, normal bowel sounds - Extremities Exam Extremities exam: Present: normal inspection. Absent: tenderness, joint swelling - Expanded Lower Extremity Exam Hip/Pelvis exam: Present: normal inspection - Neurological Exam Neurological exam: Present: alert, oriented X3 - Psychiatric Psychiatric exam: Present: normal affect, normal mood - Skin Skin exam: Present: warm, dry, intact Course Vital Signs Temperature 99.0 F 10/31/18 09:43 Pulse Rate 84 10/31/18 09:43 Respiratory Rate 18 10/31/18 09:43 Blood Pressure 139/80 10/31/18 09:43 O2 Sat by Pulse Oximetry 93 10/31/18 09:43 Temperature 99.0 F 10/31/18 09:43 Pulse Rate 84 10/31/18 09:43 Respiratory Rate 18 10/31/18 09:43 Blood Pressure 139/80 10/31/18 09:43 O2 Sat by Pulse Oximetry 93 10/31/18 09:43 Oxygen Delivery Oxygen Delivery Nasal Cannula Medical Decision Making - MDM Narrative Medical decision making narrative: Patient's labs are stable. No significant findings there. His CT shows worsening of the left lobe lung robertson. Patient has near opacification now which seems to be worsening as compared to his prior CT. Carcinoma mucous plugging versus underlying disease with his history of lung cancer. Patient will be admitted. I did speak with the hospitalist. Likely will need pulmonary consultation for possible bronchoscopy. He is hemodynamically stable. - Medical Records Medical records reviewed: Yes I reviewed the patient's medical records. - Lab Data Lab results reviewed: Yes I reviewed the patient's lab results. Result diagrams: 10/31/18 10:26 10/31/18 10:26 Lab Results 10/31/18 10/31/18 Range/Units 10:26 10:26 WBC 8.3 (4.3-11.1) K/mcL RBC 3.92 L (4.19-5.50) M/mcL Hgb 11.1 L (12.9-16.9) g/dL Hct 35.8 L (37.5-50.1) % MCV 91.3 (83.0-100.0) fL MCH 28.3 (28.0-33.3) pg MCHC 31.0 L (31.6-35.5) g/dL RDW 15.6 H (11.5-14.5) % Plt Count 237 (140-400) K/mcL MPV 8.5 L (9.4-12.4) fL Immature Gran % 0.7 (0-4) % Seg Neutrophils % 68.0 % Lymphocytes % 12.0 % Monocytes % 7.6 % Eosinophils % 11.2 % Basophils % 0.5 % Neutrophils # 5.6 (1.6-8.9) K/mcL Lymphocytes # 1.0 (0.6-4.6) K/mcL Monocytes # 0.6 (0.0-1.3) K/mcL Eosinophils # 0.9 H (0.0-0.6) K/mcL Basophils # 0.0 (0.0-0.2) K/mcL Sodium 135 L (136-145) mEq/L Potassium 4.1 (3.5-5.1) mEq/L Chloride 99 (98-107) mEq/L Carbon Dioxide 31 H (23-29) mEq/L BUN 17 (8-23) mg/dL Creatinine 0.71 (0.70-1.30) mg/dL Est GFR ( Amer) > 60 (> 60) Est GFR (Non-Af Amer) > 60 (> 60) BUN/Creatinine Ratio 24 (6-26) Glucose 170 H (70-105) mg/dL Calculated Osmolality 286 (280-300) Calcium 8.4 L (8.6-10.3) mg/dL Troponin I < 0.03 (< 0.04) ng/mL - Radiology Data Radiology results reviewed: Yes I reviewed the patient's radiology results. - EKG Data EKG #1 EKG attestation: Yes I reviewed and interpreted this EKG. EKG results narrative: Rate of 85. No sinus rhythm. Left axis deviation. NM interval 195. QRS 106. QTC 452. No signs acute ischemia. Nonspecific EKG
[2018-10-31] MEDS ORDERED: Isovue-370 500 ML BOTTLE IVP ONE (10:33)
[2018-10-31 11:00] LABS: Basophils % 0.5 %; Eosinophils # 0.9 K/mcL (0.0-0.6); Eosinophils % 11.2 %; Hematocrit 35.8 % (37.5-50.1); Hemoglobin 11.1 g/dL (12.9-16.9); Immature Granulocytes % 0.7 % (0-4); Mean Corpuscular Hemoglobin 28.3 pg (28.0-33.3); Mean Corpuscular Volume 91.3 fL (83.0-100.0); Mean Platelet Volume 8.5 fL (9.4-12.4); Monocytes # 0.6 K/mcL (0.0-1.3); Monocytes % 7.6 %; Neutrophils # 5.6 K/mcL (1.6-8.9); Platelet Count 237 K/mcL (140-400); Red Blood Count 3.92 M/mcL (4.19-5.50); Red Cell Distribution Width 15.6 % (11.5-14.5); White Blood Count 8.3 K/mcL (4.3-11.1)
[2018-10-31 11:23] LABS: BUN/Creatinine Ratio 24 (6-26); Blood Urea Nitrogen 17 mg/dL (8-23); Calcium 8.4 mg/dL (8.6-10.3); Carbon Dioxide 31 mEq/L (23-29); Chloride 99 mEq/L (98-107); Glucose 170 mg/dL (70-105); Osmolality,Calculated 286 (280-300); Potassium 4.1 mEq/L (3.5-5.1); Sodium 135 mEq/L (136-145); eGFR For African Americans > 60 (> 60); eGFR For Non-African Americans > 60 (> 60)
[2018-10-31 11:24] LABS: Troponin I < 0.03 ng/mL (< 0.04)
[2018-10-31] MEDS ORDERED: Ondansetron 4 MG/2 ML VIAL IVP PRN (14:31)
[2018-10-31] MEDS ORDERED: Ipratropium/Albuterol Neb 3 ML IH PRN (14:37)
--- NOTE | 2018-10-31 14:45 | Internal Med History&Physical ---
Date of Encounter: 10/31/18 Time of Encounter: 14:00 Internal Medicine - H&P: HPI Chief complaint: Dyspnea Admitted From: Home Plans for Post Hospital Care: Home History of present illness: Mr. Biswas is a 83 year old male with past medical history of COPD on intermittent 2 L of oxygen, asbestos exposure, left lung cancer status post partial lobectomy in 2013, CVA, atrial fibrillation not on anticoagulation due to subdural hematoma, HTN, HFpEF who came into the hospital due to dyspnea. Patient was hospitalized 3 months ago for pneumonia and since then he had a chronic dyspnea. He has to put his oxygen on 2 L all the time. His dyspnea got worse the past few days. He was supposed to see pulmonary as outpatient but he felt could not make it and came in the hospital. Patient denies fever, chills or night sweats. He endorsed weight loss since his last pneumonia. He has chronic cough and greenish sputum production which is his baseline. In the emergency department, she was afebrile, hemodynamically stable. EKG: Sinus rhythm. Blood work was significantly normal. CT of the chest with contrast revealed near complete opacification of the residual left lung which is worse compared to before likely secondary to mucous plugging or aspirated material with post obstructive pneumonitis. Constellation in the right upper and lower lobes which is new compared to before likely atelectasis versus aspiration. Past Med Surg Social Fam HX - Past Medical History Medical history: atrial fibrillation, cancer, CVA, hyperlipidemia, hypertension, other Additional medical history: lung CA Psychiatric history: no psych history - Past Surgical History Surgical History: cataract Additional surgical history: SWAPNIL lobectomy. prostate surgery. cyst removed - Social History Smoking Status: Former smoker Smokeless Tobacco Status: No Alcohol use: none Drug use: none Occupational status: retired Current living situation: Home - Independent Activity Level: Independent ambulation Recent Out of Country Travel Within the Last 8 Weeks: No Exposure or Possible Exposure to Illness During Travel: No - Family History Mother Living Status: - Additional Family History Additional family history: Reviewed and noncontributory Internal Medicine - H&P: Meds Amiodarone HCl 200 mg PO DAILY 08/27/18 [History] Diltiazem HCl [Cardizem LA] 120 mg PO DAILY 08/27/18 [History] Finasteride [Proscar] 5 mg PO DAILY 08/27/18 [History] Furosemide [Lasix] 40 mg PO BID 08/27/18 [History] Lisinopril [Zestril] 40 mg PO DAILY 08/27/18 [History] Potassium Chloride [K-Tab ER] 40 meq PO DAILY 08/27/18 [History] Sertraline [Zoloft] 25 mg PO DAILY 08/27/18 [History] Folic Acid 1 mg PO DAILY 08/28/18 [History] Omega3/Dha/Epa/Fish Oil/Vit D3 [Fish Oil + Vitamin D-3 Softgel] 1 each PO DAILY 08/28/18 [History] Pravastatin Sodium [Pravachol] 20 mg PO DAILY 08/28/18 [History] Lactobacillus [Culturelle] 1 each PO BID #60 cap.sprink 08/30/18 [Rx] 3 Allergy/AdvReac Type Severity Reaction Status Date / Time No Known Allergies Allergy Verified 05/18/18 19:41 All Systems PM: A 10-system review of systems was performed and is negative for pertinent findings except as documented above in the HPI. - Constitutional Vitals: Temp Pulse Resp BP Pulse Ox 99.0 F 84 18 124/78 93 10/31/18 09:43 10/31/18 09:43 10/31/18 09:43 10/31/18 14:08 10/31/18 09:43 Exam: General: Patient is alert, oriented 3. Head: Atraumatic, normal inspection, normocephalic. Eye: EOMI, PERRLA, no scleral icterus noted. ENT: Mucous membranes moist. Neck: Normal inspection, Respiratory: Coarse lung sounds bilaterally, rhonchi, crackles and wheezing. Cardiovascular: Regular rate and regular rhythm, S1 and S2 audible. No murmurs, rubs, or gallops. GI: Soft, nondistended, normal bowel sounds. Extremities:No joint swelling, pedal edema, or tenderness noted. Neurological: Alert, oriented 3, no focal deficits. Psychiatric: normal affect, normal mood. Skin: Dry, intact, warm. Normal color. No rashes. Internal Med - H&P Results - Labs CBC & Chem 7: 10/31/18 10:26 10/31/18 10:26 Labs: Short CBC 10/31/18 Range/Units 10:26 WBC 8.3 (4.3-11.1) K/mcL Hgb 11.1 L (12.9-16.9) g/dL Hct 35.8 L (37.5-50.1) % Plt Count 237 (140-400) K/mcL Neutrophils # 5.6 (1.6-8.9) K/mcL BMP 10/31/18 10:26 Sodium 135 L Potassium 4.1 Chloride 99 Carbon Dioxide 31 H BUN 17 Creatinine 0.71 Glucose 170 H Calcium 8.4 L Cardiac Enzymes 10/31/18 Range/Units 10:26 Troponin I < 0.03 (< 0.04) ng/mL - EKG Data -: EKG Interpreted by Myself EKG shows normal: sinus rhythm - EKG Data Prior EKG available for review: yes When compared to previous EKG: there is no significant change - Impressions ITS Impressions Chest X-Ray 10/31/18 10:10 IMPRESSION: Left-sided volume loss with leftward shift of mediastinum, likely related to history of left-sided lobectomy. Near complete opacification of the left hemithorax with mild sparing of the left lung apex, mildly progressed. Mild pulmonary vascular congestion in the right lungs. D/ / Derek Lou MD / Derek Lou MD Interpreting Provider: Derek Lou MD Chest CT 10/31/18 13:28 IMPRESSION: Redemonstration of prior partial left pneumonectomy. There is near complete opacification of the residual left lung, worsened from prior exam. There is worsened low-attenuation material within distal left mainstem bronchus and in segmental/subsegmental bronchi to residual left lung. Findings are felt likely to reflect mucous plugging or aspirated material with resultant postobstructive pneumonitis. Pneumonia not excluded. With the clinical history underlying neoplastic etiology cannot entirely be excluded. Recommend clinical correlation and continued close follow-up. Patient may benefit from bronchoscopy. Mild posterior/dependent predominantly linear/triangular areas of consolidation to right upper and lower lobes, new to worsened from prior exam felt most likely to reflect some atelectasis or scarring although aspiration pneumonitis or pneumonia could have a similar appearance. Stable small hiatal hernia. Cholelithiasis redemonstrated. D/ / 10/31/2018 13:41:00 Kirby Miranda MD / [facility] Interpreting Provider: Kirby Miranda MD - Diagnostic Studies CT scan - chest Status: image reviewed by me (Opacification of) - Assessment and Plan (1) History of lobectomy of lung Current Visit: Yes Status: Chronic (2) Mucus plugging of bronchi Current Visit: Yes Status: Acute (3) DVT prophylaxis Current Visit: No Status: Acute (4) Pneumonia Current Visit: Yes Status: Acute Qualifiers: Pneumonia type: due to unspecified organism Laterality: left Lung location: unspecified part of lung Qualified Code(s): J18.9 - Pneumonia, unspecified organism (5) Asbestos exposure Current Visit: Yes Status: Chronic - Summary of Assessment and Plan Summary of Assessment and Plan: Mr. Biswas is a 83 year old male with past medical history of COPD on intermittent 2 L of oxygen, asbestos exposure, left lung cancer status post partial lobectomy in 2013, CVA, atrial fibrillation not on anticoagulation due to subdural hematoma, HTN, HFpEF who came into the hospital due to dyspnea. Complete opacification of the left lung: mucous plugging vs neoplastic, consult placed for pulm for possible bronchoscopy tomorrow. Pulmonary toilet with flutter valve, and IS. PNA: Likely aspiration versus bacteria. Started patient on Zosyn and Flagyl. MRSA swab, sputum culture, blood culture, Streptococcus antigen, legionella antigens are pending. Consult placed for speech therapy A. fib: On entry cognition due to subdural hematoma in the past. Continue rate control with amiodarone and diltiazem. History of lung cancer: Not on active chemotherapy or radiotherapy. Status post partial lobectomy. Awaiting bronchoscopy tomorrow. Acute COPD exacerbation: start on Solumedrol, Duonebs, and Azithromycin. Chronic HFpEF: Compensated, continue Lasix. DVT prophylaxis: SCD - Time Spent With Patient Total time spent is greater than 50% in coordination of care (as documented) at patient's floor/unit and/or counseling patient:
[2018-10-31] MEDS ORDERED: Azithromycin 500 MG in 0.9 % Sodium Chloride 250 ML IVPB SCH (15:00)
--- NOTE | 2018-10-31 15:02 | Pulmonology Consult Note ---
Date of Encounter: 10/31/18 Time of Encounter: 14:00 Assessment and Plan (1) COPD (chronic obstructive pulmonary disease) Current Visit: Yes Status: Acute Patient COPD symptoms are stable . To continue current regimen of bronchodilators . Will start on methylprednisone 40mg q8 hrly in anticipation of Bronchoscopy tomorrow. Qualifiers: COPD type: unspecified COPD Qualified Code(s): J44.9 - Chronic obstructive pulmonary disease, unspecified (2) Adenocarcinoma of left lung Current Visit: Yes Status: Acute Patient has left upper lobe of adenocarcinoma underwent left partial pneumonectomy with metastatic left lower lobe disease SBRT now with left lower lobe lung collapse with most likely endobronchial lesions or secretions will need to do bronchoscopy with airway exam and BAL. (3) Pneumonia Current Visit: Yes Status: Acute To start on antibiotics. Qualifiers: Pneumonia type: aspiration pneumonia Aspiration pneumonia type: unspecified Laterality: left Lung location: lower lobe of lung Qualified Code(s): J69. 0 - Pneumonitis due to inhalation of food and vomit (4) Mucus plugging of bronchi Current Visit: Yes Status: Acute Will do bronchoscopy with BAL to keep NPO after midnight. History of Present Illness Consult date: 10/31/18 Requesting physician: Minal Moulton Reason for consult: abnormal CXR/CT Chief complaint: shortness of breadth History of present illness: 83-year-old male with past medical history significant for COPD former smoker chronic hypoxic respiratory failure had the partial pneumonectomy in 2013 had recurrence of the adenocarcinoma of left lung with metastatic disease in the left lower lobe had the SBRT in 2017 and 2018 patient had pneumonia at 3 months ago after that he developed this chronic dyspnea with was worsening today patient was supposed to see me today in the clinic but decided to come to the hospital because of worsening shortness of breath patient has some cough and not much sputum production he says denies any hemoptysis has some loss of weight li itle bit but denies any loss of appetite. Patient denies any fever or chills denies any constitutional symptoms, denies any headaches, denies any fever or chills. Patient denies any active GERD or neuro symptoms. Past Med Surg Social Fam HX - Past Medical History Medical history: atrial fibrillation, cancer, CVA, hyperlipidemia, hypertension, other Additional medical history: lung CA Psychiatric history: no psych history - Past Surgical History Surgical History: cataract Additional surgical history: SWAPNIL lobectomy. prostate surgery. cyst removed - Social History Smoking Status: Never smoker Smokeless Tobacco Status: No Alcohol use: none Drug use: none - Family History Mother Living Status: Medications and Allergies Amiodarone HCl 200 mg PO DAILY 08/27/18 [History] Diltiazem HCl [Cardizem LA] 120 mg PO DAILY 08/27/18 [History] Finasteride [Proscar] 5 mg PO DAILY 08/27/18 [History] Furosemide [Lasix] 40 mg PO BID 08/27/18 [History] Lisinopril [Zestril] 40 mg PO DAILY 08/27/18 [History] Potassium Chloride [K-Tab ER] 40 meq PO DAILY 08/27/18 [History] Sertraline [Zoloft] 25 mg PO DAILY 08/27/18 [History] Folic Acid 1 mg PO DAILY 08/28/18 [History] Omega3/Dha/Epa/Fish Oil/Vit D3 [Fish Oil + Vitamin D-3 Softgel] 1 each PO DAILY 08/28/18 [History] Pravastatin Sodium [Pravachol] 20 mg PO DAILY 08/28/18 [History] Lactobacillus [Culturelle] 1 each PO BID #60 cap.sprink 08/30/18 [Rx] Allergy/AdvReac Type Severity Reaction Status Date / Time No Known Allergies Allergy Verified 05/18/18 19:41 All Systems: The remainder of the systems were reviewed and are negative Physical Examination Vital Signs: Vital Signs, Last 4 Hours BP 10/31/18 14:08 124/78 Results - Laboratory Findings CBC and BMP: 10/31/18 10:26 10/31/18 10:26 Abnormal lab findings: Abnormal lab results RBC 3.92 M/mcL (4.19-5.50) L 10/31/18 10:26 Hgb 11.1 g/dL (12.9-16.9) L 10/31/18 10:26 Hct 35.8 % (37.5-50.1) L 10/31/18 10:26 MCHC 31.0 g/dL (31.6-35.5) L 10/31/18 10:26 RDW 15.6 % (11.5-14.5) H 10/31/18 10:26 MPV 8.5 fL (9.4-12.4) L 10/31/18 10:26 Eosinophils # 0.9 K/mcL (0.0-0.6) H 10/31/18 10:26 Sodium 135 mEq/L (136-145) L 10/31/18 10:26 Carbon Dioxide 31 mEq/L (23-29) H 10/31/18 10:26 Glucose 170 mg/dL (70-105) H 10/31/18 10:26 Calcium 8.4 mg/dL (8.6-10.3) L 10/31/18 10:26 - Clinical Findings Intake & Output: Intake & Output 10/30/18 10/31/18 10/31/18 23:59 07:59 15:59 Weight 75.206 kg Consult Discharge Plan - Plan Referrals: Fan Clancy DO [Primary Care Provider] -
[2018-10-31] MEDS: Ipratropium/Albuterol Neb 3 ML IH SCH ×2 (16:15→22:36)
[2018-10-31] MEDS: Piperacillin/Tazobactam 3.375 GM in 0.9 % Sodium Chloride Mini Bag 100 ML IVPB SCH (17:37)
[2018-10-31] MEDS ORDERED: MethylPREDNISolone 40 MG/ML VIAL IVP SCH (18:00)
[2018-10-31] MEDS: Furosemide 40 MG TABLET PO SCH (19:55)
--- NOTE | 2018-10-31 23:03 | Anesthesia Evaluation PreOp ---
<Paris Scales Constance - Last Filed: 10/31/18 23:00> Date of Encounter: 10/31/18 Time of Encounter: 23:01 - Past History Planned Operation: Bronch Cardiac History: HTN, Hyperlipidemia, Arrhythmia (Afib) Pulmonary History: COPD, Other (Chronic hypoxic resp failure, Left lung adenocarcinoma s/p pneumonectomy, pneumonia) CAN PATCHER History: CVA Other Medical History: GERD, Other (pancytopenia) Anesthesia History: No Prior Anesthetic Complications Alcohol Use: none Drug use: none Medications and Allergies Amiodarone HCl 200 mg PO DAILY 08/27/18 [History] Diltiazem HCl [Cardizem LA] 120 mg PO DAILY 08/27/18 [History] Finasteride [Proscar] 5 mg PO DAILY 08/27/18 [History] Furosemide [Lasix] 40 mg PO BID 08/27/18 [History] Lisinopril [Zestril] 40 mg PO DAILY 08/27/18 [History] Potassium Chloride [K-Tab ER] 40 meq PO DAILY 08/27/18 [History] Sertraline [Zoloft] 25 mg PO DAILY 08/27/18 [History] Folic Acid 1 mg PO DAILY 08/28/18 [History] Omega3/Dha/Epa/Fish Oil/Vit D3 [Fish Oil + Vitamin D-3 Softgel] 1 cap PO DAILY 08/28/18 [History] Pravastatin Sodium [Pravachol] 20 mg PO DAILY 08/28/18 [History] Albuterol Sulfate [Ventolin Hfa] 2 puff IH Q6H PRN 11/01/18 [History] Lactobacillus [Culturelle] 1 cap PO BID 11/01/18 [History] Allergy/AdvReac Type Severity Reaction Status Date / Time No Known Allergies Allergy Verified 05/18/18 19:41 - Meds/Allergy Pre-op Review Medications Reviewed: Yes Allergies Reviewed: Yes Beta Blockers on Current Med List: No Anesthesia Results - Labs 10/31/18 10:26 10/31/18 10:26 - Imaging EKG: report reviewed ( Interpretive Statements Sinus rhythm Low voltage, precordial leads Electronically Signed On 08-28-2018 0:37:37 EDT by Ruiz Combs) Anesthesia Exam Vital Signs/O2 Sat, Most Current Temp Pulse Resp BP Pulse Ox 98.0 F 79 16 121/67 93 10/31/18 19:16 10/31/18 19:16 10/31/18 19:16 10/31/18 19:16 10/31/18 22:39 Weight: 78kg NPO (# of Hours): MN - HEENT Pupil (Motor): Pupils equal, EOMI Mallampati: II Oral Opening: Greater than 3 Anesthesia Assess/Plan ASA Score: 4 Anesthetic Plan: General Monitoring Plan: Standard Monitors Recovery Plan: PACU <Robles Stahl - Last Filed: 11/01/18 09:44> Date of Encounter: 11/01/18 Anesthesia Results - Labs 11/01/18 04:04 11/01/18 04:04 - Imaging Additional studies: Echocardiogram Name: Donavan Biswas Date of Study: 10/02/2016 Impressions: LVEF 65%. Normal left ventricular size and systolic function. Mild increased LV wall thickness. There is evidence of mild diastolic dysfunction of the left ventricle. Normal right ventricular size and function. Mild mitral regurgitation. Mild-moderate pulmonic regurgitation. No pulmonary hypertension. Anesthesia Exam Vital Signs/O2 Sat, Most Current Temp Pulse Resp BP Pulse Ox 97.9 F 81 14 128/73 97 11/01/18 06:54 11/01/18 06:54 11/01/18 06:54 11/01/18 06:54 11/01/18 06:54 - CAN PATCHER LOC: Oriented CAN PATCHER Motor: Normal RUE, Normal LUE, Normal RLE, Normal LLE, Normal Face CAN PATCHER Sensory: Normal: RUE, LUE, RLE, LLE, Face - Cardiac Rhythm: Regular Murmur: None JVD: No Carotid Bruit: No - Pulmonary Breath Sounds: bilateral Clear Respiratory Effort: Symmetrical Anesthesia Assess/Plan Level of consciousness: Cooperative
[2018-11-01] MEDS: MethylPREDNISolone 40 MG/ML VIAL IVP SCH ×3 (00:49→15:24)
[2018-11-01] MEDS: Piperacillin/Tazobactam 3.375 GM in 0.9 % Sodium Chloride Mini Bag 100 ML IVPB SCH ×3 (00:49→15:27)
[2018-11-01] MEDS: Ipratropium/Albuterol Neb 3 ML IH SCH ×5 (04:21→22:08)
[2018-11-01 05:20] LABS: Basophils % 0.2 %; Eosinophils % 0.2 %; Hematocrit 36.1 % (37.5-50.1); Hemoglobin 11.5 g/dL (12.9-16.9); Immature Granulocytes % 1.2 % (0-4); Lymphocytes # 0.6 K/mcL (0.6-4.6); Lymphocytes % 9.7 %; Mean Corpuscular HGB Conc 31.9 g/dL (31.6-35.5); Mean Corpuscular Hemoglobin 27.8 pg (28.0-33.3); Mean Corpuscular Volume 87.4 fL (83.0-100.0); Mean Platelet Volume 8.7 fL (9.4-12.4); Monocytes # 0.1 K/mcL (0.0-1.3); Monocytes % 1.2 %; Platelet Count 280 K/mcL (140-400); Red Blood Count 4.13 M/mcL (4.19-5.50); Red Cell Distribution Width 15.5 % (11.5-14.5); Segmented Neutrophils % 87.5 %; White Blood Count 5.9 K/mcL (4.3-11.1)
[2018-11-01 05:22] LABS: Neutrophils # 5.2 K/mcL (1.6-8.9)
[2018-11-01 05:24] LABS: Prothrombin Time 11.5 Seconds (9.4-12.1)
[2018-11-01 05:37] LABS: BUN/Creatinine Ratio 23 (6-26); Blood Urea Nitrogen 16 mg/dL (8-23); Calcium 8.8 mg/dL (8.6-10.3); Carbon Dioxide 31 mEq/L (23-29); Chloride 98 mEq/L (98-107); Glucose 160 mg/dL (70-105); Osmolality,Calculated 287 (280-300); Potassium 4.1 mEq/L (3.5-5.1); Sodium 136 mEq/L (136-145); eGFR For African Americans > 60 (> 60); eGFR For Non-African Americans > 60 (> 60)
[2018-11-01 05:48] LABS: Platelet Estimate Normal (Normal)
[2018-11-01] MEDS: Doxycycline 100 MG in 0.9 % Sodium Chloride Mini Bag 100 ML IVPB SCH ×2 (05:59→15:24)
[2018-11-01] MEDS ORDERED: *HR* FentaNYL (PF) 100 MCG/2 ML VIAL ONE (08:38)
[2018-11-01] MEDS ORDERED: *HR* Propofol 200 MG/20 ML VIAL IVP ONE (08:39)
[2018-11-01] MEDS ORDERED: Lidocaine -MPF 2% 2 ML VIAL ONE (08:39)
[2018-11-01] MEDS ORDERED: Lidocaine -MPF 4% 5 ML AMPUL ONE (08:39)
[2018-11-01] MEDS: *HR* Amiodarone 200 MG TABLET PO SCH (09:19)
[2018-11-01] MEDS: Diltiazem CD (24hr) 120 MG CAPSULE PO SCH (09:19)
[2018-11-01] MEDS: Furosemide 40 MG TABLET PO SCH ×2 (09:19→20:09)
[2018-11-01] MEDS: Lisinopril 20 MG TABLET PO SCH (09:19)
[2018-11-01] MEDS ORDERED: Dexamethasone 4 MG/ML VIAL ONE (09:33)
[2018-11-01] MEDS ORDERED: Ondansetron 4 MG/2 ML VIAL ONE (09:33)
--- NOTE | 2018-11-01 09:54 | Electrocardiograph Report ---
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
--- NOTE | 2018-11-01 11:18 | Anesthesia Evaluation Post Op ---
Date of Encounter: 11/01/18 Time of Encounter: 11:17 - Vital Signs Vital Signs: Vital Signs/O2 Sat, Most Current Temp Pulse Resp BP Pulse Ox 98.3 F 89 16 106/62 95 11/01/18 10:49 11/01/18 11:09 11/01/18 11:09 11/01/18 11:11/01/18 11:09 - Lungs Lungs: Rhonchi - Airway Airway: Non-obstructed - Cardiovascular Regular Rate - Mental Status Mental Status: Alert & Oriented, Answers Appropriately - Pain Pain Scale: 0 Pain Scale used: Numeric (1 - 10) - Nausea Vomiting Nausea Vomiting: Not Present - Hydration Hydration: NPO, Has not voided - Discharge PostOp Status: Transfer Patient to floor
--- NOTE | 2018-11-01 12:18 | Internal Med Progress Note ---
Hospitalist Progress Note - Encounter Date of Encounter: 11/01/18 Time of Encounter: 09:30 - Subjective Interval History: No major events overnight. Patient was seen this a.m. He denied fever, chills or night sweats. He has no nausea, vomiting or abdominal pain. Patient denied chest pain, shortness of breath or palpitation. - Exam Vitals: Temp Pulse Resp BP Pulse Ox 98.4 F 87 18 112/66 94 11/01/18 11:19 11/01/18 11:19 11/01/18 11:19 11/01/18 11:11/01/18 11:19 Exam: General: Patient is alert, oriented 3. Head: Atraumatic, normal inspection, normocephalic. Eye: EOMI, PERRLA, no scleral icterus noted. ENT: Mucous membranes moist. Neck: Normal inspection, Respiratory: Coarse lung sounds bilaterally, rhonchi, crackles and wheezing. Cardiovascular: Regular rate and regular rhythm, S1 and S2 audible. No murmurs, rubs, or gallops. GI: Soft, nondistended, normal bowel sounds. Extremities:No joint swelling, pedal edema, or tenderness noted. Neurological: Alert, oriented 3, no focal deficits. Psychiatric: normal affect, normal mood. Skin: Dry, intact, warm. Normal color. No rashes. - Assessment and Plan (1) History of lobectomy of lung Current Visit: Yes Status: Chronic (2) Mucus plugging of bronchi Current Visit: Yes Status: Acute (3) DVT prophylaxis Current Visit: No Status: Acute (4) Pneumonia Current Visit: Yes Status: Acute (5) Asbestos exposure Current Visit: Yes Status: Chronic - Summary of Assessment and Plan Summary of Assessment and Plan: Mr. Biswas is a 83 year old male with past medical history of COPD on intermittent 2 L of oxygen, asbestos exposure, left lung cancer status post partial lobectomy in 2013, CVA, atrial fibrillation not on anticoagulation due to subdural hematoma, HTN, HFpEF who came into the hospital due to dyspnea. Complete opacification of the left lung: mucous plugging vs neoplastic, bronchoscopy today. Pulmonary toilet with flutter valve, and IS. F/U CXR tomorrow. He will need follow up with oncology after his infection resolves. PNA: Likely aspiration versus bacteria. Started patient on Zosyn and Doxycycline. MRSA swab, sputum culture, blood culture, Streptococcus antigen are pending. legionella antigens is negative. Pending BAL CX. Consult placed for speech therapy and no risk of aspiration detected. A. fib: not on AC due to subdural hematoma in the past. Continue rate control with amiodarone and diltiazem. History of lung cancer: Not on active chemotherapy or radiotherapy. Status post partial lobectomy. Awaiting bronchoscopy RESULTS. Acute COPD exacerbation: start on Solumedrol, Duonebs. Chronic HFpEF: Compensated, continue Lasix. DVT prophylaxis: SCD - Time Spent with Patient Total time spent is greater than 50% in coordination of care (as documented) at patient's floor/unit and/or counseling patient: Plan of Care Discussed with: patient Internal Medicine: Result - Labs CBC & Chem 7: 11/01/18 04:04 11/01/18 04:04 Labs: Short CBC 11/01/18 Range/Units 04:04 WBC 5.9 (4.3-11.1) K/mcL Hgb 11.5 L (12.9-16.9) g/dL Hct 36.1 L (37.5-50.1) % Plt Count 280 (140-400) K/mcL Neutrophils # 5.2 (1.6-8.9) K/mcL BMP 11/01/18 04:04 Sodium 136 Potassium 4.1 Chloride 98 Carbon Dioxide 31 H BUN 16 Creatinine 0.71 Glucose 160 H Calcium 8.8 - ABG Interpretation ABG results: PT/INR, D-dimer PT 11.5 Seconds (9.4-12.1) 11/01/18 04:04 - Impressions Impressions Chest CT 10/31/18 13:28 IMPRESSION: Redemonstration of prior partial left pneumonectomy. There is near complete opacification of the residual left lung, worsened from prior exam. There is worsened low-attenuation material within distal left mainstem bronchus and in segmental/subsegmental bronchi to residual left lung. Findings are felt likely to reflect mucous plugging or aspirated material with resultant postobstructive pneumonitis. Pneumonia not excluded. With the clinical history underlying neoplastic etiology cannot entirely be excluded. Recommend clinical correlation and continued close follow-up. Patient may benefit from bronchoscopy. Mild posterior/dependent predominantly linear/triangular areas of consolidation to right upper and lower lobes, new to worsened from prior exam felt most likely to reflect some atelectasis or scarring although aspiration pneumonitis or pneumonia could have a similar appearance. Stable small hiatal hernia. Cholelithiasis redemonstrated. D/ / 10/31/2018 13:41:00 Kirby Miranda MD / dominique Interpreting Provider: Kirby Miranda MD Consult Discharge Plan - Plan Referrals: Connor Chicas MD [Partnered Physician] - 11/17/18 10:35 am Fan Clancy DO [Primary Care Provider] - 11/09/18 2:30 pm () ___ (4) Pneumonia Qualifiers: Pneumonia type: due to unspecified organism Laterality: left Lung location: unspecified part of lung Qualified Code(s): J18.9 - Pneumonia, unspecified organism
[2018-11-01 15:37] LABS: Appearance of Body Fluid Slightly Hazy (Clear); Volume of Body Fluid 32 mL
--- NOTE | 2018-11-01 19:39 | Pulmonology Progress Note ---
Date of Encounter: 11/01/18 Time of Encounter: 08:00 Assessment and Plan (1) COPD (chronic obstructive pulmonary disease) Current Visit: Yes Status: Acute Patient COPD symptoms are at baseline to continue the current regimen of bronchodilators will give few days of her methylprednisolone five day taper when he goes home. Patient does not have any signs of COPD exacerbation. In the bronchoscopy patient had some inflammatory mucosa the left lower lobe there is some mucus plugging and secretions .BAL wa sent to wait for gram stain. Qualifiers: COPD type: unspecified COPD Qualified Code(s): J44.9 - Chronic obstructive pulmonary disease, unspecified (2) Adenocarcinoma of left lung Current Visit: Yes Status: Acute Patient with adenocarcinoma left lung had a partial pneumonectomy her metastatic disease and left lower lobe with regular follow-up did not show any evidence of recurrence upcoming left lower lobe collapse the bronchoscopy showed no evidence of endobronchial lesions mucus is slightly inflamed with the some mucus plugging BAL was sent for Gram stain microbiology and cytology. Patient was updated and the was updated. (3) Pneumonia Current Visit: Yes Status: Acute continue with doxycycline for now concern for aspiration. Will add flagyl will recommend swallow evaluation . Qualifiers: Pneumonia type: aspiration pneumonia Aspiration pneumonia type: unspecified Laterality: left Lung location: lower lobe of lung Qualified Code(s): J69.0 - Pneumonitis due to inhalation of food and vomit (4) Mucus plugging of bronchi Current Visit: Yes Status: Acute Bronchoscopy showed endobronchial mucus plugging rather than endobronchial lesion BAL was done Subjective Principal diagnosis: Left lower lobe lung collapse Interval history: Patient is due for bronchoscopy today for examINATION of the left lower lobe, patient denies any chest pain chest tightness denies any palpitation or syncope cough and sputum production are stable . Objective PUL Vital signs: Last Vital Signs Temp 97.8 F 11/01/18 15:09 Pulse 85 11/01/18 15:09 Resp 16 11/01/18 17:34 BP 94/51 11/01/18 15:09 Pulse Ox 91 11/01/18 17:34 Eyes: nonicteric ENT: oropharynx moist Neck: supple Effort: normal Auscultation: left: diminished breath sounds Cardiovascular: regular rate and rhythm Gastrointestinal: normoactive bowel sounds Extremities: no cyanosis normal mental status, non-focal exam mood appropriate Results - Laboratory Findings CBC and BMP: 11/01/18 04:04 11/01/18 04:04 PT/INR, D-dimer PT 11.5 Seconds (9.4-12.1) 11/01/18 04:04 Abnormal lab findings: Abnormal lab results RBC 4.13 M/mcL (4.19-5.50) L 11/01/18 04:04 Hgb 11.5 g/dL (12.9-16.9) L 11/01/18 04:04 Hct 36.1 % (37.5-50.1) L 11/01/18 04:04 MCH 27.8 pg (28.0-33.3) L 11/01/18 04:04 MCHC 31.0 g/dL (31.6-35.5) L 10/31/18 10:26 RDW 15.5 % (11.5-14.5) H 11/01/18 04:04 MPV 8.7 fL (9.4-12.4) L 11/01/18 04:04 Eosinophils # 0.9 K/mcL (0.0-0.6) H 10/31/18 10:26 Sodium 135 mEq/L (136-145) L 10/31/18 10:26 Carbon Dioxide 31 mEq/L (23-29) H 11/01/18 04:04 Glucose 160 mg/dL (70-105) H 11/01/18 04:04 Calcium 8.4 mg/dL (8.6-10.3) L 10/31/18 10:26 Fluid Appearance Slightly Hazy (Clear) A 11/01/18 10:59 - Microbiology Findings Microbiology Findings: Microbiology, Last 48 Hours 10/31/18 19:24 Sputum Culture - Preliminary Sputum 11/01/18 14:10 Blood Culture - Preliminary Peripheral Venipuncture Culture is incubating and being continuously monitored for growth. Final report to follow. 11/01/18 14:15 Blood Culture - Preliminary Peripheral Venipuncture Culture is incubating and being continuously monitored for growth. Final report to follow. 10/31/18 21:17 Legionella Antigen - Final Urine,Random-Not Preferred - Clinical Findings Intake & Output: Intake & Output 11/01/18 11/01/18 11/01/18 07:59 15:59 23:59 Intake Total 450 / 890 340 / 890 100 / 890 Output Total 240 / 240 Balance 210 / 650 340 / 650 100 / 650 Weight 79.5 kg Consult Discharge Plan - Plan Referrals: Connor Chicas MD [Partnered Physician] - 11/17/18 10:35 am Fan Clancy DO [Primary Care Provider] - 11/09/18 2:30 pm ()
[2018-11-01] MEDS: Lactobacillus 1 EACH CAP.SPRINK PO SCH (20:24)
[2018-11-02] MEDS: MethylPREDNISolone 40 MG/ML VIAL IVP SCH ×3 (00:43→16:34)
[2018-11-02] MEDS: Piperacillin/Tazobactam 3.375 GM in 0.9 % Sodium Chloride Mini Bag 100 ML IVPB SCH ×3 (00:43→18:15)
[2018-11-02] MEDS: Ipratropium/Albuterol Neb 3 ML IH SCH ×4 (04:24→22:02)
[2018-11-02] MEDS: Doxycycline 100 MG in 0.9 % Sodium Chloride Mini Bag 100 ML IVPB SCH ×2 (06:01→16:38)
[2018-11-02] MEDS: Lisinopril 20 MG TABLET PO SCH (08:54)
[2018-11-02] MEDS: Lactobacillus 1 EACH CAP.SPRINK PO SCH ×2 (08:54→20:59)
[2018-11-02] MEDS: Folic Acid 1 MG TABLET PO SCH (08:54)
[2018-11-02] MEDS: *HR* Amiodarone 200 MG TABLET PO SCH (08:54)
[2018-11-02] MEDS: Diltiazem CD (24hr) 120 MG CAPSULE PO SCH (08:54)
[2018-11-02] MEDS: Finasteride 5 MG TABLET PO SCH (08:54)
[2018-11-02] MEDS: Furosemide 40 MG TABLET PO SCH ×2 (08:54→20:56)
--- NOTE | 2018-11-02 09:03 | Internal Med Progress Note ---
Hospitalist Progress Note - Encounter Date of Encounter: 11/02/18 - Exam Vitals: Temp Pulse Resp BP Pulse Ox 98.0 F 75 20 105/63 95 11/02/18 06:37 11/02/18 06:37 11/02/18 06:37 11/02/18 06:37 11/02/18 06:37 - Assessment and Plan (1) History of lobectomy of lung Current Visit: Yes Status: Chronic (2) Mucus plugging of bronchi Current Visit: Yes Status: Acute (3) DVT prophylaxis Current Visit: No Status: Acute (4) Pneumonia Current Visit: Yes Status: Acute (5) Asbestos exposure Current Visit: Yes Status: Chronic - Time Spent with Patient Total time spent is greater than 50% in coordination of care (as documented) at patient's floor/unit and/or counseling patient: Internal Medicine: Result - Labs CBC & Chem 7: 11/01/18 04:04 11/01/18 04:04 - ABG Interpretation ABG results: PT/INR, D-dimer PT 11.5 Seconds (9.4-12.1) 11/01/18 04:04 - Impressions Impressions Chest X-Ray 11/02/18 06:43 IMPRESSION: 1. Stable appearance of the left hemithorax status post partial left pneumonectomy, with near complete consolidation of the remainder of the left lung and partial region of the left lung apex. This likely represents either pneumonia or partial collapse for mucous plugging. Clinical correlation is advised. 2. Interval worsening of right basilar airspace disease, representing either atelectasis, pneumonia, or aspiration. 3. Interval development of mild pulmonary edema. D/ / Yohan Vazquez MD / Yohan Vazquez MD Interpreting Provider: Yohan Vazquez MD Consult Discharge Plan - Plan Referrals: Connor Chicas MD [Partnered Physician] - 11/17/18 10:35 am Fan Clancy DO [Primary Care Provider] - 11/09/18 2:30 pm () (4) Pneumonia Qualifiers: Pneumonia type: due to unspecified organism Laterality: left Lung location: unspecified part of lung Qualified Code(s): J18.9 - Pneumonia, unspecified organism
--- NOTE | 2018-11-02 13:24 | Pulmonology Progress Note ---
<Andrew Rodriguez - Last Filed: 11/02/18 14:18> Date of Encounter: 11/02/18 Time of Encounter: 11:45 (guessed) Subjective Interval history: Subjective Patient mentions recent sputum production. Discharge planning discussed. Objective PE Gen.: Elderly male. No acute distress Eyes: Moist. Anicteric Cardiac: S1, S2. No obvious murmurs gallops rubs heard Respiratory: Exam complicated by isolation precaution stethoscope, lung sounds were diminished over at least left posterior robertson. My attending was able to auscultate the lungs. Abdomen: Obese Extremities: No bilateral lower extremity edema. Capillary refill less than 2 seconds bilateral upper extremities MSK: [place] nodes bilateral upper extremities Neuro: Mild intention tremor upon moving phalanges. Psych: Appropriate mood and behavior. #COPD PFTs 07/2016 interpreted as: Spirometry shows severe airway obstructive pattern FVC 2.44, 57% predicted FEV1 1.51, 49% predicted Lung Volumes are moderately reduced. Diffusion Capacity is moderately reduced. DLCO corrected for hemoglobin 19.06, 54% predicted Flow Volume Loop: Obstructive Bronchoscopy 11/01 showed inflammatory mucosa of left lower lobe with mucous plugging and secretions. -DAMIAN/ERIK -Methylprednisolone taper once discharged #Adenocarcinoma of the left lung Status post partial pneumonectomy involving left upper lobe in 05/24/2013 with adjuvant chemotherapy stopped secondary to toxicity and A. fib. Recurrence in the left lower lobe treated with SBRT in 08/14/16 as patient was evaluated by Dr. Tc Duran and shown to not be a candidate for left pneumon ectomy. SBRT repeated for left lower lobe nodule from 05/10/17-05/19/[address] 10/31/18 read as: Near-complete opacification of residual left lung, worsened from prior exam. Likely mucous plugging with postobstructive pneumonitis. Pneumonia not excluded. Also mid to posterior/dependent predominantly linear/triangular areas of consolidation to right upper and lower lobes likely representing atelectasis, pneumonitis, or pneumonia. Bronchoscopy 11/01 showed inflammatory mucosa of left lower lobe with mucous plugging and secretions. #Pneumonia Suspected As seen on CT 10/31/18 Pro calcitonin 0.05 on 10/31/18 Random urine Legionella 10/31/18 negative -Preliminary sputum culture 10/31/18 showing moderate gram-positive cocci, observed bacteria, and culture without pathogens -BAL of left lower lobe 11/01/18 final results pending. Respiratory culture preliminary showing mixed gram-positive and gram-negative. Fungal culture pending. -pip/tazo day 2 -doxy day 1 #Mucous plugging of bronchi -as seen on bronchoscopy 11/01/18 Objective PUL Vital signs: Last Vital Signs Temp 97.7 F 11/02/18 12:02 Pulse 94 11/02/18 12:02 Resp 18 11/02/18 12:02 BP 86/56 11/02/18 12:02 Pulse Ox 93 11/02/18 12:02 Results - Laboratory Findings CBC and BMP: 11/01/18 04:04 11/01/18 04:04 PT/INR, D-dimer PT 11.5 Seconds (9.4-12.1) 11/01/18 04:04 Abnormal lab findings: Abnormal lab results RBC 4.13 M/mcL (4.19-5.50) L 11/01/18 04:04 Hgb 11.5 g/dL (12.9-16.9) L 11/01/18 04:04 Hct 36.1 % (37.5-50.1) L 11/01/18 04:04 MCH 27.8 pg (28.0-33.3) L 11/01/18 04:04 MCHC 31.0 g/dL (31.6-35.5) L 10/31/18 10:26 RDW 15.5 % (11.5-14.5) H 11/01/18 04:04 MPV 8.7 fL (9.4-12.4) L 11/01/18 04:04 Eosinophils # 0.9 K/mcL (0.0-0.6) H 10/31/18 10:26 Sodium 135 mEq/L (136-145) L 10/31/18 10:26 Carbon Dioxide 31 mEq/L (23-29) H 11/01/18 04:04 Glucose 160 mg/dL (70-105) H 11/01/18 04:04 Calcium 8.4 mg/dL (8.6-10.3) L 10/31/18 10:26 Fluid Appearance Slightly Hazy (Clear) A 11/01/18 10:59 - Microbiology Findings Microbiology Findings: Microbiology, Last 48 Hours 11/01/18 10:59 Fungal Culture - Preliminary Left Lower Lobe Lung Culture is incubating. 10/31/18 19:24 Sputum Culture - Preliminary Sputum 11/01/18 10:59 Respiratory Culture - Preliminary Left Lower Lobe Lung 11/01/18 14:10 Blood Culture - Preliminary Peripheral Venipuncture Culture is incubating and being continuously monitored for growth. Final report to follow. 11/01/18 14:15 Blood Culture - Preliminary Peripheral Venipuncture Culture is incubating and being continuously monitored for growth. Final report to follow. 10/31/18 21:17 Legionella Antigen - Final Urine,Random-Not Preferred - Clinical Findings Intake & Output: Intake & Output 11/01/18 11/02/18 11/02/18 23:59 07:59 15:59 Intake Total 440 / 1230 400 / 880 480 / 880 Output Total 250 / 490 450 / 650 200 / 650 Balance 190 / 740 -50 / 230 280 / 230 Weight 80 kg Consult Discharge Plan - Plan Referrals: Connor Chicas MD [Partnered Physician] - 11/17/18 10:35 am Fan Clancy DO [Primary Care Provider] - 11/09/18 2:30 pm () <Zachery Truong S - Last Filed: 11/02/18 21:19> Date of Encounter: 11/02/18 Assessment and Plan (1) COPD (chronic obstructive pulmonary disease) Current Visit: Yes Status: Acute Qualifiers: COPD type: unspecified COPD Qualified Code(s): J44.9 - Chronic obstructive pulmonary disease, unspecified (2) Adenocarcinoma of left lung Current Visit: Yes Status: Acute (3) Pneumonia Current Visit: Yes Status: Acute Qualifiers: Pneumonia type: aspiration pneumonia Aspiration pneumonia type: unspecified Laterality: left Lung location: lower lobe of lung Qualified Code(s): J69.0 - Pneumonitis due to inhalation of food and vomit (4) Mucus plugging of bronchi Current Visit: Yes Status: Acute Objective PUL Vital signs: Last Vital Signs Temp 98.3 F 11/02/18 20:44 Pulse 85 11/02/18 20:44 Resp 16 11/02/18 20:44 BP 97/60 11/02/18 20:44 Pulse Ox 96 11/02/18 20:44 Results - Laboratory Findings CBC and BMP: 11/01/18 04:04 11/01/18 04:04 PT/INR, D-dimer PT 11.5 Seconds (9.4-12.1) 11/01/18 04:04 Abnormal lab findings: Abnormal lab results RBC 4.13 M/mcL (4.19-5.50) L 11/01/18 04:04 Hgb 11.5 g/dL (12.9-16.9) L 11/01/18 04:04 Hct 36.1 % (37.5-50.1) L 11/01/18 04:04 MCH 27.8 pg (28.0-33.3) L 11/01/18 04:04 MCHC 31.0 g/dL (31.6-35.5) L 10/31/18 10:26 RDW 15.5 % (11.5-14.5) H 11/01/18 04:04 MPV 8.7 fL (9.4-12.4) L 11/01/18 04:04 Eosinophils # 0.9 K/mcL (0.0-0.6) H 10/31/18 10:26 Sodium 135 mEq/L (136-145) L 10/31/18 10:26 Carbon Dioxide 31 mEq/L (23-29) H 11/01/18 04:04 Glucose 160 mg/dL (70-105) H 11/01/18 04:04 Calcium 8.4 mg/dL (8.6-10.3) L 10/31/18 10:26 Fluid Appearance Slightly Hazy (Clear) A 11/01/18 10:59 - Microbiology Findings Microbiology Findings: Microbiology, Last 48 Hours 11/01/18 10:59 Fungal Culture - Preliminary Left Lower Lobe Lung Culture is incubating. 11/01/18 10:59 Respiratory Culture - Preliminary Left Lower Lobe Lung Gram Negative Mukesh 10/31/18 19:24 Sputum Culture - Preliminary Sputum 11/01/18 14:10 Blood Culture - Preliminary Peripheral Venipuncture Culture is incubating and being continuously monitored for growth. Final report to follow. 11/01/18 14:15 Blood Culture - Preliminary Peripheral Venipuncture Culture is incubating and being continuously monitored for growth. Final report to follow. 10/31/18 21:17 Legionella Antigen - Final Urine,Random-Not Preferred - Clinical Findings Intake & Output: Intake & Output 11/02/18 11/02/1819 07:59 15:59 23:59 Intake Total 400 / 1320 820 / 1320 100 / 1320 Output Total 450 / 950 200 / 950 300 / 950 Balance -50 / 370 620 / 370 -200 / 370 Weight 80 kg - Attending Attestation I saw and evaluated this patient and my medical decision-making was reviewed with the Resident Physician. I agree with the documented findings, disposition and treatment plan as described except to the extent set forth below. We independently had [id number] contact with the patient Patient had a bronchoscopy with BAL patient has lot of mucus plugging in the left lower lobe airways still decreased air entry in the left lower lobe increase patient is sitting up and do incentive spirometry to bedside BAL is growing gram-negative rods need to wait for the full culture sensitivity. We will explain to the patient. Patient says is cough and sputum production is lot better. Patient denies much hemoptysis except for on and off blood tinged sputum. Which is expected after bronchoscopy is patient had lot of airway inflammation the left lobar airways. Discussed with primary hospitalist.
--- NOTE | 2018-11-02 14:01 | Discharge Summary ---
Date of Encounter: 11/02/18 Time of Encounter: 11:00 - Discharge Diagnosis (1) Pneumonia Priority: Primary Status: Acute Assessment and Plan: 83 year old male with past medical history of COPD on intermittent 2 L of oxygen, asbestos exposure, left lung cancer status post partial lobectomy in 2013, CVA, atrial fibrillation not on anticoagulation due to subdural hematoma, HTN, HFpEF who came into the hospital due to dyspnea. Patient was hospitalized 3 months ago for pneumonia and since then he had a chronic dyspnea. He has to put his oxygen on 2 L all the time. His dyspnea got worse the past few days. He was supposed to see pulmonary as outpatient but he felt could not make it and came in the hospital. Patient denies fever, chills or night sweats. He endorsed weight loss since his last pneumonia. He has chronic cough and greenish sputum production which is his baseline. He was assessed with possible aspiration pneumonia/atypical pneumonia and started on zosyn and doxycyline. He was seen by pulmonary and had a bronchsocopy done showing mucous plugging. BAL of left lower lobe showed mixed organisms. He will be discharged on a 10 day course of antibiotics to cover aspiration.atypical organisms and a steroid taper. 35minutes was spent discharging this patient PAtient has elected to go home with hospice which will be set up in am Qualifiers: Pneumonia type: due to unspecified organism Laterality: left Lung location: unspecified part of lung Qualified Code(s): J18.9 - Pneumonia, unspecified organism (2) History of lobectomy of lung Priority: Primary Status: Chronic (3) Mucus plugging of bronchi Priority: Primary Status: Acute (4) DVT prophylaxis Priority: Primary Status: Acute (5) Asbestos exposure Priority: Primary Status: Chronic Hospital course: Mr. Biswas is a 83 year old male - Time Spent with Patient Total time spent providing and/or coordinating discharge services: - Discharge Medications Prescriptions: New GuaiFENesin ER [Mucinex] 600 mg PO BID #60 tbbp.12hr Amoxicillin/Clavulanate [Augmentin] 875 mg PO BIDWM 10 Days #20 tablet Doxycycline 100 mg PO BID 10 Days #20 capsule predniSONE [PredniSONE] 10 mg PO DAILY 15 Days #35 tablet Continued Finasteride [Proscar] 5 mg PO DAILY Sertraline [Zoloft] 25 mg PO DAILY Furosemide [Lasix] 40 mg PO BID Lisinopril [Zestril] 40 mg PO DAILY Diltiazem HCl [Cardizem LA] 120 mg PO DAILY Amiodarone HCl 200 mg PO DAILY Potassium Chloride [K-Tab ER] 40 meq PO DAILY Pravastatin Sodium [Pravachol] 20 mg PO DAILY Omega3/Dha/Epa/Fish Oil/Vit D3 [Fish Oil + Vitamin D-3 Softgel] 1 cap PO DAILY Folic Acid 1 mg PO DAILY Lactobacillus [Culturelle] 1 cap PO BID Albuterol Sulfate [Ventolin Hfa] 2 puff IH Q6H PRN PRN Reason: Shortness Of Breath Home Medications: Amiodarone HCl 200 mg PO DAILY 08/27/18 [History] Diltiazem HCl [Cardizem LA] 120 mg PO DAILY 08/27/18 [History] Finasteride [Proscar] 5 mg PO DAILY 08/27/18 [History] Furosemide [Lasix] 40 mg PO BID 08/27/18 [History] Lisinopril [Zestril] 40 mg PO DAILY 08/27/18 [History] Potassium Chloride [K-Tab ER] 40 meq PO DAILY 08/27/18 [History] Sertraline [Zoloft] 25 mg PO DAILY 08/27/18 [History] Folic Acid 1 mg PO DAILY 08/28/18 [History] Omega3/Dha/Epa/Fish Oil/Vit D3 [Fish Oil + Vitamin D-3 Softgel] 1 cap PO DAILY 08/28/18 [History] Pravastatin Sodium [Pravachol] 20 mg PO DAILY 08/28/18 [History] Albuterol Sulfate [Ventolin Hfa] 2 puff IH Q6H PRN 11/01/18 [History] Lactobacillus [Culturelle] 1 cap PO BID 11/01/18 [History] Amoxicillin/Clavulanate [Augmentin] 875 mg PO BIDWM 10 Days #20 tablet 11/02/18 [Rx] Doxycycline 100 mg PO BID 10 Days #20 capsule 11/02/18 [Rx] GuaiFENesin ER [Mucinex] 600 mg PO BID #60 tbbp.12hr 11/02/18 [Rx] predniSONE [PredniSONE] 10 mg PO DAILY 15 Days #35 tablet 11/02/18 [Rx] Allergies/Adverse Reactions: Allergy/AdvReac Type Severity Reaction Status Date / Time No Known Allergies Allergy Verified 05/18/18 19:41 Date of admission: 10/31/18 14:07 Primary care physician: Fan Clancy DO Consults: 10/31/18 14:28 Consult to Nurse Navigator [CONS] Routine Comment: 10/31/18 14:33 Consult to Pulmonology [CONS] Routine Consulting Provider: [facility] Reason for Consult: complete opacification of the left lung Call Completed: Yes Consult to Respiratory Therapy [CONS] Routine Reason for Consult: flutter valve Call Completed: No - Constitutional Vitals: Temp Pulse Resp BP Pulse Ox 97.7 F 106 18 114/64 93 11/02/18 12:02 11/02/18 13:47 11/02/18 12:02 11/02/18 13:47 11/02/18 12:02 Exam: General: Patient is alert, oriented 3. Head: Atraumatic, normal inspection, normocephalic. Eye: EOMI, PERRLA, no scleral icterus noted. ENT: Mucous membranes moist. Neck: Normal inspection, Respiratory: Coarse lung sounds bilaterally, rhonchi, crackles and wheezing. Cardiovascular: Regular rate and regular rhythm, S1 and S2 audible. No murmurs, rubs, or gallops. GI: Soft, nondistended, normal bowel sounds. Extremities:No joint swelling, pedal edema, or tenderness noted. Neurological: Alert, oriented 3, no focal deficits. Psychiatric: normal affect, normal mood. Skin: Dry, intact, warm. Normal color. No rashes. - Patient Status Disposition: Home Health Service Condition: Good - Discharge Instructions Follow Up With: Connor Chicas MD [Partnered Physician] - 11/17/18 10:35 am Fan Clancy DO [Primary Care Provider] - 11/09/18 2:30 pm ()
--- NOTE | 2018-11-02 14:19 | Physician Discharge Referral ---
Home Health/Hosp Referral Info Transfer to: Home Health - Diagnosis (1) History of lobectomy of lung Priority: Primary Status: Chronic (2) Mucus plugging of bronchi Priority: Primary Status: Acute (3) DVT prophylaxis Priority: Primary Status: Acute (4) Pneumonia Priority: Primary Status: Acute (5) Asbestos exposure Priority: Primary Status: Chronic - Respiratory Orders Smoking Cessation: Smoking cessation has been advised. For more information, call the [place] Tobacco Quit Line at 7-593-UGUI-NOW. - Diet/Nutrition Diet/Nutrition Orders: Cardiac - Activity Activity Orders: Ambulate - Services Needed Following services are medically necessary services: Nursing, Home Health Aide, Physical Therapy - Transfer Medications Prescriptions: Amoxicillin/Clavulanate [Augmentin] 875 mg PO BIDWM 10 Days #20 tablet Prescription Printed Doxycycline 100 mg PO BID 10 Days #20 capsule Prescription Printed GuaiFENesin ER [Mucinex] 600 mg PO BID #60 tbbp.12hr Prescription Printed predniSONE [PredniSONE] 10 mg PO DAILY 15 Days #35 tablet Prescription Printed Home Medications: Amiodarone HCl 200 mg PO DAILY 08/27/18 [History] Diltiazem HCl [Cardizem LA] 120 mg PO DAILY 08/27/18 [History] Finasteride [Proscar] 5 mg PO DAILY 08/27/18 [History] Furosemide [Lasix] 40 mg PO BID 08/27/18 [History] Lisinopril [Zestril] 40 mg PO DAILY 08/27/18 [History] Potassium Chloride [K-Tab ER] 40 meq PO DAILY 08/27/18 [History] Sertraline [Zoloft] 25 mg PO DAILY 08/27/18 [History] Folic Acid 1 mg PO DAILY 08/28/18 [History] Omega3/Dha/Epa/Fish Oil/Vit D3 [Fish Oil + Vitamin D-3 Softgel] 1 cap PO DAILY 08/28/18 [History] Pravastatin Sodium [Pravachol] 20 mg PO DAILY 08/28/18 [History] Albuterol Sulfate [Ventolin Hfa] 2 puff IH Q6H PRN 11/01/18 [History] Lactobacillus [Culturelle] 1 cap PO BID 11/01/18 [History] Amoxicillin/Clavulanate [Augmentin] 875 mg PO BIDWM 10 Days #20 tablet 11/02/18 [Rx] Doxycycline 100 mg PO BID 10 Days #20 capsule 11/02/18 [Rx] GuaiFENesin ER [Mucinex] 600 mg PO BID #60 tbbp.12hr 11/02/18 [Rx] predniSONE [PredniSONE] 10 mg PO DAILY 15 Days #35 tablet 11/02/18 [Rx] Allergies/Adverse Reactions: Allergy/AdvReac Type Severity Reaction Status Date / Time No Known Allergies Allergy Verified 05/18/18 19:41 Certification: Further, I certify that my clinical findings support that this patient is homebound (i.e. absences from home require considerable and taxing effort and are for medical reasons or mosque services or infrequently or short duration when for other reasons) because: Homebound Reason: Patient requires assistance of a person or device to safely leave home Attestation: My signature below is to certify that this patient is under my care and that I, or nurse practitioner, or a physician's clinic office assistant working with me, has a [id number] encounter with this patient.
[2018-11-03] MEDS: Piperacillin/Tazobactam 3.375 GM in 0.9 % Sodium Chloride Mini Bag 100 ML IVPB SCH ×2 (00:21→08:16)
[2018-11-03] MEDS: MethylPREDNISolone 40 MG/ML VIAL IVP SCH ×2 (00:21→08:16)
[2018-11-03] MEDS: Ipratropium/Albuterol Neb 3 ML IH SCH ×2 (04:31→10:10)
[2018-11-03] MEDS: Doxycycline 100 MG in 0.9 % Sodium Chloride Mini Bag 100 ML IVPB SCH (06:47)
[2018-11-03] MEDS: Lisinopril 20 MG TABLET PO SCH (08:16)
[2018-11-03] MEDS: *HR* Amiodarone 200 MG TABLET PO SCH (08:16)
[2018-11-03] MEDS: Folic Acid 1 MG TABLET PO SCH (08:16)
[2018-11-03] MEDS: Furosemide 40 MG TABLET PO SCH (08:16)
[2018-11-03] MEDS: Lactobacillus 1 EACH CAP.SPRINK PO SCH (08:17)
[2018-11-03] MEDS: Diltiazem CD (24hr) 120 MG CAPSULE PO SCH (08:17)
[2018-11-03] MEDS: Finasteride 5 MG TABLET PO SCH (08:17)
[2018-11-03 08:32] VITALS: BP 126/71
--- NOTE | 2018-11-03 16:56 | Internal Med Progress Note ---
Hospitalist Progress Note - Encounter Date of Encounter: 11/03/18 Time of Encounter: 10:00 - Subjective Interval History: No acute events overnight - Exam Vitals: Temp Pulse Resp BP Pulse Ox 98.3 F 74 18 126/71 97 11/03/18 08:31 11/03/18 08:31 11/03/18 10:11 11/03/18 08:31 11/03/18 10:11 Exam: General: Patient is alert, oriented 3. Head: Atraumatic, normal inspection, normocephalic. Eye: EOMI, PERRLA, no scleral icterus noted. ENT: Mucous membranes moist. Neck: Normal inspection, Respiratory: Coarse lung sounds bilaterally, rhonchi, crackles and wheezing. Cardiovascular: Regular rate and regular rhythm, S1 and S2 audible. No murmurs, rubs, or gallops. GI: Soft, nondistended, normal bowel sounds. Extremities:No joint swelling, pedal edema, or tenderness noted. Neurological: Alert, oriented 3, no focal deficits. Psychiatric: normal affect, normal mood. Skin: Dry, intact, warm. Normal color. No rashes. - Assessment and Plan (1) Pneumonia Status: Acute Assessment and Plan: 83 year old male with past medical history of COPD on intermittent 2 L of oxygen, asbestos exposure, left lung cancer status post partial lobectomy in 2013, CVA, atrial fibrillation not on anticoagulation due to subdural hematoma, HTN, HFpEF who came into the hospital due to dyspnea. Patient was hospitalized 3 months ago for pneumonia and since then he had a chronic dyspnea. He has to put his oxygen on 2 L all the time. His dyspnea got worse the past few days. He was supposed to see pulmonary as outpatient but he felt could not make it and came in the hospital. Patient denies fever, chills or night sweats. He endorsed weight loss since his last pneumonia. He has chronic cough and greenish sputum production which is his baseline. He was assessed with possible aspiration pneumonia/atypical pneumonia and started on zosyn and doxycyline. He was seen by pulmonary and had a bronchsocopy done showing mucous plugging. BAL of left lower lobe showed mixed organisms. He will be discharged on a 10 day course of antibiotics to cover aspiration. atypical organisms and a steroid taper. 35minutes was spent discharging this patient PAtient has elected to go home with hospice which has been set up today (2) History of lobectomy of lung Status: Chronic (3) Mucus plugging of bronchi Status: Acute (4) DVT prophylaxis Status: Acute (5) Asbestos exposure Status: Chronic - Time Spent with Patient Total time spent is greater than 50% in coordination of care (as documented) at patient's floor/unit and/or counseling patient: Internal Medicine: Result - Labs CBC & Chem 7: 11/01/18 04:04 11/01/18 04:04 - ABG Interpretation ABG results: PT/INR, D-dimer PT 11.5 Seconds (9.4-12.1) 11/01/18 04:04 Consult Discharge Plan - Plan Instructions: Acute Respiratory Distress Syndrome (DC), Urinary Tract Infection in Men (DC), Cellulitis (DC), Syncope (DC), Chronic Obstructive Pulmonary Disease (DC), Pneumonia (DC) Referrals: Connor Chicas MD [Partnered Physician] - 11/17/18 10:35 am Fan Clancy DO [Primary Care Provider] - 11/09/18 2:30 pm () (1) Pneumonia Qualifiers: Pneumonia type: due to unspecified organism Laterality: left Lung location: unspecified part of lung Qualified Code(s): J18.9 - Pneumonia, unspecified organism
== END 2018-11-03 10:40 | disposition home health service (06) | DRG 194 ==
LOC: 3BNU 09:38 → EMEROOARM 09:38 → SUATTDRO 14:07 → 3BNU 14:40
PROVIDERS: ADMIT Internal Medicine; ATTEND Internal Medicine

== ENCOUNTER 2018-11-10 14:53 | Inpatient (IN) ==
[2018-11-10 15:36] LABS: Hemoglobin 12.2 g/dL (12.9-16.9); Mean Corpuscular HGB Conc 31.3 g/dL (31.6-35.5); Mean Corpuscular Hemoglobin 27.9 pg (28.0-33.3); Mean Corpuscular Volume 89.2 fL (83.0-100.0); Mean Platelet Volume 8.9 fL (9.4-12.4); Platelet Count 344 K/mcL (140-400); Red Blood Count 4.37 M/mcL (4.19-5.50); Red Cell Distribution Width 15.9 % (11.5-14.5); White Blood Count 15.3 K/mcL (4.3-11.1)
[2018-11-10 15:47] LABS: Bilirubin,Urine Negative (Negative); Blood,Urine Negative (Negative); Clarity,Urine Clear (Clear); Color,Urine Yellow (Yellow); Glucose,Urine (UA) Normal (Normal); Ketones,Urine Negative (Negative); Leukocyte Esterase,Urine Negative (Negative); Nitrite,Urine Negative (Negative); Protein,Urine Negative (Neg-Trace); Specific Gravity,Urine 1.018 (1.010-1.025); Urobilinogen,Urine Normal (Normal)
[2018-11-10 15:52] LABS: BUN/Creatinine Ratio 37 (6-26); Blood Urea Nitrogen 30 mg/dL (8-23); Calcium 9.2 mg/dL (8.6-10.3); Carbon Dioxide 34 mEq/L (23-29); Chloride 95 mEq/L (98-107); Glucose 289 mg/dL (70-105); Osmolality,Calculated 301 (280-300); Potassium 3.7 mEq/L (3.5-5.1); Sodium 137 mEq/L (136-145); eGFR For African Americans > 60 (> 60); eGFR For Non-African Americans > 60 (> 60)
[2018-11-10] MEDS ORDERED: Piperacillin/Tazobactam 3.375 GM in 0.9 % Sodium Chloride Mini Bag 100 ML IVPB ONE (16:10)
[2018-11-10] MEDS ORDERED: Ondansetron 4 MG/2 ML VIAL IVP PRN (17:33)
[2018-11-10] MEDS ORDERED: Naloxone 0.4 MG/ML INJ IVP PRN (17:33)
[2018-11-10] MEDS ORDERED: 0.9 % Sodium Chloride 500 ML IVC PRN (17:34)
[2018-11-10] MEDS ORDERED: *HR* Heparin 5,000 UNIT/ML VIAL SQ SCH (18:00)
[2018-11-10] MEDS: MethylPREDNISolone 40 MG/ML VIAL IVP SCH (20:17)
[2018-11-10] MEDS: Lactobacillus 1 EACH CAP.SPRINK PO SCH (20:17)
[2018-11-10] MEDS: 0.9 % Sodium Chloride 1,000 ML IVC SCH (20:18)
[2018-11-10] MEDS: Levalbuterol Neb 0.63 MG/3 ML IH SCH (22:41)
[2018-11-11] MEDS: Piperacillin/Tazobactam 3.375 GM in 0.9 % Sodium Chloride Mini Bag 100 ML IVPB SCH ×3 (00:36→17:01)
[2018-11-11 01:04] LABS: Basophils % 0.1 %; Eosinophils % 0.1 %; Hematocrit 35.3 % (37.5-50.1); Hemoglobin 10.8 g/dL (12.9-16.9); Immature Granulocytes % 2.4 % (0-4); Lymphocytes # 0.4 K/mcL (0.6-4.6); Lymphocytes % 2.7 %; Mean Corpuscular HGB Conc 30.6 g/dL (31.6-35.5); Mean Corpuscular Volume 91.5 fL (83.0-100.0); Mean Platelet Volume 8.8 fL (9.4-12.4); Monocytes # 0.5 K/mcL (0.0-1.3); Monocytes % 3.2 %; Neutrophils # 14.8 K/mcL (1.6-8.9); Nucleated Red Blood Cells 0.1 /100 WBC (0); Platelet Count 247 K/mcL (140-400); Red Blood Count 3.86 M/mcL (4.19-5.50); Red Cell Distribution Width 15.9 % (11.5-14.5); Segmented Neutrophils % 91.5 %; White Blood Count 16.2 K/mcL (4.3-11.1)
[2018-11-11 01:22] LABS: BUN/Creatinine Ratio 42 (6-26); Blood Urea Nitrogen 33 mg/dL (8-23); Calcium 8.8 mg/dL (8.6-10.3); Carbon Dioxide 30 mEq/L (23-29); Chloride 97 mEq/L (98-107); Glucose 230 mg/dL (70-105); Magnesium 1.9 mg/dL (1.6-2.6); Osmolality,Calculated 297 (280-300); Sodium 136 mEq/L (136-145); eGFR For African Americans > 60 (> 60); eGFR For Non-African Americans > 60 (> 60)
[2018-11-11] MEDS: Levalbuterol Neb 0.63 MG/3 ML IH SCH ×5 (04:01→22:13)
[2018-11-11] MEDS: MethylPREDNISolone 40 MG/ML VIAL IVP SCH ×2 (05:54→16:59)
[2018-11-11] MEDS: 0.9 % Sodium Chloride 1,000 ML IVC SCH (06:00)
[2018-11-11] MEDS ORDERED: 0.9 % Sodium Chloride 500 ML IVC ONE (07:17)
[2018-11-11] MEDS: *HR* Amiodarone 200 MG TABLET PO SCH (07:47)
[2018-11-11] MEDS: Lactobacillus 1 EACH CAP.SPRINK PO SCH ×2 (07:48→21:08)
[2018-11-11] MEDS: Finasteride 5 MG TABLET PO SCH (07:48)
[2018-11-11 08:06] LABS: Adenovirus Not Detected (Not Detect); Bordetella Pertussis Not Detected (Not Detect); Chlamydophila pneumoniae Not Detected (Not Detect); Coronavirus 229E Not Detected (Not Detect); Coronavirus HKU1 Not Detected (Not Detect); Coronavirus NL63 Not Detected (Not Detect); Coronavirus OC43 Not Detected (Not Detect); Human Metapneumovirus Not Detected (Not Detect); Human Rhinovirus/Enterovirus Not Detected (Not Detect); Influenza A Subtype 2009 H1 Not Detected (Not Detect); Influenza A Untypeable Not Detected (Not Detect); Influenza B Not Detected (Not Detect); Mycoplasma pneumoniae Not Detected (Not Detect); Parainfluenza Virus 1 Not Detected (Not Detect); Parainfluenza Virus 2 Not Detected (Not Detect); Parainfluenza Virus 3 Not Detected (Not Detect); Parainfluenza Virus 4 Not Detected (Not Detect); Respiratory Syncytial Virus Not Detected (Not Detect)
[2018-11-11] MEDS ORDERED: Diltiazem CD (24hr) 120 MG CAPSULE PO SCH (09:00)
[2018-11-11] MEDS ORDERED: D5% in Water 1,000 ML IVC PRN ×2 (10:53→11:33)
[2018-11-11] MEDS ORDERED: *HR* Dextrose 50 % in Water (Syg) 50 ML SYRINGE IVP PRN (10:53)
[2018-11-11] MEDS ORDERED: Dextrose Gel 15 GM/37.5 ML TUBE PO PRN ×2 (10:53)
[2018-11-11] MEDS: Insulin LISPRO 300 UNITS/3 ML VIAL SQ SCH ×3 (13:09→21:01)
[2018-11-11] MEDS ORDERED: Isovue-370 500 ML BOTTLE IVP ONE (14:58)
[2018-11-11] MEDS ORDERED: Ipratropium/Albuterol Neb 3 ML IH SCH (16:00)
[2018-11-12] MEDS: Piperacillin/Tazobactam 3.375 GM in 0.9 % Sodium Chloride Mini Bag 100 ML IVPB SCH ×3 (00:09→15:58)
[2018-11-12 02:34] LABS: Basophils % 0.2 %; Hematocrit 32.4 % (37.5-50.1); Hemoglobin 9.9 g/dL (12.9-16.9); Immature Granulocytes % 2.7 % (0-4); Lymphocytes # 0.4 K/mcL (0.6-4.6); Lymphocytes % 2.5 %; Mean Corpuscular HGB Conc 30.6 g/dL (31.6-35.5); Mean Corpuscular Hemoglobin 27.6 pg (28.0-33.3); Mean Corpuscular Volume 90.3 fL (83.0-100.0); Mean Platelet Volume 9.1 fL (9.4-12.4); Monocytes # 0.6 K/mcL (0.0-1.3); Monocytes % 3.7 %; Neutrophils # 14.1 K/mcL (1.6-8.9); Platelet Count 238 K/mcL (140-400); Red Blood Count 3.59 M/mcL (4.19-5.50); Red Cell Distribution Width 15.9 % (11.5-14.5); Segmented Neutrophils % 90.9 %; White Blood Count 15.5 K/mcL (4.3-11.1)
[2018-11-12 02:52] LABS: BUN/Creatinine Ratio 44 (6-26); Blood Urea Nitrogen 34 mg/dL (8-23); Calcium 8.6 mg/dL (8.6-10.3); Carbon Dioxide 29 mEq/L (23-29); Chloride 98 mEq/L (98-107); Glucose 242 mg/dL (70-105); Osmolality,Calculated 298 (280-300); Potassium 3.9 mEq/L (3.5-5.1); Sodium 136 mEq/L (136-145); eGFR For African Americans > 60 (> 60); eGFR For Non-African Americans > 60 (> 60)
[2018-11-12] MEDS: Levalbuterol Neb 0.63 MG/3 ML IH SCH ×4 (04:23→21:54)
[2018-11-12] MEDS: MethylPREDNISolone 40 MG/ML VIAL IVP SCH ×2 (06:00→17:34)
[2018-11-12 08:08] LABS: Estimated Average Glucose 148 mg/dl
[2018-11-12] MEDS: Finasteride 5 MG TABLET PO SCH (08:51)
[2018-11-12] MEDS: Lactobacillus 1 EACH CAP.SPRINK PO SCH ×2 (08:51→20:26)
[2018-11-12] MEDS: *HR* Amiodarone 200 MG TABLET PO SCH (08:51)
[2018-11-12] MEDS: Diltiazem CD (24hr) 120 MG CAPSULE PO SCH (08:52)
[2018-11-12] MEDS: Insulin LISPRO 300 UNITS/3 ML VIAL SQ SCH ×4 (08:54→20:26)
[2018-11-13] MEDS: Piperacillin/Tazobactam 3.375 GM in 0.9 % Sodium Chloride Mini Bag 100 ML IVPB SCH ×4 (00:04→23:48)
[2018-11-13 02:52] LABS: Basophils % 0.2 %; Hematocrit 30.8 % (37.5-50.1); Hemoglobin 9.7 g/dL (12.9-16.9); Immature Granulocytes % 2.7 % (0-4); Lymphocytes # 0.3 K/mcL (0.6-4.6); Lymphocytes % 1.7 %; Mean Corpuscular HGB Conc 31.5 g/dL (31.6-35.5); Mean Corpuscular Hemoglobin 28.4 pg (28.0-33.3); Mean Corpuscular Volume 90.1 fL (83.0-100.0); Mean Platelet Volume 9.3 fL (9.4-12.4); Monocytes # 0.6 K/mcL (0.0-1.3); Monocytes % 3.4 %; Neutrophils # 16.4 K/mcL (1.6-8.9); Platelet Count 231 K/mcL (140-400); Red Blood Count 3.42 M/mcL (4.19-5.50); Red Cell Distribution Width 16.4 % (11.5-14.5); White Blood Count 17.9 K/mcL (4.3-11.1)
[2018-11-13 03:09] LABS: BUN/Creatinine Ratio 38 (6-26); Blood Urea Nitrogen 35 mg/dL (8-23); Carbon Dioxide 26 mEq/L (23-29); Chloride 98 mEq/L (98-107); Glucose 207 mg/dL (70-105); Osmolality,Calculated 290 (280-300); Potassium 4.1 mEq/L (3.5-5.1); Sodium 133 mEq/L (136-145); eGFR For African Americans > 60 (> 60); eGFR For Non-African Americans > 60 (> 60)
[2018-11-13] MEDS: Levalbuterol Neb 0.63 MG/3 ML IH SCH ×4 (04:11→22:29)
[2018-11-13] MEDS: MethylPREDNISolone 40 MG/ML VIAL IVP SCH (05:53)
[2018-11-13] MEDS: Finasteride 5 MG TABLET PO SCH (07:54)
[2018-11-13] MEDS: Lactobacillus 1 EACH CAP.SPRINK PO SCH ×2 (07:55→21:48)
[2018-11-13] MEDS: *HR* Amiodarone 200 MG TABLET PO SCH (07:55)
[2018-11-13] MEDS: Diltiazem CD (24hr) 120 MG CAPSULE PO SCH (07:55)
[2018-11-13] MEDS: Insulin LISPRO 300 UNITS/3 ML VIAL SQ SCH ×4 (07:56→21:46)
[2018-11-13] MEDS: *HR* Metformin 500 MG TABLET PO SCH (17:05)
[2018-11-14] MEDS ORDERED: Chloraseptic Spray 177 ML BOTTLE MM PRN (00:34)
[2018-11-14] MEDS: Levalbuterol Neb 0.63 MG/3 ML IH SCH ×4 (03:16→22:24)
[2018-11-14 05:42] LABS: Hematocrit 29.2 % (37.5-50.1); Hemoglobin 9.2 g/dL (12.9-16.9); Mean Corpuscular HGB Conc 31.5 g/dL (31.6-35.5); Mean Corpuscular Hemoglobin 28.5 pg (28.0-33.3); Mean Corpuscular Volume 90.4 fL (83.0-100.0); Mean Platelet Volume 9.4 fL (9.4-12.4); Platelet Count 187 K/mcL (140-400); Red Blood Count 3.23 M/mcL (4.19-5.50); Red Cell Distribution Width 16.7 % (11.5-14.5); White Blood Count 18.3 K/mcL (4.3-11.1)
[2018-11-14 05:59] LABS: BUN/Creatinine Ratio 40 (6-26); Blood Urea Nitrogen 33 mg/dL (8-23); Calcium 8.8 mg/dL (8.6-10.3); Carbon Dioxide 28 mEq/L (23-29); Chloride 100 mEq/L (98-107); Glucose 170 mg/dL (70-105); Osmolality,Calculated 287 (280-300); Potassium 4.2 mEq/L (3.5-5.1); Sodium 133 mEq/L (136-145); eGFR For African Americans > 60 (> 60); eGFR For Non-African Americans > 60 (> 60)
[2018-11-14] MEDS ORDERED: E-Z-HD (BARIUM SULF) SUSPENSION PO ONE (08:24)
[2018-11-14] MEDS ORDERED: E-Z-PAQUE (BARIUM SULF) SUSP 1 BOTTLE PO ONE (08:24)
[2018-11-14] MEDS: Insulin LISPRO 300 UNITS/3 ML VIAL SQ SCH ×4 (09:22→20:02)
[2018-11-14] MEDS: Diltiazem CD (24hr) 120 MG CAPSULE PO SCH (09:23)
[2018-11-14] MEDS: predniSONE 20 MG TABLET PO SCH (09:24)
[2018-11-14] MEDS: Lactobacillus 1 EACH CAP.SPRINK PO SCH ×2 (09:24→21:30)
[2018-11-14] MEDS: Finasteride 5 MG TABLET PO SCH (09:24)
[2018-11-14] MEDS: *HR* Amiodarone 200 MG TABLET PO SCH (09:24)
[2018-11-14] MEDS: *HR* Metformin 500 MG TABLET PO SCH ×2 (09:24→17:14)
[2018-11-14 17:21] LABS: INR 0.9; Prothrombin Time 10.6 Seconds (9.4-12.1)
[2018-11-15] MEDS: Levalbuterol Neb 0.63 MG/3 ML IH SCH ×4 (04:17→21:07)
[2018-11-15 04:53] LABS: Basophils % 0.2 %; Hematocrit 29.9 % (37.5-50.1); Hemoglobin 9.3 g/dL (12.9-16.9); Lymphocytes # 0.5 K/mcL (0.6-4.6); Lymphocytes % 2.7 %; Mean Corpuscular HGB Conc 31.1 g/dL (31.6-35.5); Mean Corpuscular Hemoglobin 27.8 pg (28.0-33.3); Mean Corpuscular Volume 89.3 fL (83.0-100.0); Mean Platelet Volume 9.2 fL (9.4-12.4); Monocytes % 5.5 %; Neutrophils # 16.2 K/mcL (1.6-8.9); Nucleated Red Blood Cells 0.2 /100 WBC (0); Platelet Count 195 K/mcL (140-400); Red Blood Count 3.35 M/mcL (4.19-5.50); Red Cell Distribution Width 16.9 % (11.5-14.5); Segmented Neutrophils % 88.6 %; White Blood Count 18.3 K/mcL (4.3-11.1)
[2018-11-15 05:08] LABS: BUN/Creatinine Ratio 52 (6-26); Blood Urea Nitrogen 31 mg/dL (8-23); Carbon Dioxide 29 mEq/L (23-29); Chloride 101 mEq/L (98-107); Glucose 151 mg/dL (70-105); Osmolality,Calculated 291 (280-300); Potassium 4.5 mEq/L (3.5-5.1); Sodium 136 mEq/L (136-145); eGFR For African Americans > 60 (> 60); eGFR For Non-African Americans > 60 (> 60)
[2018-11-15] MEDS ORDERED: *HR* FentaNYL (PF) 100 MCG/2 ML VIAL ONE (08:24)
[2018-11-15] MEDS ORDERED: *HR* Propofol 200 MG/20 ML VIAL IVP ONE (08:25)
[2018-11-15] MEDS ORDERED: Lidocaine -MPF 2% 2 ML VIAL ONE (08:25)
[2018-11-15] MEDS ORDERED: *HR* Succinylcholine 200 MG/10 ML VIAL IVP ONE (08:27)
[2018-11-15] MEDS ORDERED: Esmolol 100 MG/10 ML VIAL IVP ONE (08:29)
[2018-11-15] MEDS ORDERED: *HR* PHENYLEPHRINE 1,000 MCG/10 ML SYRINGE IVP ONE (08:45)
[2018-11-15] MEDS ORDERED: Ringers Solution, Lactated 1,000 ML IVC SCH (09:00)
[2018-11-15] MEDS: Insulin LISPRO 300 UNITS/3 ML VIAL SQ SCH ×4 (10:19→21:32)
[2018-11-15] MEDS: Finasteride 5 MG TABLET PO SCH (10:41)
[2018-11-15] MEDS: Diltiazem CD (24hr) 120 MG CAPSULE PO SCH (10:41)
[2018-11-15] MEDS: Furosemide 40 MG TABLET PO SCH (10:42)
[2018-11-15] MEDS: *HR* Amiodarone 200 MG TABLET PO SCH (10:42)
[2018-11-15] MEDS: Lactobacillus 1 EACH CAP.SPRINK PO SCH ×2 (10:42→20:01)
[2018-11-15] MEDS: *HR* Metformin 500 MG TABLET PO SCH ×2 (10:42→16:52)
[2018-11-15] MEDS: predniSONE 20 MG TABLET PO SCH (10:42)
[2018-11-15] MEDS ORDERED: *HR* Metoprolol 5 MG/5 ML VIAL IVP STA (12:15)
[2018-11-15 23:29] LABS: ABG Base Excess 6 mEq/L (-2 to 3); ABG HCO3 33 mEq/L (21-27); ABG Oxygen Saturation 90 % (95-98); ABG PCO2 59 mmHg (35-45); ABG PH 7.35 pH Units (7.32-7.45); ABG PO2 62 mmHg (85-104); ABG TCO2 34 mEq/L (20-26)
[2018-11-15] MEDS ORDERED: *HR* Metoprolol 5 MG/5 ML VIAL IVP ONE (23:43)
[2018-11-16] MEDS: Levalbuterol Neb 0.63 MG/3 ML IH SCH ×4 (03:06→21:32)
[2018-11-16] MEDS ORDERED: Furosemide 40 MG/4 ML VIAL IVP ONE (07:23)
[2018-11-16] MEDS: Furosemide 40 MG TABLET PO SCH (07:25)
[2018-11-16] MEDS: Diltiazem CD (24hr) 120 MG CAPSULE PO SCH ×2 (08:41→08:42)
[2018-11-16] MEDS: Finasteride 5 MG TABLET PO SCH (08:41)
[2018-11-16] MEDS: *HR* Metformin 500 MG TABLET PO SCH ×2 (08:42→17:41)
[2018-11-16] MEDS: predniSONE 20 MG TABLET PO SCH (08:42)
[2018-11-16] MEDS: Lactobacillus 1 EACH CAP.SPRINK PO SCH ×2 (08:42→20:56)
[2018-11-16] MEDS: *HR* Amiodarone 200 MG TABLET PO SCH (08:42)
[2018-11-16] MEDS: Insulin LISPRO 300 UNITS/3 ML VIAL SQ SCH ×4 (08:43→20:58)
[2018-11-16] MEDS ORDERED: Furosemide 80 MG in 0.9 % Sodium Chloride 50 ML IV ONE (15:29)
[2018-11-16 15:59] LABS: Hematocrit 30.5 % (37.5-50.1); Hemoglobin 9.5 g/dL (12.9-16.9); Mean Corpuscular HGB Conc 31.1 g/dL (31.6-35.5); Mean Corpuscular Hemoglobin 28.4 pg (28.0-33.3); Nucleated Red Blood Cells 0.1 /100 WBC (0); Platelet Count 182 K/mcL (140-400); Red Blood Count 3.35 M/mcL (4.19-5.50); Red Cell Distribution Width 17.2 % (11.5-14.5); White Blood Count 14.7 K/mcL (4.3-11.1)
[2018-11-16] MEDS ORDERED: Vancomycin 1 EACH in 0.9 % Sodium Chloride 250 ML IVPB SCH (16:00)
[2018-11-16 16:19] LABS: Magnesium 2.1 mg/dL (1.6-2.6)
[2018-11-16 16:22] LABS: Anisocytosis 1+ (Not Present); Platelet Estimate Normal (Normal)
[2018-11-16 16:25] LABS: BUN/Creatinine Ratio 49 (6-26); Blood Urea Nitrogen 42 mg/dL (8-23); Lymphocytes # 0.3 K/mcL (0.6-4.6); Monocytes # 0.9 K/mcL (0.0-1.3); Neutrophils # 13.5 K/mcL (1.6-8.9); eGFR For African Americans > 60 (> 60); eGFR For Non-African Americans > 60 (> 60)
[2018-11-16] MEDS: Piperacillin/Tazobactam 3.375 GM in 0.9 % Sodium Chloride Mini Bag 100 ML IVPB SCH ×2 (17:41→23:35)
[2018-11-17 01:58] LABS: Hematocrit 30.6 % (37.5-50.1); Hemoglobin 9.6 g/dL (12.9-16.9); Mean Corpuscular HGB Conc 31.4 g/dL (31.6-35.5); Mean Corpuscular Hemoglobin 28.9 pg (28.0-33.3); Mean Corpuscular Volume 92.2 fL (83.0-100.0); Mean Platelet Volume 10.4 fL (9.4-12.4); Platelet Count 108 K/mcL (140-400); Red Blood Count 3.32 M/mcL (4.19-5.50); Red Cell Distribution Width 17.3 % (11.5-14.5); White Blood Count 11.5 K/mcL (4.3-11.1)
[2018-11-17] MEDS: Levalbuterol Neb 0.63 MG/3 ML IH SCH ×4 (03:54→22:45)
[2018-11-17 04:14] LABS: BUN/Creatinine Ratio 52 (6-26); Blood Urea Nitrogen 44 mg/dL (8-23); Calcium 9.6 mg/dL (8.6-10.3); Carbon Dioxide 33 mEq/L (23-29); Chloride 100 mEq/L (98-107); Glucose 163 mg/dL (70-105); Osmolality,Calculated 311 (280-300); Potassium 3.9 mEq/L (3.5-5.1); Sodium 143 mEq/L (136-145); eGFR For African Americans > 60 (> 60); eGFR For Non-African Americans > 60 (> 60)
[2018-11-17] MEDS: Piperacillin/Tazobactam 3.375 GM in 0.9 % Sodium Chloride Mini Bag 100 ML IVPB SCH ×2 (09:27→17:25)
[2018-11-17] MEDS: *HR* Metformin 500 MG TABLET PO SCH ×2 (09:27→17:42)
[2018-11-17] MEDS: Finasteride 5 MG TABLET PO SCH (09:27)
[2018-11-17] MEDS: Insulin LISPRO 300 UNITS/3 ML VIAL SQ SCH ×4 (09:27→21:55)
[2018-11-17] MEDS: *HR* Amiodarone 200 MG TABLET PO SCH (09:27)
[2018-11-17] MEDS: Lactobacillus 1 EACH CAP.SPRINK PO SCH ×2 (09:27→20:26)
[2018-11-17] MEDS: Furosemide 40 MG/4 ML VIAL IVP SCH ×2 (11:15→17:42)
[2018-11-17] MEDS: MethylPREDNISolone 40 MG/ML VIAL IVP SCH (17:42)
[2018-11-17 17:46] LABS: Influenza A PCR Body Fluid NOT DETECTED; Influenza B PCR Body Fluid NOT DETECTED; RVP Body Fluid Source BAL LLL
[2018-11-17 20:29] LABS: BUN/Creatinine Ratio 63 (6-26); Blood Urea Nitrogen 43 mg/dL (8-23); Calcium 9.6 mg/dL (8.6-10.3); Carbon Dioxide 31 mEq/L (23-29); Chloride 101 mEq/L (98-107); Glucose 207 mg/dL (70-105); Osmolality,Calculated 311 (280-300); Potassium 3.9 mEq/L (3.5-5.1); Sodium 142 mEq/L (136-145); eGFR For African Americans > 60 (> 60); eGFR For Non-African Americans > 60 (> 60)
[2018-11-17] MEDS ORDERED: Bumetanide 1 MG/4 ML VIAL IVP ONE (21:30)
[2018-11-17] MEDS ORDERED: metOLazone 5 MG TABLET PO SCH (21:31)
[2018-11-17] MEDS ORDERED: metOLazone 5 MG TABLET PO ONE (21:33)
[2018-11-18] MEDS: Piperacillin/Tazobactam 3.375 GM in 0.9 % Sodium Chloride Mini Bag 100 ML IVPB SCH ×4 (00:09→23:35)
[2018-11-18] MEDS: Levalbuterol Neb 0.63 MG/3 ML IH SCH ×4 (03:39→21:39)
[2018-11-18 04:39] LABS: Hematocrit 30.3 % (37.5-50.1); Hemoglobin 9.2 g/dL (12.9-16.9); Mean Corpuscular HGB Conc 30.4 g/dL (31.6-35.5); Mean Corpuscular Hemoglobin 27.7 pg (28.0-33.3); Mean Corpuscular Volume 91.3 fL (83.0-100.0); Mean Platelet Volume 9.7 fL (9.4-12.4); Platelet Count 175 K/mcL (140-400); Red Blood Count 3.32 M/mcL (4.19-5.50); Red Cell Distribution Width 17.6 % (11.5-14.5); White Blood Count 10.6 K/mcL (4.3-11.1)
[2018-11-18 04:53] LABS: BUN/Creatinine Ratio 60 (6-26); Blood Urea Nitrogen 47 mg/dL (8-23); Calcium 9.6 mg/dL (8.6-10.3); Carbon Dioxide 34 mEq/L (23-29); Chloride 99 mEq/L (98-107); Glucose 201 mg/dL (70-105); Osmolality,Calculated 318 (280-300); Potassium 3.3 mEq/L (3.5-5.1); Sodium 145 mEq/L (136-145); eGFR For African Americans > 60 (> 60); eGFR For Non-African Americans > 60 (> 60)
[2018-11-18] MEDS ORDERED: Aminoglycoside Consult 1 EACH MC ONE (05:32)
[2018-11-18] MEDS: MethylPREDNISolone 40 MG/ML VIAL IVP SCH ×2 (06:39→17:25)
[2018-11-18] MEDS ORDERED: Amiodarone Premix 150 MG/100 ML BAG IVPB ONE (08:37)
[2018-11-18 08:48] LABS: RSV PCR Body Fluid NOT DETECTED
[2018-11-18] MEDS: metOLazone 5 MG TABLET PO SCH ×2 (09:09→17:23)
[2018-11-18] MEDS: Lactobacillus 1 EACH CAP.SPRINK PO SCH ×2 (09:09→20:04)
[2018-11-18] MEDS: Finasteride 5 MG TABLET PO SCH (09:09)
[2018-11-18] MEDS: Bumetanide 1 MG/4 ML VIAL IVP SCH ×2 (09:10→17:24)
[2018-11-18] MEDS: *HR* Metformin 500 MG TABLET PO SCH (09:10)
[2018-11-18] MEDS: Insulin LISPRO 300 UNITS/3 ML VIAL SQ SCH ×5 (09:24→21:40)
[2018-11-18 09:56] LABS: ABG Base Excess 8 mEq/L (-2 to 3); ABG HCO3 33 mEq/L (21-27); ABG Oxygen Saturation 95 % (95-98); ABG PCO2 48 mmHg (35-45); ABG PH 7.45 pH Units (7.32-7.45); ABG PO2 75 mmHg (85-104); ABG TCO2 35 mEq/L (20-26); Blood Gas VT 400 cc
[2018-11-18] MEDS ORDERED: Amiodarone Premix 360 MG/200 ML BAG IVC ONE (10:30)
[2018-11-18] MEDS ORDERED: Isovue-370 500 ML BOTTLE IVP ONE (11:09)
[2018-11-18 14:43] LABS: BUN/Creatinine Ratio 54 (6-26); Blood Urea Nitrogen 50 mg/dL (8-23); Calcium 9.9 mg/dL (8.6-10.3); Carbon Dioxide 36 mEq/L (23-29); Chloride 98 mEq/L (98-107); Glucose 208 mg/dL (70-105); Osmolality,Calculated 319 (280-300); Potassium 3.5 mEq/L (3.5-5.1); Sodium 145 mEq/L (136-145); eGFR For African Americans > 60 (> 60); eGFR For Non-African Americans > 60 (> 60)
[2018-11-18] MEDS: Amiodarone Premix 360 MG/200 ML BAG IVC SCH (17:14)
[2018-11-18] MEDS: Phenylephrine 10 MG in 0.9 % Sodium Chloride 250 ML IVC SCH ×3 (18:30→22:25)
[2018-11-19] MEDS: Phenylephrine 10 MG in 0.9 % Sodium Chloride 250 ML IVC SCH ×4 (01:32→22:34)
[2018-11-19] MEDS: Amiodarone Premix 360 MG/200 ML BAG IVC SCH ×2 (03:13→16:13)
[2018-11-19] MEDS: Levalbuterol Neb 0.63 MG/3 ML IH SCH ×4 (03:25→21:31)
[2018-11-19 03:57] LABS: Hematocrit 28.9 % (37.5-50.1); Hemoglobin 8.8 g/dL (12.9-16.9); Mean Corpuscular HGB Conc 30.4 g/dL (31.6-35.5); Mean Corpuscular Hemoglobin 28.2 pg (28.0-33.3); Mean Corpuscular Volume 92.6 fL (83.0-100.0); Mean Platelet Volume 9.1 fL (9.4-12.4); Platelet Count 172 K/mcL (140-400); Red Blood Count 3.12 M/mcL (4.19-5.50); White Blood Count 14.2 K/mcL (4.3-11.1)
[2018-11-19 04:13] LABS: BUN/Creatinine Ratio 57 (6-26); Blood Urea Nitrogen 54 mg/dL (8-23); Calcium 9.5 mg/dL (8.6-10.3); Carbon Dioxide 34 mEq/L (23-29); Chloride 103 mEq/L (98-107); Glucose 226 mg/dL (70-105); Magnesium 2.3 mg/dL (1.6-2.6); Osmolality,Calculated 326 (280-300); Potassium 4.3 mEq/L (3.5-5.1); Sodium 147 mEq/L (136-145); eGFR For African Americans > 60 (> 60); eGFR For Non-African Americans > 60 (> 60)
[2018-11-19] MEDS: MethylPREDNISolone 40 MG/ML VIAL IVP SCH ×2 (05:18→16:11)
[2018-11-19] MEDS: Finasteride 5 MG TABLET PO SCH (08:03)
[2018-11-19] MEDS: Lactobacillus 1 EACH CAP.SPRINK PO SCH ×2 (08:03→20:22)
[2018-11-19] MEDS: Piperacillin/Tazobactam 3.375 GM in 0.9 % Sodium Chloride Mini Bag 100 ML IVPB SCH ×3 (08:04→23:12)
[2018-11-19] MEDS: Bumetanide 1 MG/4 ML VIAL IVP SCH ×2 (08:04→16:10)
[2018-11-19] MEDS: Insulin LISPRO 300 UNITS/3 ML VIAL SQ SCH ×3 (08:06→17:28)
[2018-11-19] MEDS ORDERED: *HR* Digoxin 0.5 MG/2 ML AMPUL IVP ONE (10:50)
[2018-11-19] MEDS: *HR* Digoxin 0.5 MG/2 ML AMPUL IVP SCH ×2 (16:10→23:13)
[2018-11-20] MEDS: Insulin LISPRO 300 UNITS/3 ML VIAL SQ SCH ×4 (01:12→18:51)
[2018-11-20] MEDS: Phenylephrine 10 MG in 0.9 % Sodium Chloride 250 ML IVC SCH ×3 (02:05→07:05)
[2018-11-20] MEDS: Amiodarone Premix 360 MG/200 ML BAG IVC SCH ×2 (03:05→15:09)
[2018-11-20] MEDS: Levalbuterol Neb 0.63 MG/3 ML IH SCH ×4 (03:39→21:54)
[2018-11-20 05:12] LABS: Basophils % 0.1 %; Hematocrit 27.4 % (37.5-50.1); Hemoglobin 8.2 g/dL (12.9-16.9); Immature Granulocytes % 0.8 % (0-4); Lymphocytes # 0.3 K/mcL (0.6-4.6); Lymphocytes % 2.5 %; Mean Corpuscular HGB Conc 29.9 g/dL (31.6-35.5); Mean Corpuscular Hemoglobin 27.9 pg (28.0-33.3); Mean Corpuscular Volume 93.2 fL (83.0-100.0); Mean Platelet Volume 9.3 fL (9.4-12.4); Monocytes # 0.7 K/mcL (0.0-1.3); Monocytes % 5.7 %; Neutrophils # 10.5 K/mcL (1.6-8.9); Nucleated Red Blood Cells 0.2 /100 WBC (0); Platelet Count 158 K/mcL (140-400); Red Blood Count 2.94 M/mcL (4.19-5.50); Red Cell Distribution Width 17.9 % (11.5-14.5); Segmented Neutrophils % 90.9 %; White Blood Count 11.6 K/mcL (4.3-11.1)
[2018-11-20 05:20] LABS: BUN/Creatinine Ratio 51 (6-26); Blood Urea Nitrogen 55 mg/dL (8-23); Calcium 9.6 mg/dL (8.6-10.3); Carbon Dioxide 38 mEq/L (23-29); Chloride 104 mEq/L (98-107); Glucose 168 mg/dL (70-105); Magnesium 2.1 mg/dL (1.6-2.6); Osmolality,Calculated 323 (280-300); Phosphorous 3.8 mg/dL (2.7-4.5); Potassium 3.3 mEq/L (3.5-5.1); Sodium 147 mEq/L (136-145); eGFR For African Americans > 60 (> 60); eGFR For Non-African Americans > 60 (> 60)
[2018-11-20 05:50] LABS: Anisocytosis 1+ (Not Present); Platelet Estimate Normal (Normal)
[2018-11-20] MEDS: MethylPREDNISolone 40 MG/ML VIAL IVP SCH ×2 (06:06→18:16)
[2018-11-20] MEDS ORDERED: *HR* Metoprolol 5 MG/5 ML VIAL IVP PRN (07:48)
[2018-11-20] MEDS ORDERED: Furosemide 40 MG/4 ML VIAL IVP ONE (07:53)
[2018-11-20] MEDS: Lactobacillus 1 EACH CAP.SPRINK PO SCH ×2 (07:59→20:31)
[2018-11-20] MEDS: Finasteride 5 MG TABLET PO SCH (08:00)
[2018-11-20] MEDS ORDERED: Potassium Chloride 40 MEQ, Lidocaine 1% 2 ML in 0.9 % Sodium Chloride 500 ML IVPB ONE (08:22)
[2018-11-20] MEDS: Piperacillin/Tazobactam 3.375 GM in 0.9 % Sodium Chloride Mini Bag 100 ML IVPB SCH ×2 (08:40→16:59)
[2018-11-20] MEDS: Bumetanide 1 MG/4 ML VIAL IVP SCH ×2 (08:41→17:14)
[2018-11-20] MEDS ORDERED: *HR* Digoxin 0.125 MG TABLET PO SCH (09:00)
[2018-11-20] MEDS ORDERED: *HR* Digoxin 0.5 MG/2 ML AMPUL IVP SCH (09:00)
[2018-11-20] MEDS: Phenylephrine 50 MG in 0.9 % Sodium Chloride 250 ML IVC SCH ×3 (09:08→20:33)
[2018-11-20 10:11] LABS: Thyroid Stimulating Hormone 0.054 mcIU/mL (0.340-5.600)
[2018-11-20] MEDS: Morphine Sulfate Oral CONC 10 MG/0.5 ML ORAL.SYG SL PRN ×3 (14:23→21:02)
[2018-11-21] MEDS: Piperacillin/Tazobactam 3.375 GM in 0.9 % Sodium Chloride Mini Bag 100 ML IVPB SCH (00:18)
[2018-11-21] MEDS: Insulin LISPRO 300 UNITS/3 ML VIAL SQ SCH (00:22)
[2018-11-21] MEDS: Phenylephrine 50 MG in 0.9 % Sodium Chloride 250 ML IVC SCH (00:45)
[2018-11-21] MEDS: Morphine Sulfate Oral CONC 10 MG/0.5 ML ORAL.SYG SL PRN (01:09)
[2018-11-21] MEDS: Amiodarone Premix 360 MG/200 ML BAG IVC SCH (02:15)
[2018-11-21] MEDS: Levalbuterol Neb 0.63 MG/3 ML IH SCH (03:26)
[2018-11-21 04:11] VITALS: BP 91/39
== END 2018-11-21 05:33 | disposition expired | DRG 871 ==
LOC: EMEROOARM 14:53 → 2NENU 14:53 → SUATTDRO 17:31 → 2NENU 17:52 → SUATTDRO 11-12 14:00 → 2NNU 11-18 10:05 → ICNU 11-18 16:54
PROVIDERS: ADMIT Internal Medicine; ATTEND Internal Medicine
PROC: ENDOBRF (2018-11-15 17:30)